=== PATIENT | male | born 1940 | race Caucasian/White ===

== ENCOUNTER 2020-09-17 17:31 | Emergency (ER) | payer MEDICARE, SELFPAY ==
[2020-09-17] VITALS (15 sets, daily range): BP systolic 100–194; BP diastolic 45–97; PULSE 75–131; RESP 13–26; TEMP 36.6; O2SAT 95–100; BMI 17.4
--- NOTE | 2020-09-17 18:37 | XRR_ITS ---
PROCEDURE INFORMATION: Exam: XR Chest, 1 View Exam date and time: 09/17/2020 6:56 PM Age: 80 years old Clinical indication: Prior surgery; Surgery date: 6+ months; Surgery type: Open heart; Patient HX: Loss of balance. Chest pain. HX of lymphoma; Additional info: Cp TECHNIQUE: Imaging protocol: XR of the chest Views: 1 view. 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 Benign calcified granulomatous disease is present in the right lung along with calcified right pulmonary hilar lymph nodes. No pneumonia is seen. Pleural space: Unremarkable. No pleural effusion. No pneumothorax. Heart/Mediastinum: The heart is not enlarged. There is calcification of the aorta. Bones/joints: The patient has undergone a mid sternotomy. XR/XR chest 1V portable [id number] IMPRESSION: 1. No acute abnormality. 2. Right upper lobe chronic fibrosis and benign calcified granulomatous disease.
--- NOTE | 2020-09-17 18:38 | ECG_ITS ---
[facility] Test Date: 2020-09-17 Pat Name: Rogelio Taylor Department: Room: Gender: Male Shaker Operator: : 1940 Requested By: Charity Mosley Order Number: [id number] Libra MD: Savi Walker M.D. Measurements Intervals [place] Rate: 114 P: 268 GA: 196 QRS: 81 QRSD: 90 T: 1 QT: 328 QTc: 453 Interpretive Statements ECTOPIC ATRIAL TACHYCARDIA WITH OCCASIONAL SUPRAVENTRICULAR PREMATURE COMPLEXES LEFT ATRIAL ENLARGEMENT [-0.15mV P WAVE IN V1/V2] ST DEVIATION AND MODERATE T-WAVE ABNORMALITY, CONSIDER ANTERIOR ISCHEMIA [-0.1+ mV T WAVE IN V3/V4] No previous ECG available for comparison Electronically Signed On 09-18-2020 23:44:00 TREE FARMER by Savi Walker M.D. [email or web address].[employer]/store/OM/[id number]
--- NOTE | 2020-09-17 19:06 | CTR_ITS ---
PROCEDURE INFORMATION: Exam: CT Head Without Contrast Exam date and time: 09/17/2020 7:28 PM Age: 80 years old Clinical indication: Dizziness; Additional info: Ataxi TECHNIQUE: Imaging protocol: Computed tomography of the head without contrast. Radiation optimization: All CT scans at this facility use at least one of these dose optimization techniques: automated exposure control; mA and/or kV adjustment per patient size (includes targeted exams where dose is matched to clinical indication); or iterative reconstruction. COMPARISON: No relevant prior studies available. RADIATION DOSE METRICS: Total DLP (mGy-cm): 815.92 FINDINGS: Brain: Mild parenchymal volume loss noted. There is decreased attenuation of the periventricular white matter, consistent with mild microangiopathic chronic white matter disease. No cerebellar mass demonstrated. Cerebral ventricles: No ventriculomegaly. Bones/joints: No fracture or other acute osseous abnormality. Paranasal sinuses: The paranasal sinuses, as demonstrated, appear clear. Mastoid air cells: The mastoid air cells are clear bilaterally. Soft tissues: The soft tissues appear unremarkable. CT/CT head wo con* [id number] IMPRESSION: 1. Chronic intracranial changes are present. 2. No acute intracranial abnormality is noted. Radiation Dose CTDIVOL = (mGy): DLP = 815.92 (mGy-cm)
--- NOTE | 2020-09-17 19:28 | W.ED.DIZZY ---
HPI - Dizziness General: Chief Complaint: Dizziness Stated Complaint: loss of balance/sent from [facility]/poss heart issues Time Seen by Provider: 09/17/20 18:49 Source: patient Mode of arrival: ambulatory Limitations: no limitations History of Present Illness: HPI Narrative: 80-year-old male states he has been having dizziness and difficulty walking over the last 2 days. He states he has had an ataxic gait. Patient here is in atrial flutter and denies any history that states he takes a baby aspirin and then is the only blood thinner he is on. He denies any headache. He denies any chest pain. He states he just had a hard time walking and dizziness. MD elicited complaint: dizziness and difficulty walking Associated symptoms: Denies chest pain, chills, nausea or vomiting Review of Systems Const: Denies: fever(s), chills, body aches or change in appetite Eyes: Denies: blurry vision or eye discomfort ENMT: Denies: throat pain or dental pain Card: Denies: chest pain Resp: Denies: dyspnea GI: Denies: abdominal pain, nausea, vomiting or diarrhea : Denies: dysuria Musc: Denies: neck pain or back pain Skin/Breast: Denies: rash Neuro: Reports: difficulty walking and dizziness Psych: Denies: depression Mode/Lymph: Denies: easy bruising All/Imm: Denies: urticaria Physical Exam Const: COMMON NORMALS: no acute distress, patient oriented x3, healthy appearing and alert ORIENTATION/CONSCIOUSNESS: Yes oriented to person, Yes oriented to place and Yes oriented to time HENMT: COMMON NORMALS: normocephalic and atraumatic HEAD & SCALP: normocephalic and atraumatic Eye: COMMON NORMALS: Equal, round and reactive pupils present and EOMs intact bilaterally PUPIL: Yes Equal, round and reactive pupils present Neck/C-Spine: COMMON NORMALS: full ROM and supple Chest: COMMONS NORMALS: normal inspection of the chest and normal palpation of entire chest wall Resp: COMMON NORMALS: normal respiratory effort, No retractions, No use of accessory muscles and clear to auscultation bilaterally AUSCULTATION: clear to auscultation bilaterally Cardio: COMMON NORMALS: regular rate, regular rhythm and No murmurs present (Cardio) RATE: regular rate RHYTHM: regular rhythm GI: COMMON NORMALS: Normal to inspection, nondistended, normoactive bowel sounds present, Soft to palpation, non-tender and no masses PALPATION: Yes Soft to palpation Extremity: COMMON NORMALS: normal to inspection and full ROM Neuro: COMMON NORMALS: patient oriented x3 and moves all extremities SENSORIUM/ORIENTATION: Yes alert, Yes oriented to person, Yes oriented to place and Yes oriented to time CRANIAL NERVES: Yes CN normal except as noted SPEECH: speech normal GAIT: Yes Ataxic gait present MOTOR EXAM: 5/5 motor strength present throughout Psych: COMMON NORMALS: mental status grossly normal, Normal thought process present and cooperative THOUGHT PROCESS: Normal thought process present Skin: COMMON NORMALS: no rashes or lesions noted and no wounds GENERAL SKIN EXAM: no rashes or lesions noted Course Vital Signs: Vital signs: Vital Signs Temperature 97.9 F 09/17/20 17:36 Pulse Rate 77 09/17/20 22:50 Respiratory Rate 18 09/17/20 22:50 Blood Pressure 100/58 09/17/20 22:50 Pulse Oximetry 100 09/17/20 22:50 MDM - Dizziness MDM Narrative: Medical decision making narrative: Patient presents with dizziness tachycardia since resolved. Patient was able to ambulate in the halls without any problems. He has no ataxia here. Patient's heart rate is improved to the 80s as well. Had a long discussion with him and offered him admission but he states he would rather go home and follow-up with his PCP. I did inform him of still worried he could have had a posterior stroke and would recommend admission. He states he feels fine and can walk without any problems would like to go home. I informed him needs to follow-up his PCP likely needs an outpatient MRI. He needs to return immediately if he has any return of his symptoms. He understands and agrees to the plan. Lab Data: Labs: Lab Results 09/17/20 09/17/20 09/17/20 Range/Units 19:35 20:00 20:00 WBC (4.0-10.0) 10^3/ uL RBC (4.1-5.3) 10^6/u L Hgb (11.7-16.6) g/dL Hct (42.0-52.0) % MCV (80-94) fL MCH (28.0-34.0) pg MCHC (30.0-36.0) g/dL RDW (12.1-15.1) % Plt Count (130-400) 10^3/c mm MPV (7.4-10.4) fL Neut % (Auto) % Lymph % (Auto) % [place] % (Auto) % Eos % (Auto) % Baso % (Auto) % Neut # (Auto) (1.8-7.7) 10^3/u L Lymph # (Auto) (0.8-4.8) 10^3/u L Paul[place] # (Auto) (0.2-0.9) 10^3/u L Eos # (Auto) (0.0-0.8) 10^3/u L Baso # (Auto) (0.0-0.1) 10^3/u L Nucleated RBC % (a uto) % Nucleated RBCs # /100WBC PT 14.20 (12.1-14.9) SECO NDS INR 1.07 (0.8-1.2) Sodium 138 (136-145) mmol/L Potassium 4.7 (3.5-5.1) mmol/L Chloride 99 (98-107) mmol/L Carbon Dioxide 29 (22-29) mmol/L Anion Gap 14.7 (5-19) BUN 31 H (8-23) mg/dL Creatinine 0.9 (0.7-1.2) mg/dL GFR Calculation Not Reportable Glucose 119 H (65-115) mg/dL Calculated Osmolal ity 294 (285-295) mOsm/k g Calcium 9.2 (8.5-10.5) mg/dL Total Bilirubin 0.4 (0.15-1.2) mg/dL AST 39 (0-40) U/L ALT 27 (0-41) U/L Alkaline Phosphata se 135 H (40-130) IU/L Troponin T Baselin e (0-15) ng/L Troponin T 120 Min azra (0-15) ng/L Delta Troponin T (0-10) ABS# Total Protein 7.5 (6.6-8.7) g/dL Albumin 4.1 (3.5-5.2) g/dL Globulin 3.4 (1.3-4.6) g/dL Urine Color Yellow (Yellow) Urine Appearance Clear (CLEAR) Urine pH 5 (5-7) Ur Specific Gravit y 1.015 (1.005-1.030) Urine Protein Neg (Negative) Urine Glucose (UA) Norm (Normal) Urine Ketones Negative (Negative) Urine Blood 2+ H (Negative) Urine Nitrate Negative (Negative) Urine Bilirubin Neg (Negative) Urine Urobilinogen Norm (Negative) mg/dL Ur Leukocyte Holly ase Negative (Negative) Urine RBC 0-4 H (0-2) /hpf Urine WBC None (0-5) /hpf Ur Squamous Epith Cells None (0-5) /hpf Ur Transition Epit h Cell None /hpf Ur Renal Epithelia l Cell None /hpf Amorphous Sediment Not Reportable Urine Bacteria Trace (NONE) /hpf 09/17/20 09/17/20 09/17/20 Range/Units 20:00 20:00 21:56 WBC 9.9 (4.0-10.0) 10^3/ uL RBC 4.48 (4.1-5.3) 10^6/u L Hgb 14.3 (11.7-16.6) g/dL Hct 44.6 (42.0-52.0) % MCV 99.6 H (80-94) fL MCH 31.9 (28.0-34.0) pg MCHC 32.1 (30.0-36.0) g/dL RDW 12.7 (12.1-15.1) % Plt Count 194 (130-400) 10^3/c mm MPV 10.0 (7.4-10.4) fL Neut % (Auto) 81.8 % Lymph % (Auto) 8.0 % Paul[place] % (Auto) 9.0 % Eos % (Auto) 0.5 % Baso % (Auto) 0.4 % Neut # (Auto) 8.11 H (1.8-7.7) 10^3/u L Lymph # (Auto) 0.8 (0.8-4.8) 10^3/u L Paul[place] # (Auto) 0.9 (0.2-0.9) 10^3/u L Eos # (Auto) 0.1 (0.0-0.8) 10^3/u L Baso # (Auto) 0.0 (0.0-0.1) 10^3/u L Nucleated RBC % (a uto) 0 % Nucleated RBCs # 0.0 /100WBC PT (12.1-14.9) SECO NDS INR (0.8-1.2) Sodium (136-145) mmol/L Potassium (3.5-5.1) mmol/L Chloride (98-107) mmol/L Carbon Dioxide (22-29) mmol/L Anion Gap (5-19) BUN (8-23) mg/dL Creatinine (0.7-1.2) mg/dL GFR Calculation Glucose (65-115) mg/dL Calculated Osmolal ity (285-295) mOsm/k g Calcium (8.5-10.5) mg/dL Total Bilirubin (0.15-1.2) mg/dL AST (0-40) U/L ALT (0-41) U/L Alkaline Phosphata se (40-130) IU/L Troponin T Baselin e 50 H (0-15) ng/L Troponin T 120 Min azra 50.39 H (0-15) ng/L Delta Troponin T 0.39 (0-10) ABS# Total Protein (6.6-8.7) g/dL Albumin (3.5-5.2) g/dL Globulin (1.3-4.6) g/dL Urine Color (Yellow) Urine Appearance (CLEAR) Urine pH (5-7) Ur Specific Gravit y (1.005-1.030) Urine Protein (Negative) Urine Glucose (UA) (Normal) Urine Ketones (Negative) Urine Blood (Negative) Urine Nitrate (Negative) Urine Bilirubin (Negative) Urine Urobilinogen (Negative) mg/dL Ur Leukocyte Holly ase (Negative) Urine RBC (0-2) /hpf Urine WBC (0-5) /hpf Ur Squamous Epith Cells (0-5) /hpf Ur Transition Epit h Cell /hpf Ur Renal Epithelia l Cell /hpf Amorphous Sediment Urine Bacteria (NONE) /hpf Imaging Data^: CXR: Attestation: I personally reviewed and interpreted this imaging study as follows: My impression: No acute abnormality CT Head: Attestation: I personally reviewed and interpreted this imaging study as follows: Radiologist's impression: [address] [address] [address] Scan Report Signed Patient: Rogelio Taylor Unit #: [id number] : 1940 Age/Sex: 80 / M ADM Date: 09/17/20 Loc: ER Room/Bed: Attending Dr: Ordering Provider/Ordering MD: Charity Mosley MD Date of Service: 09/17/20 Procedure(s): CT head wo con* [id number] Accession Number(s): [id number] Report Number: [id number] PROCEDURE INFORMATION: Exam: CT Head Without Contrast Exam date and time: 09/17/2020 7:28 PM Age: 80 years old Clinical indication: Dizziness; Additional info: Ataxi TECHNIQUE: Imaging protocol: Computed tomography of the head without contrast. Radiation optimization: All CT scans at this facility use at least one of these dose optimization techniques: automated exposure control; mA and/or kV adjustment per patient size (includes targeted exams where dose is matched to clinical indication); or iterative reconstruction. COMPARISON: No relevant prior studies available. RADIATION DOSE METRICS: Total DLP (mGy-cm): 815.92 FINDINGS: Brain: Mild parenchymal volume loss noted. There is decreased attenuation of the periventricular white matter, consistent with mild microangiopathic chronic white matter disease. No cerebellar mass demonstrated. Cerebral ventricles: No ventriculomegaly. Bones/joints: No fracture or other acute osseous abnormality. Paranasal sinuses: The paranasal sinuses, as demonstrated, appear clear. Mastoid air cells: The mastoid air cells are clear bilaterally. Soft tissues: The soft tissues appear unremarkable. CT/CT head wo con* [id number] IMPRESSION: 1. Chronic intracranial changes are present. 2. No acute intracranial abnormality is noted. EKG Data^: EKG 1: Attestation: I personally reviewed and interpreted this EKG as follows: EKG interpretation date: 09/17/20 EKG interpretation time: 23:46 Interpretation: Atrial flutter heart rate [address] or T wave abnormalities QRS 84 QTc 359 EKG 2: Attestation: I personally reviewed and interpreted this EKG as follows: EKG interpretation date: 09/17/20 EKG interpretation time: 20:19 Interpretation: atrial tach hr [address] or t wave abnormalities Discharge Plan Discharge Patient Disposition: Home Clinical Impression: Tachycardia, Ataxia Condition: Stable Discharge Orders: Discharge ED (Routine); Ordered 09/17/20 Ordered By: Charity Mosley Referrals: Bryant Mendieta MD [Primary Care Provider] - 1-3 days Discharge Diet: Advance as tolerated Discharge Activity: Resume usual activity Patient Instructions: Weakness (ED) Coding Level of Care Code ED Cleaner And Presser for Chg Fwd Exam Comprehensive
[2020-09-17 20:17] LABS: Basophils % 0.4 %; Eosinophils # 0.1 10^3/uL (0.0-0.8); Eosinophils % 0.5 %; Hematocrit 44.6 % (42.0-52.0); Hemoglobin 14.3 g/dL (11.7-16.6); Lymphocytes # 0.8 10^3/uL (0.8-4.8); Mean Corpuscular HGB Conc 32.1 g/dL (30.0-36.0); Mean Corpuscular Hemoglobin 31.9 pg (28.0-34.0); Mean Corpuscular Volume 99.6 fL (80-94); Monocytes # 0.9 10^3/uL (0.2-0.9); Neutrophils # 8.11 10^3/uL (1.8-7.7); Neutrophils % 81.8 %; Nucleated Red Blood Cells % 0 %; Platelet Count 194 10^3/cmm (130-400); Red Blood Count 4.48 10^6/uL (4.1-5.3); Red Cell Distribution Width 12.7 % (12.1-15.1); White Blood Count 9.9 10^3/uL (4.0-10.0)
[2020-09-17 20:21] LABS: INR 1.07 (0.8-1.2)
[2020-09-17 20:24] LABS: Glucose Urine UA Norm (Normal); Protein Urine Neg (Negative); Specific Gravity, Urine 1.015 (1.005-1.030); Urine Appearance Clear (CLEAR); Urine Color Yellow (Yellow); pH Urine 5 (5-7)
[2020-09-17 20:25] LABS: Add Urine Microscopic? YES; Bilirubin Urine Neg (Negative); Blood Urine 2+ (Negative); Ketones Urine Negative (Negative); Leukocyte Esterase Urine Negative (Negative); Nitrate Urine Negative (Negative); Urobilinogen Urine Norm (Negative)
[2020-09-17 20:30] LABS: Alanine Aminotransferase 27 U/L (0-41); Albumin Level 4.1 g/dL (3.5-5.2); Alkaline Phosphatase 135 IU/L (40-130); Anion Gap 14.7 (5-19); Aspartate Amino Transferase 39 U/L (0-40); Blood Urea Nitrogen 31 mg/dL (8-23); Calcium 9.2 mg/dL (8.5-10.5); Carbon Dioxide 29 mmol/L (22-29); Chloride 99 mmol/L (98-107); Globulin 3.4 g/dL (1.3-4.6); Glucose 119 mg/dL (65-115); Osmolality Calculated 294 mOsm/kg (285-295); Potassium 4.7 mmol/L (3.5-5.1); Sodium 138 mmol/L (136-145); Total Bilirubin 0.4 mg/dL (0.15-1.2); Total Protein 7.5 g/dL (6.6-8.7)
[2020-09-17 20:34] LABS: Troponin(5th) Baseline 50 ng/L (0-15)
[2020-09-17 20:41] LABS: RBC Urine 0-4 /hpf (0-2)
[2020-09-17 20:42] LABS: Add Urine Culture? No; Bacteria Urine TRACE /hpf
[2020-09-17 22:24] LABS: Troponin 5 2HR 50.39 ng/L (0-15); Troponin 5 2HR Delta 0.39 ABS# (0-10)
== END 2020-09-17 22:51 | disposition home or self-care (01) ==
PROVIDERS: Emergency Provider Emergency Medicine; PCP Family Medicine
DX: R00.0 Tachycardia, unspecified (principal); R27.0 Ataxia, unspecified; R07.9 Chest pain, unspecified
CPT/HCPCS: 12345; 70450; 71045; 80053; 81001; 84484; 85025; 85610; 93005; 96374; 99283; 99284; J3490

== ENCOUNTER 2020-09-20 04:31 | Observation (INO) | payer MEDICARE, SELFPAY ==
[2020-09-20] VITALS (13 sets, daily range): BP systolic 106–154; BP diastolic 50–98; PULSE 50–119; RESP 15–25; TEMP 36.3–37.1; O2SAT 92–99; BMI 17.4
--- NOTE | 2020-09-20 04:40 | CTR_ITS ---
PROCEDURE INFORMATION: Exam: CT Head Without Contrast Exam date and time: 09/20/2020 4:42 AM Age: 80 years old Clinical indication: Walking, difficulty; Patient HX: Persistent leg weakness and walking difficulty x 1 week; Additional info: Ataxia TECHNIQUE: Imaging protocol: Computed tomography of the head without contrast. Radiation optimization: All CT scans at this facility use at least one of these dose optimization techniques: automated exposure control; mA and/or kV adjustment per patient size (includes targeted exams where dose is matched to clinical indication); or iterative reconstruction. Other technique: STROKE PROTOCOL was implemented. COMPARISON: CT head wo con* [id number] 09/17/2020 7:29 PM RADIATION DOSE METRICS: Total DLP (mGy-cm): 776.38 FINDINGS: Brain: Augustin white matter distinction is maintained throughout the brain. No radiographic evidence of intracranial hemorrhage. No CT evidence of mass hemorrhage or acute infarction. Cerebral ventricles: Ventricles are of normal size and configuration. Bones/joints: Unremarkable. No acute fracture. Paranasal sinuses: Visualized sinuses are unremarkable. No fluid levels. Mastoid air cells: Visualized mastoid air cells are well aerated. Soft tissues: Unremarkable. Other findings: No intra or extra-axial masses, lesions or collections. CT/CT head wo con* [id number] IMPRESSION: No acute intracranial process is appreciated. ASSESSMENT: ASPECTS (Sravani Stroke Program Early CT Score) is 10. Radiation Dose CTDIVOL = (mGy): DLP = 776.38 (mGy-cm)
--- NOTE | 2020-09-20 04:40 | XR_ITS ---
WS: [id number] Exam: XR chest 1V portable [id number] Date/Time of Exam: 09/20/2020 4:43 AM Reason For Exam: cp Comparison 09/17/2020. The lungs are hyperinflated and clear. Fibrous scarring in the bilateral upper lobes. Heart size is n ormal for technique. Signs of previous median sternotomy. No significant change. Postoperative change of the distal left clavicle. XR/XR chest 1V portable [id number] IMPRESSION: 1. No acute cardiopulmonary finding. No change.
--- NOTE | 2020-09-20 04:41 | ECG_ITS ---
[facility] Test Date: 2020-09-20 Pat Name: Rogelio Taylor Department: Room: 107 Gender: Male Nuclear Medical Technologist: : 1940 Requested By: Charity Mosley Order Number: [id number] Smyth MD: Esteban Navarro M.D. Measurements Intervals [place] Rate: 115 P: CO: QRS: 72 QRSD: 94 T: 29 QT: 314 QTc: 435 Interpretive Statements ATRIAL FLUTTER/TACHYCARDIA WITH RAPID VENTRICULAR RESPONSE NONSPECIFIC ST & T-WAVE ABNORMALITY ABNORMAL RHYTHM ECG Compared to ECG 09/17/2020 20:19:56 Atrial abnormality no longer present Possible ischemia no longer present T-wave abnormality still present Electronically Signed On 09-20-2020 15:04:22 CONFIGURATION RELEASE MANAGER by Esteban Navarro M.D. [email or web address].[employer]/store/NU/[id number] f
--- NOTE | 2020-09-20 04:58 | ED_ITS ---
HPI - Weakness General: Chief complaint: Weakness Stated complaint: unsteady, claims heart issue Time Seen by Provider: 09/20/20 04:42 Source: patient Mode of arrival: ambulatory Limitations: no limitations History of Present Illness: HPI Narrative: 80-year-old male he states that he had difficulty walking over the last week. He states that improved but he still is having some difficulty walking. Patient states that he had increased blood pressure along with tachycardia tonight. He was seen recently and was in atrial flutter that converted. He denies any fevers. He denies any headache. Associated symptoms: Denies chills, dysuria, easy bruising, fever(s), nausea or vomiting Review of Systems Const: Denies: fever(s), chills, body aches or change in appetite Eyes: Denies: blurry vision or eye discomfort ENMT: Denies: throat pain or dental pain Card: Reports: palpitations Resp: Denies: dyspnea GI: Denies: abdominal pain, nausea, vomiting or diarrhea : Denies: dysuria Musc: Denies: neck pain or back pain Skin/Breast: Denies: rash Neuro: Reports: difficulty walking Psych: Denies: depression Mode/Lymph: Denies: easy bruising All/Imm: Denies: urticaria PFSH ED PFSH: Medical History (Updated 09/20/20 @ 05:39 by Melody Day MD) BPH (benign prostatic hyperplasia) Coronary artery disease Dyslipidemia Lymphoma Raynauds phenomenon Surgical History (Updated 09/20/20 @ 05:39 by Melody Day MD) H/O hernia repair Hx of CABG Hx of tonsillectomy Family History (Updated 09/20/20 @ 05:40 by Melody Day MD) Other Family history non-contributory Physical Exam Const: COMMON NORMALS: no acute distress, patient oriented x3 and healthy appearing HENMT: COMMON NORMALS: normocephalic and atraumatic HEAD & SCALP: normocephalic and atraumatic Eye: COMMON NORMALS: Equal, round and reactive pupils present and EOMs intact bilaterally PUPIL: Yes Equal, round and reactive pupils present Neck/C-Spine: COMMON NORMALS: full ROM and supple Chest: COMMONS NORMALS: normal inspection of the chest and normal palpation of entire chest wall Resp: COMMON NORMALS: normal respiratory effort, No retractions, No use of accessory muscles and clear to auscultation bilaterally AUSCULTATION: clear to auscultation bilaterally Cardio: COMMON NORMALS: regular rhythm and No murmurs present (Cardio) RATE: tachycardic RHYTHM: regular rhythm GI: COMMON NORMALS: Normal to inspection, nondistended, normoactive bowel sounds present, Soft to palpation, non-tender and no masses PALPATION: Yes Soft to palpation Extremity: COMMON NORMALS: normal to inspection and full ROM Neuro: COMMON NORMALS: patient oriented x3, moves all extremities and no focal motor deficits Psych: COMMON NORMALS: mental status grossly normal, Normal thought process present and cooperative THOUGHT PROCESS: Normal thought process present Skin: COMMON NORMALS: no rashes or lesions noted and no wounds GENERAL SKIN EXAM: no rashes or lesions noted Course Vital Signs: Vital signs: Vital Signs Temperature 97.4 F L 09/20/20 04:35 Pulse Rate 110 H 09/20/20 05:11 Respiratory Rate 22 H 09/20/20 05:11 Blood Pressure 149/50 09/20/20 05:11 Pulse Oximetry 99 09/20/20 05:11 MDM - Weakness MDM Narrative: Medical decision making narrative: Patient presents here with atrial flutter. He was seen here earlier this week and had converted but is back in the flutter. He had some difficulty walking before that he states is mainly resolved but still has some slight difficulty walking. Still concerned of a possible posterior stroke. He was offered admission last time but this time he is decided to stay. We will admit him for observation. Lab Data: Labs: Lab Results 09/20/20 09/20/20 Range/Units 05:00 05:00 WBC 6.6 (4.0-10.0) 10^3/ uL RBC 4.71 (4.1-5.3) 10^6/u L Hgb 15.3 (11.7-16.6) g/dL Hct 51.6 (42.0-52.0) % MCV 109.6 H (80-94) fL MCH 32.5 (28.0-34.0) pg MCHC 29.7 L (30.0-36.0) g/dL RDW 14.0 (12.1-15.1) % Plt Count 195 (130-400) 10^3/c mm MPV 9.5 (7.4-10.4) fL Neut % (Auto) 55.2 % Lymph % (Auto) 22.7 % Reynolds % (Auto) 16.2 % Eos % (Auto) 4.2 % Baso % (Auto) 1.4 % Neut # (Auto) 3.66 (1.8-7.7) 10^3/u L Lymph # (Auto) 1.5 (0.8-4.8) 10^3/u L Reynolds # (Auto) 1.1 H (0.2-0.9) 10^3/u L Eos # (Auto) 0.3 (0.0-0.8) 10^3/u L Baso # (Auto) 0.1 (0.0-0.1) 10^3/u L Nucleated RBC % (a uto) 0 % Nucleated RBCs # 0.0 /100WBC Sodium 137 (136-145) mmol/L Chloride 101 (98-107) mmol/L Carbon Dioxide 26 (22-29) mmol/L Creatinine 1.1 (0.7-1.2) mg/dL GFR Calculation Not Reportable Glucose 95 (65-115) mg/dL Calculated Osmolal ity 292 (285-295) mOsm/k g Calcium 9.0 (8.5-10.5) mg/dL Total Bilirubin 0.4 (0.15-1.2) mg/dL Total Protein 8.1 (6.6-8.7) g/dL Albumin 4.3 (3.5-5.2) g/dL Globulin 3.8 (1.3-4.6) g/dL Imaging Data^: CXR: Attestation: I personally reviewed and interpreted this imaging study as follows: My impression: No acute abnormality EKG Data^: EKG 1: Attestation: I personally reviewed and interpreted this EKG as follows: EKG interpretation date: 09/20/20 EKG interpretation time: 04:55 Interpretation: atrial flutter hr [address] or t wave abnormalities qrs 94 qtc 382 Discharge Plan Discharge Patient Disposition: Admitted As Inpatient Clinical Impression: Atrial flutter Condition: Stable Coding Level of Care Code ED Hydraulic Miner Blasting for Chg Fwd Exam Comprehensive
[2020-09-20 05:19] LABS: Basophils # 0.1 10^3/uL (0.0-0.1); Basophils % 1.4 %; Eosinophils # 0.3 10^3/uL (0.0-0.8); Eosinophils % 4.2 %; Hematocrit 51.6 % (42.0-52.0); Hemoglobin 15.3 g/dL (11.7-16.6); Lymphocytes # 1.5 10^3/uL (0.8-4.8); Lymphocytes % 22.7 %; Mean Corpuscular HGB Conc 29.7 g/dL (30.0-36.0); Mean Corpuscular Hemoglobin 32.5 pg (28.0-34.0); Mean Corpuscular Volume 109.6 fL (80-94); Mean Platelet Volume 9.5 fL (7.4-10.4); Monocytes # 1.1 10^3/uL (0.2-0.9); Monocytes % 16.2 %; Neutrophils # 3.66 10^3/uL (1.8-7.7); Neutrophils % 55.2 %; Nucleated Red Blood Cells % 0 %; Platelet Count 195 10^3/cmm (130-400); Red Blood Count 4.71 10^6/uL (4.1-5.3); White Blood Count 6.6 10^3/uL (4.0-10.0)
--- NOTE | 2020-09-20 05:38 | P.HP_ITS ---
Providers/Chief Complaint Primary Care Provider: Bryant Mendieta MD Chief Complaint: unsteady, claims heart issue History of Present Illness Rogelio Taylor is a 80 year old male who has history of lymphoma status post treatment and radiotherapy, CABG, presented today with chief complaint of ataxia. Patient was seen in the ER 3 nights ago when he was diagnosed with hypertensive urgency and atrial flutter, he converted to sinus rhythm after Cardizem push, he was discharged home and was asked to follow-up with PCP. His PCP started him on metoprolol succinate. Today around 3:30 AM when he got up to go to the bathroom his gait was very off he is describing his gait as being locked and not able to initiate. He knew something was off, checked his pressure, blood pressure 135/112 mmhg but he is not sure about the heart rate. He was brought to the hospital for further evaluation. He Is denying recent falls, fever, myalgias facial droop, vision changes, neck pain, fever or headache, urinary incontinence, confusion. Diagnostics in the ER revealed atrial tachycardia, he received 10 mg Cardizem IV push which did not convert his rhythm this time CT head unremarkable for acute Baseline troponin 38, I do not have BMP at 4 magnesium level, I would request magnesium and TSH level When I evaluated the patient his heart rate was 70 and regular rhythm, blood pressure 106/50mmhg Romberg sign negative, he was able to walk without any difficulty Review of Systems Const: Denies: fever(s) or chills Eyes: Denies: change in vision ENMT: Denies: throat pain Card: Denies: chest pain Resp: Denies: dyspnea GI: Denies: abdominal pain : Denies: flank pain Musc: Denies: neck pain Skin/Breast: Denies: rash Neuro: Reports: difficulty walking; Denies: headache(s), frequent falls, dizziness, vertigo or confusion Psych: Denies: anxiety Endo: Denies: polyuria Mode/Lymph: Reports: easy bruising and easy bleeding All/Imm: Denies: urticaria Medications/Allergies Home Medications Medication Instructions Recorded Confirmed Last Taken Type metoprolol succinate 25 mg PO DAILY 09/20/20 09/20/20 09/19/20 08:00 History rosuvastatin 20 mg PO DAILY 09/20/20 09/20/20 09/19/20 08:00 History Allergies Allergy/AdvReac Type Severity Reaction Status Date / Time Penicillins Allergy ALGY-Rash Verified 09/17/20 17:40 ramipril [From Altace] Allergy ALGY-Swell Verified 09/20/20 04:42 Lip/Tongue/Throat PFSH Acute PFSH: Medical History (Updated 09/20/20 @ 05:39 by Melody Day MD) BPH (benign prostatic hyperplasia) Coronary artery disease Dyslipidemia Lymphoma Raynauds phenomenon Surgical History (Updated 09/20/20 @ 05:39 by Melody Day MD) H/O hernia repair Hx of CABG Hx of tonsillectomy Family History (Updated 09/20/20 @ 06:47 by Melody Day MD) Mother Cancer Leukemia Social History (Updated 09/20/20 @ 06:47 by Melody Day MD) Smoking and tobacco status: never smoked Alcohol intake: never Substance/Drug Use: never Lives independently: Yes Housing: House Vitals/I&O/Wt Last Vital Signs Temp 97.4 F L 09/20/20 04:35 Pulse 110 H 09/20/20 05:11 Resp 22 H 09/20/20 05:11 BP 149/50 09/20/20 05:11 Pulse Ox 99 09/20/20 05:11 Weight last 48 hrs Weight 52.163 kg Physical Exam Narrative: EXAM NARRATIVE: elderly male Sitting at the bedside without any active discomfort His gait was tested which was normal no Parkinson's features were noticed at the time of my evaluation, Romberg sign negative, no lightheadedness or orthostasis noted Decreased muscle mass otherwise no active neurological deficit No gaze preference Awake alert oriented x3 GCS 15 EOMI, PERRLA No cerebellar signs noted S1, S2 variable heart rate fluctuate between 70-1 10 Bilateral breath sounds without active rhonchi or crackles Abdomen soft nontender bowel sound present Lower extremity no edema gangrene ulcer Appropriate mood and affect Skin has mild petechial rash No gaze preference Data : 09/20/20 05:00 09/20/20 05:00 A&P Assessment and plan (1) Atrial flutter: Status: Acute (2) Ataxia: Status: Acute Additional A&P Information Paroxysmal atrial flutter Current heart rate fluctuating between 70-1 10 I will start him on Metroprolol tartrate twice a day regimen Check magnesium and TSH level Requested BMP I will start him on Eliquis for paroxysmal A. flutter chadvasc 4 EKGs reading as ectopic atrial tachycardia, his lung does show signs of pneumoconiosis versus radiation-induced fibrosis, he is a non-smoker, he is also showing paroxysmal atrial flutter pattern on telemetry, will review serial EKGs and troponin, no active chest pain Ataxia No confusion no urinary incontinence, no signs of enlarged ventricles on CT scan Romberg sign negative Cerebellar signs negative No signs of Parkinson's during my evaluation I am not sure whether osteoarthritis of hip is playing a role for ataxia at this point Is not complaining of any nausea or vomiting Considering paroxysmal atrial flutter would like to rule out acute posterior circulation stroke, would request MRI Physical therapy evaluation Cardiac diet DVT prophylaxis not needed currently on Eliquis Full code Attestations Medical Necessity Statement*: Anticipating discharge in less than 48 hours, currently need evaluation for paroxysmal A. fib and recurrent ataxia Time Spent in Patient Care: (>than 50% of time spent in counselling and/or direct pt care on unit) . 50mins Coding Level of Care Code Acute Plastic Cutter for Tommyg Fwd Diagnoses Atrial flutter I48.92 Ataxia R27.0
[2020-09-20 05:49] LABS: Troponin(5th) Baseline 38 ng/L (0-15)
--- NOTE | 2020-09-20 06:44 | PC.NURSE ---
Patient received from ED via wheelchair. Patient able to ambulate to bed without difficulty. Placed telemetry patient. Noted patient to be in slow afib with rate from 40 to mid 60s. Patient denies any discomforts presently. Patient has pulse oximeter to left pinky. Patient stated, my hands have to warm before is will get a good reading. I have Raynaud's. Reports history of Lymphoma with chemo and radiation treatments in 1984. Reported history of triple bypass . Uncertain about exact date but stated, a long time ago. Patient reports walking 5 miles per day and used to be an avid runner. Admission complete as documented.
--- NOTE | 2020-09-20 06:51 | PC.NURSE ---
i have reviewed the chart
[2020-09-20 07:20] LABS: D Dimer 0.91 ug/mIFEU (0-0.59)
[2020-09-20 07:47] LABS: Alanine Aminotransferase 34 U/L (0-41); Albumin Level 3.5 g/dL (3.5-5.2); Alkaline Phosphatase 120 IU/L (40-130); Aspartate Amino Transferase 52 U/L (0-40); Blood Urea Nitrogen 31 mg/dL (8-23); Calcium 8.8 mg/dL (8.5-10.5); Carbon Dioxide 29 mmol/L (22-29); Chloride 102 mmol/L (98-107); Glucose 102 mg/dL (65-115); Osmolality Calculated 293 mOsm/kg (285-295); Sodium 138 mmol/L (136-145); Thyroid Stimulating Hormone 2.46 uIU/mL (0.27-4.20); Total Bilirubin 0.3 mg/dL (0.15-1.2); Total Protein 6.5 g/dL (6.6-8.7); Vitamin B12 385 pg/mL (232-1245)
--- NOTE | 2020-09-20 07:49 | USCV_ITS ---
Rogelio Taylor Age: 80 Gender: M : 1940 Exam Date: 09/20/2020 07:53 Ordering Phys: Bronson Don MD Technologist: Debbie Smith [place] [facility] [place]: NSTEMI BP: 122 / 71 HR: 69 Rhythm: Sinus Technical Quality: Adequate MEASUREMENTS (Male / Female) Normal Values 2D ECHO LV Diastolic Diameter PLAX 3.9 cm 4.2 - 5.9 / 3.9 - 5.3 cm LV Systolic Diameter PLAX 2.7 cm LV Chamber Size 2.8 cm IVS Diastolic Thickness 0.7 cm 0.6 - 1.0 / 0.6 - 0.9 cm IVS Systolic Thickness 1.1 cm LVPW Diastolic Thickness 1.7 cm 0.6 - 1.0 / 0.6 - 0.9 cm LVPW Systolic Thickness 1.6 cm RV Chamber Size 2.7 cm LVOT Diameter 2.0 cm LV Ejection Fraction 2D Teich 60.1 % LV Ejection Fraction MOD 2C 47.6 % LV Ejection Fraction 2C AL 48.6 % LA Diameter 2.6 cm LA Width 3.6 cm LA Height 3.1 cm RA Width 3.5 cm RA Height 3.5 cm Aorta at Sinotubular Diameter 3.0 cm M-MODE LV Diastolic Diameter MM 4.8 cm 4.2 - 5.9 / 3.9 - 5.3 cm LV Systolic Diameter MM 4.0 cm LV Ejection Fraction MM Teich 36.9 % IVS Diastolic Thickness MM 0.7 cm 0.6 - 1.0 / 0.6 - 0.9 cm IVS Systolic Thickness MM 0.8 cm LVPW Diastolic Thickness MM 0.9 cm 0.6 - 1.0 / 0.6 - 0.9 cm LVPW Systolic Thickness MM 0.9 cm Aortic Annulus Diameter 3.4 cm LA Ao Ratio MM 0.6 MV E Point Septal Separation 2.7 cm DOPPLER AV Peak Velocity 225.3 cm/s LVOT Peak Velocity 87.0 cm/s AV Area Cont Eq vti 1.1 cm squared AV Area Cont Eq pk 1.3 cm squared MV Area PHT 2.3 cm squared Mitral E to A Ratio 211.0 MV E' Velocity 87.5 cm/s Mitral E to MV E' Ratio 21.6 Mitral E to LV E' Lateral Ratio 27.7 Mitral E to LV E' Septal Ratio 17.8 TR Peak Velocity 354.7 cm/s TR Peak Gradient 50.3 mmHg TR Mean Velocity 278.2 cm/s TR Mean Gradient 33.9 mmHg TR Velocity Time Integral 142.9 cm TV Peak E Velocity 33.0 cm/s Right Atrial Pressure 3.0 mmHg Pulmonary Artery Systolic Pressu 53.3 mmHg PV Peak Velocity 78.0 cm/s RV Acceleration Time 0.1 s RV Ejection Time 0.3 s RV AcT/ET 0.4 FINDINGS Left Ventricle Normal left ventricular size and borderline normal LV systolic function. LVEF is 50 to 55%. There is very mild hypokinesis of anterior wall.. Moderate left ventricular hypertrophy is noted. Diastolic function is indeterminate because of atrial fibrillation. Right Ventricle The right ventricle is normal in size and function. Right Atrium The right atrium is normal in size. Left Atrium The left atrium is normal in size. Mitral Valve Valve is thickened. No significant mitral stenosis is present. There is mild to moderate mitral regurgitation. Aortic Valve Aortic valve is thickened and calcified. There is mild aortic stenosis with a mean gradient across the valve of 10 mmHg and aortic valve area of 1.18 cm squared. There is mild aortic regurgitation. Tricuspid Valve Structurally normal tricuspid valve without significant stenosis. There is mild to moderate tricuspid regurgitation. RVSP is 55 mmHg. This is consistent with moderate pulmonary hypertension. Pulmonic Valve Grossly normal. Mild pulmonic regurgitation is seen. Pericardium Normal pericardium without effusion. Aorta Normal ascending aorta dimension. CONCLUSIONS LV systolic function is borderline normal with EF of 50 to 55%. Moderate left ventricular hypertrophy is present. Diastolic function is indeterminate because of atrial fibrillation. There is mild to moderate mitral regurgitation. Moderate tricuspid regurgitation is present. There is moderate pulmonary hypertension. Pulmonic valve has mild regurgitation. When compared to prior study from 11/24/2018, no significant changes are seen. Esteban Navarro MD (Electronically Signed) Final Date: 20 September 2020 13:39 S
--- NOTE | 2020-09-20 07:49 | USCV_ITS ---
Rogelio Taylor Age: 80 Gender: M : 1940 Exam Date: 09/20/2020 08:08 Ordering Phys: Bronson Don MD Technologist: Debbie Smith Exam Location: [facility] – [place] Indication: NSTEMI Risk Factors: Previous Vascular Surgery: Right Brachial BP: / Left Brachial BP: / Right Left Velocity (cm/s) Spectral Plaque Velocity (cm/s) Spectral Plaque Syst/Diast Broadening Syst/Diast Broadening 49.00/ 9.40 Prox CCA 37.70 / 8.30 46.10/ 7.70 Mid CCA 53.50 / 12.10 48.50/ 10.80 Distal CCA 40.00 / 9.80 52.40/ 10.70 Prox ICA 40.00 / 19.60 32.40/ 9.80 Mid ICA 47.80 / 12.00 48.30/ 18.90 Distal ICA 43.60 / 13.20 104.30 ECA 79.20 1.14 ICA/CCA 0.89 Antegrade Vertebral Antegrade 59.60/ 14.30 cm/s 10.80/ 1.70 cm/s Tri Subclavian Tri 54.30 51.10 CONCLUSIONS Right ICA stenosis <50%. Mild atheromatous plaque right carotid bulb/ICA. Left ICA stenosis <50%. Mild atheromatous plaque left carotid bulb/ICA. Normal antegrade Doppler flow noted in the right vertebral artery. Normal antegrade Doppler flow noted in the left vertebral artery. Tony Blue MD (Electronically Signed) Final Date: 20 September 2020 18:16 S
[2020-09-20 08:01] LABS: Anion Gap 11.9 (5-19); Potassium 4.9 mmol/L (3.5-5.1)
--- NOTE | 2020-09-20 08:26 | MR_ITS ---
WS: [id number] MRA HEAD TECHNIQUE: Axial 3-D TOF images obtained with axial images and axial, sagittal, and coronal 2-D refor matted images. CLINICAL INFORMATION: ataxia COMPARISON: None. FINDINGS: Distal vertebral arteries are patent. Basilar artery is patent. Normal vascularity to the DRAGLINE ENGINEER territo ry bilaterally. Both ICAs are patent at the skull base. Tortuous cavernous carotid arteries. Moderate to severe steno sis left supraclinoid ICA. Distal vessels remains patent. Normal vascularity to the LACHELLE and MCA brigido tories bilaterally. Otherwise unremarkable intracranial MRa. MR/MR angio head wo con [id number] IMPRESSION: 1. 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 Distal vessels remains p atent. 2. Otherwise unremarkable intracranial MRa.
[2020-09-20] MEDS: atorvastatin 40 mg Tablet 80 MG PO (08:55)
[2020-09-20] MEDS: apixaban 5 mg Tablet PO ×2 (08:55→17:28)
[2020-09-20] MEDS: aspirin 81 mg EC Tablet PO (08:55)
[2020-09-20] MEDS: metoprolol tartrate 50 mg Tablet PO (08:55)
--- NOTE | 2020-09-20 10:07 | PC.NURSE ---
patient transported to MRI.
--- NOTE | 2020-09-20 10:15 | MR_ITS ---
WS: [id number] MRI HEAD WITHOUT CONTRAST TECHNIQUE: Sagittal T1, T2 axial, T2 axial FLAIR, axial and coronal T1 images, axial susceptibility w eighted imaging, axial diffusion weighted images, and coronal T2 images were obtained. CLINICAL INFORMATION: ataxia COMPARISON: None. FINDINGS: No evidence of restricted diffusion to suggest acute ischemia. Ventricular system and basal cisterns are patent. Mild small vessel changes. Moderate parenchymal volume loss. Normal posterior fossa. Norm al vascular flow voids at the skull base. No extra-axial fluid collections. No evidence of mass or ma ss effect. Paranasal sinuses and mastoid air cells well aerated. No hemosiderin on susceptibly weighted images. Mild symmetric atrophy temporal lobes hippocampal form ations. Normal optic chiasm and pituitary infundibulum. MR/MR head wo con* [id number] IMPRESSION: 1. No evidence of restricted diffusion to suggest acute ischemia. 2. Mild small vessel changes. Moderate parenchymal volume loss. 3. Normal posterior fossa. Normal vascular flow voids at the skull base. 4. No hemosiderin on the susceptibly weighted images. 5. Mild symmetric atrophy temporal lobes and hippocampal formations.
--- NOTE | 2020-09-20 10:41 | ECG_ITS ---
[facility] Test Date: 2020-09-20 Pat Name: Rogelio Taylor Department: Room: 107 Gender: Male Touch Up Edger: : 1940 Requested By: Charity Mosley Order Number: [id number] Libra MD: Esteban Navarro M.D. Measurements Intervals [place] Rate: 116 P: MO: QRS: 81 QRSD: 80 T: 59 QT: 298 QTc: 414 Interpretive Statements ATRIAL FLUTTER/TACHYCARDIA WITH RAPID VENTRICULAR RESPONSE NONSPECIFIC ST & T-WAVE ABNORMALITY ABNORMAL RHYTHM ECG Compared to ECG 09/20/2020 04:55:53 No significant changes Electronically Signed On 09-20-2020 15:09:27 EMS EDUCATOR by Esteban Navarro M.D. [email or web address]
--- NOTE | 2020-09-20 11:00 | PC.CHAP ---
Pastoral Care Encounter/Spiritual Assessment Type of Contact [x] Declined caregiver services home visit [] Patient/Family/Request visit [] Outpatient visit [] Follow-up visit [] Physician referral [] Code/Alert [] Routine visit [] Staff referral [] Actively dying [] Patient sleeping [] Family support [] [] Out of room [] Palliative care [] [] Receiving care in room [] Pre-surgical visit [] Trauma [] Long length of stay [] ICU visit [] Other: Relational/Emotional Strength [] Patient feels connected with others/family/visitors/staff [] Distress [] Loneliness/isolation [] Abandonment Spirituality of Patient [] Person of Tomasa [] Attends Islam of their Tomasa [] Believes in Prayer [] Reads Bible or Anglican materials [] There are Spiritual issues to be addressed [place]icker Interventions [] Prayer [] Active listening [] Non-anxious presence [] Spiritual/emotional support [] Crisis/trauma care [] Spiritual counseling [] Bereavement support [] Provided bereavement packet [] Provided Bible/devotional materials [] Provided toy/stuffed animal, coloring book to patient or family member [] Provided Communion [] Anointing/[place] [] Salvation [] Completed spiritual assessment [] Other: Impact on Illness or Injury [] Angry [] Fearful [] Anxious [] Often cries [] Exhaustion [] Unable to work [] Unable to attend episcopalian [] Unable to walk/stand [] Unable to read [] Unable to drive [] Unable to eat/drink [] Unable to sleep [] Unable to be with family [] Patient intubated [] Other: Summary Declined caregiver services home visit Time spent with patient 5 mins
[2020-09-20 12:10] LABS: Troponin 5 6HR 46.65 ng/L (0-15); Troponin 5 6HR Delta 8.65 ng/L (0-12)
--- NOTE | 2020-09-20 12:10 | PM.PN ---
Subjective Subjective: Interval history: Patient tells me that he is here in the hospital, because his legs felt heavy, and he had trouble coordinating his feet, this is never happened before, no history of back injuries, no paresthesias, does have Raynaud's phenomenon, no focal neurologic deficits currently, no slurring of speech, no facial droop, I did observe patient ambulating hallways with physical therapy, he is unsteady on his feet, does have positive cerebellar signs Vitals/I&O/Wt Last Vital Signs Temp 98.8 F 09/20/20 11:23 Pulse 119 H 09/20/20 11:23 Resp 15 09/20/20 11:23 BP 126/86 09/20/20 11:23 Pulse Ox 92 09/20/20 11:23 09/19/20 09/20/20 09/20/20 22:59 06:59 14:59 Output Total 500 / 500 Balance -500 / -500 Weight last 48 hrs Weight 52.163 kg Physical Exam Const: COMMON NORMALS: no acute distress and patient oriented x3 HENMT: COMMON NORMALS: normocephalic HEAD & SCALP: normocephalic Neck/C-Spine: COMMON NORMALS: no JVD Resp: COMMON NORMALS: normal respiratory effort, No retractions, No use of accessory muscles and clear to auscultation bilaterally AUSCULTATION: clear to auscultation bilaterally Cardio: COMMON NORMALS: no JVD, regular rate, regular rhythm, S1 normal heart sound present and S2 normal heart sound present RATE: regular rate RHYTHM: regular rhythm HEART SOUNDS: S1 normal heart sound present and S2 normal heart sound present GI: COMMON NORMALS: Normal to inspection, nondistended, normoactive bowel sounds present, Soft to palpation, non-tender, No hepatosplenomegaly present, no masses and no bruits PALPATION: Yes Soft to palpation and Yes No hepatosplenomegaly present Extremity: COMMON NORMALS: capillary refill normal, no clubbing, cyanosis or edema, no calf tenderness and no pedal edema Neuro: COMMON NORMALS: patient oriented x3, CN's II-XII intact bilaterally, moves all extremities and no focal motor deficits OTHER: Positive cerebellar signs Psych: COMMON NORMALS: mental status grossly normal Data : 09/20/20 05:00 09/20/20 07:00 A&P Assessment and plan (1) Atrial flutter: Status: Acute (2) Ataxia: Status: Acute (3) Cerebellar stroke: Status: Acute (4) NSTEMI (non-ST elevated myocardial infarction): Status: Acute Additional A&P Information History of CABG Paroxysmal atrial flutter Continue metoprolol 50 twice daily, add amiodarone 400 mg daily Magnesium and TSH within normal limits Continue Eliquis chadvasc 4 NSTEMI No active chest pain, no palpitations, shortness of breath Delta troponin at 120 minutes 11.4, 6-hour delta 8.65 On aspirin, statin, Eliquis We will order cardiac echocardiogram Ataxia, bilateral lower extremity weakness, concerning for cerebellar stroke No confusion no urinary incontinence, no signs of enlarged ventricles on CT scan Cerebellar signs positive No signs of Parkinson's during my evaluation Considering paroxysmal atrial flutter would like to rule out acute posterior circulation stroke MRI MRI of the brain ordered PT OT, speech therapy eval, allow for permissive hypertension Neurochecks, Physical therapy evaluation Cardiac diet DVT prophylaxis not needed currently on Eliquis Full code Attestations Medical Necessity Statement*: Patient requires hospitalization for paroxysmal atrial fibrillation, NSTEMI, 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
--- NOTE | 2020-09-20 12:30 | PC.NURSE ---
dr schofield notified of patient heart rate being 120's. ordered amiodarone. given as ordered.
[2020-09-20] MEDS: amiodarone 200 mg Tablet 400 MG PO (12:32)
[2020-09-20 13:12] LABS: NT Pro B Type Natriuretic Pept 2588 pg/mL (0-450)
--- NOTE | 2020-09-20 16:05 | PC.NURSE ---
Addendum entered by Rosanna Hong 09/20/20 16:07: patient is asymptotic at this time. Original Note: dr schofield notified of patient heart rate being high 40's to low 50's. blood pressure of 88/49. dr colvin to monitor patient.
--- NOTE | 2020-09-20 17:27 | PC.NURSE ---
kanwal called to see if he still wanted metoprolol given, verbal order to hold this dose.
[2020-09-21 04:00] VITALS: BP 134/57; PULSE 62; RESP 19; TEMP 36.8; O2SAT 96
[2020-09-21 04:44] LABS: Basophils # 0.1 10^3/uL (0.0-0.1); Basophils % 0.8 %; Eosinophils # 0.3 10^3/uL (0.0-0.8); Eosinophils % 3.9 %; Hemoglobin 13.1 g/dL (11.7-16.6); Lymphocytes # 1.4 10^3/uL (0.8-4.8); Lymphocytes % 21.2 %; Mean Corpuscular HGB Conc 32.8 g/dL (30.0-36.0); Mean Corpuscular Volume 97.8 fL (80-94); Mean Platelet Volume 10.3 fL (7.4-10.4); Monocytes % 15.7 %; Neutrophils # 3.87 10^3/uL (1.8-7.7); Neutrophils % 58.2 %; Nucleated Red Blood Cells % 0 %; Platelet Count 179 10^3/cmm (130-400); Red Blood Count 4.09 10^6/uL (4.1-5.3); Red Cell Distribution Width 12.7 % (12.1-15.1); White Blood Count 6.6 10^3/uL (4.0-10.0)
[2020-09-21 05:12] LABS: Alanine Aminotransferase 29 U/L (0-41); Alkaline Phosphatase 106 IU/L (40-130); Anion Gap 10.3 (5-19); Aspartate Amino Transferase 42 U/L (0-40); Blood Urea Nitrogen 36 mg/dL (8-23); Calcium 8.5 mg/dL (8.5-10.5); Carbon Dioxide 30 mmol/L (22-29); Chloride 102 mmol/L (98-107); Glucose 95 mg/dL (65-115); Osmolality Calculated 294 mOsm/kg (285-295); Phosphorus 3.1 mg/dL (2.5-4.5); Potassium 4.3 mmol/L (3.5-5.1); Sodium 138 mmol/L (136-145); Total Bilirubin 0.4 mg/dL (0.15-1.2)
[2020-09-21 08:00] VITALS: BP 122/58; PULSE 66; RESP 16; TEMP 36.4; O2SAT 99
--- NOTE | 2020-09-21 08:21 | PM.CONSULT ---
Providers/Reason For Consult Consulting Physican/Specialty*: Esteban Navarro MD/Interventional Cardiology Reason for Consult*: Troponin elevation/atrial fibrillation Attending Physician: Bronson Don MD Primary Care Provider: Bryant Mendieta MD History of Present Illness History of Present Illness 80 year old male who has history of lymphoma status post treatment and radiotherapy, CABG, presented with chief complaint of ataxia. Patient was seen in the ER 3 nights before current hospitalization with hypertensive urgency and atrial flutter, he converted to sinus rhythm after Cardizem push, he was discharged home and was asked to follow-up with PCP. His PCP started him on metoprolol succinate. On day of presentation, around 3:30 AM when he got up to go to the bathroom his gait was very off he described his gait as being locked and not able to initiate. His was in atrial fibrillation and converted back to normal sinus rhyhtm with Amiodarone. Initial troponin was 38 and trended upto 50. Patient denies complaints of chest pain, shortness of breath or palpitations. Review of Systems Const: Denies: fever(s) or chills Eyes: Denies: change in vision ENMT: Denies: throat pain Card: Denies: chest pain Resp: Denies: dyspnea GI: Denies: abdominal pain : Denies: flank pain Musc: Denies: neck pain Skin/Breast: Denies: rash Neuro: Reports: difficulty walking; Denies: headache(s), frequent falls, dizziness, vertigo or confusion Psych: Denies: anxiety Endo: Denies: polyuria Mode/Lymph: Reports: easy bruising and easy bleeding All/Imm: Denies: urticaria Meds/Allergies Home Medications and Allergies Home Medications Medication Instructions Recorded Confirmed Last Taken Type rosuvastatin 20 mg PO DAILY 09/20/20 09/20/20 09/19/20 08:00 History amiodarone [Pacerone] See Rx Instructions .ROUTE 09/21/20 Unknown Rx .COMPLEX #60 tab apixaban [Eliquis] 5 mg PO BID 30 Days #60 tab 09/21/20 Unknown Rx aspirin 81 mg PO DAILY 30 Days #30 tab 09/21/20 Unknown Rx Allergies Allergy/AdvReac Type Severity Reaction Status Date / Time Penicillins Allergy ALGY-Rash Verified 09/17/20 17:40 ramipril [From Altace] Allergy ALGY-Ava Verified 09/20/20 04:42 Lip/Tongue/Throat Current Medications Current Medications Generic Name Dose Route Start Last Admin Trade Name Nabil PRN Reason Stop Dose Admin Amiodarone HCl 400 mg 09/20/20 12:30 09/20/20 12:32 Amiodarone 200 Mg Tablet PO 400 mg DAILY JAROD Administration Apixaban 5 mg 09/20/20 09:00 09/20/20 17:28 Apixaban 5 Mg Tablet PO 5 mg BID JAROD Administration Aspirin 81 mg 09/20/20 09:00 09/20/20 08:55 Aspirin 81 Mg Ec Tablet PO 81 mg DAILY JAROD Administration Atorvastatin Calcium 80 mg 09/20/20 09:00 09/20/20 08:55 Atorvastatin 40 Mg Tablet PO 80 mg DAILY JAROD Administration PFSH Acute PFSH: Medical History BPH (benign prostatic hyperplasia) Coronary artery disease Dyslipidemia Lymphoma Raynauds phenomenon Surgical History H/O hernia repair Hx of CABG Hx of tonsillectomy Family History Mother Cancer Leukemia Social History Smoking and tobacco status: never smoked Alcohol intake: never Lives independently: Yes Housing: House Vitals/I&O/Wt Last Vital Signs Temp 98.2 F 09/21/20 04:00 Pulse 62 09/21/20 04:00 Resp 19 H 09/21/20 04:00 BP 134/57 09/21/20 04:00 Pulse Ox 96 09/21/20 04:00 09/20/20 09/21/20 09/21/20 22:59 06:59 14:59 Intake Total 240 / 240 150 / 390 Output Total 350 / 850 800 / 1650 Balance -110 / -610 -650 / -1260 Weight last 48 hrs Weight 115 lb Physical Exam Const: COMMON NORMALS: no acute distress and patient oriented x3 GENERAL APPEARANCE: cooperative and comfortable HENMT: COMMON NORMALS: normocephalic HEAD & SCALP: normocephalic Eye: COMMON NORMALS: Equal, round and reactive pupils present and EOMs intact bilaterally GENERAL EYE: appearance normal, both eyes and all related structures PUPIL: Yes Equal, round and reactive pupils present Neck/C-Spine: COMMON NORMALS: full ROM, no lymphadenopathy, no JVD and Thyroid normal THYROID: Thyroid normal Lymph: LYMPHATIC: no lymphadenopathy noted Resp: COMMON NORMALS: normal respiratory effort, No retractions, No use of accessory muscles and clear to auscultation bilaterally AUSCULTATION: clear to auscultation bilaterally Cardio: COMMON NORMALS: no JVD, regular rate, regular rhythm, S1 normal heart sound present, S2 normal heart sound present, No gallops present (Cardio), No clicks present (Cardio) and No murmurs present (Cardio) RATE: regular rate RHYTHM: regular rhythm HEART SOUNDS: S1 normal heart sound present and S2 normal heart sound present GI: COMMON NORMALS: Normal to inspection, nondistended, normoactive bowel sounds present, Soft to palpation, non-tender and No hepatosplenomegaly present PALPATION: Yes Soft to palpation and Yes No hepatosplenomegaly present Extremity: COMMON NORMALS: normal to inspection, full ROM and no pedal edema Neuro: COMMON NORMALS: patient oriented x3, CN's II-XII intact bilaterally, moves all extremities and no focal motor deficits Psych: COMMON NORMALS: mental status grossly normal, Normal thought process present and cooperative THOUGHT PROCESS: Normal thought process present A&P Assessment and plan (1) Cerebellar stroke: Status: Acute (2) Troponin level elevated: Status: Acute (3) Coronary artery disease: Status: Inactive (4) Atrial fibrillation: Status: Acute Patient has cerebellar stroke in the setting of atrial fibrillation. Troponin elevation is secondary to demand ischemia with atrial fibrillation with RVR and stroke. Patient did not have any chest pain. Afib converted back to normal sinus rhythm with amiodarone given overnight. Now can continue as patient has already converted. Continue Eliquis. No ischemic workup indicated at this time. Patient can follow with cardiology as outpatient. Thank you for involving us with care of this patient. 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
[2020-09-21] MEDS: atorvastatin 40 mg Tablet 80 MG PO (09:09)
[2020-09-21] MEDS: aspirin 81 mg EC Tablet PO (09:10)
[2020-09-21] MEDS: amiodarone 200 mg Tablet 400 MG PO (09:10)
[2020-09-21] MEDS: apixaban 5 mg Tablet PO (09:10)
[2020-09-21] MEDS: metoprolol tartrate 25 mg Tablet 12.5 MG PO (09:11)
--- NOTE | 2020-09-21 09:17 | PC.CHAP ---
Pastoral Care Encounter/Spiritual Assessment Type of Contact [] Declined head of merchandise buying visit [] Patient/Family/Request visit [] Outpatient visit [] Follow-up visit [] Physician referral [] Code/Alert [] Routine visit [] Staff referral [] Actively dying [] Patient sleeping [] Family support [] [] Out of room [] Palliative care [] [] Receiving care in room [] Pre-surgical visit [] Trauma [] Long length of stay [] ICU visit [x] Other: busy with doctor Relational/Emotional Strength [] Patient feels connected with others/family/visitors/staff [] Distress [] Loneliness/isolation [] Abandonment Spirituality of Patient [] Person of Tomasa [] Attends Mandaeism of their Tomasa [] Believes in Prayer [] Reads Bible or Mandaeism materials [] There are Spiritual issues to be addressed 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 [x] Prayer [] Active listening [] Non-anxious presence [] Spiritual/emotional support [] Crisis/trauma care [] Spiritual counseling [] Bereavement support [] Provided bereavement packet [] Provided Bible/devotional materials [] Provided toy/stuffed animal, coloring book to patient or family member [] Provided Communion [] Anointing/[place] [] Salvation [x] Completed spiritual assessment [] Other: Impact on Illness or Injury [] Angry [] Fearful [] Anxious [] Often cries [] Exhaustion [] Unable to work [] Unable to attend christian [] Unable to walk/stand [] Unable to read [] Unable to drive [] Unable to eat/drink [] Unable to sleep [] Unable to be with family [] Patient intubated [] Other: Summary Time spent with patient
--- NOTE | 2020-09-21 11:26 | PM.DCS ---
Discharge Providers Date of Admission: 09/20/20 05:43 Date of Discharge: September 21, 2020 Attending Provider at Admission: Melody Day MD Attending Provider at Discharge: Bronson Don MD Primary Care Provider: Bryant Mendieta MD Diagnoses at Discharge Discharge Diagnosis (1) Atrial flutter: Status: Acute (2) Ataxia: Status: Acute (3) Cerebellar stroke: Status: Acute (4) NSTEMI (non-ST elevated myocardial infarction): Status: Acute Reason for Visit Reason for Visit: unsteady, claims heart issue 30304 I63.9 Hospital Course Hospital Course This is a 80-year-old male with a past medical history of lymphoma status post treatment and radiation therapy, CABG, who presents to [facility] for ataxia Patient was admitted to [facility] for ataxia and atrial fibrillation, and NSTEMI Atrial fibrillation, newly diagnosed, converted to normal sinus rhythm after amiodarone, will be discharged on amiodarone, Eliquis, with a close follow-up with cardiology in one 1 week. For NSTEMI, patient's troponin was high as 49.4, positive delta of 11.4, no complaints of chest pain, no acute ST-T wave changes, cardiology was consulted, recommended mended medical management, with close follow-up with cardiology echo: LV systolic function is borderline normal with EF of 50 to 55%. Moderate left ventricular hypertrophy is present. Diastolic function is indeterminate because of atrial fibrillation. There is mild to moderate mitral regurgitation. Moderate tricuspid regurgitation is present. There is moderate pulmonary hypertension. Pulmonic valve has mild regurgitation. When compared to prior study from 11/24/2018, no significant changes are seen. For sudden ataxia and sudden bilateral extremity weakness, highly suspicious for embolic stroke to cerebellum related to new onset atrial fibrillation as above, initial CT of the head did not show intracranial hemorrhage, monitored as inpatient, allowed for permissive hypertension, received PT OT, speech therapy; patient's unsteadiness improved back to baseline through his hospital admission, adamant about going home, declined home health care. 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 Nonetheless is unsteadiness and cerebellar signs returned back to baseline. He will be discharged on aspirin, statin, Eliquis as above. Follow-up with neurology in 3 months. Monitor for signs of bleeding, repeat CBC in 1 week, return to the hospital for strokelike symptoms Head ct: Brain: Augustin white matter distinction is maintained throughout the brain. No radiographic evidence of intracranial hemorrhage. No CT evidence of mass hemorrhage or acute infarction. Cerebral ventricles: Ventricles are of normal size and configuration. Bones/joints: Unremarkable. No acute fracture. Paranasal sinuses: Visualized sinuses are unremarkable. No fluid levels. Mastoid air cells: Visualized mastoid air cells are well aerated. Soft tissues: Unremarkable. Other findings: No intra or extra-axial masses, lesions or collections. Head MRA: Distal vertebral arteries are patent. Basilar artery is patent. Normal vascularity to the INSTRUMENT AND CONTROLS TECHNICIAN territory bilaterally. Both ICAs are patent at the skull base. Tortuous cavernous carotid arteries. 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 Distal vessels remains patent. Normal vascularity to the LACHELLE and MCA territories bilaterally. Otherwise unremarkable intracranial MRa. Head MRI: No evidence of restricted diffusion to suggest acute ischemia. Ventricular system and basal cisterns are patent. Mild small vessel changes. Moderate parenchymal volume loss. Normal posterior fossa. Normal vascular flow voids at the skull base. No extra-axial fluid collections. No evidence of mass or mass effect. Paranasal sinuses and mastoid air cells well aerated. No hemosiderin on susceptibly weighted images. Mild symmetric atrophy temporal lobes hippocampal formations. Normal optic chiasm and pituitary infundibulum. Physical Exam Const: COMMON NORMALS: no acute distress and patient oriented x3 GENERAL APPEARANCE: cooperative and comfortable HENMT: COMMON NORMALS: normocephalic HEAD & SCALP: normocephalic Eye: COMMON NORMALS: Equal, round and reactive pupils present and EOMs intact bilaterally GENERAL EYE: appearance normal, both eyes and all related structures PUPIL: Yes Equal, round and reactive pupils present Neck/C-Spine: COMMON NORMALS: full ROM, no lymphadenopathy, no JVD and Thyroid normal THYROID: Thyroid normal Lymph: LYMPHATIC: no lymphadenopathy noted Resp: COMMON NORMALS: normal respiratory effort, No retractions, No use of accessory muscles and clear to auscultation bilaterally AUSCULTATION: clear to auscultation bilaterally Cardio: COMMON NORMALS: no JVD, regular rate, regular rhythm, S1 normal heart sound present, S2 normal heart sound present, No gallops present (Cardio), No clicks present (Cardio) and No murmurs present (Cardio) RATE: regular rate RHYTHM: regular rhythm HEART SOUNDS: S1 normal heart sound present and S2 normal heart sound present GI: COMMON NORMALS: Normal to inspection, nondistended, normoactive bowel sounds present, Soft to palpation, non-tender and No hepatosplenomegaly present PALPATION: Yes Soft to palpation and Yes No hepatosplenomegaly present Extremity: COMMON NORMALS: normal to inspection, full ROM and no pedal edema Neuro: COMMON NORMALS: patient oriented x3, CN's II-XII intact bilaterally, moves all extremities and no focal motor deficits Psych: COMMON NORMALS: mental status grossly normal, Normal thought process present and cooperative THOUGHT PROCESS: Normal thought process present Discharge Data Data Completed and Pending: Completed Studies During Hospitalization Category Date Time Status CT head wo con* [id number] 0450 Urgent Cat Scan 09/20/20 04:40 Completed XR chest 1V garth ble [id number] Urgent Exams 09/20/20 04:40 Completed MR angio head wo con [id number] Routine MRI 09/20/20 08:26 Completed MR head wo con* [id number] 0551 Routine MRI 09/20/20 10:15 Completed CV carotid duplex BI* [id number] Routine Ultrasound 09/20/20 07:49 Completed CV echo complete* [id number] Routine Ultrasound 09/20/20 07:49 Completed Pending at discharge Category Date Time Status Complete Blood Co unt w/Auto AM LABS Lab 09/22/20 04:00 Ordered Complete Blood Co unt w/Auto AM LABS Lab 09/23/20 04:00 Ordered Comprehensive Met abolic Panel AM LA BS Lab 09/22/20 04:00 Ordered Comprehensive Met abolic Panel AM LA BS Lab 09/23/20 04:00 Ordered Magnesium AM LABS Lab 09/22/20 04:00 Ordered Magnesium AM LABS Lab 09/23/20 04:00 Ordered Phosphorus AM LAB S Lab 09/22/20 04:00 Ordered Phosphorus AM LAB S Lab 09/23/20 04:00 Ordered Labs from last 24 hours 09/21/20 09/21/20 09/20/20 03:50 03:50 11:40 WBC 6.6 RBC 4.09 L Hgb 13.1 Hct 40.0 L MCV 97.8 H D MCH 32.0 MCHC 32.8 D RDW 12.7 Plt Count 179 MPV 10.3 Neut % (Auto) 58.2 Lymph % (Auto) 21.2 [place] % (Auto) 15.7 Eos % (Auto) 3.9 Baso % (Auto) 0.8 Neut # (Auto) 3.87 Lymph # (Auto) 1.4 [place] # (Auto) 1.0 H Eos # (Auto) 0.3 Baso # (Auto) 0.1 Nucleated RBC % (a uto) 0 Nucleated RBCs # 0.0 Sodium 138 Potassium 4.3 Chloride 102 Carbon Dioxide 30 H Anion Gap 10.3 BUN 36 H Creatinine 1.1 GFR Calculation Not Reportable Glucose 95 Calculated Osmolal ity 294 Calcium 8.5 Phosphorus 3.1 Magnesium 2.0 Total Bilirubin 0.4 AST 42 H ALT 29 Alkaline Phosphata se 106 Troponin T Hi Sens 6Hr 46.65 H Troponin T Hi Sens 6Hr Delta 8.65 NT-Pro-B Natriuret Pep Total Protein 6.0 L Albumin 3.0 L Globulin 3.0 09/20/20 07:00 WBC RBC Hgb Hct MCV MCH MCHC RDW Plt Count MPV Neut % (Auto) Lymph % (Auto) [place] % (Auto) Eos % (Auto) Baso % (Auto) Neut # (Auto) Lymph # (Auto) [place] # (Auto) Eos # (Auto) Baso # (Auto) Nucleated RBC % (a uto) Nucleated RBCs # Sodium Potassium Chloride Carbon Dioxide Anion Gap BUN Creatinine GFR Calculation Glucose Calculated Osmolal ity Calcium Phosphorus Magnesium Total Bilirubin AST ALT Alkaline Phosphata se Troponin T Hi Sens 6Hr Troponin T Hi Sens 6Hr Delta NT-Pro-B Natriuret Pep 2588 H Total Protein Albumin Globulin Vitals: Last Vital Signs Temp 97.6 F 09/21/20 08:00 Pulse 66 09/21/20 08:00 Resp 16 09/21/20 08:00 BP 122/58 09/21/20 08:00 Pulse Ox 99 09/21/20 08:00 Discharge Plan Discharge Patient Disposition: Home Condition: Stable Prescriptions: New amiodarone [Pacerone] 200 mg Tablet See Rx Instructions .ROUTE .COMPLEX Qty: 60 RF: 0 Eliquis 5 mg Tablet 5 mg PO BID 30 Days Qty: 60 RF: 0 aspirin 81 mg Tablet,Delayed Release (Dr/Ec) 81 mg PO DAILY 30 Days Qty: 30 RF: 0 Continued rosuvastatin 20 mg Tablet 20 mg PO DAILY RF: 0 Discontinued metoprolol succinate 25 mg Tablet Extended Release 24 Hr 25 mg PO DAILY RF: 0 Discharge Orders: Discharge Order (Routine); Ordered 09/21/20 Ordered By: Bronson Don Other Ambulatory Orders: Complete Blood Count w/Auto (Routine) Timeframe: 1 Week Location: Determined by Patient Ordered By: Bronson Don Referrals: Suzan Miranda MD [Physician] - 3 months Esteban Navarro M.D [Physician] - 1 week Bryant Mendieta MD [Primary Care Provider] - Discharge Diet: Cardiac Discharge Activity: Resume usual activity Activity Restrictions/Additional Instructions: -Please monitor for bleeding -If you fall please come to the emergency room -Follow-up with primary care provider in 1 week for blood work -If you have chest pain palpitations go to the emergency room -If you have recurrent strokelike symptoms call 911 -Please follow-up with cardiology in 1 week Discharge Attestations Time Spent in Discharge Care*: less than 30 min Quality Metrics Clinical Quality Measures During this hospital stay, did patient experience: Stroke Contraindication to Antithrombotic: Antithrombotic prescribed Contraindication to Anticoagulation: Anticoagulation prescribed Contraindication to Statin: Statin prescribed Coding Level of Care Code Acute Sanitor for [employer]on Kay Diagnoses Atrial flutter I48.92 Ataxia R27.0 Cerebellar stroke I63.9 NSTEMI (non-ST elevated myocardial infarction) I21.4
[2020-09-21 12:00] VITALS: BP 141/58; PULSE 68; RESP 24; TEMP 36.8; O2SAT 95
--- NOTE | 2020-09-21 13:34 | PC.NURSE ---
Discharge instructions given per the physician's instructions. Patient verbalized understanding and did not have any further questions. IV has been removed. Patient dressed self. Patient ride contacted for discharge. 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 1 eliquis 5 mg tablet obtained from pharmacy for patient to take tonight. No further needs identified at this time.
[2020-09-21 14:12] VITALS: BP 141/58; PULSE 68; RESP 24; TEMP 36.8; O2SAT 95
== END 2020-09-21 14:05 | disposition home or self-care (01) ==
LOC: ER 05:39 → CSU 05:47
PROVIDERS: Admitting Provider Internal Medicine; Emergency Provider Emergency Medicine; PCP Family Medicine; Visit Provider Family Medicine
DX: I48.92 Unspecified atrial flutter (principal); R27.0 Ataxia, unspecified; I63.9 Cerebral infarction, unspecified; I21.4 Non-ST elevation (NSTEMI) myocardial infarction; I65.23 Occlusion and stenosis of bilateral carotid arteries; Z85.72 Personal history of non-Hodgkin lymphomas; Z95.1 Presence of aortocoronary bypass graft; N40.0 Benign prostatic hyperplasia without lower urinary tract symptoms; I25.10 Atherosclerotic heart disease of native coronary artery without angina pectoris; E78.5 Hyperlipidemia, unspecified; Z79.01 Long term (current) use of anticoagulants; Z79.82 Long term (current) use of aspirin; R77.8 Other specified abnormalities of plasma proteins
CPT/HCPCS: 12345; 36415; 70450; 70544; 70551; 71045; 80053; 82607; 83735; 83880; 84100; 84443; 84484; 85025; 85378; 92507; 92522; 92523; 92610; 93005; 93306; 93880; 96374; 97116; 97161; 99283; 99285; G0378; J3490

== ENCOUNTER 2020-09-23 17:19 | Emergency (ER) | payer MEDICARE, SELFPAY ==
[2020-09-23] VITALS (16 sets, daily range): BP systolic 134–187; BP diastolic 63–99; PULSE 75–103; RESP 13–25; TEMP 36.7; O2SAT 79–100; BMI 17.4
--- NOTE | 2020-09-23 18:43 | XRR_ITS ---
PROCEDURE INFORMATION: Exam: XR Chest, 1 View Exam date and time: 09/23/2020 6:44 PM Age: 80 years old Clinical indication: Other: Palpitations; Prior surgery; Surgery date: 6+ months TECHNIQUE: Imaging protocol: XR of the chest Views: 1 view. COMPARISON: CR XR chest 1V portable [id number] 09/20/2020 4:46 AM FINDINGS: There is hyperinflation. Patient is status post median sternotomy. There is some scarring within the lung apices. No infiltrates are present. There is no pleural effusion or pneumothorax. The heart size is normal. XR/XR chest 1V portable [id number] IMPRESSION: No active disease.
--- NOTE | 2020-09-23 18:50 | PC.NURSE ---
Report from CHELE Cooper
[2020-09-23 19:17] LABS: Basophils % 0.4 %; Eosinophils # 0.1 10^3/uL (0.0-0.8); Eosinophils % 0.6 %; Hematocrit 41.7 % (42.0-52.0); Hemoglobin 13.7 g/dL (11.7-16.6); Lymphocytes % 11.8 %; Mean Corpuscular HGB Conc 32.9 g/dL (30.0-36.0); Mean Corpuscular Hemoglobin 31.9 pg (28.0-34.0); Mean Platelet Volume 9.9 fL (7.4-10.4); Monocytes # 1.2 10^3/uL (0.2-0.9); Monocytes % 14.4 %; Neutrophils # 5.85 10^3/uL (1.8-7.7); Neutrophils % 72.7 %; Nucleated Red Blood Cells % 0 %; Platelet Count 219 10^3/cmm (130-400); Red Cell Distribution Width 12.5 % (12.1-15.1); White Blood Count 8.1 10^3/uL (4.0-10.0)
[2020-09-23 19:26] LABS: INR 1.38 (0.8-1.2)
[2020-09-23 19:28] LABS: Partial Thromboplastin Time 43.1 SECONDS (23.9-36.7)
[2020-09-23] MEDS: LORazepam 2 mg/mL INJ 1 mL 0.5 MG IVP (19:28)
[2020-09-23 19:38] LABS: Troponin(5th) Baseline 51 ng/L (0-15)
[2020-09-23 19:49] LABS: Alanine Aminotransferase 36 U/L (0-41); Alkaline Phosphatase 128 IU/L (40-130); Aspartate Amino Transferase 45 U/L (0-40); Blood Urea Nitrogen 18 mg/dL (8-23); Calcium 9.1 mg/dL (8.5-10.5); Carbon Dioxide 31 mmol/L (22-29); Chloride 98 mmol/L (98-107); Creatine Phosphokinase 206 U/L (39-308); Creatinine Clr Calc Pharmacy 55.2421; Globulin 3.4 g/dL (1.3-4.6); Glucose 101 mg/dL (65-115); NT Pro B Type Natriuretic Pept 3868 pg/mL (0-450); Osmolality Calculated 284 mOsm/kg (285-295); Sodium 136 mmol/L (136-145); Total Bilirubin 0.6 mg/dL (0.15-1.2); Total Protein 7.4 g/dL (6.6-8.7)
[2020-09-23 19:50] LABS: Anion Gap 11.8 (5-19); Potassium 4.8 mmol/L (3.5-5.1)
--- NOTE | 2020-09-23 22:55 | PC.NURSE ---
Pt denies pain and no needs. awaiting results
--- NOTE | 2020-09-23 23:04 | PC.NURSE ---
pt denies pain and resting without needs.
[2020-09-23] MEDS: carvedilol 6.25 mg Tablet PO (23:10)
--- NOTE | 2020-09-24 01:19 | ED_ITS ---
HPI - Arrhythmia/Palpitations General: Chief Complaint: Arrhythmia/Palpitations Stated Complaint: HIGH BP Time Seen by Provider: 09/23/20 18:39 History of Present Illness: HPI narrative: 80-year-old male with a history of atrial fibrillation and coronary disease status post CABG. He presents with palpitations and hypertension starting this evening. He states that he had an last evening to. He was recently discharged from the hospital after an observation admission for similar symptoms. He had been placed on amiodarone for rate control/cardioversion, and continues to take this. He was taken off metoprolol at that point which he took for hypertension. He states he has no real chest pain. He states that his legs get restless at night, and believes it is because of his spiking blood pressure. He evidently had had stroke symptoms with ataxia on his prior admission as well. He notes that the symptoms of not necessarily returned. MD complaint: palpitations Onset (ago): day(s) Duration: intermittent Severity: moderate Context: occurred during rest Arrhythmia history: atrial fibrillation Associated symptoms: Reports anxiety; Deny cough, diaphoresis, muscle cramps, nausea, short of breath, syncope or vomiting Review of Systems Const: Denies: fever(s), chills or diaphoresis Card: Denies: syncope Resp: Denies: dyspnea, productive cough or non-productive cough GI: Denies: nausea or vomiting Musc: Denies: muscle cramps Psych: Reports: anxiety PFSH ED PFSH: Medical History (Updated 09/23/20 @ 23:24 by Devyn Knight DO) BPH (benign prostatic hyperplasia) Coronary artery disease Dyslipidemia Lymphoma Raynauds phenomenon Surgical History H/O hernia repair Hx of CABG Hx of tonsillectomy Family History Mother Cancer Leukemia Social History Smoking and tobacco status: never smoked Alcohol intake: never Lives independently: Yes Housing: House Physical Exam Const: GENERAL APPEARANCE: well developed and anxious ORIENTATION/CONSCIOUSNESS: Yes oriented to person, Yes oriented to place and Yes oriented to time HENMT: COMMON NORMALS: normocephalic, external ears normal and Normal external nose present HEAD & SCALP: normocephalic FACE & SINUS: normal facial exam NOSE: Normal external nose present and No nasal discharge present EXTERNAL EAR: Yes external ears normal Eye: COMMON NORMALS: Equal, round and reactive pupils present, EOMs intact bilaterally and conjunctivae normal EYELID: eyelids normal CONJUNCTIVA: Yes conjunctivae normal PUPIL: Yes Equal, round and reactive pupils present Neck/C-Spine: GENERAL: No tracheal deviation Chest: COMMONS NORMALS: normal inspection of the chest CHEST: No tenderness Resp: COMMON NORMALS: clear to auscultation bilaterally EFFORT & INSPECTION: No tachypneic, No respiratory distress, No retractions, No uses accessory muscles and No tracheal deviation AUSCULTATION: clear to auscultation bilaterally, no rhonchi, no wheezes and lung sounds not diminished Cardio: COMMON NORMALS: regular rate and regular rhythm RATE: regular rate RHYTHM: regular rhythm HEART SOUNDS: no murmurs PERIPHERAL PULSES: radial pulses present GI: INSPECTION: No abdominal distension AUSCULTATION: No Hyperactive bowel sounds present and No Hypoactive bowel sounds present PALPATION: No Guarding due to palpation present (GI) and No Rigid due to palpation PERCUSSION: no dullness to percussion and no tympanic to percussion Neuro: SENSORIUM/ORIENTATION: Yes oriented to person, Yes oriented to place and Yes oriented to time Psych: COMMON NORMALS: mental status grossly normal Skin: COMMON NORMALS: no rashes or lesions noted GENERAL SKIN EXAM: no rashes or lesions noted Course Vital Signs: Vital signs: Vital Signs Temperature 98.1 F 09/23/20 17:26 Pulse Rate 91 09/23/20 22:50 Respiratory Rate 25 H 09/23/20 23:00 Blood Pressure 146/81 09/23/20 23:00 Pulse Oximetry 98 09/23/20 23:00 MDM - Arrhythmia/Palpitations MDM Narrative: Medical decision making narrative: 80-year-old male with palpitations. He has been in sinus rhythm on the monitor, with a rate in the 80s. He was initially hypertensive, but pressures improved. He appeared to be quite anxious on exam, and was given 1/2 mg of Ativan IV. This improved his blood pressure, and his disposition. He states that his legs were not as restless either. He currently is not on any antihypertensives. It is possible he is experiencing some hypertension. We have looked at his medications, it appears that he is allergic to WENDY inhibitors which was my initial thought to use. Considering his history, carvedilol could be used, as he is having spikes in his heart rate which she does not seem to like, and they make him anxious. We will place him on a small dose of carvedilol for blood pressure and rate control. We will also give him a few 1/2 mg Ativan tablets for restless legs and insomnia should he need them. He has close follow-up with both his primary, and his digital publishing specialist. Lab Data: Labs: Lab Results 09/23/20 09/23/20 09/23/20 Range/Units 18:51 18:51 18:51 WBC 8.1 (4.0-10.0) 10^3/ uL RBC 4.30 (4.1-5.3) 10^6/u L Hgb 13.7 (11.7-16.6) g/dL Hct 41.7 L (42.0-52.0) % MCV 97.0 H (80-94) fL MCH 31.9 (28.0-34.0) pg MCHC 32.9 (30.0-36.0) g/dL RDW 12.5 (12.1-15.1) % Plt Count 219 (130-400) 10^3/c mm MPV 9.9 (7.4-10.4) fL Neut % (Auto) 72.7 % Lymph % (Auto) 11.8 % Dewitt % (Auto) 14.4 % Eos % (Auto) 0.6 % Baso % (Auto) 0.4 % Neut # (Auto) 5.85 (1.8-7.7) 10^3/u L Lymph # (Auto) 1.0 (0.8-4.8) 10^3/u L Dewitt # (Auto) 1.2 H (0.2-0.9) 10^3/u L Eos # (Auto) 0.1 (0.0-0.8) 10^3/u L Baso # (Auto) 0.0 (0.0-0.1) 10^3/u L Nucleated RBC % (a uto) 0 % Nucleated RBCs # 0.0 /100WBC PT 17.40 H (12.1-14.9) SECO NDS INR 1.38 H (0.8-1.2) APTT 43.1 H (23.9-36.7) SECO NDS Sodium 136 (136-145) mmol/L Potassium 4.8 (3.5-5.1) mmol/L Chloride 98 (98-107) mmol/L Carbon Dioxide 31 H (22-29) mmol/L Anion Gap 11.8 (5-19) BUN 18 (8-23) mg/dL Creatinine 0.8 (0.7-1.2) mg/dL GFR Calculation Not Reportable Glucose 101 (65-115) mg/dL Calculated Osmolal ity 284 L (285-295) mOsm/k g Calcium 9.1 (8.5-10.5) mg/dL Total Bilirubin 0.6 (0.15-1.2) mg/dL AST 45 H (0-40) U/L ALT 36 (0-41) U/L Alkaline Phosphata se 128 (40-130) IU/L Creatine Kinase 206 (39-308) U/L Troponin T Baselin e (0-15) ng/L Troponin T 120 Min red cliff (0-15) ng/L Delta Troponin T (0-10) ABS# NT-Pro-B Natriuret Pep 3868 H (0-450) pg/mL Total Protein 7.4 (6.6-8.7) g/dL Albumin 4.0 (3.5-5.2) g/dL Globulin 3.4 (1.3-4.6) g/dL TSH 2.50 (0.27-4.20) uIU/ mL 09/23/20 09/23/20 Range/Units 18:51 20:55 WBC (4.0-10.0) 10^3/ uL RBC (4.1-5.3) 10^6/u L Hgb (11.7-16.6) g/dL Hct (42.0-52.0) % MCV (80-94) fL MCH (28.0-34.0) pg MCHC (30.0-36.0) g/dL RDW (12.1-15.1) % Plt Count (130-400) 10^3/c mm MPV (7.4-10.4) fL Neut % (Auto) % Lymph % (Auto) % Dewitt % (Auto) % Eos % (Auto) % Baso % (Auto) % Neut # (Auto) (1.8-7.7) 10^3/u L Lymph # (Auto) (0.8-4.8) 10^3/u L Dewitt # (Auto) (0.2-0.9) 10^3/u L Eos # (Auto) (0.0-0.8) 10^3/u L Baso # (Auto) (0.0-0.1) 10^3/u L Nucleated RBC % (a uto) % Nucleated RBCs # /100WBC PT (12.1-14.9) SECO NDS INR (0.8-1.2) APTT (23.9-36.7) SECO NDS Sodium (136-145) mmol/L Potassium (3.5-5.1) mmol/L Chloride (98-107) mmol/L Carbon Dioxide (22-29) mmol/L Anion Gap (5-19) BUN (8-23) mg/dL Creatinine (0.7-1.2) mg/dL GFR Calculation Glucose (65-115) mg/dL Calculated Osmolal ity (285-295) mOsm/k g Calcium (8.5-10.5) mg/dL Total Bilirubin (0.15-1.2) mg/dL AST (0-40) U/L ALT (0-41) U/L Alkaline Phosphata se (40-130) IU/L Creatine Kinase (39-308) U/L Troponin T Baselin e 51 H (0-15) ng/L Troponin T 120 Min red cliff 47.60 H (0-15) ng/L Delta Troponin T -3.40 L (0-10) ABS# NT-Pro-B Natriuret Pep (0-450) pg/mL Total Protein (6.6-8.7) g/dL Albumin (3.5-5.2) g/dL Globulin (1.3-4.6) g/dL TSH (0.27-4.20) uIU/ mL Discharge Plan Discharge Patient Disposition: Home Clinical Impression: Hypertension Qualifiers: Hypertension type: essential hypertension Qualified Code(s): I10 - Essential (primary) hypertension Condition: Stable Prescriptions: New carvedilol 6.25 mg tablet 6.25 mg PO BID Qty: 60 RF: 0 lorazepam 0.5 mg tablet 0.5 mg PO .qhs PRN (Reason: sleep) Qty: 10 RF: 0 No Action rosuvastatin 20 mg Tablet 20 mg PO DAILY RF: 0 Pacerone 200 mg Tablet See Rx Instructions .ROUTE .COMPLEX Qty: 60 RF: 0 Eliquis 5 mg Tablet 5 mg PO BID 30 Days Qty: 60 RF: 0 aspirin 81 mg Tablet,Delayed Release (Dr/Ec) 81 mg PO DAILY 30 Days Qty: 30 RF: 0 Discharge Orders: Discharge ED (Routine); Ordered 09/23/20 Ordered By: Devyn Knight Referrals: Bryant Mendieta MD [Primary Care Provider] - Discharge Diet: Usual diet Discharge Activity: Increase activity as tolerated Patient Instructions: Hypertension (ED) Activity Restrictions/Additional Instructions: Return for chest discomfort, shortness of breath, weakness or trouble with walking, other concerning symptoms. 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
== END 2020-09-23 23:39 | disposition home or self-care (01) ==
PROVIDERS: Emergency Provider Emergency Medicine; PCP Family Medicine
DX: I10 Essential (primary) hypertension (principal); Z79.01 Long term (current) use of anticoagulants; Z79.82 Long term (current) use of aspirin; I25.10 Atherosclerotic heart disease of native coronary artery without angina pectoris; E78.5 Hyperlipidemia, unspecified; Z95.1 Presence of aortocoronary bypass graft
CPT/HCPCS: 12345; 36415; 71045; 80053; 82550; 83880; 84443; 84484; 85025; 85610; 85730; 96374; 99283; 99284; J2060

== ENCOUNTER 2020-09-30 17:01 | Observation (INO) | payer MEDICARE, SELFPAY ==
[2020-09-30] VITALS (7 sets, daily range): BP systolic 117–168; BP diastolic 40–70; PULSE 31–39; RESP 4–23; TEMP 36.4–36.8; O2SAT 96–99; BMI 17.0
--- NOTE | 2020-09-30 17:31 | XRR_ITS ---
PROCEDURE INFORMATION: Exam: XR Chest, 1 View Exam date and time: 09/30/2020 5:45 PM Age: 80 years old Clinical indication: Dyspnea; Additional info: Bradycardia TECHNIQUE: Imaging protocol: XR of the chest Views: 1 view. Total images: 1 COMPARISON: CR (CHEST, ) 09/23/2020 6:48 PM FINDINGS: Lungs: COPD/chronic bronchitis. Antecedent granulomatous disease. No visible active interstitial or alveolar airspace disease. Pleural space: Unremarkable. No pleural effusion. No pneumothorax. Heart/Mediastinum: Cardiomegaly with arteriosclerosis. Status post sternotomy chest and CABG. Bones/joints: Unremarkable for age. XR/XR chest 1V portable [id number] IMPRESSION: Nonacute.
--- NOTE | 2020-09-30 17:34 | ECG_ITS ---
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 Measurements Intervals [place] Rate: 38 P: [place]: QRS: 90 QRSD: 94 T: 65 QT: 504 QTc: 404 Interpretive Statements Junctional bradycardia NONSPECIFIC ST & T-WAVE ABNORMALITY Compared to ECG 09/20/2020 11:13:02 Atrial flutter no longer present T-wave abnormality still present Electronically Signed On 10-01-2020 17:25:31 BOX LOADER by Diann Tavarez M.D. [id number]
--- NOTE | 2020-09-30 17:47 | PM.CONSULT ---
Providers/Reason For Consult Consulting Physican/Specialty*: Dr. Tavarez, cardiology Reason for Consult*: Bradycardia Requesting Physcian: Dr. Cheung Primary Care Provider: Bryant Mendieta MD History of Present Illness History of Present Illness Rogelio Taylor is a 80 year old male with PMH of CAD s/p CABG, recently diagnosed paroxysmal atrial flutter on amiodarone and carvedilol and Eliquis, recent possible cerebellar stroke presented today with bradycardia. He had 2 recent ER visits, on first he had possible cerebellar stroke and second was for elevated blood pressure and atrial flutter. He was started on amiodarone and carvedilol and subsequently converted to sinus rhythm. He was seen by Dr. Navarro during that hospitalization in the hospital as well as most recently on 26 September as an outpatient. According to patient he was doing well until this morning when he was not feeling well and had some vague back discomfort and decided to check his pulse. He noted his heart rate was in 30s and hence presented to the ER for further evaluation. Usually checks his pulse twice a day and his pulse last night was in 70s and this morning was in 50s. He denies complaints of chest pain, shortness of breath or palpitations. He is on Eliquis and denies having any episodes of hematochezia, melena or hematochezia. He denies any URI or UTI-like symptoms. He cut back amiodarone to 200 mg daily 2 days back with last dose this morning and dose of carvedilol this morning. He denies any accidental overdose. Denies any lightheadedness, dizziness or syncopal episodes. he was accompanied by his daughter. Labs on arrival hemoglobin 13.9, platelets 226, WBC 7.8, BMP still pending. Pressure on arrival 117/40, heart rate 39 bpm and oxygen saturation 99%. Review of Systems General: Reports: 10 or more systems reviewed and unremarkable except in HPI and below Const: Denies: fever(s) or chills Eyes: Denies: eye redness ENMT: Denies: bleeding gums or post nasal drip Card: Denies: chest pain, palpitations, irregular heart rhythm, edema, lightheadedness or syncope Resp: Denies: dyspnea GI: Denies: abdominal pain : Denies: hematuria Musc: Denies: extremity swelling Skin/Breast: Denies: rash Neuro: Denies: headache(s) Psych: Denies: anxiety or depression Endo: Denies: excessive sweating or flushing Mode/Lymph: Denies: petechiae or purpura Meds/Allergies Home Medications and Allergies Home Medications Medication Instructions Recorded Confirmed Last Taken Type rosuvastatin 20 mg PO DAILY 09/20/20 09/26/20 09/19/20 08:00 History amiodarone [Pacerone] 200 mg PO DAILY@09/30/20 09/30/20 09/30/20 History apixaban [Eliquis] 5 mg PO BID@,09/30/20 09/30/20 09/30/20 History aspirin 81 mg PO DAILY@09/30/20 09/30/20 09/30/20 History carvedilol 6.25 mg PO BID@,09/30/20 09/30/20 09/30/20 History lorazepam 0.5 mg PO DAILY PRN 09/30/20 09/30/20 Unknown History Allergies Allergy/AdvReac Type Severity Reaction Status Date / Time Penicillins Allergy ALGY-Rash Verified 09/17/20 17:40 ramipril [From Altace] Allergy ALGY-Swell Verified 09/20/20 04:42 Lip/Tongue/Throat PFSH Acute PFSH: Medical History Atrial fibrillation BPH (benign prostatic hyperplasia) Cerebellar stroke Coronary artery disease Dyslipidemia Lymphoma Raynauds phenomenon Surgical History H/O hernia repair Hx of CABG Hx of tonsillectomy Family History Mother Cancer Leukemia Social History Smoking and tobacco status: never smoked Alcohol intake: never Lives independently: Yes Housing: House Vitals/I&O/Wt Last Vital Signs Temp 98.2 F 09/30/20 17:19 Pulse 39 L 09/30/20 17:19 Resp 14 09/30/20 17:19 BP 117/40 09/30/20 17:19 Pulse Ox 99 09/30/20 17:19 Weight last 48 hrs Weight 112 lb Physical Exam Narrative: EXAM NARRATIVE: GENERAL: Frail-appearing gentleman in no acute distress HEENT: Pupils equal round reactive to light. No pallor or icterus. NECK: No JVD. No carotid bruit. CARDIOVASCULAR SYSTEM: S1-S2 regular. Bradycardia present; no S3 or S4 present. Grade 3 on 6 left lower sternal border systolic murmur + RESPIRATORY SYSTEM: Chest clear to auscultation. No wheezes rhonchi or rubs heard. No use of accessory muscles. ABDOMEN: Soft, nontender and nondistended. Normal bowel sounds present. EXTREMITIES: No cyanosis or clubbing. No edema. No signs of chronic venous insufficiency. WHISKEY REGAUGER: Patient is alert oriented ?3. No focal neurological deficits. SKIN: Normal turgor and temperature. No breakdown, rash or nail changes noted. PSYCH: Normal insight and judgment. Data Other Data: Attestation for Other Data: I personally reviewed and interpreted the following: Other data: 09/20/20 ECHO US CONCLUSIONS LV systolic function is borderline normal with EF of 50 to 55%. Moderate left ventricular hypertrophy is present. Diastolic function is indeterminate because of atrial fibrillation. There is mild to moderate mitral regurgitation. Moderate tricuspid regurgitation is present. There is moderate pulmonary hypertension. Pulmonic valve has mild regurgitation. When compared to prior study from 11/24/2018, no significant changes are seen. 09/20/20 CAROTID DOPPLER STUDY CONCLUSIONS Right ICA stenosis <50%. Mild atheromatous plaque right carotid bulb/ICA. Left ICA stenosis <50%. Mild atheromatous plaque left carotid bulb/ICA. Normal antegrade Doppler flow noted in the right vertebral artery. Normal antegrade Doppler flow noted in the left vertebral artery. A&P Assessment and plan (1) Junctional bradycardia: EKG showing Junction escape rhythm at 38 bpm. Prior EKG with atrial flutter with RVr at 116 bpm -He was taking coreg 6.25 BID and amiodarone 200 mg daily for last days (was on amiodarone 200 mg BID x 7 days) -Asymptomatic except for tiredness. -Stop all AV mindi blockers namely carvedilol and amiodarone. -Atropine/ TCP if patient gets symptomatic. May consider dopamine gtt as well. -Observe closely on telemetry. Follow-up on [facility] to ensure her electrolytes are within normal limits. There is still pending at the moment. -Patient showing early signs of tachybradycardia syndrome. He may end up requiring permanent pacemaker if he develops atrial flutter/fib with RVR. -Further recommendation based on clinical progression. Status: Acute (2) Atrial flutter, paroxysmal: Transition to Lovenox therapeutic dose. Status: Acute (3) Hypertension: Status: Acute Qualifiers: Hypertension type: essential hypertension Qualified Code(s): I10 - Essential (primary) hypertension (4) Cerebellar stroke: Continue statin and aspirin for now Status: Acute Additional A&P Information CAD with history of CABG History of lymphoma Ankle Me to participate in patient's care. Please feel free to call with questions or concerns. Consult Attestations Medical Necessity Statement: Hospital stay for management of bradycardia Coding Level of Care Code Acute Drink Box Mechanic for [facility] Fwd Diagnoses Junctional bradycardia R00.1 Atrial flutter, paroxysmal I48.92 Hypertension I10 Hypertension type: essential hypertension Cerebellar stroke I63.9
--- NOTE | 2020-09-30 17:52 | ED_ITS ---
HPI - Arrhythmia/Palpitations General: Chief Complaint: Arrhythmia/Palpitations Stated Complaint: low heart rate, weakness/fatigue in legs Time Seen by Provider: 09/30/20 17:21 History of Present Illness: HPI narrative: The patient is a 80-year-old male with past medical history atrial fibrillation, coronary artery disease with triple bypass surgery. He comes to the ER complaining of low heart rate today. He says he checks it regularly at home and it was 50. He also complains of mild fatigue and weakness in his lower extremities. In the exam room he offers no complaints. Denies chest pain, shortness of breath. Duration: constant Severity: severe Associated symptoms: Deny anxiety Review of Systems General: Reports: 10 or more systems reviewed and unremarkable except in HPI and below Const: Denies: fatigue Eyes: Denies: change in vision, blurry vision or eye redness ENMT: Denies: throat pain, swelling of lips/tongue, ear or mastoid pain or nasal congestion Card: Denies: chest pain, palpitations, irregular heart rhythm, edema, dyspnea on exertion or orthopnea Resp: Denies: dyspnea, productive cough or non-productive cough GI: Denies: abdominal pain, diarrhea or GI cramping : Denies: flank pain, urinary frequency or urinary urgency Musc: Denies: neck pain, back pain, extremity pain, joint pain, joint redness, limited range of motion or muscle weakness Skin/Breast: Denies: rash, pruritus, erythema, skin pain or skin tenderness Neuro: Denies: headache(s), numbness in extremities, weakness in extremities, sensory changes, difficulty walking, dizziness, confusion or Slurred speech present Psych: Denies: anxiety or depression Endo: Denies: polyuria All/Imm: Denies: urticaria, throat swelling or tongue swelling PFSH ED PFSH: Medical History Atrial fibrillation BPH (benign prostatic hyperplasia) Cerebellar stroke Coronary artery disease Dyslipidemia Lymphoma Raynauds phenomenon Surgical History H/O hernia repair Hx of CABG Hx of tonsillectomy Family History Mother Cancer Leukemia Social History Smoking and tobacco status: never smoked Alcohol intake: never Lives independently: Yes Housing: House Physical Exam Const: COMMON NORMALS: no acute distress, average body habitus, patient oriented x3, no limitations, healthy appearing, alert and well nourished GENERAL APPEARANCE: cooperative, comfortable, well kempt and well developed ORIENTATION/CONSCIOUSNESS: Yes awake, Yes oriented to person, Yes oriented to place and Yes oriented to time HENMT: COMMON NORMALS: normocephalic, external ears normal and Normal external nose present HEAD & SCALP: normal to inspection and normocephalic NOSE: Normal external nose present EXTERNAL EAR: Yes external ears normal MOUTH: Normal oral and palatal mucosa present THROAT: posterior oropharynx normal Eye: COMMON NORMALS: Equal, round and reactive pupils present and EOMs intact bilaterally GENERAL EYE: appearance normal, both eyes and all related structures PUPIL: Yes Equal, round and reactive pupils present Neck/C-Spine: COMMON NORMALS: full ROM, no lymphadenopathy, no meningeal signs and no JVD GENERAL: Yes normal visual inspection Lymph: LYMPHATIC: no lymphadenopathy noted Chest: COMMONS NORMALS: normal inspection of the chest and normal palpation of entire chest wall Resp: COMMON NORMALS: normal respiratory effort, No retractions, No use of accessory muscles, clear to auscultation bilaterally and percussion normal EFFORT & INSPECTION: Yes able to speak in complete sentences AUSCULTATION: clear to auscultation bilaterally PERCUSSION: percussion normal Cardio: COMMON NORMALS: no JVD, regular rate, regular rhythm, S1 normal heart sound present, S2 normal heart sound present and Peripheral pulses 2+ throughout RATE: regular rate RHYTHM: regular rhythm HEART SOUNDS: S1 normal heart sound present and S2 normal heart sound present PERIPHERAL PULSES: Peripheral pulses 2+ throughout GI: COMMON NORMALS: Normal to inspection, nondistended, normoactive bowel rosario nds present, Soft to palpation, non-tender and no masses INSPECTION: Yes normal to inspection PALPATION: Yes Soft to palpation : COMMON NORMALS: Yes no CVA tenderness BLADDER/KIDNEY EXAM: Yes no CVA tenderness Back/Pelvis: COMMON NORMALS: no CVA tenderness, thoracic and lumbar spine normal to inspection, no thoracic nor lumbar tenderness and thoraco-lumbar ROM normal Extremity: COMMON NORMALS: normal to inspection, full ROM, capillary refill normal, no joint enlargement and no pedal edema GENERAL: Yes normal exam except as noted Neuro: COMMON NORMALS: patient oriented x3, CN's II-XII intact bilaterally, moves all extremities, no focal motor deficits, no sensory deficits noted and gait normal SENSORIUM/ORIENTATION: Yes alert, Yes oriented to person, Yes oriented to place and Yes oriented to time MENINGEAL SIGNS: Yes no meningeal signs Psych: COMMON NORMALS: mental status grossly normal, Normal thought process present, cooperative, normal affect and speech normal APPEARANCE: Yes well kempt ATTITUDE: Yes calm SPEECH: Yes normal speech THOUGHT PROCESS: Normal thought process present Skin: COMMON NORMALS: no rashes or lesions noted GENERAL SKIN EXAM: no rashes or lesions noted Course Vital Signs: Vital signs: Vital Signs Temperature 98.2 F 09/30/20 17:19 Pulse Rate 34 L 09/30/20 20:42 Respiratory Rate 23 H 09/30/20 20:42 Blood Pressure 160/63 09/30/20 20:42 Pulse Oximetry 98 09/30/20 20:42 MDM - Arrhythmia/Palpitations MDM Narrative: Medical decision making narrative: The patient came in with bradycardia. His rate has been in the mid 30s his entire stay and he is asymptomatic in the ER. Discussed with Dr. Tavarez who feels it is a junctional rhythm and recommends stopping the carvedilol and monitoring on the cardiac stepdown unit. Dr. Don accepts for admission. Lab Data: Labs: Lab Results 09/30/20 09/30/20 09/30/20 Range/Units 17:41 17:41 17:41 WBC 7.8 (4.0-10.0) 10^3/ uL RBC 4.32 (4.1-5.3) 10^6/u L Hgb 13.9 (11.7-16.6) g/dL Hct 43.1 (42.0-52.0) % MCV 99.8 H (80-94) fL MCH 32.2 (28.0-34.0) pg MCHC 32.3 (30.0-36.0) g/dL RDW 12.6 (12.1-15.1) % Plt Count 226 (130-400) 10^3/c mm MPV 9.9 (7.4-10.4) fL Neut % (Auto) 71.6 % Lymph % (Auto) 12.0 % [place] % (Auto) 12.5 % Eos % (Auto) 2.8 % Baso % (Auto) 0.8 % Neut # (Auto) 5.58 (1.8-7.7) 10^3/u L Lymph # (Auto) 0.9 (0.8-4.8) 10^3/u L [place] # (Auto) 1.0 H (0.2-0.9) 10^3/u L Eos # (Auto) 0.2 (0.0-0.8) 10^3/u L Baso # (Auto) 0.1 (0.0-0.1) 10^3/u L Nucleated RBC % (a uto) 0 % Nucleated RBCs # 0.0 /100WBC Sodium 135 L (136-145) mmol/L Potassium 6.4 H (3.5-5.1) mmol/L Chloride 99 (98-107) mmol/L Carbon Dioxide 29 (22-29) mmol/L Anion Gap 13.4 (5-19) BUN 49 H (8-23) mg/dL Creatinine 2.0 H (0.7-1.2) mg/dL GFR Calculation Not Reportable Glucose 142 H (65-115) mg/dL Calculated Osmolal ity 295 (285-295) mOsm/k g Lactate 1.0 (0.5-2.2) mmol/L Calcium 8.7 (8.5-10.5) mg/dL Total Bilirubin 0.4 (0.15-1.2) mg/dL AST 128 H (0-40) U/L ALT 82 H (0-41) U/L Alkaline Phosphata se 125 (40-130) IU/L NT-Pro-B Natriuret Pep 2635 H (0-450) pg/mL Total Protein 7.2 (6.6-8.7) g/dL Albumin 3.8 (3.5-5.2) g/dL Globulin 3.4 (1.3-4.6) g/dL Discharge Plan Discharge Admit Provider: Bronson Don Condition: Good Coding Level of Care Code ED Business Programmer for Chg Fwd Exam Comprehensive
[2020-09-30 18:06] LABS: Basophils # 0.1 10^3/uL (0.0-0.1); Basophils % 0.8 %; Eosinophils # 0.2 10^3/uL (0.0-0.8); Eosinophils % 2.8 %; Hematocrit 43.1 % (42.0-52.0); Hemoglobin 13.9 g/dL (11.7-16.6); Lymphocytes # 0.9 10^3/uL (0.8-4.8); Mean Corpuscular HGB Conc 32.3 g/dL (30.0-36.0); Mean Corpuscular Hemoglobin 32.2 pg (28.0-34.0); Mean Corpuscular Volume 99.8 fL (80-94); Mean Platelet Volume 9.9 fL (7.4-10.4); Monocytes % 12.5 %; Neutrophils # 5.58 10^3/uL (1.8-7.7); Neutrophils % 71.6 %; Nucleated Red Blood Cells % 0 %; Platelet Count 226 10^3/cmm (130-400); Red Blood Count 4.32 10^6/uL (4.1-5.3); Red Cell Distribution Width 12.6 % (12.1-15.1); White Blood Count 7.8 10^3/uL (4.0-10.0)
[2020-09-30 18:28] LABS: Alanine Aminotransferase 82 U/L (0-41); Albumin Level 3.8 g/dL (3.5-5.2); Alkaline Phosphatase 125 IU/L (40-130); Anion Gap 13.4 (5-19); Aspartate Amino Transferase 128 U/L (0-40); Blood Urea Nitrogen 49 mg/dL (8-23); Calcium 8.7 mg/dL (8.5-10.5); Carbon Dioxide 29 mmol/L (22-29); Chloride 99 mmol/L (98-107); Globulin 3.4 g/dL (1.3-4.6); Glucose 142 mg/dL (65-115); NT Pro B Type Natriuretic Pept 2635 pg/mL (0-450); Osmolality Calculated 295 mOsm/kg (285-295); Potassium 6.4 mmol/L (3.5-5.1); Sodium 135 mmol/L (136-145); Total Bilirubin 0.4 mg/dL (0.15-1.2); Total Protein 7.2 g/dL (6.6-8.7)
--- NOTE | 2020-09-30 18:40 | P.HP_ITS ---
Providers/Chief Complaint Primary Care Provider: Bryant Mendieta MD Chief Complaint: low heart rate, weakness/fatigue in legs History of Present Illness Rogelio Taylor is a 80 year old male with a past medical history of newly diagnosed atrial fibrillation on Eliquis, Coreg, amiodarone, hypertension, hyperlipidemia, recent history of cerebellar stroke, history of lymphoma status chemoradiation, CABG who presents to [facility] due to weakness, and a low heart rate. Patient states that he regularly checks his heart rate, he is quite fit, weight lifts avidly, he tells me that he checked his heart rate it was a low 50s, he did not think much of it until he started to feel weak, and both of his legs, no lightheadedness, no dizziness, no nausea, no vomiting, no chest pain, no paresthesias.. Patient is on amiodarone 200 mg daily, his blood pressures been elevated, so he has been on Coreg 6.25 twice daily. No history of hypothyroidism. No history of hypomagnesemia. No history of sinus node dysfunction. Denies drinking alcohol. No history of drug use. No history of chest pain. Review of Systems Const: Denies: fever(s), chills, fatigue or malaise Eyes: Denies: change in vision or blurry vision ENMT: Denies: nasal congestion Card: Denies: chest pain, palpitations, lightheadedness, syncope, pre-syncope or dyspnea on exertion Resp: Denies: dyspnea, productive cough, non-productive cough or wheezing GI: Denies: abdominal pain, nausea, vomiting, hematemesis, diarrhea, constipation, hematochezia or melena : Denies: flank pain, difficulty urinating, dysuria or urinary frequency Musc: Denies: neck pain or back pain Skin/Breast: Denies: rash Neuro: Denies: headache(s), dizziness or vertigo Psych: Denies: anxiety or depression Endo: Denies: polyuria or polydipsia Medications/Allergies Home Medications Medication Instructions Recorded Confirmed Last Taken Type rosuvastatin 20 mg PO DAILY@09/20/20 09/30/20 09/30/20 History amiodarone [Pacerone] 200 mg PO DAILY@09/30/20 09/30/20 09/30/20 History apixaban [Eliquis] 5 mg PO BID@09/30/20 09/30/20 09/30/20 History aspirin 81 mg PO DAILY@09/30/20 09/30/20 09/30/20 History carvedilol 6.25 mg PO BID@09/30/20 09/30/20 09/30/20 History lorazepam 0.5 mg PO DAILY PRN 09/30/20 09/30/20 Unknown History Allergies Allergy/AdvReac Type Severity Reaction Status Date / Time Penicillins Allergy ALGY-Rash Verified 09/17/20 17:40 ramipril [From Altace] Allergy ALGY-Swell Verified 09/20/20 04:42 Lip/Tongue/Throat PFSH Acute PFSH: Medical History Atrial fibrillation BPH (benign prostatic hyperplasia) Cerebellar stroke Coronary artery disease Dyslipidemia Lymphoma Raynauds phenomenon Surgical History H/O hernia repair Hx of CABG Hx of tonsillectomy Family History Mother Cancer Leukemia Social History Smoking and tobacco status: never smoked Alcohol intake: never Lives independently: Yes Housing: House Vitals/I&O/Wt Last Vital Signs Temp 98.2 F 09/30/20 17:19 Pulse 39 L 09/30/20 17:19 Resp 14 09/30/20 17:19 BP 117/40 09/30/20 17:19 Pulse Ox 99 09/30/20 17:19 Weight last 48 hrs Weight 50.802 kg Physical Exam Const: COMMON NORMALS: no acute distress and patient oriented x3 GENERAL APPEARANCE: cooperative and comfortable HENMT: COMMON NORMALS: normocephalic HEAD & SCALP: normocephalic Eye: COMMON NORMALS: Equal, round and reactive pupils present and EOMs intact bilaterally GENERAL EYE: appearance normal, both eyes and all related structures PUPIL: Yes Equal, round and reactive pupils present Neck/C-Spine: COMMON NORMALS: full ROM, no lymphadenopathy, no JVD and Thyroid normal THYROID: Thyroid normal Lymph: LYMPHATIC: no lymphadenopathy noted Resp: COMMON NORMALS: normal respiratory effort, No retractions, No use of accessory muscles and clear to auscultation bilaterally AUSCULTATION: clear to auscultation bilaterally Cardio: COMMON NORMALS: no JVD, regular rate, regular rhythm, S1 normal heart sound present, S2 normal heart sound present, No gallops present (Cardio), No clicks present (Cardio) and No murmurs present (Cardio) RATE: bradycardic RHYTHM: regular rhythm HEART SOUNDS: S1 normal heart sound present and S2 normal heart sound present GI: COMMON NORMALS: Normal to inspection, nondistended, normoactive bowel sounds present, Soft to palpation, non-tender and No hepatosplenomegaly present PALPATION: Yes Soft to palpation and Yes No hepatosplenomegaly present Extremity: COMMON NORMALS: normal to inspection, full ROM and no pedal edema Neuro: COMMON NORMALS: patient oriented x3, CN's II-XII intact bilaterally, moves all extremities and no focal motor deficits Psych: COMMON NORMALS: mental status grossly normal, Normal thought process present and cooperative THOUGHT PROCESS: Normal thought process present Data : 09/30/20 17:41 09/30/20 17:41 A&P Assessment and plan (1) Junctional bradycardia: -Heart rates in the low 30s, EKG showed junctional bradycardia has weakness Plan -Admit to cardiac stepdown unit -Hold all AV mindi blocking agents -Telemetry monitoring -Monitor for symptomatology -As needed atropine for heart rate less than 60 and with symptoms -Pacer pads on -Dr. Tavarez from cardiology has been consulted -Eliquis for DVT prophylaxis -Full code Status: Acute (2) Atrial flutter, paroxysmal: Status: Acute (3) Cerebellar stroke: Status: Acute (4) Hypertension: Status: Acute Qualifiers: Hypertension type: essential hypertension Qualified Code(s): I10 - Essential (primary) hypertension (5) Troponin level elevated: -Continue to trend troponins, serial EKGs -Is on aspirin, Eliquis, statin -No active chest pain -Continue to monitor -echo 09/2020: LV systolic function is borderline normal with EF of 50 to 55%. Moderate left ventricular hypertrophy is present. Diastolic function is indeterminate because of atrial fibrillation. There is mild to moderate mitral regurgitation. Moderate tricuspid regurgitation is present. There is moderate pulmonary hypertension. Pulmonic valve has mild regurgitation. When compared to prior study from 11/24/2018, no significant changes are seen. Status: Acute Attestations Medical Necessity Statement*: Patient requires hospitalization, outpatient with observation, for sinus bradycardia Coding Level of Care Code Acute Air Pollution Specialist for [facility] Diagnoses Junctional bradycardia R00.1 Atrial flutter, paroxysmal I48.92 Cerebellar stroke I63.9 Hypertension I10 Hypertension type: essential hypertension Troponin level elevated R77.8
[2020-09-30 21:30] LABS: Magnesium 2.5 mg/dL (1.7-2.3)
[2020-09-30] MEDS: apixaban 5 mg Tablet PO (21:37)
[2020-09-30 21:40] LABS: Thyroid Stimulating Hormone 3.84 uIU/mL (0.27-4.20)
--- NOTE | 2020-09-30 21:52 | PC.NURSE ---
Dr. Harper notified of patient stating that he feels short of breath. Oxygen saturation is 95 percent on room air and patient's lungs sound clear. Patient's heart rate is maintaining 30s. Ordered to give PRN Atropine.
[2020-09-30] MEDS: atropine 0.1 mg/mL Syr 10 mL 0.5 MG IVP (21:55)
--- NOTE | 2020-09-30 21:58 | PC.NURSE ---
Patient's heart rate went up to 51 after given PRN Atropine. Patient stated I already feel better. Patient's shortness of breath went away temporarily. Dr. Harper notified. Ordered to continue to monitor.
[2020-09-30 22:17] LABS: Glucose Point of Care 95 mg/dL (70-110)
[2020-09-30] MEDS: sodium polystyrene sulfonate 15 gm/60 mL Btl PO (22:27)
[2020-09-30] MEDS: calcium gluconate 0.1 gm/mL 10% SDV 10mL 1 GM IVP (22:27)
[2020-09-30] MEDS: insulin regular-human 10 UNIT in SYRINGE 1 EACH IVP (22:28)
[2020-09-30] MEDS: dextrose 50% syringe 50 mL 25 ML IVP (22:28)
--- NOTE | 2020-09-30 22:36 | PC.NURSE ---
10 units novolin R given IV push per order. It would not let me admin this on nov without typing an infusion rate.
[2020-10-01] VITALS (12 sets, daily range): BP systolic 94–175; BP diastolic 58–86; PULSE 50–92; RESP 21–31; TEMP 36.4–36.8; O2SAT 96–100
[2020-10-01 01:02] LABS: Glucose Point of Care 89 mg/dL (70-110)
[2020-10-01 01:54] LABS: Potassium 5.2 mmol/L (3.5-5.1)
[2020-10-01 02:23] LABS: Glucose Point of Care 87 mg/dL (70-110)
--- NOTE | 2020-10-01 04:53 | PC.NURSE ---
Patient states I have Raynaud's phenomenon.
[2020-10-01 05:21] LABS: Basophils % 0.4 %; Eosinophils # 0.1 10^3/uL (0.0-0.8); Eosinophils % 1.8 %; Hematocrit 41.2 % (42.0-52.0); Hemoglobin 13.4 g/dL (11.7-16.6); Lymphocytes # 1.2 10^3/uL (0.8-4.8); Lymphocytes % 15.4 %; Mean Corpuscular HGB Conc 32.5 g/dL (30.0-36.0); Mean Corpuscular Hemoglobin 31.8 pg (28.0-34.0); Mean Corpuscular Volume 97.6 fL (80-94); Mean Platelet Volume 9.8 fL (7.4-10.4); Monocytes # 1.1 10^3/uL (0.2-0.9); Monocytes % 13.9 %; Neutrophils # 5.36 10^3/uL (1.8-7.7); Neutrophils % 68.1 %; Nucleated Red Blood Cells % 0 %; Platelet Count 203 10^3/cmm (130-400); Red Blood Count 4.22 10^6/uL (4.1-5.3); Red Cell Distribution Width 12.8 % (12.1-15.1); White Blood Count 7.9 10^3/uL (4.0-10.0)
--- NOTE | 2020-10-01 05:33 | PC.NURSE ---
According to the mill turner, it appears that the patient went from A-fib to SR and went from a heart rate of 40s to a heart rate of 70s around 2300 last night. Patient does not have any shortness of breath or any other complaints at this time.
[2020-10-01 05:43] LABS: Alanine Aminotransferase 124 U/L (0-41); Albumin Level 3.4 g/dL (3.5-5.2); Alkaline Phosphatase 124 IU/L (40-130); Aspartate Amino Transferase 131 U/L (0-40); Blood Urea Nitrogen 46 mg/dL (8-23); Calcium 8.8 mg/dL (8.5-10.5); Carbon Dioxide 30 mmol/L (22-29); Chloride 100 mmol/L (98-107); Globulin 3.3 g/dL (1.3-4.6); Glucose 121 mg/dL (65-115); Magnesium 2.1 mg/dL (1.7-2.3); Osmolality Calculated 295 mOsm/kg (285-295); Phosphorus 3.7 mg/dL (2.5-4.5); Sodium 136 mmol/L (136-145); Total Bilirubin 0.5 mg/dL (0.15-1.2); Total Protein 6.7 g/dL (6.6-8.7)
[2020-10-01 05:46] LABS: Anion Gap 11.8 (5-19); Potassium 5.8 mmol/L (3.5-5.1)
[2020-10-01 06:28] LABS: Glucose Point of Care 73 mg/dL (70-110)
[2020-10-01] MEDS: aspirin 81 mg EC Tablet PO (08:37)
[2020-10-01] MEDS: apixaban 5 mg Tablet PO ×2 (08:38→19:35)
[2020-10-01] MEDS: famotidine 20 mg Tablet PO ×2 (08:38→17:41)
[2020-10-01] MEDS: pneumococcal (23 valent) SDV 0.5 mL IM (08:38)
[2020-10-01] MEDS: atorvastatin 40 mg Tablet 80 MG PO (08:38)
--- NOTE | 2020-10-01 09:18 | PC.CHAP ---
Pastoral Care Encounter/Spiritual Assessment Type of Contact [] Declined optical scientist visit [] Patient/Family/Request visit [] Outpatient visit [] Follow-up visit [] Physician referral [] Code/Alert [x Routine visit [] Staff referral [] Actively dying [] Patient sleeping [] Family support [] [] Out of room [] Palliative care [] [] Receiving care in room [] Pre-surgical visit [] Trauma [] Long length of stay [] ICU visit [] Other: Relational/Emotional Strength [] Patient feels connected with others/family/visitors/staff [] Distress [] Loneliness/isolation [] Abandonment Spirituality of Patient [] Person of Tomasa [] Attends Scientology of their Tomasa [] Believes in Prayer [] Reads Bible or Anabaptist materials [] There are Spiritual issues to be addressed Account Consultant Interventions [x] Prayer [x] Active listening [x] Non-anxious presence [x] Spiritual/emotional support [] Crisis/trauma care [] Spiritual counseling [] Bereavement support [] Provided bereavement packet [] Provided Bible/devotional materials [] Provided toy/stuffed animal, coloring book to patient or family member [] Provided Communion [] Anointing/[place] [] Salvation [x] Completed spiritual assessment [] Other: Impact on Illness or Injury [] Angry [] Fearful [] Anxious [] Often cries [] Exhaustion [] Unable to work [] Unable to attend roman catholic [] Unable to walk/stand [] Unable to read [] Unable to drive [] Unable to eat/drink [] Unable to sleep [] Unable to be with family [] Patient intubated [] Other: Summary feeling stronger,,, Time spent with patient 5 min
[2020-10-01 12:38] LABS: Add Urine Microscopic? NO
[2020-10-01 12:52] LABS: Bilirubin Urine Neg (Negative); Blood Urine Neg (Negative); Glucose Urine UA Norm (Normal); Ketones Urine Negative (Negative); Leukocyte Esterase Urine Negative (Negative); Nitrate Urine Negative (Negative); Protein Urine Neg (Negative); Urine Appearance Clear (CLEAR); Urine Color Straw (Yellow); Urobilinogen Urine Norm (Negative); pH Urine 6.5 (5-7)
--- NOTE | 2020-10-01 13:00 | PM.PN ---
Vitals/I&O/Wt Last Vital Signs Temp 97.5 F L 10/01/20 11:42 Pulse 79 10/01/20 11:42 Resp 26 H 10/01/20 11:42 BP 111/58 10/01/20 11:42 Pulse Ox 100 10/01/20 11:42 09/30/20 10/01/20 10/01/20 22:59 06:59 14:59 Intake Total 100 / 100 200 / 300 Output Total 450 / 450 300 / 300 Balance 100 / 100 -250 / -150 -300 / -300 Weight last 48 hrs Weight 50.802 kg Physical Exam Const: COMMON NORMALS: no acute distress and patient oriented x3 HENMT: COMMON NORMALS: normocephalic HEAD & SCALP: normocephalic Neck/C-Spine: COMMON NORMALS: no JVD Resp: COMMON NORMALS: normal respiratory effort, No retractions, No use of accessory muscles and clear to auscultation bilaterally AUSCULTATION: clear to auscultation bilaterally Cardio: COMMON NORMALS: no JVD, regular rate, regular rhythm, S1 normal heart sound present and S2 normal heart sound present RATE: regular rate RHYTHM: regular rhythm HEART SOUNDS: S1 normal heart sound present and S2 normal heart sound present GI: COMMON NORMALS: Normal to inspection, nondistended, normoactive bowel sounds present, Soft to palpation, non-tender, No hepatosplenomegaly present, no masses and no bruits PALPATION: Yes Soft to palpation and Yes No hepatosplenomegaly present Extremity: COMMON NORMALS: capillary refill normal, no clubbing, cyanosis or edema, no calf tenderness and no pedal edema Neuro: COMMON NORMALS: patient oriented x3 Psych: COMMON NORMALS: mental status grossly normal Data : 10/01/20 05:10 10/01/20 05:10 A&P Assessment and plan (1) Junctional bradycardia: -Heart rates in the low 30s, EKG showed junctional bradycardia has weakness -Heart rates improved to the 70s, asymptomatic, 1 dose of atropine required Plan -Admit to cardiac stepdown unit -Hold all AV mindi blocking agents -Telemetry monitoring -Monitor for symptomatology -As needed atropine for heart rate less than 60 and with symptoms -Pacer pads on -Might require pacemaker placement -Dr. Navarro from cardiology has been consulted -[facility] for DVT prophylaxis -Full code Status: Acute (2) Atrial flutter, paroxysmal: Status: Acute (3) Cerebellar stroke: Status: Acute (4) Hypertension: Status: Inactive Qualifiers: Hypertension type: essential hypertension Qualified Code(s): I10 - Essential (primary) hypertension (5) Troponin level elevated: -Continue to trend troponins, serial EKGs -Is on aspirin, Eliquis, statin -No active chest pain -Continue to monitor -echo 09/2020: LV systolic function is borderline normal with EF of 50 to 55%. Moderate left ventricular hypertrophy is present. Diastolic function is indeterminate because of atrial fibrillation. There is mild to moderate mitral regurgitation. Moderate tricuspid regurgitation is present. There is moderate pulmonary hypertension. Pulmonic valve has mild regurgitation. When compared to prior study from 11/24/2018, no significant changes are seen. Status: Acute Attestations Medical Necessity Statement*: Patient requires hospitalization for junctional bradycardia Coding Level of Care Code Acute Air Conditioning Specialist for [facility] Fw Diagnoses Junctional bradycardia R00.1 Atrial flutter, paroxysmal I48.92 Cerebellar stroke I63.9 Hypertension I10 Hypertension type: essential hypertension Troponin level elevated R77.8
--- NOTE | 2020-10-01 13:35 | P.PN_ITS ---
Subjective Subjective: Interval history: Patient is doing well. No complaints of chest pain, shortness of breath or palpitations. His heart rate has improved since stopping rate controlling medications. Blood pressure is stable. Renal function improved today and is 1.6. Vitals/I&O/Wt Last Vital Signs Temp 97.5 F L 10/01/20 11:42 Pulse 79 10/01/20 11:42 Resp 26 H 10/01/20 11:42 BP 111/58 10/01/20 11:42 Pulse Ox 100 10/01/20 11:42 09/30/20 10/01/20 10/01/20 22:59 06:59 14:59 Intake Total 100 / 100 200 / 300 Output Total 450 / 450 300 / 300 Balance 100 / 100 -250 / -150 -300 / -300 Weight last 48 hrs Weight 112 lb Physical Exam Narrative: EXAM NARRATIVE: GENERAL: Frail-appearing gentleman in no acute distress HEENT: Pupils equal round reactive to light. No pallor or icterus. NECK: No JVD. No carotid bruit. CARDIOVASCULAR SYSTEM: S1-S2 regular. Bradycardia present; no S3 or S4 present. Grade 3/ 6 left lower sternal border systolic murmur + RESPIRATORY SYSTEM: Chest clear to auscultation. No wheezes rhonchi or rubs heard. No use of accessory muscles. ABDOMEN: Soft, nontender and nondistended. Normal bowel sounds present. EXTREMITIES: No cyanosis or clubbing. No edema. No signs of chronic venous insufficiency. INSTANTIZER OPERATOR: Patient is alert oriented ?3. No focal neurological deficits. SKIN: Normal turgor and temperature. No breakdown, rash or nail changes noted. PSYCH: Normal insight and judgment. Data : 10/01/20 05:10 10/01/20 05:10 A&P Assessment and plan (1) Junctional bradycardia: Initial EKG showing Junction escape rhythm at 38 bpm. Prior EKG with atrial flutter with RVr at 116 bpm -Hold rate controlling medications including coreg and amiodarone Heart rates overnight improved and now in sinus rhythm wiht normal heart rates and blood pressures -Observe closely on telemetry. Creatinine has improved to 1.6 and potassium is 5.8 -Administer IV fluids today -Patient showing early signs of tachybradycardia syndrome. He may end up requiring permanent pacemaker if he develops atrial flutter/fib with RVR. Status: Acute (2) Atrial flutter, paroxysmal: Continue anticoagulation Status: Acute (3) Hypertension: Blood pressure is controlled without medications Status: Inactive Qualifiers: Hypertension type: essential hypertension Qualified Code(s): I10 - Essential (primary) hypertension (4) Cerebellar stroke: Continue statin and aspirin for now Status: Acute Additional A&P Information CAD with history of CABG History of lymphoma Thank you for involving us with care of this patient. Please call with questions Attestations Medical Necessity Statement*: Care expected to cross 2 midnights Coding Level of Care Code Acute Hydraulic Corrugating Machine Operator for [place] Fwd Diagnoses Junctional bradycardia R00.1 Atrial flutter, paroxysmal I48.92 Hypertension I10 Hypertension type: essential hypertension Cerebellar stroke I63.9
[2020-10-01 15:26] LABS: Glucose Point of Care 119 mg/dL (70-110)
[2020-10-02] VITALS (7 sets, daily range): BP systolic 110–128; BP diastolic 71–89; PULSE 78–98; RESP 15–27; TEMP 36.6; O2SAT 95–98
[2020-10-02 04:33] LABS: Basophils % 0.4 %; Eosinophils # 0.3 10^3/uL (0.0-0.8); Eosinophils % 2.9 %; Hematocrit 37.8 % (42.0-52.0); Hemoglobin 12.3 g/dL (11.7-16.6); Lymphocytes % 11.1 %; Mean Corpuscular HGB Conc 32.5 g/dL (30.0-36.0); Mean Corpuscular Hemoglobin 31.3 pg (28.0-34.0); Mean Corpuscular Volume 96.2 fL (80-94); Mean Platelet Volume 10.3 fL (7.4-10.4); Monocytes # 1.5 10^3/uL (0.2-0.9); Monocytes % 16.2 %; Neutrophils # 6.24 10^3/uL (1.8-7.7); Neutrophils % 69.2 %; Nucleated Red Blood Cells % 0 %; Platelet Count 193 10^3/cmm (130-400); Red Blood Count 3.93 10^6/uL (4.1-5.3); Red Cell Distribution Width 12.4 % (12.1-15.1)
[2020-10-02 04:41] LABS: Alanine Aminotransferase 71 U/L (0-41); Albumin Level 3.2 g/dL (3.5-5.2); Alkaline Phosphatase 111 IU/L (40-130); Anion Gap 10.6 (5-19); Aspartate Amino Transferase 62 U/L (0-40); Blood Urea Nitrogen 36 mg/dL (8-23); Calcium 8.4 mg/dL (8.5-10.5); Carbon Dioxide 31 mmol/L (22-29); Chloride 100 mmol/L (98-107); Globulin 2.4 g/dL (1.3-4.6); Glucose 85 mg/dL (65-115); Magnesium 1.9 mg/dL (1.7-2.3); Osmolality Calculated 292 mOsm/kg (285-295); Phosphorus 3.5 mg/dL (2.5-4.5); Potassium 4.6 mmol/L (3.5-5.1); Sodium 137 mmol/L (136-145); Total Bilirubin 0.5 mg/dL (0.15-1.2); Total Protein 5.6 g/dL (6.6-8.7)
--- NOTE | 2020-10-02 08:47 | P.PN_ITS ---
Subjective Subjective: Interval history: Patient is doing well. His heart rate has remained stable and he is in sinus rhythm. All his rate controlling medicines are stopped. Renal function is improving with creatinine of 1.3 and potassium has normalized to 4.6 today. Denies any complaints of chest pain, shortness of breath or palpitations. Vitals/I&O/Wt Last Vital Signs Temp 97.9 F 10/02/20 04:00 Pulse 78 10/02/20 05:52 Resp 23 H 10/02/20 04:00 BP 128/89 10/02/20 04:00 Pulse Ox 97 10/02/20 04:00 10/01/20 10/02/20 10/02/20 22:59 06:59 14:59 Intake Total 360 / 360 100 / 460 Output Total 750 / 1050 600 / 1650 Balance -390 / -690 -500 / -1190 Weight last 48 hrs Weight 112 lb Physical Exam Narrative: EXAM NARRATIVE: GENERAL: Patient is alert, awake and oriented x3. [] NECK: No jugular vein distension. [] HEENT: No cyanosis. No icterus. No pallor. [] HEART: Regular S1 and S2. No murmur, rub or gallop. [] LUNGS: Clear to auscultate bilaterally. [] ABDOMEN: Soft, nontender and nondistended. Positive bowel sounds. No guarding, rebound or tenderness. [] CENTRAL NERVOUS SYSTEM: Grossly nonfocal. [] EXTREMITIES: Lower extremities with no edema bilaterally. Pulses palpable in the lower extremities, both dorsalis pedis and posterior tibial. [] Data : 10/02/20 03:19 10/02/20 03:19 A&P Assessment and plan (1) Junctional bradycardia: Initial EKG showing Junction escape rhythm at 38 bpm. Now in normal sinus rhythm. Prior EKG with atrial flutter with RVR at 116 bpm -Stop rate controlling medications -His creatinine and potassium have improved. -Initiate amlodipine 2.5 mg daily. -Patient showing early signs of tachybradycardia syndrome. He may end up requiring permanent pacemaker if he develops atrial flutter/fib with RVR. -Patient is stable to be discharged from cardiology standpoint. Please arrange for 30-day event monitor. Status: Acute (2) Atrial flutter, paroxysmal: Continue anticoagulation Status: Acute (3) Hypertension: Blood pressure is controlled without medications Status: Inactive Qualifiers: Hypertension type: essential hypertension Qualified Code(s): I10 - Essential (primary) hypertension (4) Cerebellar stroke: Continue statin and aspirin for now Status: Acute Additional A&P Information CAD with history of CABG History of lymphoma Thank you for involving us with care of this patient. Please call with questions Attestations Medical Necessity Statement*: Care expected to cross 2 midnights Coding Level of Care Code Acute [employer] Floorperson for [facility] Fwd Diagnoses Junctional bradycardia R00.1 Atrial flutter, paroxysmal I48.92 Hypertension I10 Hypertension type: essential hypertension Cerebellar stroke I63.9
[2020-10-02] MEDS: famotidine 20 mg Tablet PO (09:23)
[2020-10-02] MEDS: aspirin 81 mg EC Tablet PO (09:23)
[2020-10-02] MEDS: apixaban 5 mg Tablet PO (09:23)
[2020-10-02] MEDS: atorvastatin 40 mg Tablet 80 MG PO (09:23)
--- NOTE | 2020-10-02 09:41 | PC.NURSE ---
medication rounding delayed due to patient cares Dr. schofield notified no further instructions at this time
--- NOTE | 2020-10-02 12:09 | P.DS_ITS ---
Discharge Providers Date of Admission: 09/30/20 18:23 Date of Discharge: October 02, 2020 Attending Provider at Admission: Bronson Don MD Attending Provider at Discharge: Bronson Don MD Primary Care Provider: Bryant Mendieta MD Diagnoses at Discharge Discharge Diagnosis (1) Junctional bradycardia: Status: Acute (2) Atrial flutter, paroxysmal: Status: Acute (3) Hypertension: Status: Inactive Qualifiers: Hypertension type: essential hypertension Qualified Code(s): I10 - Essential (primary) hypertension (4) Cerebellar stroke: Status: Acute Reason for Visit Reason for Visit: low heart rate, weakness/fatigue in legs Hospital Course Hospital Course This is a 80-year-old male with a past medical history of cerebellar stroke, atrial fibrillation on Eliquis, amiodarone, Coreg, hypertension, hyperlipidemia, who presents to [facility] due to low heart rate feeling weak Patient was admitted to [facility] for junctional bradycardia, tachybradycardia syndrome, 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 Cardiology was consulted. Patient was admitted to cardiac stepdown unit, clinically monitored, all AV mindi blocking agents were held, patient's heart rates improved, into the 70s to 100s, he did require 1 dose of atropine, no episodes of atrial fibrillation, he received fluid therapy. Patient clinically improved, ambulating without significant symptomatology, no significant symptomatology, heart rates improved. Patient will be discharged on the event monitor for 30 days. Follow-up with cardiology in 30 days. Cardiology felt that he might require permanent pacemaker placement for tachybradycardia syndrome, will assess as outpatient. Hold all AV mindi blocking agents including Coreg and amiodarone. Patient was advised that if he were to have episode chest pain palpitations come back to emergency room as this could be signs of atrial fibrillation. Patient was advised for her to have lightheadedness, dizziness, weakness with heart rates less than 60, to the emergency room Physical Exam Const: COMMON NORMALS: no acute distress and patient oriented x3 HENMT: COMMON NORMALS: normocephalic HEAD & SCALP: normocephalic Neck/C-Spine: COMMON NORMALS: no JVD Resp: COMMON NORMALS: normal respiratory effort, No retractions, No use of accessory muscles and clear to auscultation bilaterally AUSCULTATION: clear to auscultation bilaterally Cardio: COMMON NORMALS: no JVD, regular rate, regular rhythm, S1 normal heart sound present and S2 normal heart sound present RATE: regular rate RHYTHM: regular rhythm HEART SOUNDS: S1 normal heart sound present and S2 normal heart sound present GI: COMMON NORMALS: Normal to inspection, nondistended, normoactive bowel sounds present, Soft to palpation, non-tender, No hepatosplenomegaly present, no masses and no bruits PALPATION: Yes Soft to palpation and Yes No hepatosplenomegaly present Extremity: COMMON NORMALS: capillary refill normal, no clubbing, cyanosis or edema, no calf tenderness and no pedal edema Neuro: COMMON NORMALS: patient oriented x3 Psych: COMMON NORMALS: mental status grossly normal Discharge Data Data Completed and Pending: Completed Studies During Hospitalization Category Date Time Status XR chest 1V garth ble [id number] Urgent Exams 09/30/20 17:31 Completed Pending at discharge Category Date Time Status Complete Blood Co unt w/Auto AM LABS Lab 10/03/20 04:00 Ordered Comprehensive Met abolic Panel AM LA BS Lab 10/03/20 04:00 Ordered Magnesium AM LABS Lab 10/03/20 04:00 Ordered Phosphorus AM LAB S Lab 10/03/20 04:00 Ordered Labs from last 24 hours 10/02/20 10/02/20 10/01/20 03:19 03:19 15:23 WBC 9.0 RBC 3.93 L Hgb 12.3 Hct 37.8 L MCV 96.2 H MCH 31.3 MCHC 32.5 RDW 12.4 Plt Count 193 MPV 10.3 Neut % (Auto) 69.2 Lymph % (Auto) 11.1 Harris % (Auto) 16.2 Eos % (Auto) 2.9 Baso % (Auto) 0.4 Neut # (Auto) 6.24 Lymph # (Auto) 1.0 Harris # (Auto) 1.5 H Eos # (Auto) 0.3 Baso # (Auto) 0.0 Nucleated RBC % (a uto) 0 Nucleated RBCs # 0.0 Sodium 137 Potassium 4.6 Chloride 100 Carbon Dioxide 31 H Anion Gap 10.6 BUN 36 H Creatinine 1.3 H GFR Calculation Not Reportable Glucose 85 POC Glucose 119 H Calculated Osmolal ity 292 Calcium 8.4 L Phosphorus 3.5 Magnesium 1.9 Total Bilirubin 0.5 AST 62 H ALT 71 H Alkaline Phosphata se 111 Total Protein 5.6 L Albumin 3.2 L Globulin 2.4 Urine Color Urine Appearance Urine pH Ur Specific Gravit y Urine Protein Urine Glucose (UA) Urine Ketones Urine Blood Urine Nitrate Urine Bilirubin Urine Urobilinogen Ur Leukocyte Holly ase 10/01/20 12:20 WBC RBC Hgb Hct MCV MCH MCHC RDW Plt Count MPV Neut % (Auto) Lymph % (Auto) Harris % (Auto) Eos % (Auto) Baso % (Auto) Neut # (Auto) Lymph # (Auto) Harris # (Auto) Eos # (Auto) Baso # (Auto) Nucleated RBC % (a uto) Nucleated RBCs # Sodium Potassium Chloride Carbon Dioxide Anion Gap BUN Creatinine GFR Calculation Glucose POC Glucose Calculated Osmolal ity Calcium Phosphorus Magnesium Total Bilirubin AST ALT Alkaline Phosphata se Total Protein Albumin Globulin Urine Color Straw Urine Appearance Clear Urine pH 6.5 Ur Specific Gravit y 1.010 Urine Protein Neg Urine Glucose (UA) Norm Urine Ketones Negative Urine Blood Neg Urine Nitrate Negative Urine Bilirubin Neg Urine Urobilinogen Norm Ur Leukocyte Holly ase Negative Vitals: Last Vital Signs Temp 97.9 F 10/02/20 04:00 Pulse 86 10/02/20 10:34 Resp 27 H 10/02/20 10:34 BP 117/71 10/02/20 10:34 Pulse Ox 98 10/02/20 10:10 Discharge Plan Discharge Patient Disposition: Home Condition: Stable Prescriptions: New amlodipine [Norvasc] 2.5 mg tablet 2.5 mg PO DAILY 30 Days Qty: 30 RF: 0 Continued aspirin 81 mg tablet,delayed release (DR/EC) 81 mg PO DAILY@08 RF: 0 lorazepam 0.5 mg tablet 0.5 mg PO DAILY PRN (Reason: sleep) RF: 0 Eliquis 5 mg tablet 5 mg PO BID@,20 RF: 0 rosuvastatin 20 mg Tablet 20 mg PO DAILY@08 RF: 0 Discontinued carvedilol 6.25 mg tablet 6.25 mg PO BID@, RF: 0 Pacerone 200 mg tablet 200 mg PO DAILY@08 RF: 0 Discharge Orders: Discharge Order (Routine); Ordered 10/02/20 Ordered By: Bronson Don Other Ambulatory Orders: CA cardiac event monitor (Routine) Timeframe: 1 Day Facility: [facility] - Location: Cardiac Diagnostic Laboratory Ordered By: Bronson Don Referrals: Diann Tavarez MD [Physician] - 1 month Discharge Diet: Cardiac Discharge Activity: Resume usual activity Patient Instructions: Bradycardia (DC) Activity Restrictions/Additional Instructions: -If you have low heart rates, less than 50, you feel lightheaded, or dizzy, or weak come back to the emergency room -Continue to hold amiodarone, and Coreg -Event monitor as prescribed -Follow-up with cardiology in 1 month Discharge Attestations Time Spent in Discharge Care*: greater than 30 min Quality Metrics Clinical Quality Measures During this hospital stay, did patient experience: None Coding Level of Care Code Acute [employer] Wafer Breaker for [facility] Fwd Diagnoses Junctional bradycardia R00.1 Atrial flutter, paroxysmal I48.92 Hypertension I10 Hypertension type: essential hypertension Cerebellar stroke I63.9
== END 2020-10-02 14:50 | disposition home or self-care (01) ==
LOC: ER 17:21 → CSU 20:26
PROVIDERS: Internal Medicine; Admitting Provider Family Medicine; Emergency Provider Family Medicine; PCP Family Medicine; Visit Provider Family Medicine
DX: R00.1 Bradycardia, unspecified (principal); I48.92 Unspecified atrial flutter; I63.9 Cerebral infarction, unspecified; I10 Essential (primary) hypertension; Z23 Encounter for immunization; R77.8 Other specified abnormalities of plasma proteins; Z79.01 Long term (current) use of anticoagulants; E78.5 Hyperlipidemia, unspecified; Z86.73 Personal history of transient ischemic attack (TIA), and cerebral infarction without residual deficits; Z85.72 Personal history of non-Hodgkin lymphomas; Z95.1 Presence of aortocoronary bypass graft; Z79.82 Long term (current) use of aspirin; N40.0 Benign prostatic hyperplasia without lower urinary tract symptoms; I25.10 Atherosclerotic heart disease of native coronary artery without angina pectoris
CPT/HCPCS: 12345; 36415; 36416; 71045; 80053; 81003; 82962; 83605; 83735; 83880; 84100; 84132; 84443; 85025; 90471; 90732; 93005; 94664; 96374; 96375; 99283; 99285; G0378; J0461; J0610; J1815

== ENCOUNTER 2020-11-27 10:49 | Inpatient (IN) | payer MEDICARE, SELFPAY ==
[2020-11-27] VITALS (11 sets, daily range): BP systolic 97–122; BP diastolic 67–97; PULSE 108–124; RESP 17–30; TEMP 36.6–36.7; O2SAT 95–99; BMI 17.4
--- NOTE | 2020-11-27 11:12 | XRR_ITS ---
PROCEDURE INFORMATION: Exam: XR Chest Exam date and time: 11/27/2020 11:15 AM Age: 80 years old Clinical indication: Cough and dyspnea; Prior surgery; Surgery type: Open heart; Patient HX: HX of lymphoma, retaining fluids, increased heart rate; Additional info: Dyspnea/cough TECHNIQUE: Imaging protocol: XR of the chest Views: Frontal portable upright view of the chest. COMPARISON: CR (CHEST, ) 09/30/2020 5:42 PM FINDINGS: Tubes, catheters and devices: The patient is status post median sternotomy with intact sternal cerclage wires. EKG leads are present overlying the chest. Lungs: Moderate pulmonary hyperexpansion. Lateral right apical pulmonary parenchymal scarring, stable. Prominent superior right pulmonary hilum. Lateral left pulmonary basilar noncalcified 7 mm nodule suggested. Pleural spaces: Small left pleural effusion. Heart/Mediastinum: Mediastinum: Stable. Vasculature: Moderate aortic arch atherosclerotic calcification without ectasia. Bones/joints: Stable. XR/XR chest 1V portable [id number] IMPRESSION: 1. Moderate pulmonary hyperexpansion. 2. Small left pleural effusion. 3. Prominent superior right pulmonary hilum. This may represent interval lymphadenopathy or pulmonary mass. Computed tomography of the chest recommended for further evaluation. 4. Lateral left pulmonary basilar noncalcified nodule suggested. Computed tomography of the chest recommended for further evaluation.
[2020-11-27 11:39] LABS: Basophils % 0.3 %; Eosinophils % 0.1 %; Hematocrit 42.8 % (42.0-52.0); Hemoglobin 14.2 g/dL (11.7-16.6); Lymphocytes # 0.9 10^3/uL (0.8-4.8); Lymphocytes % 7.5 %; Mean Corpuscular HGB Conc 33.2 g/dL (30.0-36.0); Mean Corpuscular Hemoglobin 32.6 pg (28.0-34.0); Mean Corpuscular Volume 98.4 fL (80-94); Mean Platelet Volume 10.2 fL (7.4-10.4); Monocytes # 1.6 10^3/uL (0.2-0.9); Monocytes % 14.2 %; Neutrophils # 8.93 10^3/uL (1.8-7.7); Neutrophils % 77.4 %; Nucleated Red Blood Cells % 0 %; Platelet Count 271 10^3/cmm (130-400); Red Blood Count 4.35 10^6/uL (4.1-5.3); Red Cell Distribution Width 13.1 % (12.1-15.1); White Blood Count 11.5 10^3/uL (4.0-10.0)
[2020-11-27] MEDS: metoprolol tartrate 1 mg/1 mL SDV 5 mL 2.5 MG IV (11:50)
[2020-11-27] MEDS: metoprolol tartrate 25 mg Tablet PO (11:50)
--- NOTE | 2020-11-27 11:55 | ECG_ITS ---
[facility] Test Date: 2020-11-27 Pat Name: Rogelio Taylor Department: Room: Gender: Male Civil Rights Investigator: : 1940 Requested By: Sohan Gimenez Order Number: [id number] Libra MD: Savi Walker M.D. Measurements Intervals [place] Rate: 122 P: IN: QRS: 93 QRSD: 79 T: 68 QT: 347 QTc: 496 Interpretive Statements ATRIAL FLUTTER/TACHYCARDIA WITH RAPID VENTRICULAR RESPONSE BORDERLINE RIGHT AXIS DEVIATION [QRS AXIS > 90] SEPTAL MYOCARDIAL INFARCTION , PROBABLY OLD [40+ ms Q WAVE IN V1/V2] Compared to ECG 09/30/2020 17:22:10 Myocardial infarct finding now present T-wave abnormality no longer present Electronically Signed On 11-27-2020 23:51:36 RAW STOCK DYEING MACHINE TENDER by Savi Walker M.D. [id number] f
[2020-11-27 11:59] LABS: Alanine Aminotransferase 155 U/L (0-41); Albumin Level 3.8 g/dL (3.5-5.2); Alkaline Phosphatase 171 IU/L (40-130); Blood Urea Nitrogen 34 mg/dL (8-23); Calcium 8.6 mg/dL (8.5-10.5); Carbon Dioxide 28 mmol/L (22-29); Chloride 92 mmol/L (98-107); Globulin 3.7 g/dL (1.3-4.6); Glucose 115 mg/dL (65-115); NT Pro B Type Natriuretic Pept 7459 pg/mL (0-450); Osmolality Calculated 279 mOsm/kg (285-295); Sodium 130 mmol/L (136-145); Total Bilirubin 0.6 mg/dL (0.15-1.2); Total Protein 7.5 g/dL (6.6-8.7)
[2020-11-27 12:07] LABS: Anion Gap 13.8 (5-19); Aspartate Amino Transferase 138 U/L (0-40); Potassium 3.8 mmol/L (3.5-5.1)
--- NOTE | 2020-11-27 12:08 | ED_ITS ---
HPI - Chest Pain General: Chief Complaint: Chest Pain Stated Complaint: HEART ISSUES, RETAINING FLUID Time Seen by Provider: 11/27/20 10:59 History of Present Illness: HPI narrative: 80-year-old male who presents to the emergency room with a rapid heart rate. He has a known history of A. fib flutter. He is on Eliquis he previously had been on amiodarone and Coreg and had tachybradycardia syndrome and was actually admitted to the hospital both of his negative inotropes were stopped on follow-up with Dr. Alexander he was found to have a rapid heart rate again at some point the patient was restarted on metoprolol although the discharge summary from September did not mention it. And yesterday he was restarted on amiodarone. He has had a little bit of chest discomfort he states has been going on for over a week now. Pertinent past history: other (Atrial fibrillation) Onset (ago): hour(s) Timing of current episode: constant Prior episodes: Yes Onset: during rest and during exertion Severity: moderate Quality: heaviness Relieving factors: nothing Exacerbating factors: nothing Associated symptoms: Reports dyspnea and palpitations; Deny abdominal pain, diaphoresis, fever(s), leg edema, nausea, sense of impending doom, syncope or vomiting Treatment prior to arrival: other (Patient given amiodarone for outpatient use has not begun to use.) Review of Systems Const: Denies: fever(s) or diaphoresis ENMT: Denies: throat pain, ear or mastoid pain, nasal discharge or nasal congestion Card: Reports: palpitations; Denies: syncope Resp: Reports: dyspnea GI: Denies: abdominal pain, nausea or vomiting : Denies: flank pain, dysuria, urinary frequency or urinary urgency Skin/Breast: Denies: rash or pruritus PFSH ED PFSH: Medical History Atrial fibrillation BPH (benign prostatic hyperplasia) Cerebellar stroke Coronary artery disease Dyslipidemia Lymphoma Raynauds phenomenon Surgical History H/O hernia repair Hx of CABG Hx of tonsillectomy Family History Mother Cancer Leukemia Father CAD (coronary artery disease) Diabetes Social History Smoking and tobacco status: never smoked Alcohol intake: never Lives independently: Yes Housing: House Physical Exam Const: COMMON NORMALS: no acute distress GENERAL APPEARANCE: cooperative and comfortable ORIENTATION/CONSCIOUSNESS: Yes awake, Yes oriented to person, Yes oriented to place and Yes oriented to time HENMT: COMMON NORMALS: normocephalic, atraumatic and hearing grossly normal bilaterally HEAD & SCALP: normocephalic and atraumatic Neck/C-Spine: COMMON NORMALS: no JVD Resp: COMMON NORMALS: normal respiratory effort, No retractions and No use of accessory muscles AUSCULTATION: rales Cardio: COMMON NORMALS: no JVD and No murmurs present (Cardio) RATE: tachycardic RHYTHM: abnormal rhythm irregularly irregular GI: COMMON NORMALS: Soft to palpation and No hepatosplenomegaly present AUSCULTATION: Yes normoactive bowel sounds PALPATION: Yes Soft to palpation, No Tenderness to palpation present (GI), No Guarding due to palpation present (GI) and Yes No hepatosplenomegaly present Extremity: COMMON NORMALS: normal to inspection, capillary refill normal, no clubbing, cyanosis or edema, no calf tenderness and no pedal edema Neuro: SENSORIUM/ORIENTATION: Yes oriented to person, Yes oriented to place and Yes oriented to time Skin: COMMON NORMALS: no rashes or lesions noted GENERAL SKIN EXAM: no rashes or lesions noted Course Vital Signs: Vital signs: Vital Signs Temperature 98.7 F 11/28/20 07:46 Pulse Rate 107 H 11/28/20 07:46 Respiratory Rate 22 H 11/28/20 07:46 Blood Pressure 116/82 11/28/20 07:46 Pulse Oximetry 94 11/28/20 07:46 MDM - Chest Pain MDM Narrative: Medical decision making narrative: Patient congestive heart failure with A. fib with RVR rate control is been difficult is been previously admitted and then consider pacer because of severe bradycardia was stopped as off of his negative [place] her troponin was in A. fib with RVR again. Will admit for rate control and further evaluation for long-term management. Lab Data: Labs: Lab Results 11/27/20 11/27/20 11/27/20 Range/Units 11:10 11:10 11:10 WBC 11.5 H (4.0-10.0) 10^3/ uL RBC 4.35 (4.1-5.3) 10^6/u L Hgb 14.2 (11.7-16.6) g/dL Hct 42.8 (42.0-52.0) % MCV 98.4 H (80-94) fL MCH 32.6 (28.0-34.0) pg MCHC 33.2 (30.0-36.0) g/dL RDW 13.1 (12.1-15.1) % Plt Count 271 (130-400) 10^3/c mm MPV 10.2 (7.4-10.4) fL Neut % (Auto) 77.4 % Lymph % (Auto) 7.5 % [place] % (Auto) 14.2 % Eos % (Auto) 0.1 % Baso % (Auto) 0.3 % Neut # (Auto) 8.93 H (1.8-7.7) 10^3/u L Lymph # (Auto) 0.9 (0.8-4.8) 10^3/u L [place] # (Auto) 1.6 H (0.2-0.9) 10^3/u L Eos # (Auto) 0.0 (0.0-0.8) 10^3/u L Baso # (Auto) 0.0 (0.0-0.1) 10^3/u L Nucleated RBC % (a uto) 0 % Nucleated RBCs # 0.0 /100WBC Sodium 130 L (136-145) mmol/L Potassium 3.8 (3.5-5.1) mmol/L Chloride 92 L (98-107) mmol/L Carbon Dioxide 28 (22-29) mmol/L Anion Gap 13.8 (5-19) BUN 34 H (8-23) mg/dL Creatinine 1.2 (0.7-1.2) mg/dL GFR Calculation Not Reportable Glucose 115 (65-115) mg/dL Calculated Osmolal ity 279 L (285-295) mOsm/k g Calcium 8.6 (8.5-10.5) mg/dL Magnesium 2.1 (1.7-2.3) mg/dL Total Bilirubin 0.6 (0.15-1.2) mg/dL AST 138 H (0-40) U/L ALT 155 H (0-41) U/L Alkaline Phosphata se 171 H (40-130) IU/L Troponin T Baselin e (0-15) ng/L Troponin T 120 Min y[place]k (0-15) ng/L Delta Troponin T (0-10) ABS# NT-Pro-B Natriuret Pep 7459 H (0-450) pg/mL Total Protein 7.5 (6.6-8.7) g/dL Albumin 3.8 (3.5-5.2) g/dL Globulin 3.7 (1.3-4.6) g/dL 11/27/20 11/27/20 Range/Units 11:12 13:55 WBC (4.0-10.0) 10^3/ uL RBC (4.1-5.3) 10^6/u L Hgb (11.7-16.6) g/dL Hct (42.0-52.0) % MCV (80-94) fL MCH (28.0-34.0) pg MCHC (30.0-36.0) g/dL RDW (12.1-15.1) % Plt Count (130-400) 10^3/c mm MPV (7.4-10.4) fL Neut % (Auto) % Lymph % (Auto) % [place] % (Auto) % Eos % (Auto) % Baso % (Auto) % Neut # (Auto) (1.8-7.7) 10^3/u L Lymph # (Auto) (0.8-4.8) 10^3/u L [place] # (Auto) (0.2-0.9) 10^3/u L Eos # (Auto) (0.0-0.8) 10^3/u L Baso # (Auto) (0.0-0.1) 10^3/u L Nucleated RBC % (a uto) % Nucleated RBCs # /100WBC Sodium (136-145) mmol/L Potassium (3.5-5.1) mmol/L Chloride (98-107) mmol/L Carbon Dioxide (22-29) mmol/L Anion Gap (5-19) BUN (8-23) mg/dL Creatinine (0.7-1.2) mg/dL GFR Calculation Glucose (65-115) mg/dL Calculated Osmolal ity (285-295) mOsm/k g Calcium (8.5-10.5) mg/dL Magnesium (1.7-2.3) mg/dL Total Bilirubin (0.15-1.2) mg/dL AST (0-40) U/L ALT (0-41) U/L Alkaline Phosphata se (40-130) IU/L Troponin T Baselin e 60 H (0-15) ng/L Troponin T 120 Min y[place] 49.21 H (0-15) ng/L Delta Troponin T -10.79 L (0-10) ABS# NT-Pro-B Natriuret Pep (0-450) pg/mL Total Protein (6.6-8.7) g/dL Albumin (3.5-5.2) g/dL Globulin (1.3-4.6) g/dL Discharge Plan Discharge Patient Disposition: Admitted As Inpatient Admit Provider: Scotty Seth Clinical Impression: Acute exacerbation of CHF (congestive heart failure), Atrial flutter with rapid ventricular response, Atrial fibrillation, Hypertension, Medication induced coagulopathy, Hyponatremia with excess extracellular fluid volume, Chronic kidney disease, stage III (moderate), Coronary artery disease Condition: Stable Coding Level of Care Code ED Pharmacy Retail Support Specialist for [facility] Fwd Exam Comprehensive
--- NOTE | 2020-11-27 12:12 | PC.PHAR ---
PT STATES HE TAKES CARE OF HIS OWN MEDICATIONS-PT STATES HE DOESNT THINK HE IS TAKING DOXYCYCLINE FILLED ON 11/22/20 10D/S AND PREDNISONE FILLED ON 11/19/20 8 D/S-PT STATES THE DR JUST STARTED HIM BACK ON THE AMIODARONE 400MG BID FOR 3 DAYS THEN DECREASE TO 200MG PO BID-PT STATES HE TOOK 400MG LAST NIGHT AND 400MG THIS AM-PT STATES HE IS STILL TAKING ASPIRIN BUT STATES HE THINKS HE IS SUPPOSE TO STOP TAKING AT THE END OF NOVEMBER
[2020-11-27 12:31] LABS: Troponin(5th) Baseline 60 ng/L (0-15)
[2020-11-27] MEDS: esmolol drip 2,500 MG/250 ML PREMIX 7.8 MG IV (13:37)
--- NOTE | 2020-11-27 13:55 | ECG_ITS ---
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 Measurements Intervals [place] Rate: 117 P: SD: QRS: 90 QRSD: 134 T: -30 QT: 362 QTc: 506 Interpretive Statements ATRIAL FLUTTER/TACHYCARDIA WITH RAPID VENTRICULAR RESPONSE INTRAVENTRICULAR CONDUCTION DELAY [130+ ms QRS DURATION] Compared to ECG 11/27/2020 11:01:23 Intraventricular conduction delay now present Myocardial infarct finding no longer present Electronically Signed On 11-28-2020 0:01:37 BUTADIENE CONVERTER HELPER by Savi Walker M.D. [id number]
[2020-11-27 14:37] LABS: Troponin 5 2HR 49.21 ng/L (0-15)
[2020-11-27 14:40] LABS: Troponin 5 2HR Delta -10.79 ABS# (0-10)
--- NOTE | 2020-11-27 15:05 | PM.CONSULT ---
Providers/Reason For Consult Consulting Physican/Specialty*: Dr. 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 He had 3 ER visits, on first he had possible cerebellar stroke and second was for elevated blood pressure and atrial flutter and third was with junctional bradycardia. He was taken off of amiodarone and carvedilol and subsequently his heart rate improved. Patient states his heart rate at home was running 70s to 90s and he was feeling great. For the last 2 weeks he noticed his heart rate was running faster in 120's and he called our office and was started on metoprolol succinate 25 mg daily. He presented to the office yesterday to see Dr. Navarro and he continues to be in flutter with RVR. He was started on amiodarone 400 mg twice a day and Lasix 40 mg daily. Hospitalization was also offered to him and he was hesitant yesterday but this morning he decided to come to the ER for further evaluation and monitoring. He denies complaints of URI UTI fever chills. He complains of chest pain on and off, shortness of breath with exertion and intermittent palpitations. He is on Eliquis and denies having any episodes of hematochezia, melena or hematochezia. Denies any lightheadedness, dizziness or syncopal episodes. He was accompanied by his daughter. Labs on arrival hemoglobin 14.2, WBC 11.5, sodium 130, potassium 3.8, chloride 92, BUN 34 and creatinine 1.2. AST 138, ALT 155, alkaline phosphatase 171. Baseline troponin T of 60 and at 120 minutes of 49. proBNP of 7459 which has increased from 2635 on September 30, 2020. Chest x-ray small left pleural effusion, moderate pulmonary hyperexpansion and prominent superior right pulmonary hilum. EKG today with atrial flutter with rapid regular response at 117 bpm intraventricular conduction delay. Review of Systems General: Reports: 10 or more systems reviewed and unremarkable except in HPI and below Const: Denies: fever(s), chills, body aches or fatigue Eyes: Denies: change in vision or blurry vision ENMT: Denies: throat pain or odynophagia Card: Reports: palpitations, irregular heart rhythm, lightheadedness, pre-syncope and dyspnea on exertion; Denies: chest pain, swelling of feet/ankles, syncope, orthopnea or leg pain with exertion Resp: Denies: dyspnea, productive cough, non-productive cough or wheezing GI: Denies: nausea, vomiting or heartburn : Denies: difficulty urinating or hematuria Musc: Reports: neck pain (chronic); Denies: back pain Skin/Breast: Denies: rash, erythema or sores Neuro: Denies: headache(s), numbness in extremities, weakness in extremities, frequent falls or dizziness Psych: Denies: anxiety or depression Endo: Denies: polyuria or polydipsia Mode/Lymph: Reports: easy bruising; Denies: easy bleeding Meds/Allergies Home Medications and Allergies Home Medications Medication Instructions Recorded Confirmed Last Taken Type aspirin 81 mg PO DAILY@08 09/30/20 11/27/20 09/30/20 History lorazepam 0.5 mg PO PRN 09/30/20 11/27/20 Unknown History rosuvastatin 20 mg tablet 20 mg PO DAILY@08 #90 tab 11/05/20 11/27/20 11/27/20 Rx metoprolol succinate 25 mg 25 mg PO DAILY #7 tab 11/23/20 11/27/20 11/26/20 Rx tablet,extended release 24 hr albuterol sulfate [ProAir HFA] 2 puff INHALATION Q4H PRN 11/27/20 11/27/20 Unknown History amiodarone See Rx Instructions .ROUTE .COMPLEX 11/27/20 11/27/20 11/27/20 08:15 History amlodipine [Norvasc] 2.5 mg PO DAILY 11/27/20 11/27/20 11/26/20 History apixaban [Eliquis] 5 mg PO BID@08,20 11/27/20 11/27/20 11/27/20 08:15 History doxycycline hyclate See Rx Instructions .ROUTE .COMPLEX 11/27/20 11/27/20 Unknown History furosemide 20 mg PO DAILY@08 11/27/20 11/27/20 11/27/20 History prednisone See Rx Instructions .ROUTE .COMPLEX 11/27/20 11/27/20 Unknown History Allergies Allergy/AdvReac Type Severity Reaction Status Date / Time Penicillins Allergy ALGY-Rash Verified 11/27/20 12:12 ramipril [From Altace] Allergy ALGY-Swell Verified 11/27/20 12:12 Lip/Tongue/Throat Current Medications Current Medications Generic Name Dose Route Start Last Admin Trade Name Freq PRN Reason Stop Dose Admin Esmolol HCl 2,500 mg in 250 mls @ 0 mls/hr 11/27/20 13:00 11/27/20 14:35 Brevibloc Drip IV 50 mcg/kg/min .Q0M JAROD 15.6 mls/hr Titration Protocol Per Protocol PFSH Acute PFSH: Medical History Atrial fibrillation BPH (benign prostatic hyperplasia) Cerebellar stroke Coronary artery disease Dyslipidemia Lymphoma Raynauds phenomenon Surgical History H/O hernia repair Hx of CABG Hx of tonsillectomy Family History Mother Cancer Leukemia Father CAD (coronary artery disease) Diabetes Social History Smoking and tobacco status: never smoked Alcohol intake: never Lives independently: Yes Housing: House Vitals/I&O/Wt Last Vital Signs Pulse 112 H 11/27/20 14:51 Resp 17 11/27/20 14:51 BP 112/78 11/27/20 14:51 Pulse Ox 99 11/27/20 14:51 11/27/20 11/27/20 11/27/20 06:59 14:59 22:59 Intake Total 7.54 / 7.54 Balance 7.54 / 7.54 Weight last 48 hrs Weight 115 lb Physical Exam Narrative: EXAM NARRATIVE: GENERAL: Frail-appearing gentleman in no acute distress HEENT: Pupils equal round reactive to light. No pallor or icterus. NECK: No JVD. No carotid bruit. CARDIOVASCULAR SYSTEM: S1-S2 regular. Tachycardia present; no S3 or S4 present. Grade 2 on 6 left lower sternal border systolic murmur + RESPIRATORY SYSTEM: Chest clear to auscultation except at bilateral bases. No wheezes, + rales. No use of accessory muscles. ABDOMEN: Soft, nontender and nondistended. Normal bowel sounds present. EXTREMITIES: No cyanosis or clubbing. No edema. No signs of chronic venous insufficiency. ACETYLENE GAS COMPRESSOR: Patient is alert oriented ?3. No focal neurological deficits. SKIN: Normal turgor and temperature. No breakdown, rash or nail changes noted. PSYCH: Normal insight and judgment. Data Other Data: Other data: 09/20/20 ECHO US CONCLUSIONS LV systolic function is borderline normal with EF of 50 to 55%. Moderate left ventricular hypertrophy is present. Diastolic function is indeterminate because of atrial fibrillation. There is mild to moderate mitral regurgitation. Moderate tricuspid regurgitation is present. There is moderate pulmonary hypertension. Pulmonic valve has mild regurgitation. When compared to prior study from 11/24/2018, no significant changes are seen. 09/20/20 CAROTID DOPPLER STUDY CONCLUSIONS Right ICA stenosis <50%. Mild atheromatous plaque right carotid bulb/ICA. Left ICA stenosis <50%. Mild atheromatous plaque left carotid bulb/ICA. Normal antegrade Doppler flow noted in the right vertebral artery. Normal antegrade Doppler flow noted in the left vertebral artery. A&P Assessment and plan (1) Chest pain: CP likely in setting of decompensated CHF and flutter with RVR -May consider stress testing as an outpatient if chest pain persist after the resolution of decompensated CHF and flutter with RVR Status: Acute Qualifiers: Chest pain type: unspecified Qualified Code(s): R07.9 - Chest pain, unspecified (2) Atrial flutter with rapid ventricular response: Patient is currently on esmolol drip. I will take him off esmolol drip and continue with p.o. amiodarone PO. -May need to use amiodarone drip, metoprolol 5 mg IV PRN. -He may be able to tolerate amiodarone with a lower maintenance dose (BMI 17.5) without any other AV mindi blockers. -Patient states that he has been compliant with Eliquis. For now I will transition him to Lovenox in case there is a need for permanent pacemaker placement. -May have to consider XIAO/cardioversion if patient remains in flutter with RVR. -I do not believe we are at a point where AV mindi ablation needs to be considered. Status: Acute (3) Acute exacerbation of CHF (congestive heart failure): Lasix 40 mg IV now, patient is Lasix na?ve. -Further dose adjustment based on response to this IV Lasix Status: Acute Qualifiers: Heart failure type: diastolic Qualified Code(s): I50.33 - Acute on chronic diastolic (congestive) heart failure (4) Coronary artery disease: Status: Acute Qualifiers: Coronary Disease-Associated Artery/Lesion type: [place] artery [place] vs. transplanted heart: [place] heart Associated angina: without angina Qualified Code(s): I25.10 - Atherosclerotic heart disease of [place] coronary artery without angina pectoris Additional A&P Information Hyponatremia Non-ST elevation [place] type II in setting of decompensated congestive heart failure and atrial flutter with RVR Transaminitis in setting of decompensated congestive heart failure CKD stage III History of hypertension History of junctional bradycardia in setting of carvedilol and amiodarone use Thank you for allowing me to participate in patient's care. Please feel free to call with questions or concerns. Consult Attestations Medical Necessity Statement: Needs hospital stay for management of decompensated congestive heart failure and flutter with RVR Time Spent in Patient Care: Greater than 35 minutes (>than 50% of time spent in counselling and/or direct pt care on unit). 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 transplanted heart: [place] heart Associated angina: without angina
--- NOTE | 2020-11-27 15:57 | PM.HP ---
Providers/Chief Complaint Admitting Physician: Scotty Seth MD Primary Care Provider: Bryant Mendieta MD Chief Complaint: HEART ISSUES, RETAINING FLUID History of Present Illness Rogelio Taylor is a 80 year old male presents to emergency department with tachycardia. Also reports being short of breath and noticing lower extremity edema gradually worsening over the last 2 weeks. Reports that several months ago he had been taking metoprolol and amiodarone for A. fib but developed significant bradycardia with heart rate down to 32. His mindi blocking agents were discontinued at that time and then patient was restarted on metoprolol. His heart rate was going very fast and yesterday Dr. Navarro prescribed amiodarone but patient did not have a chance to initiate yet. He denies any chest pain. Otherwise he denies any other complaints. He is taking Eliquis. In ER patient was found to be with appears to be atrial flutter with rapid ventricular response in the 110s. Patient reports that Dr. Navarro was planning to consider AV mindi ablation procedure. Placement of cardiac pacemaker was also entertained. He reports that he was told previously that he had mini stroke but denies any neurological sequela. Review of Systems Const: Denies: fever(s) or chills Eyes: Denies: change in vision ENMT: Denies: throat pain or change in hearing Card: Reports: edema; Denies: chest pain or lightheadedness Resp: Reports: dyspnea; Denies: productive cough GI: Reports: constipation (Usually improves with prune juice.); Denies: abdominal pain, nausea, vomiting, dysphagia, diarrhea, hematochezia or melena : Denies: difficulty urinating Musc: Denies: joint pain or joint swelling Skin/Breast: Denies: rash or erythema Neuro: Denies: headache(s) or weakness in extremities Psych: Denies: depression Endo: Denies: excessive sweating Mode/Lymph: Denies: easy bleeding or tender lymph nodes All/Imm: Denies: throat swelling Medications/Allergies Home Medications Medication Instructions Recorded Confirmed Last Taken Type aspirin 81 mg PO DAILY@08 09/30/20 11/27/20 09/30/20 History lorazepam 0.5 mg PO PRN 09/30/20 11/27/20 Unknown History rosuvastatin 20 mg tablet 20 mg PO DAILY@08 #90 tab 0211/27/20 11/27/20 Rx metoprolol succinate 25 mg 25 mg PO DAILY #7 tab 11/23/20 11/27/20 11/26/20 Rx tablet,extended release 24 hr albuterol sulfate [ProAir HFA] 2 puff INHALATION Q4H PRN 11/27/20 11/27/20 Unknown History amiodarone See Rx Instructions .ROUTE .COMPLEX 11/27/20 11/27/20 11/27/20 08:15 History amlodipine [Norvasc] 2.5 mg PO DAILY 11/27/20 11/27/20 11/26/20 History apixaban [Eliquis] 5 mg PO BID@11/27/20 11/27/20 11/27/20 08:15 History doxycycline hyclate See Rx Instructions .ROUTE .COMPLEX 11/27/20 11/27/20 Unknown History furosemide 20 mg PO DAILY@08 11/27/20 11/27/20 11/27/20 History prednisone See Rx Instructions .ROUTE .COMPLEX 11/27/20 11/27/20 Unknown History Allergies Allergy/AdvReac Type Severity Reaction Status Date / Time Penicillins Allergy ALGY-Rash Verified 11/27/20 12:12 ramipril [From Altace] Allergy ALGY-Swell Verified 11/27/20 12:12 Lip/Tongue/Throat PFSH Acute PFSH: Medical History Atrial fibrillation BPH (benign prostatic hyperplasia) Cerebellar stroke Coronary artery disease Dyslipidemia Lymphoma Raynauds phenomenon Surgical History H/O hernia repair Hx of CABG Hx of tonsillectomy Family History (Updated 11/27/20 @ 16:08 by Scotty Seth MD) Mother Cancer Leukemia Father CAD (coronary artery disease) Diabetes Social History Smoking and tobacco status: never smoked Alcohol intake: never Lives independently: Yes Housing: House Vitals/I&O/Wt Last Vital Signs Pulse 116 H 11/27/20 15:21 Resp 28 H 11/27/20 15:21 BP 117/86 11/27/20 15:21 Pulse Ox 99 11/27/20 14:51 11/27/20 11/27/20 11/27/20 06:59 14:59 22:59 Intake Total 7.54 / 7.54 Balance 7.54 / 7.54 Weight last 48 hrs Weight 52.163 kg Physical Exam Const: COMMON NORMALS: no acute distress, patient oriented x3 and alert HENMT: COMMON NORMALS: normocephalic and atraumatic HEAD & SCALP: normocephalic and atraumatic Eye: COMMON NORMALS: EOMs intact bilaterally, conjunctivae normal and no scleral icterus CONJUNCTIVA: Yes conjunctivae normal Neck/C-Spine: COMMON NORMALS: no lymphadenopathy and no meningeal signs Lymph: LYMPHATIC: no lymphadenopathy noted Chest: COMMONS NORMALS: normal palpation of entire chest wall Resp: COMMON NORMALS: No use of accessory muscles OTHER: Very minimal bibasilar Rales with overall decreased air movement. Cardio: COMMON NORMALS: regular rate and regular rhythm HEART SOUNDS: Murmur heart sound present (2 out of 6) systolic OTHER: 2+ bilateral lower extremity edema GI: COMMON NORMALS: Soft to palpation and non-tender PALPATION: Yes Soft to palpation RECTAL EXAM: Yes deferred : COMMON NORMALS: Yes no CVA tenderness BLADDER/KIDNEY EXAM: Yes no CVA tenderness Back/Pelvis: COMMON NORMALS: no CVA tenderness and thoracic and lumbar spine normal to inspection Extremity: COMMON NORMALS: normal to inspection and capillary refill normal Neuro: COMMON NORMALS: patient oriented x3 and no focal motor deficits SENSORIUM/ORIENTATION: Yes alert MENINGEAL SIGNS: Yes no meningeal signs Psych: COMMON NORMALS: mental status grossly normal, Normal thought process present and cooperative THOUGHT PROCESS: Normal thought process present Skin: COMMON NORMALS: no rashes or lesions noted Data : 11/27/20 11:10 11/27/20 11:10 A&P Assessment and plan (1) Acute exacerbation of CHF (congestive heart failure): Specifics currently unknown Status: Acute (2) Atrial flutter with rapid ventricular response: Status: Acute (3) Coronary artery disease: Status post CABG long time ago. Status: Acute (4) Hypertension: Status: Acute (5) Medication induced coagulopathy: On Eliquis Status: Acute (6) Hyponatremia with excess extracellular fluid volume: Status: Acute (7) Chronic kidney disease, stage III (moderate): Status: Acute Additional A&P Information PLAN: Will start patient on amiodarone in addition to low-dose metoprolol. High likelihood that patient may require permanent pacemaker placement due to previous history of sick sinus syndrome. Will diurese with IV Lasix. Obtain limited echocardiogram to evaluate wall motion and ejection fraction. Elevated troponin is likely secondary to rapid ventricular response although patient is definitely at risk for underlying coronary artery disease. Depending on echocardiogram findings we may need to have further coronary evaluation. Chest x-ray was concerning for underlying lung mass therefore will request CT scan of the chest with contrast. Dr. Berry consulted Dr. Walker in ER and I will discuss with him after evaluation. Attestations Medical Necessity Statement*: Patient with heart failure as well as atrial flutter with rapid ventricular response requires close inpatient monitoring and treatment. I expect patient will require more than 2 midnights. 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
[2020-11-27] MEDS: FUROsemide 10 mg/mL SDV 4mL 40 MG IVP (16:11)
[2020-11-27] MEDS: amiodarone 200 mg Tablet 400 MG PO ×2 (16:11→20:36)
[2020-11-27 16:42] LABS: Magnesium 2.1 mg/dL (1.7-2.3)
--- NOTE | 2020-11-27 17:55 | ECG_ITS ---
[facility] Test Date: 2020-11-27 Pat Name: Rogelio Taylor Department: Room: 105 Gender: Male Instructional Support Services Director: : 1940 Requested By: Sohan Gimenez Order Number: [id number] Libra MD: Savi Walker M.D. Measurements Intervals [place] Rate: 116 P: [place]: QRS: 90 QRSD: 109 T: -44 QT: 369 QTc: 513 Interpretive Statements ATRIAL FLUTTER/TACHYCARDIA WITH RAPID VENTRICULAR RESPONSE ST DEVIATION AND MODERATE T-WAVE ABNORMALITY, CONSIDER INFERIOR ISCHEMIA [-0.1+ mV T WAVE IN II/aVF] Compared to ECG 11/27/2020 12:50:34 T-wave abnormality now present Possible ischemia now present Intraventricular conduction delay no longer present Electronically Signed On 11-28-2020 0:02:58 SUPERVISOR [employer]BBING by Savi Walker M.D. [email or web address]
[2020-11-27] MEDS: potassium chloride ER 20 mEq Tablet 40 MEQ PO (18:20)
[2020-11-27] MEDS: enoxaparin 60 mg/0.6 mL Syringe 50 MG SUBCUT (18:23)
[2020-11-27 18:24] LABS: Troponin 5 6HR 47.49 ng/L (0-15)
[2020-11-27 18:43] LABS: Add Urine Microscopic? NO
[2020-11-27 18:56] LABS: Urine Appearance Clear (CLEAR); Urine Color Yellow (Yellow)
[2020-11-27 18:57] LABS: Bilirubin Urine Neg (Negative); Blood Urine Neg (Negative); Glucose Urine UA Norm (Normal); Ketones Urine Negative (Negative); Leukocyte Esterase Urine Negative (Negative); Nitrate Urine Negative (Negative); Protein Urine Neg (Negative); Urobilinogen Urine Norm (Negative); pH Urine 5 (5-7)
--- NOTE | 2020-11-27 19:05 | PC.NURSE ---
patient called nurse to bedside at this time reporting sinus drainage requesting home albuterolol inhaler spoke with Dr. schofield teacher emotionally impaired for night about patient concerns instructions to start patient on mucinex 600mg po bid PRN for sinuses
[2020-11-27] MEDS: sennosides 8.6 mg Tablet 17.2 MG PO (20:37)
[2020-11-27] MEDS: LORazepam 0.5 mg Tablet PO (23:05)
--- NOTE | 2020-11-27 23:46 | PC.NURSE ---
NURSE NOTE: PT C/O FEELING ANXIOUS , AND ASKED FOR SOMETHING TO CALM HIM DOWN. STATED THAT HE TAKES ATIVAN 0.5MG AT HOME. PLACED CALL TO DR. PANTOJA AT THIS TIME AND RECEIVED ORDERS FOR ATIVAN 0.5 MG DAILY PRN FOR ANXIETY.
[2020-11-28] VITALS (9 sets, daily range): BP systolic 93–118; BP diastolic 59–93; PULSE 99–107; RESP 19–26; TEMP 36.3–37.1; O2SAT 94–98
[2020-11-28 03:40] LABS: Basophils % 0.2 %; Eosinophils % 0.3 %; Hemoglobin 13.4 g/dL (11.7-16.6); Lymphocytes # 0.8 10^3/uL (0.8-4.8); Lymphocytes % 7.6 %; Mean Corpuscular HGB Conc 31.9 g/dL (30.0-36.0); Mean Corpuscular Hemoglobin 32.5 pg (28.0-34.0); Mean Corpuscular Volume 101.9 fL (80-94); Mean Platelet Volume 9.9 fL (7.4-10.4); Monocytes # 1.4 10^3/uL (0.2-0.9); Monocytes % 14.5 %; Neutrophils # 7.59 10^3/uL (1.8-7.7); Neutrophils % 76.8 %; Nucleated Red Blood Cells % 0 %; Platelet Count 246 10^3/cmm (130-400); Red Blood Count 4.12 10^6/uL (4.1-5.3); Red Cell Distribution Width 13.3 % (12.1-15.1); White Blood Count 9.9 10^3/uL (4.0-10.0)
[2020-11-28 04:23] LABS: Thyroid Stimulating Hormone 2.89 uIU/mL (0.27-4.20)
[2020-11-28 04:24] LABS: NT Pro B Type Natriuretic Pept 8771 pg/mL (0-450)
[2020-11-28] MEDS: FUROsemide 10 mg/mL SDV 10mL 60 MG IVP ×2 (05:30→17:17)
[2020-11-28] MEDS: enoxaparin 60 mg/0.6 mL Syringe 50 MG SUBCUT ×2 (05:30→17:17)
--- NOTE | 2020-11-28 06:00 | USCV_ITS ---
Rogelio Taylor Age: 80 Gender: M : 1940 Exam Date: 11/28/2020 06:17 Ordering Phys: Scotty Seth MD Technologist: Debbie Smith Exam Location[place] [facility] [place] Indication: Heart Failure BP: 118 / 93 HR: 104 Rhythm: Sinus Technical Quality: Adequate MEASUREMENTS (Male / Female) Normal Values 2D ECHO LV Diastolic Diameter PLAX 3.4 cm 4.2 - 5.9 / 3.9 - 5.3 cm LV Systolic Diameter PLAX 3.0 cm LV Chamber Size 2.5 cm IVS Diastolic Thickness 0.8 cm 0.6 - 1.0 / 0.6 - 0.9 cm IVS Systolic Thickness 1.3 cm LVPW Diastolic Thickness 1.7 cm 0.6 - 1.0 / 0.6 - 0.9 cm LVPW Systolic Thickness 1.6 cm RV Chamber Size 3.4 cm LVOT Diameter 2.0 cm LV Ejection Fraction 2D Teich 26.8 % LV Ejection Fraction MOD 2C 38.5 % LV Ejection Fraction 2C AL 39.8 % LA Diameter 3.4 cm LA Width 3.4 cm LA Height 4.5 cm RA Width 3.2 cm RA Height 3.7 cm Aorta at Sinotubular Diameter 3.1 cm M-MODE LV Diastolic Diameter MM 3.9 cm 4.2 - 5.9 / 3.9 - 5.3 cm LV Systolic Diameter MM 3.6 cm LV Ejection Fraction MM Teich 20.5 % IVS Diastolic Thickness MM 0.6 cm 0.6 - 1.0 / 0.6 - 0.9 cm IVS Systolic Thickness MM 0.6 cm LVPW Diastolic Thickness MM 1.1 cm 0.6 - 1.0 / 0.6 - 0.9 cm LVPW Systolic Thickness MM 1.2 cm Aortic Annulus Diameter 2.9 cm LA Ao Ratio MM 1.0 MV E Point Septal Separation 1.7 cm FINDINGS Left Ventricle Right Ventricle Right Atrium Left Atrium Mitral Valve Aortic Valve Tricuspid Valve Pulmonic Valve Pericardium Aorta CONCLUSIONS This is a limited echocardiogram performed to assess LV systolic function LV systolic function is moderate to severely reduced with EF of 30-35%. Severe global hypokinesis is seen Compared to prior echocardiogram from 09/20/2020, LV systolic function is severely reduced now Esteban Navarro MD (Electronically Signed) Final Date: 28 November 2020 09:20 S
[2020-11-28] MEDS: potassium chloride ER 20 mEq Tablet 40 MEQ PO ×2 (08:45→17:18)
[2020-11-28] MEDS: amiodarone 200 mg Tablet 400 MG PO ×3 (08:46→21:34)
[2020-11-28] MEDS: pantoprazole DR 40 mg Tablet PO (08:46)
--- NOTE | 2020-11-28 09:16 | PC.CHAP ---
Pastoral Care Encounter/Spiritual Assessment Type of Contact [] Declined bobbin presser visit [] Patient/Family/Request visit [] Outpatient visit [] Follow-up visit [] Physician referral [] Code/Alert [x] Routine visit [] Staff referral [] Actively dying [] Patient sleeping [] Family support [] [] Out of room [] Palliative care [] [] Receiving care in room [] Pre-surgical visit [] Trauma [] Long length of stay [] ICU visit [] Other: Relational/Emotional Strength [] Patient feels connected with others/family/visitors/staff [] Distress [] Loneliness/isolation [] Abandonment Spirituality of Patient [x] Person of Tomasa [] Attends Scientology of their Tomasa [] Believes in Prayer [] Reads Bible or Methodist materials [] There are Spiritual issues to be addressed Fleet Dispatch Manager Interventions [x] Prayer [x] Active listening [x] Non-anxious presence [x] Spiritual/emotional support [] Crisis/trauma care [] Spiritual counseling [] Bereavement support [] Provided bereavement packet [] Provided Bible/devotional materials [] Provided toy/stuffed animal, coloring book to patient or family member [] Provided Communion [] Anointing/[place] [] Salvation [x] Completed spiritual assessment [] Other: Impact on Illness or Injury [] Angry [] Fearful [] Anxious [] Often cries [] Exhaustion [] Unable to work [] Unable to attend oriental orthodox [] Unable to walk/stand [] Unable to read [] Unable to drive [] Unable to eat/drink [] Unable to sleep [] Unable to be with family [] Patient intubated [] Other: Summary patinet feeling much better.. fluid build up better.... Time spent with patient 10 min
--- NOTE | 2020-11-28 09:29 | PM.PN ---
Subjective Subjective: Interval history: Patient is feeling better. Diuresing well today. Currently on Amiodarone 400mg TID. In atrial flutter. Heart rate 100-110. ECHO performed today shows LV systolic function is moderate to severly reduced with EF of 30-35% Vitals/I&O/Wt Last Vital Signs Temp 98.7 F 11/28/20 07:46 Pulse 107 H 11/28/20 07:46 Resp 22 H 11/28/20 07:46 BP 116/82 11/28/20 07:46 Pulse Ox 94 11/28/20 07:46 11/27/20 11/28/20 11/28/20 22:59 06:59 14:59 Intake Total 180.45 / 187.99 100 / 287.99 480 / 480 Output Total 600 / 600 300 / 900 800 / 800 Balance -419.55 / -412.01 -200 / -612.01 -320 / -320 Weight last 48 hrs Weight 115 lb Physical Exam Narrative: EXAM NARRATIVE: GENERAL: Patient is alert, awake and oriented x3. [] NECK: No jugular vein distension. [] HEENT: No cyanosis. No icterus. No pallor. [] HEART: Tachycardia, Regular S1 and S2. No murmur, rub or gallop. [] LUNGS: Clear to auscultate bilaterally. [] ABDOMEN: Soft, nontender and nondistended. Positive bowel sounds. No guarding, rebound or tenderness. [] CENTRAL NERVOUS SYSTEM: Grossly nonfocal. [] EXTREMITIES: Lower extremities with 2+ edema bilaterally. Pulses palpable in the lower extremities, both dorsalis pedis and posterior tibial. [] Data : 11/28/20 03:27 11/27/20 11:10 A&P Assessment and plan (1) Acute exacerbation of CHF (congestive heart failure): Status: Acute Qualifiers: Heart failure type: diastolic Qualified Code(s): I50.33 - Acute on chronic diastolic (congestive) heart failure (2) Atrial flutter with rapid ventricular response: Status: Acute (3) Coronary artery disease: Status post CABG long time ago. Status: Acute Qualifiers: Coronary Disease-Associated Artery/Lesion type: [place] artery [place] vs. transplanted heart: [place] heart Associated angina: without angina Qualified Code(s): I25.10 - Atherosclerotic heart disease of [place] coronary artery without angina pectoris (4) Hypertension: Status: Acute (5) Medication induced coagulopathy: On Eliquis Status: Acute (6) Hyponatremia with excess extracellular fluid volume: Status: Acute (7) Chronic kidney disease, stage III (moderate): Status: Acute Additional A&P Information Patient is diuresing well. Continue amiodarone and Lasix at current doses for now. LV systolic function is moderate to severely reduced now with EF of 30-35% Continued anticoagulation. Currently on Lovenox In case patient does not convert by tomorrow, we will proceed with cardioversion. If needed will likely do it with XIAO Strict I&O's. He will most likely need permanent pacemaker placement. Will discuss once he is euvolemic and is cardioverted Thank you for involving us with care of this patient. We will continue to follow. Please call with questions Attestations Medical Necessity Statement*: Care expected to cross 2 midnights. 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 transplanted heart: [place] heart Associated angina: without angina Hypertension I10 Medication induced coagulopathy D68.9; T50.905A Hyponatremia with excess extracellular fluid volume E87.1 Chronic kidney disease, stage III (moderate) N18.30
[2020-11-28 10:17] LABS: Alanine Aminotransferase 169 U/L (0-41); Albumin Level 3.5 g/dL (3.5-5.2); Alkaline Phosphatase 173 IU/L (40-130); Anion Gap 13.2 (5-19); Aspartate Amino Transferase 138 U/L (0-40); Blood Urea Nitrogen 41 mg/dL (8-23); Calcium 8.6 mg/dL (8.5-10.5); Carbon Dioxide 29 mmol/L (22-29); Chloride 98 mmol/L (98-107); Globulin 3.7 g/dL (1.3-4.6); Glucose 167 mg/dL (65-115); Osmolality Calculated 296 mOsm/kg (285-295); Potassium 4.2 mmol/L (3.5-5.1); Sodium 136 mmol/L (136-145); Total Bilirubin 0.5 mg/dL (0.15-1.2); Total Protein 7.2 g/dL (6.6-8.7)
--- NOTE | 2020-11-28 11:02 | P.PN_ITS ---
Subjective Subjective: Interval history: And diuresed really well and this morning reports feeling much better and denies any shortness of breath or chest pain. His lower extremity swelling much improved. Patient's EF is down to 30 to 35%. Vitals/I&O/Wt Last Vital Signs Temp 98.7 F 11/28/20 07:46 Pulse 107 H 11/28/20 07:46 Resp 22 H 11/28/20 07:46 BP 116/82 11/28/20 07:46 Pulse Ox 94 11/28/20 07:46 11/27/20 11/28/20 11/28/20 22:59 06:59 14:59 Intake Total 180.45 / 187.99 100 / 287.99 480 / 480 Output Total 600 / 600 300 / 900 800 / 800 Balance -419.55 / -412.01 -200 / -612.01 -320 / -320 Weight last 48 hrs Weight 52.163 kg Physical Exam Narrative: EXAM NARRATIVE: Heart is regular and lungs are clear. Lower extremity edema is 1+. 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 Status: Acute Qualifiers: Coronary Disease-Associated Artery/Lesion type: [place] artery [place] vs. transplanted heart: [place] heart Associated angina: without angina Qualified Code(s): I25.10 - Atherosclerotic heart disease of [place] coronary artery without angina pectoris (4) Hypertension: Status: Acute (5) Medication induced coagulopathy: On Eliquis Status: Acute (6) Hyponatremia with excess extracellular fluid volume: Status: Acute (7) Chronic kidney disease, stage III (moderate): Status: Acute Additional A&P Information PLAN: Continue current monitoring and treatment. Appreciate cardiology help. Attestations Medical Necessity Statement*: Patient with atrial flutter with rapid ventri cular response and acute systolic heart failure requires close inpatient monitoring and treatment. Coding Level of Care Code Acute Audit Tech for [facility] Diagnoses Acute exacerbation of CHF (congestive heart failure) I50.33 Heart failure type: diastolic Atrial flutter with rapid ventricular response I48.92 Coronary artery disease I25.10 Coronary Disease-Associated Artery/Lesion type: [place] artery [place] vs. transplanted heart: [place] heart Associated angina: without angina Hypertension I10 Medication induced coagulopathy D68.9; T50.905A Hyponatremia with excess extracellular fluid volume E87.1 Chronic kidney disease, stage III (moderate) N18.30
[2020-11-28] MEDS: sennosides 8.6 mg Tablet 17.2 MG PO (21:33)
[2020-11-28] MEDS: LORazepam 0.5 mg Tablet PO (21:34)
[2020-11-29] VITALS (10 sets, daily range): BP systolic 83–126; BP diastolic 63–88; PULSE 87–105; RESP 16–31; TEMP 36.6–37.6; O2SAT 92–99
[2020-11-29 05:21] LABS: Basophils % 0.2 %; Eosinophils % 0.5 %; Hematocrit 43.3 % (42.0-52.0); Hemoglobin 14.1 g/dL (11.7-16.6); Lymphocytes # 0.8 10^3/uL (0.8-4.8); Lymphocytes % 9.2 %; Mean Corpuscular HGB Conc 32.6 g/dL (30.0-36.0); Mean Corpuscular Volume 98.4 fL (80-94); Mean Platelet Volume 9.9 fL (7.4-10.4); Monocytes # 1.6 10^3/uL (0.2-0.9); Monocytes % 18.4 %; Neutrophils # 6.03 10^3/uL (1.8-7.7); Neutrophils % 71.3 %; Nucleated Red Blood Cells % 0 %; Platelet Count 241 10^3/cmm (130-400); Red Cell Distribution Width 13.2 % (12.1-15.1); White Blood Count 8.5 10^3/uL (4.0-10.0)
[2020-11-29] MEDS: enoxaparin 60 mg/0.6 mL Syringe 50 MG SUBCUT (05:55)
[2020-11-29] MEDS: FUROsemide 10 mg/mL SDV 10mL 60 MG IVP (05:56)
[2020-11-29 06:22] LABS: Alanine Aminotransferase 129 U/L (0-41); Albumin Level 3.1 g/dL (3.5-5.2); Alkaline Phosphatase 141 IU/L (40-130); Anion Gap 13.8 (5-19); Aspartate Amino Transferase 92 U/L (0-40); Blood Urea Nitrogen 42 mg/dL (8-23); Calcium 8.8 mg/dL (8.5-10.5); Carbon Dioxide 29 mmol/L (22-29); Chloride 100 mmol/L (98-107); Globulin 3.5 g/dL (1.3-4.6); Glucose 96 mg/dL (65-115); Osmolality Calculated 296 mOsm/kg (285-295); Potassium 4.8 mmol/L (3.5-5.1); Sodium 138 mmol/L (136-145); Total Bilirubin 0.4 mg/dL (0.15-1.2); Total Protein 6.6 g/dL (6.6-8.7)
[2020-11-29] MEDS: amiodarone 200 mg Tablet 400 MG PO ×2 (08:05→15:22)
[2020-11-29] MEDS: pantoprazole DR 40 mg Tablet PO (08:05)
[2020-11-29] MEDS: potassium chloride ER 20 mEq Tablet 40 MEQ PO ×2 (08:06→17:31)
--- NOTE | 2020-11-29 09:59 | PM.PN ---
Subjective Subjective: Interval history: Patient denies any complaints this morning including shortness of breath or chest pain. He diuresed really well. Vitals/I&O/Wt Last Vital Signs Temp 97.8 F 11/29/20 07:06 Pulse 103 H 11/29/20 07:06 Resp 23 H 11/29/20 07:06 BP 120/87 11/29/20 07:06 Pulse Ox 95 11/29/20 07:06 11/28/20 11/29/20 11/29/20 22:59 06:59 14:59 Intake Total 240 / 960 100 / 1060 Output Total 950 / 2200 800 / 3000 750 / 750 Balance -710 / -1240 -700 / -1940 -750 / -750 Weight last 48 hrs Weight 52.163 kg Physical Exam Narrative: EXAM NARRATIVE: Heart is regular and lungs are clear. No lower extremity edema. Data : 11/29/20 04:09 11/29/20 04:09 A&P Assessment and plan (1) Acute exacerbation of CHF (congestive heart failure): Acute systolic CHF exacerbation Status: Acute (2) Atrial flutter with rapid ventricular response: Status: Acute (3) Coronary artery disease: Status post CABG long time ago. Status: Acute (4) Hypertension: Status: Acute (5) Medication induced coagulopathy: On Eliquis Status: Acute (6) Hyponatremia with excess extracellular fluid volume: Status: Acute (7) Chronic kidney disease, stage III (moderate): Status: Acute Additional A&P Information PLAN: Plan for patient to have cardioversion today and to be considered for AICD placement. Attestations Medical Necessity Statement*: Patient with atrial fibrillation and rapid ventricular spots requires close inpatient monitoring and treatment. 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
--- NOTE | 2020-11-29 10:18 | P.PN_ITS ---
Subjective Subjective: Interval history: Patient is doing well. We performed XIAO to rule out left atrial appendage thrombus before cardioversion. Unfortunately patient has a significant sized thrombus in left atrial appendage. Cardioversion was not performed. Vitals/I&O/Wt Last Vital Signs Temp 97.8 F 11/29/20 07:06 Pulse 103 H 11/29/20 07:06 Resp 23 H 11/29/20 07:06 BP 120/87 11/29/20 07:06 Pulse Ox 95 11/29/20 07:06 11/28/20 11/29/20 11/29/20 22:59 06:59 14:59 Intake Total 240 / 960 100 / 1060 Output Total 950 / 2200 800 / 3000 750 / 750 Balance -710 / -1240 -700 / -1940 -750 / -750 Weight last 48 hrs Weight 115 lb Physical Exam Narrative: EXAM NARRATIVE: GENERAL: Patient is alert, awake and oriented x3. [] NECK: No jugular vein distension. [] HEENT: No cyanosis. No icterus. No pallor. [] HEART: Tachycardia, Regular S1 and S2. No murmur, rub or gallop. [] LUNGS: Clear to auscultate bilaterally. [] ABDOMEN: Soft, nontender and nondistended. Positive bowel sounds. No guarding, rebound or tenderness. [] CENTRAL NERVOUS SYSTEM: Grossly nonfocal. [] EXTREMITIES: Lower extremities with 2+ edema bilaterally. Pulses palpable in the lower extremities, both dorsalis pedis and posterior tibial. [] Data : 11/30/20 04:16 11/30/20 04:16 A&P Assessment and plan (1) Acute exacerbation of CHF (congestive heart failure): Status: Acute (2) Atrial flutter with rapid ventricular response: Status: Acute (3) Coronary artery disease: Status post CABG long time ago. Status: Acute (4) Hypertension: Status: Acute (5) Medication induced coagulopathy: On Eliquis Status: Acute (6) Hyponatremia with excess extracellular fluid volume: Status: Acute (7) Chronic kidney disease, stage III (moderate): Status: Acute Additional A&P Information Patient is diuresing well. Patient was found to have left atrial appendage or thrombus. Cardioversion was aborted. We will stop amiodarone as chemical cardioversion can also cause patient to dislodge left atrial appendage thrombus stroke. We will switch anticoagulation to Xarelto as Eliquis failed to prevent thrombus formation. Switched amiodarone to metoprolol as rate controlling strategy will be needed in the setting of left atrial appendage thrombus. We will decrease diuretic therapy as patient renal function is worsening. Strict I&O's. He will most likely need permanent pacemaker placement. Will discuss it. Thank you for involving us with care of this patient. We will continue to follow. Please call with questions Attestations Medical Necessity Statement*: Care expected to cross 2 midnights. Coding Level of Care Code Acute Director Of Strategic Partnerships for [facility] Diagnoses Acute exacerbation of CHF (congestive heart failure) I50.9 Atrial flutter with rapid ventricular response I48.92 Coronary artery disease I25.10 Hypertension I10 Medication induced coagulopathy D68.9; T50.905A Hyponatremia with excess extracellular fluid volume E87.1 Chronic kidney disease, stage III (moderate) N18.30
--- NOTE | 2020-11-29 15:45 | USCV_ITS ---
Rogelio Taylor Age: 80 Gender: M : 1940 Exam Date: 11/29/2020 16:03 Ordering Phys: Esteban Navarro M.D ([email or web address]) Technologist: Umair Pastor Exam Location: [facility] [place] Indication: AFIB BP: / HR: Rhythm: Sinus Technical Quality: Good MEASUREMENTS (Male / Female) Normal Values Medications Patient given IV sedation by anesthesia service, for details please refer to the anesthesia report. Complications None Proc. Components FINDINGS Left Ventricle LV function is grossly reduced Right Ventricle Grossly normal Right Atrium Left Atrium LA Appendage There is a large thrombus seen in the left atrial appendage IA Septum Mitral Valve There is mild to moderate mitral regurgitation seen Aortic Valve Aotic valve is thickened Tricuspid Valve Grossly normal Pulmonic Valve Not well visualization Pericardium No pericardial effusion Aorta Normal CONCLUSIONS LV systolic function is grossly reduced Large left atrial appendage thrombus is seen. No comparison transesophageal echocardiograms seen Esteban Navarro MD (Electronically Signed) Final Date: 07 December 2020 16:02 S
[2020-11-29] MEDS: sodium chloride 0.9% 1,000 ML 100 ML IV (15:56)
--- NOTE | 2020-11-29 17:00 | ANE.PACU2 ---
Inpatient post-anesthesia follow up: Airway intact: Yes Vital signs: Temperature 98.6 F Pulse Rate 105 Respiratory Rate 16 Blood Pressure 117/81 Pulse Oximetry 92 Oxygen Delivery Me thod [ Room Air Current Rate & Del riddhi] Oxygen Delivery Me thod Room Air Oxygen Flow Rate Fraction of Inspir ed Oxygen Hydration adequate: Yes Nausea and vomiting: No Pain level: 1 Mental status: Baseline
--- NOTE | 2020-11-29 17:05 | PC.NURSE ---
XIAO IMMEDIATE TIME OUT PERFORMED AT 1603 PER HOLA DEBFABIOLA MEDICATIONS ADMINISTERED PER HOLA AT 1604 XIAO STARTED AT 1605 MEDICATIONS AGAIN ADMINISTERED PER HOLA AT 1611. PROCEDURE STOPPED AT 1613. PLEASE SEE ANESTHESIA, ULTRASOUND AND DR. BARONE'S DOCUMENTATION AND IMMEDIATE TIME OUT INTERVENTION DOCUMENTATION.
[2020-11-29] MEDS: FUROsemide 10 mg/mL SDV 10mL 40 MG IVP (17:27)
[2020-11-29] MEDS: rivaroxaban 10 mg Tablet 20 MG PO (17:29)
[2020-11-29] MEDS: metoprolol tartrate 50 mg Tablet PO (20:52)
[2020-11-30] VITALS (11 sets, daily range): BP systolic 98–134; BP diastolic 63–88; PULSE 45–96; RESP 21–26; TEMP 36.3–37.2; O2SAT 97
--- NOTE | 2020-11-30 03:17 | PC.NURSE ---
Addendum entered by Breanna Catalan RN 11/30/20 03:33: Dr. Don notified of heart of 45-55 at this time. patient is asymptomatic but demanding for doctor to be notified. Patient's heart rate at beginning of shift was 95-110. Dr. Don notified of this. Ordered to continue to monitor. Original Note: NURSE NOTE: AT APPROXIMATELY 0300 THIS MORNING, PT'S HR SUSTAINING AT AROUND 45 BPM. PT CALLED NURSE INTO ROOM VERY UPSET ASKING WHY WE LET HIS HR GET SO LOW AND DEMANDING WE CALL THE AND LET HIM KNOW IMMEDIATELY OF HIS LOW HEART RATE. DR. DON TEXTED PER CHARGE NURSE BJ R.N. AT THIS TIME NO RESPONSE OF YET. THIS NURSE ABLE TO SPEAK WITH PATIENT AND PATIENT A LITTLE LESS ANXIOUS AT THIS TIME. ALL VS AND ASSESSMENTS CHARTED. WILL CONTINUE TO MONITOR.
[2020-11-30 04:46] LABS: Basophils % 0.5 %; Eosinophils # 0.1 10^3/uL (0.0-0.8); Eosinophils % 0.8 %; Hematocrit 46.7 % (42.0-52.0); Hemoglobin 15.2 g/dL (11.7-16.6); Lymphocytes # 0.8 10^3/uL (0.8-4.8); Mean Corpuscular HGB Conc 32.5 g/dL (30.0-36.0); Mean Corpuscular Hemoglobin 32.1 pg (28.0-34.0); Mean Corpuscular Volume 98.5 fL (80-94); Mean Platelet Volume 9.4 fL (7.4-10.4); Monocytes # 1.4 10^3/uL (0.2-0.9); Monocytes % 16.4 %; Neutrophils # 6.09 10^3/uL (1.8-7.7); Neutrophils % 72.9 %; Nucleated Red Blood Cells % 0 %; Platelet Count 256 10^3/cmm (130-400); Red Blood Count 4.74 10^6/uL (4.1-5.3); Red Cell Distribution Width 13.5 % (12.1-15.1); White Blood Count 8.4 10^3/uL (4.0-10.0)
[2020-11-30 04:51] LABS: Albumin Level 3.2 g/dL (3.5-5.2); Alkaline Phosphatase 137 IU/L (40-130); Blood Urea Nitrogen 46 mg/dL (8-23); Calcium 8.8 mg/dL (8.5-10.5); Carbon Dioxide 31 mmol/L (22-29); Chloride 98 mmol/L (98-107); Glucose 109 mg/dL (65-115); Magnesium 2.1 mg/dL (1.7-2.3); Osmolality Calculated 296 mOsm/kg (285-295); Sodium 137 mmol/L (136-145); Total Bilirubin 0.3 mg/dL (0.15-1.2); Total Protein 7.2 g/dL (6.6-8.7)
[2020-11-30 04:53] LABS: Anion Gap 13.8 (5-19); Aspartate Amino Transferase 91 U/L (0-40); Potassium 5.8 mmol/L (3.5-5.1)
[2020-11-30 04:54] LABS: Alanine Aminotransferase 124 U/L (0-41)
[2020-11-30] MEDS: FUROsemide 10 mg/mL SDV 4mL 40 MG IVP (05:24)
--- NOTE | 2020-11-30 07:43 | PM.PN ---
Subjective Subjective: Interval history: Patient had XIAO yesterday but because he had evidence of left appendageal thrombus cardioversion was not performed. Patient was switched from amiodarone to metoprolol to avoid chemical cardioversion. Patient previously had episodes of bradycardia on metoprolol therefore he will be closely monitored for 1 more day. His Eliquis was switched yesterday to Xarelto although patient did report being compliant. Creatinine slightly increased. Vitals/I&O/Wt Last Vital Signs Temp 98.6 F 11/30/20 03:35 Pulse 90 11/30/20 05:47 Resp 23 H 11/30/20 03:35 BP 134/76 11/30/20 03:35 Pulse Ox 99 11/29/20 19:49 11/29/20 11/30/20 11/30/20 22:59 06:59 14:59 Intake Total 225 / 225 Output Total 800 / 1900 825 / 2725 Balance -575 / -1675 -825 / -2500 Physical Exam Narrative: EXAM NARRATIVE: Heart is regular and lungs are clear. No lower extremity edema. Abdomen is soft and nontender with positive bowel sounds. Data : 11/30/20 04:16 11/30/20 04:16 A&P Assessment and plan (1) Acute exacerbation of CHF (congestive heart failure): Acute systolic CHF exacerbation Status: Acute (2) Atrial flutter with rapid ventricular response: Status: Acute (3) Coronary artery disease: Status post CABG long time ago. Status: Acute (4) Hypertension: Status: Acute (5) Medication induced coagulopathy: On Eliquis Status: Acute (6) Hyponatremia with excess extracellular fluid volume: Status: Acute (7) Chronic kidney disease, stage III (moderate): Status: Acute Additional A&P Information PLAN: Discussed with Dr. Navarro. Continue current monitoring and treatment. Hold Lasix. Encouraged oral intake. Attestations Medical Necessity Statement*: Patient with atrial flutter and rapid ventricle response requires close inpatient monitoring and treatment due to previous history of bradycardia on metoprolol. Time Spent in Patient Care: 16 - 35 minutes Coding Level of Care Code Acute Apartment Community Assistant Manager for [facility] Diagnoses Acute exacerbation of CHF (congestive heart failure) I50.9 Atrial flutter with rapid ventricular response I48.92 Coronary artery disease I25.10 Hypertension I10 Medication induced coagulopathy D68.9; T50.905A Hyponatremia with excess extracellular fluid volume E87.1 Chronic kidney disease, stage III (moderate) N18.30
[2020-11-30] MEDS: sodium chloride 0.9% 250 ML 100 ML IV (08:33)
[2020-11-30] MEDS: rivaroxaban 10 mg Tablet 20 MG PO (08:34)
[2020-11-30] MEDS: pantoprazole DR 40 mg Tablet PO (08:34)
--- NOTE | 2020-11-30 08:53 | DCPLANNER ---
IMM completed 11/30/20 @ 5174. Copy of righhts given to pt.
[2020-11-30] MEDS: metoprolol tartrate 25 mg Tablet PO ×2 (10:37→20:38)
--- NOTE | 2020-11-30 12:48 | PM.PN ---
Subjective Subjective: Interval history: Patient is doing well. He denies complaints of chest pain, shortness of breath or palpitations.Patient stays in atrial flutter with heart rate around 100. Vitals/I&O/Wt Last Vital Signs Temp 97.4 F L 11/30/20 11:55 Pulse 96 11/30/20 11:55 Resp 21 H 11/30/20 11:55 BP 109/75 11/30/20 11:55 Pulse Ox 99 11/29/20 19:49 11/29/20 11/30/20 11/30/20 22:59 06:59 14:59 Intake Total 225 / 225 490 / 490 Output Total 800 / 1900 825 / 2725 1230 / 1230 Balance -575 / -1675 -825 / -2500 -740 / -740 Physical Exam Narrative: EXAM NARRATIVE: GENERAL: Patient is alert, awake and oriented x3. [] NECK: No jugular vein distension. [] HEENT: No cyanosis. No icterus. No pallor. [] HEART: Tachycardia, Regular S1 and S2. No murmur, rub or gallop. [] LUNGS: Clear to auscultate bilaterally. [] ABDOMEN: Soft, nontender and nondistended. Positive bowel sounds. No guarding, rebound or tenderness. [] CENTRAL NERVOUS SYSTEM: Grossly nonfocal. [] EXTREMITIES: Lower extremities with no edema bilaterally. Pulses palpable in the lower extremities, both dorsalis pedis and posterior tibial. [] Data : 11/30/20 04:16 11/30/20 04:16 A&P Assessment and plan (1) Acute exacerbation of CHF (congestive heart failure): Status: Acute (2) Atrial flutter with rapid ventricular response: Status: Acute (3) Coronary artery disease: Status post CABG long time ago. Status: Acute (4) Hypertension: Status: Acute (5) Medication induced coagulopathy: On Eliquis Status: Acute (6) Hyponatremia with excess extracellular fluid volume: Status: Acute (7) Chronic kidney disease, stage III (moderate): Status: Acute Additional A&P Information Patient was found to have left atrial appendage or thrombus. Cardioversion was aborted. Amiodarone held as chemical cardioversion can also cause patient to dislodge left atrial appendage thrombus stroke. On Xarelto (was on eliquis previously but had EDI thrombus) Switched amiodarone to metoprolol as rate controlling strategy will be needed in the setting of left atrial appendage thrombus. 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 He will need pacemaker but can not hold anticoagulation with active Atrial thrombus . Will discuss with Dr Walker timing of pacemaker placement Renal function worsening likely from overdiuresis. Hold diuretic therapy. Give gently IV fluids today. Strict I&O's. Thank you for involving us with care of this patient. We will continue to follow. Please call with questions Attestations Medical Necessity Statement*: Care expected to cross 2 midnights Coding Level of Care Code Acute Electronic Train Control Technician for [facility] Diagnoses Acute exacerbation of CHF (congestive heart failure) I50.9 Atrial flutter with rapid ventricular response I48.92 Coronary artery disease I25.10 Hypertension I10 Medication induced coagulopathy D68.9; T50.905A Hyponatremia with excess extracellular fluid volume E87.1 Chronic kidney disease, stage III (moderate) N18.30
--- NOTE | 2020-11-30 19:25 | PC.NURSE ---
Received bedside report from CHELE Lezama. Patient resting in bed watching tv. Patient expressed to RN's to be sure to watch his heart rate tonight. Assured patient that this would be done. Noted patient to have blue fingers to right hand. Patient reports having Raynaud's and that he has had it for years. Patient denies other needs or pain. No distress observed.
--- NOTE | 2020-11-30 19:46 | PC.NURSE ---
Performed assessment as documented. Patient requesting his laxative tonight but would like to only have one pill instead of 2. Discussed with patient and patient verbalized understanding.
[2020-11-30] MEDS: sennosides 8.6 mg Tablet 17.2 MG PO (20:38)
[2020-12-01 03:28] VITALS: BP 106/73; PULSE 99; RESP 19; TEMP 36.6; O2SAT 96
[2020-12-01 05:22] VITALS: PULSE 100
[2020-12-01 08:00] VITALS: BP 114/64; PULSE 101; RESP 16; TEMP 36.1
[2020-12-01 08:37] LABS: Blood Urea Nitrogen 50 mg/dL (8-23); Calcium 8.5 mg/dL (8.5-10.5); Carbon Dioxide 31 mmol/L (22-29); Chloride 99 mmol/L (98-107); Glucose 152 mg/dL (65-115); Osmolality Calculated 304 mOsm/kg (285-295); Sodium 139 mmol/L (136-145)
[2020-12-01 08:39] LABS: Anion Gap 13.3 (5-19); Potassium 4.3 mmol/L (3.5-5.1)
[2020-12-01] MEDS: pantoprazole DR 40 mg Tablet PO (09:16)
[2020-12-01] MEDS: rivaroxaban 10 mg Tablet 20 MG PO (09:16)
[2020-12-01] MEDS: metoprolol tartrate 25 mg Tablet PO (09:33)
--- NOTE | 2020-12-01 10:44 | P.PN_ITS ---
Subjective Subjective: Interval history: Cardiology coverage This patient with stage of coronary disease, status post coronary artery bypass surgery, was found to have atrial flutter with rapid ventricular rate. His XIAO revealed thrombus in the left atrial appendage. Cardioversion was canceled. He also has a history of bradycardia. He seems to be staying in the tachycardia range most of the times in the hospital. He is feeling okay. His heart rate is around 102. Denies any chest pain or shortness of breath. No fever or chills. No cough. No other specific complaints. Medications: Reviewed: Yes Medication Review Details: Current Medications Guaifenesin (Guaifenesin 600 Mg Tablet) 600 mg PO BID PRN PRN Reason: RUNNY NOSE Esmolol HCl (Brevibloc Drip) 2,500 mg in 250 mls @ 0 mls/hr IV .Q0M [facility]; Protocol Last Titration: 11/27/20 19:10 Dose: Infused Documented by: Lorazepam (Lorazepam 0.5 Mg Tablet) 0.5 mg PO DAILY PRN PRN Reason: ANXIETY Last Admin: 11/28/20 21:34 Dose: 0.5 mg Documented by: Metoprolol Tartrate (Metoprolol Tartrate 1 Mg/1 Ml Sdv 5 Ml) 5 mg IV Q4H PRN PRN Reason: HR>120 bpm Metoprolol Tartrate (Metoprolol Tartrate 25 Mg Tablet) 25 mg PO BID@0900,2100 [facility] Last Admin: 12/01/20 09:33 Dose: 25 mg Documented by: Ondansetron HCl (Ondansetron 2 Mg/Ml Sdv 2 Ml) 4 mg IVP Q6H PRN PRN Reason: NAUSEA AND VOMITING Pantoprazole Sodium (Pantoprazole Dr 40 Mg Tablet) 40 mg PO DAILY [facility] Last Admin: 12/01/20 09:16 Dose: 40 mg Documented by: Rivaroxaban (Rivaroxaban 10 Mg Tablet) 20 mg PO DAILY [facility] Last Admin: 12/01/20 09:16 Dose: 20 mg Documented by: Senna (Sennosides 8.6 Mg Tablet) 17.2 mg PO BEDTIME [facility] Last Admin: 11/30/20 20:38 Dose: 17.2 mg Documented by: Vitals/I&O/Wt Last Vital Signs Temp 96.9 F L 12/01/20 08:00 Pulse 101 H 12/01/20 08:00 Resp 16 12/01/20 08:00 BP 114/64 12/01/20 08:00 Pulse Ox 96 12/01/20 03:28 11/30/20 12/01/20 12/01/20 22:59 06:59 14:59 Intake Total 240 / 970 240 / 240 Output Total 300 / 1530 825 / 2355 Balance -60 / -560 -825 / -1385 240 / 240 Physical Exam Narrative: EXAM NARRATIVE: GENERAL: The patient is alert and oriented times three. Not in any acute distress. HEENT: No significant pallor, icterus or lymphadenopathy.Oral cavity: There are no mucous membrane lesions. NECK: Trachea appears to be central. No masses noted. No JVD or thyromegaly appreciated. RESPIRATORY: Chest is symmetrical. No intercostals muscle retraction or any accessory muscle activation. There is no chest wall tenderness. Breath sounds are heard bilaterally. No rales or rhonchi heard. No evidence of any consolidation. BREASTS: Deferred. HEART: The heart sounds are normal. No S3 or S4. Short systolic murmur in the left sternal border. No diastolic murmurs. No pericardial rub ABDOMEN: No vessel pulsations or distention. No tenderness. No organomegaly appreciated. Bowel sounds are normally heard. : Deferred. RECTAL: Deferred. LYMPHATIC: No lymphadenopathy noted in the neck or groin. EXTREMITIES: No edema or cyanosis. No clubbing. MUSCULOSKELETAL: No acute joint deformities or swelling SKIN: There are no significant rashes or ecchymosis NEUROPSYCHIATRIC: The patient is alert and oriented x3. Appears to be in a good mood. No tremors or rigidity noted. Data : 11/30/20 04:16 12/01/20 08:09 A&P Assessment and plan (1) Acute exacerbation of CHF (congestive heart failure): Currently compensated. May continue current medications. Status: Acute (2) Atrial flutter with rapid ventricular response: Heart rates he is staying in the 100 range. It may be appropriate to continue on the metoprolol and the oral anticoagulation for next 8 weeks and then consider cardioversion. The need for pacemaker insertion will be decided afterwards Status: Acute (3) Coronary artery disease: Status post CABG long time ago. Since the patient has no specific symptom s, may not require any specific intervention. Continue on the current Status: Acute (4) Hypertension: May continue on the current medicines. Status: Acute (5) Medication induced coagulopathy: On Eliquis Status: Acute (6) Hyponatremia with excess extracellular fluid volume: Currently the sodium is in the normal range. May continue oral IV hyd ration Status: Acute (7) Chronic kidney disease, stage III (moderate): Elevated BUN/creatinine ratio, possibly from overdiuresis. Lasix is on hold now. Patient may be started on Lasix 20 mg p.o. daily from tomorrow onwards. I may give anotherc 250 cc normal saline bolus. Status: Acute Additional A&P Information Need to encourage oral hydration. Attestations Medical Necessity Statement*: Disposition as per the primary Other Attestations: If the BUN is coming down and also patient continues remain stable, may be discharged home today. Need to be seen by Dr. Navarro in 2 weeks in the [facility]. May continue on the current medications. 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
[2020-12-01] MEDS: sodium chloride 0.9% 250 ML IV (11:15)
[2020-12-01 12:00] VITALS: BP 91/59; PULSE 101; RESP 19; TEMP 36.7
[2020-12-01 13:54] LABS: Blood Urea Nitrogen 51 mg/dL (8-23); Calcium 8.1 mg/dL (8.5-10.5); Carbon Dioxide 30 mmol/L (22-29); Chloride 99 mmol/L (98-107); Glucose 71 mg/dL (65-115); Osmolality Calculated 296 mOsm/kg (285-295); Sodium 137 mmol/L (136-145)
[2020-12-01 14:00] VITALS: PULSE 100
[2020-12-01 14:08] LABS: Anion Gap 12.6 (5-19); Potassium 4.6 mmol/L (3.5-5.1)
[2020-12-01 15:09] VITALS: BP 99/75; PULSE 102; RESP 22; TEMP 36.8; O2SAT 91
--- NOTE | 2020-12-01 16:15 | P.DS_ITS ---
Discharge Providers Date of Admission: 11/27/20 13:57 Date of Discharge: December 01, 2020 Attending Provider at Admission: Scotty Seth MD Attending Provider at Discharge: Scotty Seth MD Primary Care Provider: Bryant Mendieta MD Diagnoses at Discharge Discharge Diagnosis (1) Acute exacerbation of CHF (congestive heart failure): Status: Acute (2) Atrial flutter with rapid ventricular response: Status: Acute (3) Coronary artery disease: Status: Acute (4) Hypertension: Status: Acute (5) Medication induced coagulopathy: Status: Acute (6) Hyponatremia with excess extracellular fluid volume: Status: Acute (7) Chronic kidney disease, stage III (moderate): Status: Acute Reason for Visit Reason for Visit: HEART ISSUES, RETAINING FLUID Hospital Course Hospital Course Patient presented with atrial flutter with rapid ventricular response. Patient was initially treated with amiodarone and had attempt to have XIAO electrical cardioversion but because left appendage thrombus was noted cardioversion was aborted. Patient deemed failed anticoagulation with Eliquis and switched to Xarelto. He was started on 20 mg daily. I have discussed with Juan Luis, pharmacist and we will switch patient to 15 mg twice daily for 21 days prior to getting back on 20 mg daily dose. This morning patient denies shortness of breath or chest pain. He wants to go home. He is doing well. Ambulating without difficulty. His heart rate remains in the 100s but patient denies symptoms. He previously had history of bradycardia therefore I cautiously increase metoprolol to 37.5 mg twice daily upon discharge. Patient really wants to go home and at this point I think we can safely discharge patient. Patient was told to keep blood pressure and heart rate log 3 times daily to present to primary care physician for medication adjustment. He will need to have repeat XIAO prior to cardioversion. His amiodarone was stopped to medication induced cardioversion and to hopefully prevent stroke. Patient is now well compensated and may possibly develop new BUN/creatinine baseline. Since patient is being treated with steroids I will add omeprazole for GI protection especially while he is anticoagulated. Physical Exam Narrative: EXAM NARRATIVE: Lungs are clear and heart is regular. No lower ex tremity edema. Discharge Data Data Completed and Pending: Completed Studies During Hospitalization Category Date Time Status XR chest 1V garth ble [id number] Stat Exams 11/27/20 11:12 Completed CV echo limited 9 5463 Routine Ultrasound 11/28/20 06:00 Completed Pending at discharge Category Date Time Status CV echo transesop hageal 63862 Routi ne Ultrasound 11/29/20 15:45 Taken Labs from last 24 hours 12/01/20 12/01/20 13:04 08:09 Sodium 137 139 Potassium 4.6 4.3 Chloride 99 99 Carbon Dioxide 30 H 31 H Anion Gap 12.6 13.3 BUN 51 H 50 H Creatinine 1.4 H 1.4 H GFR Calculation Not Reportable Not Reportable Glucose 71 152 H Calculated Osmolal ity 296 H 304 H Calcium 8.1 L 8.5 Vitals: Last Vital Signs Temp 98.3 F 12/01/20 15:09 Pulse 102 H 12/01/20 15:09 Resp 22 H 12/01/20 15:09 BP 99/75 12/01/20 15:09 Pulse Ox 91 12/01/20 15:09 Discharge Plan Discharge Patient Disposition: Home Condition: Stable Prescriptions: New Xarelto DVT-PE Treat 30d Start 15 mg (42)- 20 mg (9) tablets,dose pack See Rx Instructions ea .ROUTE .COMPLEX Qty: 51 RF: 0 sennosides [Senna Lax] 8.6 mg Tablet 17.2 mg PO BEDTIME Qty: 30 RF: 0 metoprolol tartrate 25 mg Tablet 37.5 mg PO BID@0900,2100 Qty: 90 RF: 0 omeprazole 20 mg capsule,delayed release(DR/EC) 20 mg PO DAILY Qty: 30 RF: 0 Continued rosuvastatin 20 mg tablet 20 mg PO DAILY@08 Qty: 90 RF: 3 aspirin 81 mg tablet,delayed release (DR/EC) 81 mg PO DAILY@08 RF: 0 lorazepam 0.5 mg tablet 0.5 mg PO PRN RF: 0 doxycycline hyclate 100 mg capsule See Rx Instructions .ROUTE .COMPLEX RF: 0 prednisone 20 mg tablet See Rx Instructions .ROUTE .COMPLEX RF: 0 ProAir HFA 90 mcg/actuation Hfa Aerosol Inhaler 2 puff INHALATION Q4H PRN (Reason: Shortness Of Breath) RF: 0 furosemide 20 mg tablet 20 mg PO DAILY@08 RF: 0 Discontinued metoprolol succinate 25 mg tablet extended release 24 hr 25 mg PO DAILY Qty: 7 RF: 0 amiodarone 200 mg tablet See Rx Instructions .ROUTE .COMPLEX RF: 0 Norvasc 2.5 mg tablet 2.5 mg PO DAILY RF: 0 Eliquis 5 mg tablet 5 mg PO BID@08,20 RF: 0 Discharge Orders: Discharge Order (Routine); Ordered 12/01/20 Ordered By: Scotty Seth Referrals: Esteban Navarro M.D [Physician] - 2 weeks Bryant Mendieta MD [Primary Care Provider] - 4-7 days Discharge Diet: Advance as tolerated Discharge Activity: Increase activity as tolerated Patient Instructions: Metoprolol (By mouth), Omeprazole (By mouth), Rivaroxaban (By mouth) Activity Restrictions/Additional Instructions: Please call your doctor or present to emergency department if your condition worsens or you develop diarrhea, lightheadedness, fatigue or see blood in your stool or black stool. Please keep blood pressure and heart rate log 3 times daily to present to primary care physician next visit for medication adjustment. Please note that your amiodarone is discontinued and metoprolol changed to metoprolol tartrate 37.5 mg twice daily. Please note that your medications were adjusted. You will no longer be taking Eliquis and instead you will need to be taking Xarelto, 15 mg twice daily for 21 days then switch to 20 mg daily and continue until told otherwise by your doctor. Discharge Attestations Time Spent in Discharge Care*: greater than 30 min Quality Metrics Clinical Quality Measures During this hospital stay, did patient experience: VTE Contraindication to Overlap Therapy: Overlap treatment not indicated VTE Discharge Education: Education about treatment options/disease process Coding Level of Care Code Acute [facility] note Diagnoses Acute exacerbation of CHF (congestive heart failure) I50.9 Atrial flutter with rapid ventricular response I48.92 Coronary artery disease I25.10 Hypertension I10 Medication induced coagulopathy D68.9; T50.905A Hyponatremia with excess extracellular fluid volume E87.1 Chronic kidney disease, stage III (moderate) N18.30
--- NOTE | 2020-12-01 17:06 | PC.NURSE ---
medication Pt stated he is not on altase due to angio edema-facial and tongue swelling. notified on chf core measure. pt is not on any carmen/arbs due to his allergic reaction.
--- NOTE | 2020-12-01 18:55 | PC.NURSE ---
Discharge with daughter Informed pt to follow-up with his pcp and librarian specialist as instructed upon discharge. Educated pt on his new meds dosing, timing, possible side effects and actions. Informed him on continued meds and stopped meds. Discuss to pt regarding anticoagulation therapy. Pt stated he also needs Metoprolol Tartrate since his pharmacy is close. Asked pt if he can call it to another pharmacy. Pt stated, No. I get cheaper cost in [place]. Dispense 5 tabs of 25 mg to get pt through the weekend until he can picked it up on Thursday. Pt is grateful for the meds. Xarelto coupon provided to pt. Discharge packet provided to pt.
== END 2020-12-01 18:50 | disposition home or self-care (01) | DRG 291 ==
LOC: ER 13:39 → CSU 14:21
PROVIDERS: Internal Medicine; Internal Medicine Cardiovascular Disease; Admitting Provider Internal Medicine; Emergency Provider Family Medicine; PCP Family Medicine; Visit Provider Internal Medicine
DX: I13.0 Hypertensive heart and chronic kidney disease with heart failure and stage 1 through stage 4 chronic kidney disease, or unspecified chronic kidney disease (principal); I50.33 Acute on chronic diastolic (congestive) heart failure; I48.92 Unspecified atrial flutter; D68.8 Other specified coagulation defects; E87.1 Hypo-osmolality and hyponatremia; N18.30 Chronic kidney disease, stage 3 unspecified; I48.91 Unspecified atrial fibrillation; N40.0 Benign prostatic hyperplasia without lower urinary tract symptoms; Z86.73 Personal history of transient ischemic attack (TIA), and cerebral infarction without residual deficits; I25.10 Atherosclerotic heart disease of native coronary artery without angina pectoris; Z95.1 Presence of aortocoronary bypass graft; E78.5 Hyperlipidemia, unspecified; Z85.72 Personal history of non-Hodgkin lymphomas; I73.00 Raynaud's syndrome without gangrene; T45.515A Adverse effect of anticoagulants, initial encounter; I51.3 Intracardiac thrombosis, not elsewhere classified; Z79.82 Long term (current) use of aspirin
CPT/HCPCS: 36415; 71045; 80048; 80053; 81003; 83735; 83880; 84443; 84484; 85025; 93005; 93308; 93312; 93320; 93325; 96365; 96366; 96372; 96375; 99285; J1650; J1940; J2370; J2704; J3490; J7030; J7050

== ENCOUNTER 2020-12-08 23:17 | Emergency (ER) | payer MEDICARE, SELFPAY ==
[2020-12-08 23:23] VITALS: BP 126/87; PULSE 104; RESP 20; TEMP 36.7; O2SAT 100; BMI 17.4
[2020-12-08 23:28] VITALS: PULSE 104
--- NOTE | 2020-12-08 23:29 | XRR_ITS ---
PROCEDURE INFORMATION: Exam: XR Chest Exam date and time: 12/08/2020 11:46 PM Age: 80 years old Clinical indication: Dyspnea; Additional info: SOB TECHNIQUE: Imaging protocol: XR of the chest Views: 1 view. COMPARISON: CR XR chest 1V portable [id number] 11/27/2020 11:12 AM FINDINGS: Lungs: Hyperinflation of the lungs. Calcified right upper lobe granuloma. Patchy right apical atelectasis or other infiltrate. Pleural spaces: Left pleural effusion, no change. Heart/Mediastinum: Cardiomediastinal silhouette is stable. Redemonstration of prominence of the right pulmonary slim. Bones/joints: Previous median sternotomy. XR/XR chest 1V portable [id number] IMPRESSION: 1. Left pleural effusion, no change. Redemonstration of slight prominence right pulmonary lsim, correlation with CT chest may be helpful. 2. Patchy right apical atelectasis or other infiltrate.
--- NOTE | 2020-12-08 23:30 | ECG_ITS ---
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 Measurements Intervals [place] Rate: 104 P: MA: QRS: 79 QRSD: 85 T: -78 QT: 412 QTc: 544 Interpretive Statements ATRIAL FLUTTER WITH RAPID VENTRICULAR RESPONSE ST DEVIATION AND MODERATE T-WAVE ABNORMALITY, CONSIDER INFERIOR ISCHEMIA [-0.1+ mV T WAVE IN II/aVF] Compared to ECG 11/27/2020 17:52:32 No significant changes Electronically Signed On 12-09-2020 20:20:39 CDT by Diann Tavarez M.D. [id number]
--- NOTE | 2020-12-08 23:30 | W.ED.EXTPRO ---
HPI - Extremity Problem General: Chief complaint: Extremity Problem,Nontraumatic Stated complaint: swelling in legs and feet Time Seen by Provider: 12/08/20 23:25 Source: patient Mode of arrival: ambulatory Limitations: no limitations History of Present Illness: HPI Narrative: 80-year-old male has a history congestive heart failure states he has been having swelling to his legs of last 2 to 3 days with it worsening. Patient states he is concerned that he is going to get his lungs. He denies any shortness of breath. Denies any worsening improving factors. He is on Lasix 20 mg. He denies any chest pain. MD Complaint: extremity swelling Associated symptoms: Deny chest pain, fever(s) or rash Review of Systems Const: Denies: fever(s), chills, body aches or change in appetite Eyes: Denies: blurry vision or eye discomfort ENMT: Denies: throat pain or dental pain Card: Denies: chest pain Resp: Reports: dyspnea GI: Denies: abdominal pain, nausea, vomiting or diarrhea : Denies: dysuria Musc: Denies: neck pain or back pain Skin/Breast: Denies: rash Neuro: Denies: headache(s) Psych: Denies: depression Mode/Lymph: Denies: easy bruising All/Imm: Denies: urticaria PFSH ED PFSH: Medical History Atrial fibrillation BPH (benign prostatic hyperplasia) Cerebellar stroke Coronary artery disease Dyslipidemia Lymphoma Raynauds phenomenon Surgical History H/O hernia repair Hx of CABG Hx of tonsillectomy Family History Mother Cancer Leukemia Father CAD (coronary artery disease) Diabetes Social History Smoking and tobacco status: never smoked Alcohol intake: never Lives independently: Yes Housing: House Physical Exam Const: COMMON NORMALS: no acute distress, patient oriented x3 and healthy appearing HENMT: COMMON NORMALS: normocephalic and atraumatic HEAD & SCALP: normocephalic and atraumatic Eye: COMMON NORMALS: Equal, round and reactive pupils present and EOMs intact bilaterally PUPIL: Yes Equal, round and reactive pupils present Neck/C-Spine: COMMON NORMALS: full ROM and supple Chest: COMMONS NORMALS: normal inspection of the chest and normal palpation of entire chest wall Resp: COMMON NORMALS: normal respiratory effort, No retractions, No use of accessory muscles and clear to auscultation bilaterally AUSCULTATION: clear to auscultation bilaterally Cardio: COMMON NORMALS: regular rate, regular rhythm and No murmurs present (Cardio) RATE: regular rate RHYTHM: regular rhythm GI: COMMON NORMALS: Normal to inspection, nondistended, normoactive bowel sounds present, Soft to palpation, non-tender and no masses PALPATION: Yes Soft to palpation Extremity: COMMON NORMALS: normal to inspection and full ROM NARRATIVE EXTREMITY EXAM: 2+ edema to lower extremities Neuro: COMMON NORMALS: patient oriented x3, moves all extremities and no focal motor deficits Psych: COMMON NORMALS: mental status grossly normal, Normal thought process present and cooperative THOUGHT PROCESS: Normal thought process present Skin: COMMON NORMALS: no rashes or lesions noted and no wounds GENERAL SKIN EXAM: no rashes or lesions noted Course Vital Signs: Vital signs: Vital Signs Temperature 98.0 F 12/08/20 23:23 Pulse Rate 104 H 12/08/20 23:28 Respiratory Rate 20 H 12/08/20 23:23 Blood Pressure 126/87 12/08/20 23:23 Pulse Oximetry 100 12/08/20 23:23 MDM - Extremity (Nontraumatic) MDM Narrative: Medical decision making narrative: Rogelio presents here with lower extremity edema likely from a CHF. His x-ray here shows no acute abnormalities. He has no signs of pulmonary edema. We will give him IV Lasix here and increase his Lasix from 20 to 40 mg. He is to follow-up his PCP in 3 to 5 days. He is to monitor his weight and he is return if he has any worsening symptoms. He understands agrees to plan. Lab Data: Labs: Lab Results 12/08/20 12/09/20 Range/Units 00:05 00:05 WBC 12.1 H (4.0-10.0) 10^3/ uL RBC 4.37 (4.1-5.3) 10^6/u L Hgb 13.9 (11.7-16.6) g/dL Hct 44.2 (42.0-52.0) % MCV 101.1 H (80-94) fL MCH 31.8 (28.0-34.0) pg MCHC 31.4 (30.0-36.0) g/dL RDW 13.3 (12.1-15.1) % Plt Count 263 (130-400) 10^3/c mm MPV 9.9 (7.4-10.4) fL Neut % (Auto) 82.0 % Lymph % (Auto) 6.7 % [place] % (Auto) 10.0 % Eos % (Auto) 0.6 % Baso % (Auto) 0.3 % Neut # (Auto) 9.89 H (1.8-7.7) 10^3/u L Lymph # (Auto) 0.8 (0.8-4.8) 10^3/u L [place] # (Auto) 1.2 H (0.2-0.9) 10^3/u L Eos # (Auto) 0.1 (0.0-0.8) 10^3/u L Baso # (Auto) 0.0 (0.0-0.1) 10^3/u L Nucleated RBC % (a uto) 0 % Nucleated RBCs # 0.0 /100WBC Sodium 142 (136-145) mmol/L Potassium 4.6 (3.5-5.1) mmol/L Chloride 101 (98-107) mmol/L Carbon Dioxide 30 H (22-29) mmol/L Anion Gap 15.6 (5-19) BUN 40 H (8-23) mg/dL Creatinine 1.3 H (0.7-1.2) mg/dL GFR Calculation Not Reportable Glucose 104 (65-115) mg/dL Calculated Osmolal ity 304 H (285-295) mOsm/k g Calcium 8.7 (8.5-10.5) mg/dL Total Bilirubin 0.3 (0.15-1.2) mg/dL AST 55 H (0-40) U/L ALT 72 H (0-41) U/L Alkaline Phosphata se 158 H (40-130) IU/L NT-Pro-B Natriuret Pep 80151 H (0-450) pg/mL Total Protein 7.4 (6.6-8.7) g/dL Albumin 3.6 (3.5-5.2) g/dL Globulin 3.8 (1.3-4.6) g/dL Imaging Data^: CXR: Attestation: I personally reviewed and interpreted this imaging study as follows: My impression: no acute abnormality EKG Data^: EKG 1: Attestation: I personally reviewed and interpreted this EKG as follows: EKG interpretation date: 12/08/20 EKG interpretation time: 23:39 Interpretation: Atrial flutter heart rate [address] or T wave abnormalities QRS 85 QTc 473 Discharge Plan Discharge Patient Disposition: Home Clinical Impression: Lower extremity edema Congestive heart failure Qualifiers: Heart failure type: unspecified Heart failure chronicity: acute on chronic Qualified Code(s): I50.9 - Heart failure, unspecified Condition: Stable Prescriptions: Changed furosemide 20 mg tablet 40 mg PO DAILY@08 Qty: 30 RF: 0 No Action rosuvastatin 20 mg tablet 20 mg PO DAILY@08 Qty: 90 RF: 3 aspirin 81 mg tablet,delayed release (DR/EC) 81 mg PO DAILY@08 RF: 0 lorazepam 0.5 mg tablet 0.5 mg PO PRN RF: 0 ProAir HFA 90 mcg/actuation Hfa Aerosol Inhaler 2 puff INHALATION Q4H PRN (Reason: Shortness Of Breath) RF: 0 Senna Lax 8.6 mg Tablet 17.2 mg PO BEDTIME Qty: 30 RF: 0 metoprolol tartrate 25 mg Tablet 37.5 mg PO BID@0900,2100 Qty: 90 RF: 0 Xarelto DVT-PE Treat 30d Start 15 mg (42)- 20 mg (9) tablets,dose pack See Rx Instructions ea .ROUTE .COMPLEX Qty: 51 RF: 0 omeprazole 20 mg capsule,delayed release(DR/EC) 20 mg PO DAILY Qty: 30 RF: 0 Discharge Orders: Discharge ED (Routine); Ordered 12/09/20 Ordered By: Charity Mosley Referrals: Bryant Mendieta MD [Primary Care Provider] - 1-3 days Discharge Diet: Advance as tolerated Discharge Activity: Resume usual activity Patient Instructions: Leg Edema (ED) Coding Level of Care Code ED Conference Coordinator for Chg Fwd Exam Comprehensive
[2020-12-09 00:34] LABS: Basophils % 0.3 %; Eosinophils # 0.1 10^3/uL (0.0-0.8); Eosinophils % 0.6 %; Hematocrit 44.2 % (42.0-52.0); Hemoglobin 13.9 g/dL (11.7-16.6); Lymphocytes # 0.8 10^3/uL (0.8-4.8); Lymphocytes % 6.7 %; Mean Corpuscular HGB Conc 31.4 g/dL (30.0-36.0); Mean Corpuscular Hemoglobin 31.8 pg (28.0-34.0); Mean Corpuscular Volume 101.1 fL (80-94); Mean Platelet Volume 9.9 fL (7.4-10.4); Monocytes # 1.2 10^3/uL (0.2-0.9); Neutrophils # 9.89 10^3/uL (1.8-7.7); Nucleated Red Blood Cells % 0 %; Platelet Count 263 10^3/cmm (130-400); Red Blood Count 4.37 10^6/uL (4.1-5.3); Red Cell Distribution Width 13.3 % (12.1-15.1); White Blood Count 12.1 10^3/uL (4.0-10.0)
[2020-12-09 01:23] LABS: Alanine Aminotransferase 72 U/L (0-41); Albumin Level 3.6 g/dL (3.5-5.2); Alkaline Phosphatase 158 IU/L (40-130); Aspartate Amino Transferase 55 U/L (0-40); Blood Urea Nitrogen 40 mg/dL (8-23); Calcium 8.7 mg/dL (8.5-10.5); Carbon Dioxide 30 mmol/L (22-29); Chloride 101 mmol/L (98-107); Globulin 3.8 g/dL (1.3-4.6); Glucose 104 mg/dL (65-115); NT Pro B Type Natriuretic Pept 10596 pg/mL (0-450); Osmolality Calculated 304 mOsm/kg (285-295); Sodium 142 mmol/L (136-145); Total Bilirubin 0.3 mg/dL (0.15-1.2); Total Protein 7.4 g/dL (6.6-8.7)
[2020-12-09 01:31] LABS: Anion Gap 15.6 (5-19); Potassium 4.6 mmol/L (3.5-5.1)
[2020-12-09 02:04] VITALS: BP 131/90; PULSE 106; RESP 18; O2SAT 96
[2020-12-09] MEDS: FUROsemide 10 mg/mL SDV 4mL 40 MG IVP (02:04)
[2020-12-09 02:29] VITALS: BP 127/88; PULSE 103; RESP 17; O2SAT 95
== END 2020-12-09 02:29 | disposition home or self-care (01) ==
PROVIDERS: Emergency Provider Emergency Medicine; PCP Family Medicine
DX: R60.0 Localized edema (principal); I11.0 Hypertensive heart disease with heart failure; I50.9 Heart failure, unspecified; Z79.82 Long term (current) use of aspirin; I48.91 Unspecified atrial fibrillation; I25.10 Atherosclerotic heart disease of native coronary artery without angina pectoris; Z86.73 Personal history of transient ischemic attack (TIA), and cerebral infarction without residual deficits; E78.5 Hyperlipidemia, unspecified; Z95.1 Presence of aortocoronary bypass graft
CPT/HCPCS: 71045; 80053; 83880; 85025; 93005; 96374; 99283; J1940

== ENCOUNTER → 2020-12-10 13:35 | Outpatient (BNVA) | payer MEDICARE, SELFPAY | PROVIDERS: PCP Family Medicine; Visit Provider Internal Medicine | DX: I50.9 Heart failure, unspecified (principal); N18.30 Chronic kidney disease, stage 3 unspecified; R60.0 Localized edema | CPT/HCPCS: 80048; 83880 ==

== ENCOUNTER 2020-12-13 19:22 | Emergency (ER) | payer MEDICARE, SELFPAY ==
[2020-12-13 19:27] VITALS: BP 117/78; PULSE 97; RESP 22; TEMP 37; O2SAT 100; BMI 16.7
--- NOTE | 2020-12-13 19:46 | XR_ITS ---
WS: [id number] Exam: XR chest 1V portable [id number] Date/Time of Exam: 12/13/2020 7:50 PM Reason For Exam: chest pain, tachycardia Comparison 12/08/2020. The lungs are fully expanded. There is fibrous scarring in the upper lobe stable in appearance. The m ediastinum is not widened. Heart size is top limits normal. No pleural effusions. Prior median sterno rebeca. Monitoring leads superimpose the chest. Bilateral apical pleural thickening. Postoperative mosher ge of prior trauma involving the distal left clavicle. XR/XR chest 1V portable [id number] IMPRESSION: 1. No acute cardiopulmonary finding. 2. Stable appearing chronic pulmonary parenchymal and pleural changes in the up per lung zones.
[2020-12-13 20:28] VITALS: BP 109/76; PULSE 110; RESP 18; O2SAT 91
[2020-12-13 21:46] LABS: Basophils % 0.5 %; Eosinophils # 0.1 10^3/uL (0.0-0.8); Eosinophils % 0.9 %; Hematocrit 46.1 % (42.0-52.0); Hemoglobin 14.1 g/dL (11.7-16.6); Lymphocytes # 0.8 10^3/uL (0.8-4.8); Lymphocytes % 12.1 %; Mean Corpuscular HGB Conc 30.6 g/dL (30.0-36.0); Mean Corpuscular Hemoglobin 31.9 pg (28.0-34.0); Mean Corpuscular Volume 104.3 fL (80-94); Mean Platelet Volume 9.3 fL (7.4-10.4); Monocytes # 0.7 10^3/uL (0.2-0.9); Monocytes % 10.7 %; Neutrophils % 75.6 %; Nucleated Red Blood Cells % 0 %; Platelet Count 266 10^3/cmm (130-400); Red Blood Count 4.42 10^6/uL (4.1-5.3); Red Cell Distribution Width 13.4 % (12.1-15.1); White Blood Count 6.6 10^3/uL (4.0-10.0)
--- NOTE | 2020-12-13 21:47 | ECG_ITS ---
[facility] Test Date: 2020-12-13 Pat Name: Rogelio Taylor Department: Room: Gender: Male Dog Walker: : 1940 Requested By: Simeon Hawley I Order Number: [id number] Libra MD: Diann Tavarez M.D. Measurements Intervals [place] Rate: 107 P: [place]: QRS: 80 QRSD: 109 T: -71 QT: 391 QTc: 523 Interpretive Statements ATRIAL FLUTTER/TACHYCARDIA WITH RAPID VENTRICULAR RESPONSE ANTEROSEPTAL MYOCARDIAL INFARCTION , OF INDETERMINATE AGE [40+ ms Q WAVE IN V1-V4] MODERATE T-WAVE ABNORMALITY, CONSIDER INFERIOR ISCHEMIA [-0.1+ mV T WAVE IN II/aVF] Compared to ECG 12/08/2020 23:39:28 Myocardial infarct finding now present T-wave abnormality still present Possible ischemia still present Electronically Signed On 12-14-2020 18:21:52 CDT by Diann Tavarez M.D. [id number] [email or web address]
[2020-12-13 22:12] LABS: Troponin(5th) Baseline 55 ng/L (0-15)
[2020-12-13 22:13] VITALS: BP 107/77; PULSE 110; RESP 12; O2SAT 100
[2020-12-13 22:21] LABS: Alanine Aminotransferase 47 U/L (0-41); Albumin Level 3.5 g/dL (3.5-5.2); Alkaline Phosphatase 140 IU/L (40-130); Anion Gap 12.2 (5-19); Aspartate Amino Transferase 40 U/L (0-40); Blood Urea Nitrogen 35 mg/dL (8-23); Calcium 8.4 mg/dL (8.5-10.5); Carbon Dioxide 33 mmol/L (22-29); Chloride 98 mmol/L (98-107); Globulin 3.1 g/dL (1.3-4.6); Glucose 96 mg/dL (65-115); NT Pro B Type Natriuretic Pept 9531 pg/mL (0-450); Osmolality Calculated 296 mOsm/kg (285-295); Potassium 4.2 mmol/L (3.5-5.1); Sodium 139 mmol/L (136-145); Thyroid Stimulating Hormone 3.45 uIU/mL (0.27-4.20); Total Bilirubin 0.3 mg/dL (0.15-1.2); Total Protein 6.6 g/dL (6.6-8.7)
[2020-12-13 22:30] VITALS: BP 110/58; PULSE 108; RESP 16; O2SAT 98
[2020-12-13] MEDS: metoprolol tartrate 1 mg/1 mL SDV 5 mL 2.5 MG IV (22:50)
[2020-12-13 23:00] VITALS: BP 108/62; PULSE 110; RESP 16; O2SAT 100
[2020-12-13 23:30] VITALS: BP 105/54; PULSE 104; RESP 16; O2SAT 98
--- NOTE | 2020-12-13 23:50 | W.ED.ARRPALP ---
HPI - Arrhythmia/Palpitations General: Chief Complaint: Arrhythmia/Palpitations Stated Complaint: high bp Time Seen by Provider: 12/13/20 19:43 Source: patient and family Mode of arrival: ambulatory Limitations: no limitations History of Present Illness: HPI narrative: Patient is a 80-year-old male who was recently diagnosed with atrial fibrillation and is on Xarelto for anticoagulation. Apparently at that time he was also diagnosed with a blood clot in his heart and I guess the plan is to cardiovert him when a clot is no longer present. He was also recently diagnosed with congestive heart failure and he is on furosemide 20 mg twice daily. After his admission he has had ED visits for leg swelling and CHF. The patient states that he has noticed his heart rate has been elevated over the last 3 days ranging between 108 to 110 bpm. According to his family member is here with him the patient has also been anxious. Patient denies any difficulty breathing. He does complain of right foot pain that is much worse at night and bothers him. complaint: rapid heart beat Onset (ago): day(s) (3) Duration: constant Severity: mild Context: occurred during rest Arrhythmia history: atrial fibrillation and on anti-coagulants Associated symptoms: Reports anxiety; Deny cough, diaphoresis, muscle cramps, nausea, paresthesias, pre-syncope, sense of impending doom, short of breath, syncope or vomiting Review of Systems General: Reports: 10 or more systems reviewed and unremarkable except in HPI and below Const: Denies: diaphoresis Eyes: Denies: change in vision or blurry vision ENMT: Denies: throat pain, enlarged tonsils, odynophagia, hoarseness, mouth pain or swelling of lips/tongue Card: Denies: syncope or pre-syncope Resp: Denies: dyspnea, productive cough or non-productive cough GI: Denies: nausea or vomiting : Denies: flank pain, dysuria, urinary frequency, urinary urgency or urinary hesitancy Musc: Denies: muscle cramps Skin/Breast: Denies: rash, pruritus or erythema Neuro: Denies: headache(s), numbness in extremities or weakness in extremities Psych: Reports: anxiety Endo: Denies: polyuria, polydipsia or tired all the time [facility] ED PFSH: Medical History Atrial fibrillation BPH (benign prostatic hyperplasia) Cerebellar stroke Coronary artery disease Dyslipidemia Lymphoma Raynauds phenomenon Surgical History H/O hernia repair Hx of CABG Hx of tonsillectomy Family History Mother Cancer Leukemia Father CAD (coronary artery disease) Diabetes Social History Smoking and tobacco status: never smoked Alcohol intake: never Lives independently: Yes Housing: House Physical Exam Const: COMMON NORMALS: no acute distress, average body habitus, patient oriented x3, no limitations, healthy appearing, alert and well nourished HENMT: COMMON NORMALS: normocephalic, atraumatic and moist oral mucous membranes HEAD & SCALP: normocephalic and atraumatic Neck/C-Spine: COMMON NORMALS: no meningeal signs and no JVD Resp: COMMON NORMALS: normal respiratory effort, No retractions, No use of accessory muscles, clear to auscultation bilaterally and percussion normal AUSCULTATION: clear to auscultation bilaterally PERCUSSION: percussion normal Cardio: COMMON NORMALS: no JVD, S1 normal heart sound present, S2 normal heart sound present, No gallops present (Cardio), No clicks present (Cardio), No murmurs present (Cardio), No rub (Cardio) and Peripheral pulses 2+ throughout RATE: tachycardic RHYTHM: abnormal rhythm regularly irregular HEART SOUNDS: S1 normal heart sound present and S2 normal heart sound present PERIPHERAL PULSES: Peripheral pulses 2+ throughout GI: COMMON NORMALS: Normal to inspection, nondistended, normoactive bowel sounds present, Soft to palpation, non-tender, No hepatosplenomegaly present, no masses and no bruits PALPATION: Yes Soft to palpation and Yes No hepatosplenomegaly present Extremity: COMMON NORMALS: normal to inspection, full ROM, capillary refill normal and no calf tenderness GENERAL: Yes edema RIGHT LOWER EXTREMITY: Yes foot & digits Right foot and digits: Yes inspection (Right great toe and MTP swollen and erythematous), Yes palpation (Marked tenderness at the right MTP, even to light touch), Yes ROM (Reduced because of pain) and Yes neurovascular exam (Intact) Neuro: COMMON NORMALS: patient oriented x3 SENSORIUM/ORIENTATION: Yes alert MENINGEAL SIGNS: Yes no meningeal signs Skin: COMMON NORMALS: no rashes or lesions noted, no wounds, turgor normal, no jaundice, no petechiae and no mottling GENERAL SKIN EXAM: no rashes or lesions noted and turgor normal Course Reevaluation(s): Reevaluation #1: Discussed his lab and imaging findings with him. Discussed that there is nothing that has changed significantly from his prior visit. Discussed that he likely has gout of his right great toe which is why he has severe pain there. We will give him a dose of corticosteroids intravenously in the emergency department as well as intravenous furosemide. We will discharge him home with a prescription for oral prednisone for 3 days. He is to follow-up with his primary care provider. He is also to return for any concerns and if he notices weight gain on his daily weight checks he is to double the dose of his furosemide for 3 days. The patient and his voiced understanding and they are in agreement with the plan. Time: 23:50 Vital Signs: Vital signs: Vital Signs Temperature 98.6 F 12/13/20 19:27 Pulse Rate 110 H 12/13/20 22:13 Respiratory Rate 12 12/13/20 22:13 Blood Pressure 107/77 12/13/20 22:13 Pulse Oximetry 100 12/13/20 22:13 MDM - Arrhythmia/Palpitations MDM Narrative: Medical decision making narrative: Patient who presents to the emergency department with complaints of tachycardia and right foot pain. Patient had mild tachycardia with A. fib on EKG. Evaluation in the emergency department does not show anything acute other than likely gout. He is discharged home with a prescription for prednisone. He is to return for any concerns. Medical Records: Attestation: I reviewed the patient's medical records. Lab Data: Attestation: I reviewed the patient's lab results. Labs: Lab Results 12/13/20 12/13/20 12/13/20 Range/Units 21:37 21:37 21:37 WBC 6.6 (4.0-10.0) 10^3/ uL RBC 4.42 (4.1-5.3) 10^6/u L Hgb 14.1 (11.7-16.6) g/dL Hct 46.1 (42.0-52.0) % MCV 104.3 H (80-94) fL MCH 31.9 (28.0-34.0) pg MCHC 30.6 (30.0-36.0) g/dL RDW 13.4 (12.1-15.1) % Plt Count 266 (130-400) 10^3/c mm MPV 9.3 (7.4-10.4) fL Neut % (Auto) 75.6 % Lymph % (Auto) 12.1 % Randolph % (Auto) 10.7 % Eos % (Auto) 0.9 % Baso % (Auto) 0.5 % Neut # (Auto) 5.00 (1.8-7.7) 10^3/u L Lymph # (Auto) 0.8 (0.8-4.8) 10^3/u L Randolph # (Auto) 0.7 (0.2-0.9) 10^3/u L Eos # (Auto) 0.1 (0.0-0.8) 10^3/u L Baso # (Auto) 0.0 (0.0-0.1) 10^3/u L Nucleated RBC % (a uto) 0 % Nucleated RBCs # 0.0 /100WBC Sodium 139 (136-145) mmol/L Potassium 4.2 (3.5-5.1) mmol/L Chloride 98 (98-107) mmol/L Carbon Dioxide 33 H (22-29) mmol/L Anion Gap 12.2 (5-19) BUN 35 H (8-23) mg/dL Creatinine 1.3 H (0.7-1.2) mg/dL GFR Calculation Not Reportable Glucose 96 (65-115) mg/dL Calculated Osmolal ity 296 H (285-295) mOsm/k g Calcium 8.4 L (8.5-10.5) mg/dL Total Bilirubin 0.3 (0.15-1.2) mg/dL AST 40 (0-40) U/L ALT 47 H (0-41) U/L Alkaline Phosphata se 140 H (40-130) IU/L Troponin T Baselin e 55 H (0-15) ng/L Troponin T 120 Min [place] (0-15) ng/L Delta Troponin T (0-10) ABS# NT-Pro-B Natriuret Pep 9531 H (0-450) pg/mL Total Protein 6.6 (6.6-8.7) g/dL Albumin 3.5 (3.5-5.2) g/dL Globulin 3.1 (1.3-4.6) g/dL TSH 3.45 (0.27-4.20) uIU/ mL 12/13/20 Range/Units 22:53 WBC (4.0-10.0) 10^3/ uL RBC (4.1-5.3) 10^6/u L Hgb (11.7-16.6) g/dL Hct (42.0-52.0) % MCV (80-94) fL MCH (28.0-34.0) pg MCHC (30.0-36.0) g/dL RDW (12.1-15.1) % Plt Count (130-400) 10^3/c mm MPV (7.4-10.4) fL Neut % (Auto) % Lymph % (Auto) % Randolph % (Auto) % Eos % (Auto) % Baso % (Auto) % Neut # (Auto) (1.8-7.7) 10^3/u L Lymph # (Auto) (0.8-4.8) 10^3/u L Randolph # (Auto) (0.2-0.9) 10^3/u L Eos # (Auto) (0.0-0.8) 10^3/u L Baso # (Auto) (0.0-0.1) 10^3/u L Nucleated RBC % (a uto) % Nucleated RBCs # /100WBC Sodium (136-145) mmol/L Potassium (3.5-5.1) mmol/L Chloride (98-107) mmol/L Carbon Dioxide (22-29) mmol/L Anion Gap (5-19) BUN (8-23) mg/dL Creatinine (0.7-1.2) mg/dL GFR Calculation Glucose (65-115) mg/dL Calculated Osmolal ity (285-295) mOsm/k g Calcium (8.5-10.5) mg/dL Total Bilirubin (0.15-1.2) mg/dL AST (0-40) U/L ALT (0-41) U/L Alkaline Phosphata se (40-130) IU/L Troponin T Baselin e (0-15) ng/L Troponin T 120 Min [place] 48.20 H (0-15) ng/L Delta Troponin T -6.80 L (0-10) ABS# NT-Pro-B Natriuret Pep (0-450) pg/mL Total Protein (6.6-8.7) g/dL Albumin (3.5-5.2) g/dL Globulin (1.3-4.6) g/dL TSH (0.27-4.20) uIU/ mL Discharge Plan Discharge Patient Disposition: Home Clinical Impression: Congestive heart failure Qualifiers: Heart failure type: unspecified Heart failure chronicity: chronic Qualified Code(s): I50.9 - Heart failure, unspecified Gout Qualifiers: Gout site: toe Gout etiology: unspecified cause Chronicity: acute Laterality: right Qualified Code(s): M10.9 - Gout, unspecified Atrial fibrillation Qualifiers: Atrial fibrillation type: unspecified Qualified Code(s): I48.91 - Unspecified atrial fibrillation Condition: Stable Prescriptions: New prednisone 20 mg tablet 20 mg PO DAILY 3 Days RF: 0 Continued lorazepam 0.5 mg tablet 0.5 mg PO PRN RF: 0 albuterol sulfate [ProAir HFA] 90 mcg/actuation Hfa Aerosol Inhaler 2 puff INHALATION Q4H PRN (Reason: Shortness Of Breath) RF: 0 Xarelto DVT-PE Treat 30d Start 15 mg (42)- 20 mg (9) tablets,dose pack See Rx Instructions ea .ROUTE .COMPLEX Qty: 51 RF: 0 doxycycline hyclate 100 mg capsule See Rx Instructions .ROUTE .COMPLEX RF: 0 Senna Lax 8.6 mg tablet 17.2 mg PO BEDTIME PRN (Reason: Constipation) RF: 0 metoprolol tartrate 50 mg tablet 50 mg PO BID@ RF: 0 omeprazole 20 mg capsule,delayed release(DR/EC) 20 mg PO DAILY@ RF: 0 furosemide 20 mg tablet 40 mg PO DAILY@ RF: 0 rosuvastatin 20 mg tablet 20 mg PO DAILY@ RF: 0 Discharge Orders: Discharge ED (Routine); Ordered 12/13/20 Ordered By: Simeon Hawley Referrals: Bryant Mendieta MD [Primary Care Provider] - 1-3 days Discharge Diet: Usual diet Patient Instructions: Heart Failure (ED), Atrial Fibrillation (ED), Acute Gouty Arthritis (ED) Activity Restrictions/Additional Instructions: Return for any new or worsening symptoms. Follow-up with your primary care provider within 3 days. Take the prednisone as prescribed. Continue to watch your weight if your weight starts to increase about 3 days double the dose of your Lasix for 3 days and then return back to your regular dose. Limit your fluid intake to about 1-1/2 L of water daily. Coding Level of Care Code ED Intel Analyst for Chg Fwd Exam Comprehensive
[2020-12-13] MEDS: FUROsemide 10 mg/mL SDV 4mL 40 MG IVP (23:56)
[2020-12-14] VITALS: BP 112/56; PULSE 110; RESP 16; O2SAT 100
[2020-12-14 00:30] VITALS: BP 104/60; PULSE 112; RESP 16; O2SAT 99
[2020-12-14 00:51] VITALS: BP 102/58; PULSE 110; RESP 16; O2SAT 99
== END 2020-12-14 00:55 | disposition home or self-care (01) ==
PROVIDERS: Emergency Provider Family Medicine; PCP Family Medicine
DX: I11.0 Hypertensive heart disease with heart failure (principal); I50.9 Heart failure, unspecified; M10.9 Gout, unspecified; I48.91 Unspecified atrial fibrillation; Z86.73 Personal history of transient ischemic attack (TIA), and cerebral infarction without residual deficits; I25.10 Atherosclerotic heart disease of native coronary artery without angina pectoris; E78.5 Hyperlipidemia, unspecified; Z95.1 Presence of aortocoronary bypass graft
CPT/HCPCS: 36415; 71045; 80053; 83880; 84443; 84484; 85025; 93005; 96374; 96375; 99284; J1940; J2920; J3490

== ENCOUNTER 2020-12-18 23:17 | Emergency (ER) | payer MEDICARE, SELFPAY ==
[2020-12-18 23:23] VITALS: BP 123/81; PULSE 111; RESP 22; TEMP 36.9; O2SAT 99; BMI 17.6
--- NOTE | 2020-12-18 23:31 | XR_ITS ---
WS: [id number] Portable AP upright chest, 12/18/2020 Clinical Data: cp Comparison: Portable chest, 12/13/2020. Findings: No nodules or masses are seen. There is a small left pleural effusion. The heart is slight ly enlarged. Midline sternotomy sutures are present. The aortic arch and descending aorta show calcif ication and tortuosity. The pulmonary vascularity is not increased. No pneumonia or pneumothorax is s een. The diaphragms are flattened. Bilateral upper lobe scarring is seen. There is absence of the lat eral third of the left clavicle. XR/XR chest 1V portable [id number] Impression: 1. Development of small left pleural effusion 2. Hyperinflation. 3. Cardiomegaly and atherosclerosis.
--- NOTE | 2020-12-18 23:31 | ECG_ITS ---
[facility] Test Date: 2020-12-18 Pat Name: Rogelio Taylor Department: Room: Gender: Male Outsole Caser: : 1940 Requested By: Charity Mosely Order Number: [id number] Smyth MD: Savi Walker M.D. Measurements Intervals [place] Rate: 112 P: MT: QRS: 85 QRSD: 92 T: 62 QT: 343 QTc: 468 Interpretive Statements ATRIAL FLUTTER/TACHYCARDIA WITH RAPID VENTRICULAR RESPONSE NONSPECIFIC ST & T-WAVE ABNORMALITY ABNORMAL RHYTHM ECG Compared to ECG 12/13/2020 22:36:58 Myocardial infarct finding no longer present Possible ischemia no longer present T-wave abnormality still present Electronically Signed On 12-19-2020 19:46:57 CDT by Savi Walker M.D. [email or web address]
--- NOTE | 2020-12-18 23:40 | ED_ITS ---
HPI - Chest Pain General: Chief Complaint: Chest Pain Stated Complaint: RACING HEART/HX OF AFIB RVR Time Seen by Provider: 12/18/20 23:18 Source: patient Mode of arrival: ambulatory Limitations: no limitations History of Present Illness: HPI narrative: 80-year-old male who has a history of A. klaus has been having difficulty controlling his A. klaus has been seen multiple times in the ER over the last month. He states that he is on metoprolol 50 mg twice daily states he felt his heart racing tonight. He denies any pain currently is just having palpitations. Patient's heart rate here is 112. He denies any vomiting diarrhea. Denies any worsening improving factors. Associated symptoms: Reports palpitations; Deny abdominal pain, dyspnea, fever(s), nausea or vomiting Review of Systems Const: Denies: fever(s), chills, body aches or change in appetite Eyes: Denies: blurry vision or eye discomfort ENMT: Denies: throat pain or dental pain Card: Reports: palpitations and irregular heart rhythm Resp: Denies: dyspnea GI: Denies: abdominal pain, nausea, vomiting or diarrhea : Denies: dysuria Musc: Denies: neck pain or back pain Skin/Breast: Denies: rash Neuro: Denies: headache(s) Psych: Denies: depression Mode/Lymph: Denies: easy bruising All/Imm: Denies: urticaria PFSH ED PFSH: Medical History (Reviewed 12/14/20 @ 00:15 by Simeon Hawley MD, [facility] [place]) Atrial fibrillation BPH (benign prostatic hyperplasia) Cerebellar stroke Coronary artery disease Dyslipidemia Lymphoma Raynauds phenomenon Surgical History (Reviewed 12/14/20 @ 00:15 by Simeon Hawley MD, [facility] [place]) H/O hernia repair Hx of CABG Hx of tonsillectomy Family History (Reviewed 12/14/20 @ 00:15 by Simeon Hawley MD, [facility] [place]) Mother Cancer Leukemia Father CAD (coronary artery disease) Diabetes Social History (Reviewed 12/14/20 @ 00:15 by Simeon Hawley MD, [facility] [place]) Smoking and tobacco status: never smoked Alcohol intake: never Lives independently: Yes Housing: House Physical Exam Const: COMMON NORMALS: no acute distress, patient oriented x3 and healthy appearing HENMT: COMMON NORMALS: normocephalic and atraumatic HEAD & SCALP: normoc ephalic and atraumatic Eye: COMMON NORMALS: Equal, round and reactive pupils present and EOMs intact bilaterally PUPIL: Yes Equal, round and reactive pupils present Neck/C-Spine: COMMON NORMALS: full ROM and supple Chest: COMMONS NORMALS: normal inspection of the chest and normal palpation of entire chest wall Resp: COMMON NORMALS: normal respiratory effort, No retractions, No use of accessory muscles and clear to auscultation bilaterally AUSCULTATION: clear to auscultation bilaterally Cardio: COMMON NORMALS: No murmurs present (Cardio) RATE: tachycardic RHYTHM: abnormal rhythm irregularly irregular and regularly irregular GI: COMMON NORMALS: Normal to inspection, nondistended, normoactive bowel sounds present, Soft to palpation, non-tender and no masses PALPATION: Yes Soft to palpation Extremity: COMMON NORMALS: normal to inspection and full ROM Neuro: COMMON NORMALS: patient oriented x3, moves all extremities and no focal motor deficits Psych: COMMON NORMALS: mental status grossly normal, Normal thought process present and cooperative THOUGHT PROCESS: Normal thought process present Skin: COMMON NORMALS: no rashes or lesions noted and no wounds GENERAL SKIN EXAM: no rashes or lesions noted Course Vital Signs: Vital signs: Vital Signs Temperature 98.5 F 12/18/20 23:23 Pulse Rate 111 H 12/18/20 23:23 Respiratory Rate 22 H 12/18/20 23:23 Blood Pressure 123/81 12/18/20 23:23 Pulse Oximetry 99 12/18/20 23:23 MDM - Chest Pain MDM Narrative: Medical decision making narrative: Patient presents with A. fib with RVR. His heart rate is much improved here and is now 57. He states his symptoms all went away as well now that his heart rates improved. His troponins at his baseline. He is on 50 mg metoprolol twice daily will increase that to 75 mg twice daily. 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 He is to monitor his blood pressure now I am increasing the Toprol to make sure is not getting too low. He is to follow-up as scheduled and return if worsening. Lab Data: Labs: Lab Results 12/19/20 12/19/20 12/19/20 Range/Units 00:57 00:57 00:57 WBC 7.7 (4.0-10.0) 10^3/ uL RBC 4.21 (4.1-5.3) 10^6/u L Hgb 13.5 (11.7-16.6) g/dL Hct 42.5 (42.0-52.0) % MCV 101.0 H (80-94) fL MCH 32.1 (28.0-34.0) pg MCHC 31.8 (30.0-36.0) g/dL RDW 13.2 (12.1-15.1) % Plt Count 232 (130-400) 10^3/c mm MPV 9.4 (7.4-10.4) fL Neut % (Auto) 73.4 % Lymph % (Auto) 12.1 % [place] % (Auto) 12.7 % Eos % (Auto) 0.9 % Baso % (Auto) 0.3 % Neut # (Auto) 5.66 (1.8-7.7) 10^3/u L Lymph # (Auto) 0.9 (0.8-4.8) 10^3/u L Marin # (Auto) 1.0 H (0.2-0.9) 10^3/u L Eos # (Auto) 0.1 (0.0-0.8) 10^3/u L Baso # (Auto) 0.0 (0.0-0.1) 10^3/u L Nucleated RBC % (a uto) 0 % Nucleated RBCs # 0.0 /100WBC PT 34.70 H (12.1-14.9) SECO NDS INR 3.29 H (0.8-1.2) Sodium 136 (136-145) mmol/L Potassium 4.6 (3.5-5.1) mmol/L Chloride 98 (98-107) mmol/L Carbon Dioxide 30 H (22-29) mmol/L Anion Gap 12.6 (5-19) BUN 44 H (8-23) mg/dL Creatinine 1.2 (0.7-1.2) mg/dL GFR Calculation Not Reportable Glucose 95 (65-115) mg/dL Calculated Osmolal ity 293 (285-295) mOsm/k g Calcium 7.9 L (8.5-10.5) mg/dL Total Bilirubin 0.2 (0.15-1.2) mg/dL AST 48 H (0-40) U/L ALT 58 H (0-41) U/L Alkaline Phosphata se 126 (40-130) IU/L Troponin T Baselin e (0-15) ng/L Total Protein 6.2 L (6.6-8.7) g/dL Albumin 3.3 L (3.5-5.2) g/dL Globulin 2.9 (1.3-4.6) g/dL 12/19/20 Range/Units 00:57 WBC (4.0-10.0) 10^3/ uL RBC (4.1-5.3) 10^6/u L Hgb (11.7-16.6) g/dL Hct (42.0-52.0) % MCV (80-94) fL MCH (28.0-34.0) pg MCHC (30.0-36.0) g/dL RDW (12.1-15.1) % Plt Count (130-400) 10^3/c mm MPV (7.4-10.4) fL Neut % (Auto) % Lymph % (Auto) % [place] % (Auto) % Eos % (Auto) % Baso % (Auto) % Neut # (Auto) (1.8-7.7) 10^3/u L Lymph # (Auto) (0.8-4.8) 10^3/u L Marin # (Auto) (0.2-0.9) 10^3/u L Eos # (Auto) (0.0-0.8) 10^3/u L Baso # (Auto) (0.0-0.1) 10^3/u L Nucleated RBC % (a uto) % Nucleated RBCs # /100WBC PT (12.1-14.9) SECO NDS INR (0.8-1.2) Sodium (136-145) mmol/L Potassium (3.5-5.1) mmol/L Chloride (98-107) mmol/L Carbon Dioxide (22-29) mmol/L Anion Gap (5-19) BUN (8-23) mg/dL Creatinine (0.7-1.2) mg/dL GFR Calculation Glucose (65-115) mg/dL Calculated Osmolal ity (285-295) mOsm/k g Calcium (8.5-10.5) mg/dL Total Bilirubin (0.15-1.2) mg/dL AST (0-40) U/L ALT (0-41) U/L Alkaline Phosphata se (40-130) IU/L Troponin T Baselin e 48 H (0-15) ng/L Total Protein (6.6-8.7) g/dL Albumin (3.5-5.2) g/dL Globulin (1.3-4.6) g/dL Imaging Data^: CXR: Attestation: I personally reviewed and interpreted this imaging study as follows: My impression: no acute abnormality EKG Data^: EKG 1: Attestation: I personally reviewed and interpreted this EKG as follows: EKG interpretation date: 12/18/20 EKG interpretation time: 23:35 Interpretation: atrial fib rvr hr [address] or t wave abnormalities qrs 92 qtc 409 Discharge Plan Discharge Patient Disposition: Home Clinical Impression: Atrial fibrillation Qualifiers: Atrial fibrillation type: unspecified Qualified Code(s): I48.91 - Unspecified atrial fibrillation Condition: Stable Prescriptions: Changed metoprolol tartrate 50 mg tablet 75 mg PO BID@ Qty: 0 RF: 0 No Action lorazepam 0.5 mg tablet 0.5 mg PO PRN RF: 0 albuterol sulfate [ProAir HFA] 90 mcg/actuation Hfa Aerosol Inhaler 2 puff INHALATION Q4H PRN (Reason: Shortness Of Breath) RF: 0 Xarelto DVT-PE Treat 30d Start 15 mg (42)- 20 mg (9) tablets,dose pack See Rx Instructions ea .ROUTE .COMPLEX Qty: 51 RF: 0 doxycycline hyclate 100 mg capsule See Rx Instructions .ROUTE .COMPLEX RF: 0 Senna Lax 8.6 mg tablet 17.2 mg PO BEDTIME PRN (Reason: Constipation) RF: 0 omeprazole 20 mg capsule,delayed release(DR/EC) 20 mg PO DAILY@09 RF: 0 furosemide 20 mg tablet 40 mg PO DAILY@09 RF: 0 rosuvastatin 20 mg tablet 20 mg PO DAILY@09 RF: 0 Discharge Orders: Discharge ED (Routine); Ordered 12/19/20 Ordered By: Charity Mosley Referrals: Bryant Mendieta MD [Primary Care Provider] - 1-3 days Discharge Diet: Advance as tolerated Discharge Activity: Resume usual activity Patient Instructions: Atrial Fibrillation (ED) Coding Level of Care Code ED Game Manager for Chg Fwd Exam Comprehensive
[2020-12-19 00:30] VITALS: BP 98/65; PULSE 113; RESP 21; O2SAT 97
[2020-12-19 01:00] VITALS: BP 90/50; PULSE 57; O2SAT 99
[2020-12-19 01:02] LABS: Basophils % 0.3 %; Eosinophils # 0.1 10^3/uL (0.0-0.8); Eosinophils % 0.9 %; Hematocrit 42.5 % (42.0-52.0); Hemoglobin 13.5 g/dL (11.7-16.6); Lymphocytes # 0.9 10^3/uL (0.8-4.8); Lymphocytes % 12.1 %; Mean Corpuscular HGB Conc 31.8 g/dL (30.0-36.0); Mean Corpuscular Hemoglobin 32.1 pg (28.0-34.0); Mean Platelet Volume 9.4 fL (7.4-10.4); Monocytes % 12.7 %; Neutrophils # 5.66 10^3/uL (1.8-7.7); Neutrophils % 73.4 %; Nucleated Red Blood Cells % 0 %; Platelet Count 232 10^3/cmm (130-400); Red Blood Count 4.21 10^6/uL (4.1-5.3); Red Cell Distribution Width 13.2 % (12.1-15.1); White Blood Count 7.7 10^3/uL (4.0-10.0)
[2020-12-19 01:12] LABS: INR 3.29 (0.8-1.2)
[2020-12-19 01:17] LABS: Alanine Aminotransferase 58 U/L (0-41); Albumin Level 3.3 g/dL (3.5-5.2); Alkaline Phosphatase 126 IU/L (40-130); Anion Gap 12.6 (5-19); Aspartate Amino Transferase 48 U/L (0-40); Blood Urea Nitrogen 44 mg/dL (8-23); Calcium 7.9 mg/dL (8.5-10.5); Carbon Dioxide 30 mmol/L (22-29); Chloride 98 mmol/L (98-107); Globulin 2.9 g/dL (1.3-4.6); Glucose 95 mg/dL (65-115); Osmolality Calculated 293 mOsm/kg (285-295); Potassium 4.6 mmol/L (3.5-5.1); Sodium 136 mmol/L (136-145); Total Bilirubin 0.2 mg/dL (0.15-1.2); Total Protein 6.2 g/dL (6.6-8.7)
[2020-12-19 01:18] LABS: Troponin(5th) Baseline 48 ng/L (0-15)
[2020-12-19 02:19] VITALS: BP 90/56; PULSE 58; RESP 20; O2SAT 99
== END 2020-12-19 02:15 | disposition home or self-care (01) ==
PROVIDERS: Emergency Provider Emergency Medicine; PCP Family Medicine
DX: I48.91 Unspecified atrial fibrillation (principal); I25.10 Atherosclerotic heart disease of native coronary artery without angina pectoris; Z86.73 Personal history of transient ischemic attack (TIA), and cerebral infarction without residual deficits; E78.5 Hyperlipidemia, unspecified; Z95.1 Presence of aortocoronary bypass graft
CPT/HCPCS: 71045; 80053; 84484; 85025; 85610; 93005; 96374; 99284; J3490

== ENCOUNTER 2020-12-28 13:49 | Outpatient (CLI) | payer MEDICARE, SELFPAY ==
--- NOTE | 2020-12-28 13:58 | CT_ITS ---
WS: [id number] CT scan of the chest without IV contrast, additional two-dimensional coronal and sagittal reconstruct ion was performed. 12/28/2020 Clinical Data: ABNORMAL CHEST X-RAY Comparison: CT chest, 05/06/2019 DLP: 436.[address] scans at [facility] use at least one of these dose optimization techniques: automat ed exposure control; mA and/or kV adjustment per patient size (includes targeted exams where dose is matched to clinical indication); or iterative reconstruction. Findings: No masses are seen. There is a 0.4 cm peripheral nodule in the right middle lobe seen best on image 2 0 of 64 unchanged. There are bilateral pleural effusions more on the right than the left. There are m itral valvular and coronary artery calcifications. Midline sternotomy sutures are present. The thorac ic aorta shows calcification in the wall. There are right hilar calcifications and a right lung perip heral calcification. There is volume loss of the right upper lobe with fibrosis and narrowing of the bronchi branching from the right mainstem bronchus. The heart size is large with no pericardial effus ion. The pulmonary arterial system and thoracic aorta demonstrate no dilatations. The trachea bifurca abner into the bronchi. There is no axillary or significant mediastinal adenopathy. The upper abdomen shows no acute change. The 5.0 cm left upper pole renal cyst remains the same. The re are hyperdense nodules throughout the left kidney corresponding to cysts. 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 CT/CT chest wo con [id number] Impression: 1. Bilateral pleural effusions, more on right than left. 2. Right upper lobe scarring unchanged. 3. Atherosclerotic change of the thoracic aorta and coronary artery calcificati on unchanged. 4. Chronic obstructive pulmonary disease unchanged.
== END 2020-12-28 13:50 | disposition home or self-care (01) ==
PROVIDERS: PCP Family Medicine; Visit Provider Family Medicine
DX: R93.89 Abnormal findings on diagnostic imaging of other specified body structures (principal); J90 Pleural effusion, not elsewhere classified; J44.9 Chronic obstructive pulmonary disease, unspecified
CPT/HCPCS: 71250

== ENCOUNTER 2021-01-06 21:07 | Observation (INO) | payer MEDICARE, SELFPAY ==
--- NOTE | 2021-01-06 21:11 | XRR_ITS ---
PROCEDURE INFORMATION: Exam: XR Chest Exam date and time: 01/06/2021 9:58 PM Age: 80 years old Clinical indication: Shortness of breath; Prior surgery; Surgery type: Cabg; Patient HX: Heart racing, fluid buildup; Additional info: SOB TECHNIQUE: Imaging protocol: XR of the chest. Views: 1 view. COMPARISON: 1. CT chest wo con [id number] 12/28/2020 2:07 PM 2. CR XR chest 1V portable [id number] 12/18/2020 11:44:51 PM FINDINGS: Lungs: There is right upper lobe volume loss and fibrosis. Benign calcified right hilar lymph nodes are present. There is a benign calcified granuloma in the right apex. Bilateral small pleural effusions are present larger on the right side with bibasilar atelectasis. This is similar to the previous CT scan. No new pulmonary infiltrates are seen. Pleural spaces: See Lungs finding. Heart/Mediastinum: The patient has undergone coronary bypass surgery. The cardiac silhouette is enlarged. Bones/joints: Unremarkable. XR/XR chest 1V portable [id number] IMPRESSION: 1. Stable cardiac enlargement. 2. Bilateral pleural effusions with bibasilar atelectasis greater on the right side. This is similar to previous CT. 3. Right upper lobe chronic volume loss and fibrosis. 4. Overall the appearance of the chest has not significantly changed.
[2021-01-06 21:13] VITALS: BP 106/72; PULSE 108; RESP 18; TEMP 36.3; O2SAT 108; BMI 17.4
--- NOTE | 2021-01-06 22:02 | W.ED.SOB ---
HPI - SOB/Dyspnea General: Chief Complaint: Shortness of Breath/Dyspnea Stated Complaint: HEART RACING, FLUID BUILD UP Time Seen by Provider: 01/06/21 21:35 Source: patient Mode of arrival: ambulatory Limitations: no limitations History of Present Illness: HPI Narrative: 80-year-old male has a history of A. fib along with CHF. He states his concern is that increased swelling over the last week. He states he was taking 20 mg Lasix a day was increased to 40 just this week. He states that he is continue to have swelling in his legs up to his thighs. Denies any chest pain. He has had some dyspnea especially lying flat. Denies any fever. Denies any vomiting or diarrhea. Associated symptoms: Deny abdominal pain, chest pain, fever(s), nausea or vomiting Review of Systems Const: Denies: fever(s), chills, body aches or change in appetite Eyes: Denies: blurry vision or eye discomfort ENMT: Denies: throat pain or dental pain Card: Denies: chest pain Resp: Reports: dyspnea GI: Denies: abdominal pain, nausea, vomiting or diarrhea : Denies: dysuria Musc: Reports: extremity swelling Skin/Breast: Denies: rash Neuro: Denies: headache(s) Psych: Denies: depression Mode/Lymph: Denies: easy bruising All/Imm: Denies: urticaria PFSH ED PFSH: Medical History (Updated 01/07/21 @ 00:02 by Melody Day MD) Atrial fibrillation BPH (benign prostatic hyperplasia) Cerebellar stroke Chronic kidney disease, stage III (moderate) Congestive heart failure Coronary artery disease Dyslipidemia Hypertension Lymphoma Medication induced coagulopathy Raynauds phenomenon Surgical History H/O hernia repair Hx of CABG Hx of tonsillectomy Family History Mother Cancer Leukemia Father CAD (coronary artery disease) Diabetes Social History Smoking and tobacco status: never smoked Alcohol intake: never Lives independently: Yes Housing: House Physical Exam Const: COMMON NORMALS: no acute distress, patient oriented x3 and healthy appearing HENMT: COMMON NORMALS: normocephalic and atraumatic HEAD & SCALP: normocephalic and atraumatic Eye: COMMON NORMALS: Equal, round and reactive pupils present and EOMs intact bilaterally PUPIL: Yes Equal, round and reactive pupils present Neck/C-Spine: COMMON NORMALS: full ROM and supple Chest: COMMONS NORMALS: normal inspection of the chest and normal palpation of entire chest wall Resp: COMMON NORMALS: normal respiratory effort, No retractions, No use of accessory muscles and clear to auscultation bilaterally AUSCULTATION: clear to auscultation bilaterally Cardio: COMMON NORMALS: regular rate, regular rhythm and No murmurs present (Cardio) RATE: regular rate and tachycardic RHYTHM: regular rhythm and abnormal rhythm irregularly irregular GI: COMMON NORMALS: Normal to inspection, nondistended, normoactive bowel sounds present, Soft to palpation, non-tender and no masses PALPATION: Yes Soft to palpation Extremity: COMMON NORMALS: normal to inspection and full ROM Neuro: COMMON NORMALS: patient oriented x3, moves all extremities and no focal motor deficits Psych: COMMON NORMALS: mental status grossly normal, Normal thought process present and cooperative THOUGHT PROCESS: Normal thought process present Skin: COMMON NORMALS: no rashes or lesions noted and no wounds GENERAL SKIN EXAM: no rashes or lesions noted Course Vital Signs: Vital signs: Vital Signs Temperature 97.3 F L 01/06/21 21:13 Pulse Rate 108 H 01/06/21 21:13 Respiratory Rate 18 01/06/21 21:13 Blood Pressure 106/72 01/06/21 21:13 Pulse Oximetry 108 H 01/06/21 21:13 MDM - SOB/Dyspnea MDM Narrative: Medical decision making narrative: Rufino presents here with CHF exacerbation his BNP is elevated at baseline he does have quite a bit of edema. He is having some shortness of breath as well. I spoke to the hospitalist and I will admit for diuresis. He has no signs of acute coronary syndrome. He has no signs of pulmonary bruising. Lab Data: Labs: Lab Results 01/06/21 01/06/21 01/06/21 Range/Units 22:28 22:28 22:28 WBC 6.3 (4.0-10.0) 10^3/ uL RBC 4.70 (4.1-5.3) 10^6/u L Hgb 15.1 (11.7-16.6) g/dL Hct 47.3 (42.0-52.0) % MCV 100.6 H (80-94) fL MCH 32.1 (28.0-34.0) pg MCHC 31.9 (30.0-36.0) g/dL RDW 13.2 (12.1-15.1) % Plt Count 194 (130-400) 10^3/c mm MPV 9.6 (7.4-10.4) fL Neut % (Auto) 72.8 % Lymph % (Auto) 13.9 % [place] % (Auto) 12.3 % Eos % (Auto) 0.5 % Baso % (Auto) 0.3 % Neut # (Auto) 4.57 (1.8-7.7) 10^3/u L Lymph # (Auto) 0.9 (0.8-4.8) 10^3/u L [place] # (Auto) 0.8 (0.2-0.9) 10^3/u L Eos # (Auto) 0.0 (0.0-0.8) 10^3/u L Baso # (Auto) 0.0 (0.0-0.1) 10^3/u L Nucleated RBC % (a uto) 0 % Nucleated RBCs # 0.0 /100WBC Sodium 139 (136-145) mmol/L Potassium 4.5 (3.5-5.1) mmol/L Chloride 97 L (98-107) mmol/L Carbon Dioxide 34 H (22-29) mmol/L Anion Gap 12.5 (5-19) BUN 35 H (8-23) mg/dL Creatinine 1.3 H (0.7-1.2) mg/dL GFR Calculation Not Reportable Glucose 150 H (65-115) mg/dL Calculated Osmolal ity 299 H (285-295) mOsm/k g Calcium 8.3 L (8.5-10.5) mg/dL Total Bilirubin 0.3 (0.15-1.2) mg/dL AST 47 H (0-40) U/L ALT 39 (0-41) U/L Alkaline Phosphata se 122 (40-130) IU/L Troponin T Baselin e 68 H (0-15) ng/L Troponin T 120 Min [place] (0-15) ng/L Delta Troponin T (0-10) ABS# NT-Pro-B Natriuret Pep 46459 H (0-450) pg/mL Total Protein 6.7 (6.6-8.7) g/dL Albumin 3.8 (3.5-5.2) g/dL Globulin 2.9 (1.3-4.6) g/dL 01/06/21 Range/Units 23:31 WBC (4.0-10.0) 10^3/ uL RBC (4.1-5.3) 10^6/u L Hgb (11.7-16.6) g/dL Hct (42.0-52.0) % MCV (80-94) fL MCH (28.0-34.0) pg MCHC (30.0-36.0) g/dL RDW (12.1-15.1) % Plt Count (130-400) 10^3/c mm MPV (7.4-10.4) fL Neut % (Auto) % Lymph % (Auto) % [place] % (Auto) % Eos % (Auto) % Baso % (Auto) % Neut # (Auto) (1.8-7.7) 10^3/u L Lymph # (Auto) (0.8-4.8) 10^3/u L [place] # (Auto) (0.2-0.9) 10^3/u L Eos # (Auto) (0.0-0.8) 10^3/u L Baso # (Auto) (0.0-0.1) 10^3/u L Nucleated RBC % (a uto) % Nucleated RBCs # /100WBC Sodium (136-145) mmol/L Potassium (3.5-5.1) mmol/L Chloride (98-107) mmol/L Carbon Dioxide (22-29) mmol/L Anion Gap (5-19) BUN (8-23) mg/dL Creatinine (0.7-1.2) mg/dL GFR Calculation Glucose (65-115) mg/dL Calculated Osmolal ity (285-295) mOsm/k g Calcium (8.5-10.5) mg/dL Total Bilirubin (0.15-1.2) mg/dL AST (0-40) U/L ALT (0-41) U/L Alkaline Phosphata se (40-130) IU/L Troponin T Baselin e (0-15) ng/L Troponin T 120 Min [place] 76.22 H (0-15) ng/L Delta Troponin T 8.22 (0-10) ABS# NT-Pro-B Natriuret Pep (0-450) pg/mL Total Protein (6.6-8.7) g/dL Albumin (3.5-5.2) g/dL Globulin (1.3-4.6) g/dL Imaging Data^: CXR: Attestation: I personally reviewed and interpreted this imaging study as follows: My impression: no acute abnormality EKG Data^: EKG 1: Attestation: I personally reviewed and interpreted this EKG as follows: EKG Interpretation Date: 01/06/21 EKG interpretation time: 21:25 Interpretation: afib with rvr hr [address] or t wave abnormalities qrs 80 qtc 410 Discharge Plan Discharge Patient Disposition: Admitted As Inpatient Clinical Impression: Congestive heart failure Condition: Stable Coding Level of Care Code ED Reading Coach for Chg Fwd Exam Comprehensive
[2021-01-06 22:31] LABS: Basophils % 0.3 %; Eosinophils % 0.5 %; Hematocrit 47.3 % (42.0-52.0); Hemoglobin 15.1 g/dL (11.7-16.6); Lymphocytes # 0.9 10^3/uL (0.8-4.8); Lymphocytes % 13.9 %; Mean Corpuscular HGB Conc 31.9 g/dL (30.0-36.0); Mean Corpuscular Hemoglobin 32.1 pg (28.0-34.0); Mean Corpuscular Volume 100.6 fL (80-94); Mean Platelet Volume 9.6 fL (7.4-10.4); Monocytes # 0.8 10^3/uL (0.2-0.9); Monocytes % 12.3 %; Neutrophils # 4.57 10^3/uL (1.8-7.7); Neutrophils % 72.8 %; Nucleated Red Blood Cells % 0 %; Platelet Count 194 10^3/cmm (130-400); Red Cell Distribution Width 13.2 % (12.1-15.1); White Blood Count 6.3 10^3/uL (4.0-10.0)
[2021-01-06] MEDS: FUROsemide 10 mg/mL SDV 10mL 60 MG IVP (22:31)
[2021-01-06 22:56] LABS: Troponin(5th) Baseline 68 ng/L (0-15)
[2021-01-06 23:05] LABS: Alanine Aminotransferase 39 U/L (0-41); Albumin Level 3.8 g/dL (3.5-5.2); Alkaline Phosphatase 122 IU/L (40-130); Anion Gap 12.5 (5-19); Aspartate Amino Transferase 47 U/L (0-40); Blood Urea Nitrogen 35 mg/dL (8-23); Calcium 8.3 mg/dL (8.5-10.5); Carbon Dioxide 34 mmol/L (22-29); Chloride 97 mmol/L (98-107); Globulin 2.9 g/dL (1.3-4.6); Glucose 150 mg/dL (65-115); NT Pro B Type Natriuretic Pept 15148 pg/mL (0-450); Osmolality Calculated 299 mOsm/kg (285-295); Potassium 4.5 mmol/L (3.5-5.1); Sodium 139 mmol/L (136-145); Total Bilirubin 0.3 mg/dL (0.15-1.2); Total Protein 6.7 g/dL (6.6-8.7)
--- NOTE | 2021-01-06 23:11 | ECG_ITS ---
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 Measurements Intervals [place] Rate: 76 P: [place]: QRS: 85 QRSD: 105 T: 88 QT: 364 QTc: 410 Interpretive Statements ATRIAL FLUTTER POSSIBLE RIGHT VENTRICULAR CONDUCTION DELAY [RSR (QR) IN V1/V2] NON SPECIFIC ST AND T WAVE ABNORMALITY WARNING: DATA QUALITY MAY AFFECT INTERPRETATION Compared to ECG 12/18/2020 23:35:37 ST (T wave) deviation now present Myocardial infarct finding now present Atrial flutter no longer present T-wave abnormality no longer present Electronically Signed On 01-08-2021 12:39:34 CDT by Diann Tavarez M.D. [id number]
--- NOTE | 2021-01-06 23:49 | P.HP_ITS ---
Providers/Chief Complaint Primary Care Provider: Bryant Mendieta MD Chief Complaint: HEART RACING, FLUID BUILD UP History of Present Illness Rogelio Taylor is a 80 year old male who has history of preserved ejection fraction, pulmonary hypertension, tricuspid regurgitation, atrial flutter/A. fib chronic anticoagulation with Xarelto, left atrial appendage/thrombus, not a candidate of cardioversion, failed Eliquis anticoagulation was switched to Xarelto, presented today with chief complaint of worsening shortness of breath and weight gain. Patient is stating that his Lasix dose was 20 mg a day which was increased to 2 tablets of 20 mg twice a day about 10 days ago when he called his cardiology clinic. Increasing Lasix dose did not decrease his leg swelling and today he is presenting with worsening of shortness of breath and lower extremity edema. He watches his diet tries to eat low-sodium meals. Is fairly active despite his A. fib, valvular regurgitation and congestive heart failure. Does not use oxygen. He is concerned that his legs are getting swollen and he would like them to be back to normal. He is denying chest pain, he sleeps in a recliner does not lay flat, endorsing shortness of breath on bending forward and moderate exertion. No recent fever, sinus infection, abdominal pain, diarrhea or productive cough. Diagnostics in the ER revealed worsening BNP, clinically looks fluid overloaded with bilateral lower extremity edema 3+, creatinine 1.3, EKG A. fib without RVR Chest x-ray looks better than the last time no active severe pulmonary venous congestion or pleural effusion worsening Review of Systems Const: Denies: fever(s) Eyes: Denies: change in vision ENMT: Denies: throat pain Card: Reports: irregular heart rhythm, edema, swelling of feet/ankles and dyspnea on exertion; Denies: orthopnea Resp: Denies: dyspnea GI: Denies: abdominal pain : Denies: flank pain Musc: Denies: neck pain Skin/Breast: Denies: rash Neuro: Denies: headache(s) Psych: Denies: anxiety Endo: Denies: polyuria [place]/Lymph: Denies: easy bruising All/Imm: Denies: urticaria Medications/Allergies Home Medications Medication Instructions Recorded Confirmed Last Taken Type lorazepam 0.5 mg PO PRN 09/30/20 12/13/20 Unknown History albuterol sulfate [ProAir HFA] 2 puff INHALATION Q4H PRN 11/27/20 12/13/20 Unknown History Xarelto DVT-PE Treat 30d Start See Rx Instructions .ROUTE 12/01/20 12/13/20 12/13/20 09:00 Rx .COMPLEX #51 ea 15 MG Senna Lax 17.2 mg PO BEDTIME PRN 12/13/20 12/13/20 Unknown History doxycycline hyclate See Rx Instructions .ROUTE .COMPLEX 12/13/20 12/13/20 12/13/20 17:30 History furosemide 40 mg PO DAILY@12/13/20 12/13/20 12/13/20 09:00 History omeprazole 20 mg PO DAILY@12/13/20 12/13/20 12/13/20 09:00 History rosuvastatin 20 mg PO DAILY@12/13/20 12/13/20 12/13/20 History metoprolol tartrate 50 mg tablet 50 mg PO BID@ #180 tab 12/28/20 Unknown Rx rivaroxaban 20 mg tablet 20 mg PO DAILY #90 tab 01/03/21 Unknown Rx Allergies Allergy/AdvReac Type Severity Reaction Status Date / Time Penicillins Allergy ALGY-Rash Verified 12/13/20 20:41 ramipril [From Altace] Allergy ALGY-Swell Verified 12/13/20 20:41 Lip/Tongue/Throat PFSH Acute PFSH: Medical History Atrial fibrillation BPH (benign prostatic hyperplasia) Cerebellar stroke Chronic kidney disease, stage III (moderate) Congestive heart failure Coronary artery disease Dyslipidemia Hypertension Lymphoma Medication induced coagulopathy Raynauds phenomenon Surgical History H/O hernia repair Hx of CABG Hx of tonsillectomy Family History Mother Cancer Leukemia Father CAD (coronary artery disease) Diabetes Social History Smoking and tobacco status: never smoked Alcohol intake: never Lives independently: Yes Housing: House Vitals/I&O/Wt Last Vital Signs Temp 97.3 F L 01/06/21 21:13 Pulse 108 H 01/06/21 21:13 Resp 18 01/06/21 21:13 BP 106/72 01/06/21 21:13 Pulse Ox 108 H 01/06/21 21:13 Weight last 48 hrs Weight 52.163 kg Physical Exam Narrative: EXAM NARRATIVE: elderly male appears stated age, clinical signs of fluid overload saturating well on room air In semifowler position without any active shortness of breath or chest pain Very pleasant and cooperative during my evaluation S1, S2 loud pansystolic murmur radiating all over precordium Abdomen soft nontender Bilateral breath sounds however diminished no active wheezing or crackles Lower extremity 3+ pitting edema bilaterally up to his knees Appropriate mood and affect GCS 15 no neurological deficits No joint swelling Data : 01/06/21 22:28 01/06/21 22:28 A&P Assessment and plan (1) Heart failure with preserved ejection fraction: Status: Acute (2) Pulmonary hypertension: Status: Acute (3) CHF exacerbation: Status: Acute Additional A&P Information Acute CHF exacerbation No active chest pain, no fever, he is on chronic anticoagulation with Xarelto I do believe this is gradual worsening of underlying heart failure due to severe valvular abnormality of tricuspid valve and pulmonary hypertension I would start him on Bumex IV regimen with fluid restriction of 1500 mL and correlate urine output with creatinine Would not repeat echo He is fairly active, I do not think he needs cardiac rehab at this point Chronic kidney disease He seems to be around his baseline creatinine of 1.2-1.3, Anticipating improvement with Bumex IV diuretic regimen Left atrial thrombus While he was on Eliquis, his anticoagulating agent was switched to Xarelto Not a candidate of cardioversion History of cerebellar stroke Full code Cardiac diet with fluid restriction DVT prophylaxis not indicated due to Xarelto Follows up with Dr. Alexander Attestations Medical Necessity Statement*: Anticipating discharge in less than 48 hours need IV diuretics because of CHF exacerbation and lower extremity worsening edema Time Spent in Patient Care: (>than 50% of time spent in counselling and/or direct pt care on unit) . 40mins Coding Level of Care Code Acute Tree Trimming Line Technician for Chg Fwd Diagnoses Heart failure with preserved ejection fraction I50.30 Pulmonary hypertension I27.20 CHF exacerbation I50.9
[2021-01-06 23:55] LABS: Troponin 5 2HR 76.22 ng/L (0-15); Troponin 5 2HR Delta 8.22 ABS# (0-10)
[2021-01-07] VITALS (8 sets, daily range): BP systolic 104–127; BP diastolic 60–75; PULSE 89–111; RESP 16–18; TEMP 36.7–36.9; O2SAT 95–108
--- NOTE | 2021-01-07 00:34 | PC.NURSE ---
pt report called to Sharon ELAINE in SBAR format.
--- NOTE | 2021-01-07 03:11 | ECG_ITS ---
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 Measurements Intervals [place] Rate: 80 P: [place]: QRS: 81 QRSD: 88 T: 60 QT: 423 QTc: 491 Interpretive Statements ATRIAL flutter MODERATE T-WAVE ABNORMALITY, CONSIDER ANTERIOR ISCHEMIA [-0.1+ mV T WAVE IN V3/V4] Compared to ECG 01/06/2021 23:27:40 T-wave abnormality now present Possible ischemia now present ST (T wave) deviation no longer present Myocardial infarct finding no longer present Electronically Signed On 01-08-2021 12:37:44 CDT by Diann Tavarez M.D. [id number]
[2021-01-07 06:12] LABS: Blood Urea Nitrogen 34 mg/dL (8-23); Calcium 8.3 mg/dL (8.5-10.5); Carbon Dioxide 33 mmol/L (22-29); Chloride 98 mmol/L (98-107); Glucose 74 mg/dL (65-115); Magnesium 2.4 mg/dL (1.7-2.3); Osmolality Calculated 296 mOsm/kg (285-295); Sodium 140 mmol/L (136-145)
[2021-01-07 06:16] LABS: Anion Gap 13.7 (5-19); Potassium 4.7 mmol/L (3.5-5.1)
[2021-01-07] MEDS: rivaroxaban 10 mg Tablet 20 MG PO (09:08)
[2021-01-07] MEDS: bumetanide 0.25 mg/mL SDV 10 mL 1 MG IV (09:08)
[2021-01-07] MEDS: pantoprazole DR 40 mg Tablet PO (09:08)
[2021-01-07] MEDS: atorvastatin 40 mg Tablet 80 MG PO (09:08)
[2021-01-07] MEDS: metoprolol tartrate 50 mg Tablet PO (09:08)
--- NOTE | 2021-01-07 13:19 | P.DS_ITS ---
Discharge Providers Date of Admission: 01/07/21 00:00 Date of Discharge: January 07, 2021 Attending Provider at Admission: Melody Day MD Attending Provider at Discharge: Tabatha Alegre MD Primary Care Provider: Bryant Mendieta MD Diagnoses at Discharge Discharge Diagnosis (1) Heart failure with preserved ejection fraction: Status: Acute (2) Pulmonary hypertension: Status: Acute (3) CHF exacerbation: Status: Acute Reason for Visit Reason for Visit: HEART RACING, FLUID BUILD UP Hospital Course Hospital Course Rogelio Taylor is a 80 year old male who has history of preserved ejection fraction, pulmonary hypertension, tricuspid regurgitation, atrial flutter/A. fib chronic anticoagulation with Xarelto, left atrial appendage/thrombus, not a candidate of cardioversion, failed Eliquis anticoagulation was switched to Xarelto, presented with chief complaint of worsening shortness of breath and weight gain. Diagnostics in the ER revealed worsening BNP, clinically looks f luid overloaded with bilateral lower extremity edema 3+, creatinine 1.3, EKG A. fib without RVR. He was started on IV diuresis with Bumex and also put on fluid restriction. Patient was anxious to return home today. He diuresed well, saturating 97% on room air, did not complain of any dyspnea at the time of discharge. Discharged on Lasix 60 mg p.o. twice daily, advised to continue to monitor daily weight, increase Lasix to 80 mg p.o. twice daily if gaining more than 3 pounds a day. Follow-up with cardiology in 1 week. Physical Exam Narrative: EXAM NARRATIVE: GEN: Awake, alert and oriented, no acute distress CVS: S1S2 N RS: CTA B/L Abd: Soft, nt/nd , bs+ COMPUTER OPERATIONS MANAGER: no focal neuro deficits ext: Le pitting edema+ Discharge Data Data Completed and Pending: Completed Studies During Hospitalization Category Date Time Status XR chest 1V garth ble [id number] Stat Exams 01/06/21 21:11 Completed Labs from last 24 hours 01/07/21 01/06/21 01/06/21 04:45 23:31 22:28 WBC RBC Hgb Hct MCV MCH MCHC RDW Plt Count MPV Neut % (Auto) Lymph % (Auto) [place] % (Auto) Eos % (Auto) Baso % (Auto) Neut # (Auto) Lymph # (Auto) [place] # (Auto) Eos # (Auto) Baso # (Auto) Nucleated RBC % (a uto) Nucleated RBCs # Sodium 140 Potassium 4.7 Chloride 98 Carbon Dioxide 33 H Anion Gap 13.7 BUN 34 H Creatinine 1.2 GFR Calculation Not Reportable Glucose 74 Calculated Osmolal ity 296 H Calcium 8.3 L Magnesium 2.4 H Total Bilirubin AST ALT Alkaline Phosphata se Troponin T Baselin e 68 H Troponin T 120 Min [place] 76.22 H Delta Troponin T 8.22 NT-Pro-B Natriuret Pep Total Protein Albumin Globulin 01/06/21 01/06/21 22:28 22:28 WBC 6.3 RBC 4.70 Hgb 15.1 Hct 47.3 MCV 100.6 H MCH 32.1 MCHC 31.9 RDW 13.2 Plt Count 194 MPV 9.6 Neut % (Auto) 72.8 Lymph % (Auto) 13.9 [place] % (Auto) 12.3 Eos % (Auto) 0.5 Baso % (Auto) 0.3 Neut # (Auto) 4.57 Lymph # (Auto) 0.9 [place] # (Auto) 0.8 Eos # (Auto) 0.0 Baso # (Auto) 0.0 Nucleated RBC % (a uto) 0 Nucleated RBCs # 0.0 Sodium 139 Potassium 4.5 Chloride 97 L Carbon Dioxide 34 H Anion Gap 12.5 BUN 35 H Creatinine 1.3 H GFR Calculation Not Reportable Glucose 150 H Calculated Osmolal ity 299 H Calcium 8.3 L Magnesium Total Bilirubin 0.3 AST 47 H ALT 39 Alkaline Phosphata se 122 Troponin T Baselin e Troponin T 120 Min [place] Delta Troponin T NT-Pro-B Natriuret Pep 37953 H Total Protein 6.7 Albumin 3.8 Globulin 2.9 Vitals: Last Vital Signs Temp 98.2 F 01/07/21 11:15 Pulse 111 H 01/07/21 11:27 Resp 18 01/07/21 11:15 BP 104/65 01/07/21 11:15 Pulse Ox 97 01/07/21 11:27 Discharge Plan Discharge Patient Disposition: Home Condition: Stable Prescriptions: Continued metoprolol tartrate 50 mg tablet 50 mg PO BID@ Qty: 180 RF: 3 Xarelto 20 mg tablet 20 mg PO DAILY Qty: 90 RF: 3 lorazepam 0.5 mg tablet 0.5 mg PO PRN RF: 0 Probiotic 1 cap PO DAILY RF: 0 albuterol sulfate [ProAir HFA] 90 mcg/actuation Hfa Aerosol Inhaler 2 puff INHALATION Q4H PRN (Reason: Shortness Of Breath) RF: 0 sennosides [Senna Lax] 8.6 mg tablet 17.2 mg PO BEDTIME PRN (Reason: Constipation) RF: 0 omeprazole 20 mg capsule,delayed release(DR/EC) 20 mg PO DAILY@09 RF: 0 rosuvastatin 20 mg tablet 20 mg PO DAILY@09 RF: 0 Changed furosemide 20 mg tablet 60 mg PO BID Qty: 0 RF: 0 Discharge Orders: Discharge Order (Routine); Ordered 01/07/21 Ordered By: Tabatha Alegre Referrals: Mariama Aguero FNP [Nurse Practitioner] - 1 week Bryant Mendieta MD [Primary Care Provider] - 01/15/21 10:15 am Discharge Diet: Cardiac Discharge Activity: Increase activity as tolerated Patient Instructions: Furosemide (By mouth), Heart Failure (DC), CHF Stoplight, Opioid Safety Discharge Attestations Time Spent in Discharge Care*: less than 30 min Quality Metrics Clinical Quality Measures During this hospital stay, did patient experience: None Coding Level of Care Code Acute Chg FW DC note Diagnoses Heart failure with preserved ejection fraction I50.30 Pulmonary hypertension I27.20 CHF exacerbation I50.9
--- NOTE | 2021-01-07 13:50 | PC.CHAP ---
Pastoral Care Encounter/Spiritual Assessment Type of Contact [] Declined fur machine operator visit [] Patient/Family/Request visit [] Outpatient visit [x] Follow-up visit [] Physician referral [] Code/Alert [] Routine visit [] Staff referral [] Actively dying [x] Patient sleeping [] Family support [] [] Out of room [] Palliative care [] [] Receiving care in room [] Pre-surgical visit [] Trauma [] Long length of stay [] ICU visit [] Other: Relational/Emotional Strength [] Patient feels connected with others/family/visitors/staff [] Distress [] Loneliness/isolation [] Abandonment Spirituality of Patient [] Person of Tomasa [] Attends Buddhism of their Tomasa [] Believes in Prayer [] Reads Bible or Scientology materials [] There are Spiritual issues to be addressed Dental Detail Representative Interventions [] Prayer [] Active listening [] Non-anxious presence [] Spiritual/emotional support [] Crisis/trauma care [] Spiritual counseling [] Bereavement support [] Provided bereavement packet [] Provided Bible/devotional materials [] Provided toy/stuffed animal, coloring book to patient or family member [] Provided Communion [] Anointing/[place] [] Salvation [] Completed spiritual assessment [] Other: Impact on Illness or Injury [] Angry [] Fearful [] Anxious [] Often cries [] Exhaustion [] Unable to work [] Unable to attend sikhism [] Unable to walk/stand [] Unable to read [] Unable to drive [] Unable to eat/drink [] Unable to sleep [] Unable to be with family [] Patient intubated [] Other: Summary Time spent with patient
--- NOTE | 2021-01-07 13:52 | PC.CHAP ---
Pastoral Care Encounter/Spiritual Assessment Type of Contact [] Declined risk control analyst visit [] Patient/Family/Request visit [] Outpatient visit [] Follow-up visit [] Physician referral [] Code/Alert [x] Routine visit [] Staff referral [] Actively dying [] Patient sleeping [] Family support [] [] Out of room [] Palliative care [] [] Receiving care in room [] Pre-surgical visit [] Trauma [] Long length of stay [] ICU visit [] Other: Relational/Emotional Strength [] Patient feels connected with others/family/visitors/staff [] Distress [] Loneliness/isolation [] Abandonment Spirituality of Patient [] Person of Tomasa [] Attends Christianity of their Tomasa [] Believes in Prayer [] Reads Bible or Baptist materials [] There are Spiritual issues to be addressed Clubhouse Attendant Interventions [x] Prayer [] Active listening [] Non-anxious presence [] Spiritual/emotional support [] Crisis/trauma care [] Spiritual counseling [] Bereavement support [] Provided bereavement packet [] Provided Bible/devotional materials [] Provided toy/stuffed animal, coloring book to patient or family member [] Provided Communion [] Anointing/[place] [] Salvation [] Completed spiritual assessment [] Other: Impact on Illness or Injury [] Angry [] Fearful [] Anxious [] Often cries [] Exhaustion [] Unable to work [] Unable to attend protestant [] Unable to walk/stand [] Unable to read [] Unable to drive [] Unable to eat/drink [] Unable to sleep [] Unable to be with family [] Patient intubated [] Other: Summary Time spent with patient
--- NOTE | 2021-01-07 15:32 | PC.NURSE ---
patient verbalizes understanding of discharge instructions, new lasix dosage, and follow up appointments.
== END 2021-01-07 15:32 | disposition home or self-care (01) ==
LOC: ER 23:23 → MEDSURG 01-07 06:50
PROVIDERS: Admitting Provider Internal Medicine; Emergency Provider Emergency Medicine; PCP Family Medicine; Visit Provider Student in an Organized Health Care Education/Training Program
DX: I50.30 Unspecified diastolic (congestive) heart failure (principal); I27.20 Pulmonary hypertension, unspecified; I50.9 Heart failure, unspecified; I07.1 Rheumatic tricuspid insufficiency; I48.91 Unspecified atrial fibrillation; Z79.01 Long term (current) use of anticoagulants; N40.0 Benign prostatic hyperplasia without lower urinary tract symptoms; I13.0 Hypertensive heart and chronic kidney disease with heart failure and stage 1 through stage 4 chronic kidney disease, or unspecified chronic kidney disease; N18.30 Chronic kidney disease, stage 3 unspecified; I25.10 Atherosclerotic heart disease of native coronary artery without angina pectoris; Z95.1 Presence of aortocoronary bypass graft
CPT/HCPCS: 36415; 71045; 80048; 80053; 83735; 83880; 84484; 85025; 93005; 96374; 99285; G0378; J1940; J3490

== ENCOUNTER → 2021-01-21 14:02 | Outpatient (BNVA) | payer MEDICARE, SELFPAY | PROVIDERS: PCP Family Medicine; Visit Provider Internal Medicine | DX: I50.9 Heart failure, unspecified (principal); I48.91 Unspecified atrial fibrillation; I25.10 Atherosclerotic heart disease of native coronary artery without angina pectoris | CPT/HCPCS: 80048; 83880 ==

== ENCOUNTER → 2021-02-06 10:06 | Outpatient (BNVA) | payer MEDICARE, SELFPAY | PROVIDERS: PCP Family Medicine; Visit Provider Internal Medicine | DX: I25.10 Atherosclerotic heart disease of native coronary artery without angina pectoris (principal); I48.91 Unspecified atrial fibrillation; I50.20 Unspecified systolic (congestive) heart failure; I50.9 Heart failure, unspecified | CPT/HCPCS: 80048; 83880 ==

== ENCOUNTER → 2021-03-04 10:36 | Outpatient (BNVA) | payer MEDICARE, SELFPAY | PROVIDERS: PCP Family Medicine; Visit Provider Internal Medicine | DX: I50.20 Unspecified systolic (congestive) heart failure (principal); I25.10 Atherosclerotic heart disease of native coronary artery without angina pectoris; I50.9 Heart failure, unspecified; I48.91 Unspecified atrial fibrillation | CPT/HCPCS: 80048; 83880 ==

== ENCOUNTER 2021-03-22 09:45 | Outpatient (CLI) | payer MEDICARE, SELFPAY ==
--- NOTE | 2021-03-22 10:03 | MR_ITS ---
WS: [id number] MRI CERVICAL SPINE NONCONTRAST HISTORY: CERVICALGIA COMPARISON: No similar studies. Technique: Multiplanar, multisequence noncontrast imaging of the cervical spine. Thoracolumbar scoliosis. No acute fractures or marrow edema. Severe degenerative disc disease and narrowing at C4-5, C5-6 and C6-7. No signal abnormality within t he cord. Craniocervical junction, C1 and C2 relationship, odontoid process and soft tissues are normal. Quality of this examination and evaluation of the foramina significantly limited due to patient's sco liosis and chronic kyphosis. C2-C3: Small foraminal osteophytes. No stenosis appreciated. C3-C4: Diffuse osteophytic ridging and disc bulging. Mild central and foraminal stenosis. C4-C5: Diffuse osteophytic ridging. There is also diffuse disc bulging. Disc and osteophytes contact the ventral thecal sac. Mild central and bilateral foraminal stenosis. C5-C6: Diffuse osteophytic ridging and disc bulging. Mild central and foraminal stenosis. C6-C7: Mild annular disc bulging. Mild LEFT foraminal stenosis. C7-T1: Small bilateral foraminal osteophytes with mild stenosis. Paraspinal soft tissue are normal. MR/MR cervical spin wo con* [id number] IMPRESSION: 1. Scoliosis and increased kyphosis. No acute fracture. 2. Multilevel areas of mild central and foraminal stenosis. Quantification of foraminal stenosis is difficult due to patient's degenerative changes. There is at least mild central and foraminal stenosis from C3-4 to C5-6 and on the LEFT at C6-7. Mild bilateral foraminal stenosis at C7-T1. 3. Very slight disc and osteophyte contact on the ventral cord at C4-5 and C5- 6.
== END 2021-03-22 09:46 | disposition home or self-care (01) ==
LOC: RADWPI 09:54
PROVIDERS: PCP Family Medicine; Visit Provider Family Medicine
DX: M53.2X2 Spinal instabilities, cervical region (principal); M40.292 Other kyphosis, cervical region; M48.02 Spinal stenosis, cervical region; M25.78 Osteophyte, vertebrae
CPT/HCPCS: 72141

== ENCOUNTER 2021-04-24 15:13 | Outpatient (CLI) | payer MEDICARE, SELFPAY ==
--- NOTE | 2021-04-24 15:32 | CT_ITS ---
WS: [id number] CT CHEST TECHNIQUE: Noncontrast CT of the chest with coronal and sagittal reformatted images. CLINICAL INFORMATION: LUNG NODULE COMPARISON: CT December 28, 2020 DLP: 434.[address] scans at [facility] use at least one of these dose optimization techniques: automat ed exposure control; mA and/or kV adjustment per patient size (includes targeted exams where dose is matched to clinical indication); or iterative reconstruction. FINDINGS: Moderate chronic emphysematous changes. Chronic appearing fibrotic changes with parenchymal fibrosis in the right upper lobe medially. This is unchanged in appearance since December 28, 2020. Calcified gra nuloma right upper lobe with pleural thickening at the right lung apex also unchanged. Small pleural effusion and pleural thickening in the super segment right upper lobe. Calcified granuloma right uppe r lobe.Slightly ectatic ascending thoracic aorta measuring 3.5 cm unchanged. Moderate aortic calcification. Coronary calcification. No mediastinal or hilar lymphadenopathy. Hemorrhagic cysts left kidney partially visualized. Large upper pole left renal cyst measuring 4.8 cm appears unchanged. Moderate thoracic kyphosis. CT/CT chest wo con [id number] IMPRESSION: 1. Stable small right pleural effusion. 2. Right upper lobe parenchymal scarring along the medial anterior mediastinum is unchanged. Stable parenchymal scarring in the right lung apex. 3. Moderate chronic emphysematous changes. 4. No mediastinal or hilar lymphadenopathy. 5. Slightly ectatic ascending thoracic aorta measuring 3.5 cm unchanged. 6. Partially visualized left upper pole renal cyst measuring 4.8 cm.
== END 2021-04-24 15:14 | disposition home or self-care (01) ==
PROVIDERS: PCP Family Medicine; Visit Provider Family Medicine
DX: R91.1 Solitary pulmonary nodule (principal); J90 Pleural effusion, not elsewhere classified; I77.810 Thoracic aortic ectasia
CPT/HCPCS: 71250

== ENCOUNTER → 2021-05-22 09:38 | Outpatient (BNVA) | payer MEDICARE, SELFPAY | PROVIDERS: PCP Family Medicine; Visit Provider Internal Medicine | DX: R06.02 Shortness of breath (principal); I50.30 Unspecified diastolic (congestive) heart failure; I25.10 Atherosclerotic heart disease of native coronary artery without angina pectoris | CPT/HCPCS: 80048; 83880 ==

== ENCOUNTER 2021-06-12 17:07 | Emergency (ER) | payer MEDICARE, SELFPAY ==
[2021-06-12 17:24] VITALS: BP 175/82; PULSE 98; RESP 16; TEMP 36.5; O2SAT 99; BMI 16.2
--- NOTE | 2021-06-12 17:48 | W.ED.EXTPRO ---
HPI - Extremity Problem General: Chief complaint: Extremity Injury, Lower Stated complaint: Swollen Legs, sent by Time Seen by Provider: 06/12/21 17:48 History of Present Illness: HPI Narrative: 81-year-old male patient comes in with tenderness and swelling to the right inner thigh. Patient reports it has been like this for about 3 days. Patient was seen at [facility] and was referred to the ER for ultrasound. Patient appears well. Patient appears no acute distress. Patient denies any fever or chills. Patient does not recall any injury. Review of Systems General: Reports: 10 or more systems reviewed and unremarkable except in HPI and below Musc: Reports: other (Right thigh pain and discomfort.) PFSH ED PFSH: Medical History Atrial fibrillation BPH (benign prostatic hyperplasia) Cerebellar stroke Chronic kidney disease, stage III (moderate) Congestive heart failure Coronary artery disease Dyslipidemia Hypertension Lymphoma Medication induced coagulopathy Raynauds phenomenon Surgical History H/O hernia repair Hx of CABG Hx of tonsillectomy Family History Mother Cancer Leukemia Father CAD (coronary artery disease) Diabetes Social History Smoking and tobacco status: never smoked Alcohol intake: never Lives independently: Yes Housing: House Physical Exam Const: COMMON NORMALS: no acute distress and patient oriented x3 GENERAL APPEARANCE: cooperative HENMT: COMMON NORMALS: normocephalic and Normal external nose present HEAD & SCALP: normal to inspection and normocephalic NOSE: Normal external nose present Eye: GENERAL EYE: appearance normal, both eyes and all related structures Neck/C-Spine: COMMON NORMALS: full ROM Lymph: LYMPHATIC: no lymphadenopathy noted Chest: COMMONS NORMALS: normal inspection of the chest Resp: COMMON NORMALS: normal respiratory effort EFFORT & INSPECTION: Yes able to speak in complete sentences Cardio: COMMON NORMALS: regular rate and regular rhythm RATE: regular rate RHYTHM: regular rhythm GI: COMMON NORMALS: non-tender Extremity: NARRATIVE EXTREMITY EXAM: Tenderness is noted to the right inner thigh. No obvious palpation of mass or significant swelling is noted. Negative Homans' sign. No calf pain on palpation. No popliteal angle pain is noted. Neuro: COMMON NORMALS: patient oriented x3 and moves all extremities Psych: COMMON NORMALS: mental status grossly normal and cooperative Skin: COMMON NORMALS: no rashes or lesions noted GENERAL SKIN EXAM: no rashes or lesions noted Course Vital Signs: Vital signs: Vital Signs Temperature 97.8 F 06/12/21 18:52 Pulse Rate 74 06/12/21 18:52 Respiratory Rate 16 06/12/21 18:52 Blood Pressure 136/88 06/12/21 18:52 Pulse Oximetry 96 06/12/21 18:52 MDM - Extremity (Nontraumatic) MDM Narrative: Medical decision making narrative: Patient was referred to the ER for concerns of soreness and tenderness to the right inner thigh. On exam patient had a tender area in the right inner thigh but no palpable increased swelling or masses noted. Patient had a negative Homans' sign and no signs of redness or swelling distally to the extremity. Differential diagnosis includes muscle strain, contusion, DVT. Ultrasound of the extremity for DVT was negative. Ultrasound of the soft tissue indicated no hematoma or abscess. Suspect patient probably has a muscle strain recommended warm packs to the area and Tylenol for pain. Patient reported understanding and agreed to plan. Discharge Plan Discharge Patient Disposition: Home Clinical Impression: Pain in right thigh Condition: Stable Prescriptions: No Action metoprolol tartrate 50 mg tablet 50 mg PO BID@ Qty: 180 RF: 3 Xarelto 20 mg tablet 20 mg PO DAILY Qty: 90 RF: 3 furosemide 40 mg tablet 60 mg PO BID Qty: 90 RF: 5 lorazepam 0.5 mg tablet 0.5 mg PO PRN RF: 0 Probiotic 1 cap PO DAILY RF: 0 albuterol sulfate [ProAir HFA] 90 mcg/actuation Hfa Aerosol Inhaler 2 puff INHALATION Q4H PRN (Reason: Shortness Of Breath) RF: 0 sennosides [Senna Lax] 8.6 mg tablet 17.2 mg PO BEDTIME PRN (Reason: Constipation) RF: 0 omeprazole 20 mg capsule,delayed release(DR/EC) 20 mg PO DAILY@09 RF: 0 rosuvastatin 20 mg tablet 20 mg PO DAILY@09 RF: 0 Discharge Orders: Discharge ED (Routine); Ordered 06/12/21 Ordered By: Alok Smith Referrals: Bryant Mendieta MD [Primary Care Provider] - Discharge Diet: Usual diet Discharge Activity: Increase activity as tolerated Patient Instructions: Opioid Safety Activity Restrictions/Additional Instructions: Use acetaminophen, Tylenol, as needed for pain. Drink plenty of water with medication. Use a warm pack to the area of pain for further relief. Follow-up with primary care as needed. Return to the ER for new concerns. Coding Level of Care Code ED Retail Manager for Chg Fwd Exam Comprehensive
--- NOTE | 2021-06-12 17:52 | USR_ITS ---
PROCEDURE INFORMATION: Exam: US Duplex Right Lower Extremity Veins, Limited Exam date and time: 06/12/2021 5:52 PM Age: 81 years old Clinical indication: Pain; Leg, lower; Right; Additional info: Pain swelling right thigh, history of thrombus TECHNIQUE: Imaging protocol: Real-time Duplex ultrasound of the Right Lower Extremity with 2-D prado scale, color Doppler flow and spectral waveform analysis with image documentation. Limited exam was focused on the right lower extremity veins. COMPARISON: US ROR venous duplex LE RT 01/11/2019 3:35 PM FINDINGS: Right deep veins: Unremarkable. The common femoral, femoral, proximal profunda femoral and popliteal veins are patent without thrombus. Normal Doppler waveforms. Normal compressibility and/or augmentation response. Right superficial veins: Unremarkable. Saphenofemoral junction is patent without thrombus. Soft tissues: Unremarkable. US/[place] [id number] IMPRESSION: No evidence of deep vein thrombosis.
--- NOTE | 2021-06-12 17:52 | USR_ITS ---
PROCEDURE INFORMATION: Exam: US Unlisted Ultrasound Procedure Exam date and time: 06/12/2021 5:52 PM Age: 81 years old Clinical indication: Pain: RT thigh pain; Additional info: Right inner thigh, tenderness swelling TECHNIQUE: Imaging protocol: Unlisted ultrasound procedure (eg, diagnostic, interventional). COMPARISON: No relevant prior studies available. FINDINGS: Procedural imaging: Targeted evaluation in the right thigh, in the area of concern, is unremarkable. No mass, cyst, or fluid collection. US/US soft tissue/extremity [id number] IMPRESSION: No acute findings.
[2021-06-12 18:24] VITALS: BP 151/98; PULSE 74; RESP 16; TEMP 36.5; O2SAT 95
[2021-06-12 18:52] VITALS: BP 136/88; PULSE 74; RESP 16; TEMP 36.6; O2SAT 96
== END 2021-06-12 19:00 | disposition home or self-care (01) ==
PROVIDERS: Emergency Provider Nurse Practitioner Family; PCP Family Medicine
DX: M79.651 Pain in right thigh (principal); I13.0 Hypertensive heart and chronic kidney disease with heart failure and stage 1 through stage 4 chronic kidney disease, or unspecified chronic kidney disease; N18.30 Chronic kidney disease, stage 3 unspecified; Z86.73 Personal history of transient ischemic attack (TIA), and cerebral infarction without residual deficits; I25.10 Atherosclerotic heart disease of native coronary artery without angina pectoris; E78.5 Hyperlipidemia, unspecified; Z85.72 Personal history of non-Hodgkin lymphomas; Z95.1 Presence of aortocoronary bypass graft
CPT/HCPCS: 76882; 93971; 99282

== ENCOUNTER → 2021-08-28 09:52 | Outpatient (BNVA) | payer MEDICARE, SELFPAY | PROVIDERS: PCP Family Medicine; Visit Provider Internal Medicine | DX: I48.91 Unspecified atrial fibrillation (principal); I25.10 Atherosclerotic heart disease of native coronary artery without angina pectoris; I50.20 Unspecified systolic (congestive) heart failure | CPT/HCPCS: 80048; 83880 ==

== ENCOUNTER → 2022-02-24 14:48 | Outpatient (BNVA) | payer MEDICARE, SELFPAY | PROVIDERS: PCP Family Medicine; Visit Provider Internal Medicine | DX: I48.91 Unspecified atrial fibrillation (principal); I27.20 Pulmonary hypertension, unspecified; Z86.73 Personal history of transient ischemic attack (TIA), and cerebral infarction without residual deficits; I50.20 Unspecified systolic (congestive) heart failure; Z95.1 Presence of aortocoronary bypass graft; I51.3 Intracardiac thrombosis, not elsewhere classified | CPT/HCPCS: 99214 ==

== ENCOUNTER 2022-03-04 14:50 | Outpatient (CLI) | payer MEDICARE, SELFPAY ==
--- NOTE | 2022-03-04 15:01 | USCV_ITS ---
Rogelio Taylor Age: 82 Gender: M : 1940 Exam Date: 03/04/2022 15:10 Ordering Phys: Bryant Mendieta MD Technologist: Exam Location: [facility] [place] Indication: Tricuspid regurgitation BP: 132 / 89 HR: 69 Rhythm: Sinus Technical Quality: Good MEASUREMENTS (Male / Female) Normal Values 2D ECHO LV Diastolic Diameter PLAX 3.6 cm 4.2 - 5.9 / 3.9 - 5.3 cm LV Systolic Diameter PLAX 2.8 cm IVS Diastolic Thickness 1.1 cm 0.6 - 1.0 / 0.6 - 0.9 cm IVS Systolic Thickness 1.3 cm LVPW Diastolic Thickness 1.0 cm 0.6 - 1.0 / 0.6 - 0.9 cm LVPW Systolic Thickness 1.2 cm LVOT Diameter 2.0 cm LV Ejection Fraction 2D Teich 43.6 % LV Ejection Fraction MOD 2C 75.7 % LV Ejection Fraction 2C AL 75.6 % LA Diameter 3.9 cm IVC Diameter 2.1 cm M-MODE MV E Point Septal Separation 1.1 cm DOPPLER AV Peak Velocity 306.7 cm/s LVOT Peak Velocity 63.0 cm/s AV Area Cont Eq vti 0.7 cm squared AV Area Cont Eq pk 0.7 cm squared MV Area PHT 5.0 cm squared Mitral E to A Ratio 1.8 MV E' Velocity 83.5 cm/s Mitral E to MV E' Ratio 21.0 Mitral E to LV E' Lateral Ratio 21.0 Mitral E to LV E' Septal Ratio 21.0 TR Peak Velocity 330.0 cm/s TR Peak Gradient 43.6 mmHg Right Atrial Pressure 3.0 mmHg Pulmonary Artery Systolic Pressu 46.6 mmHg PV Peak Velocity 99.0 cm/s FINDINGS Left Ventricle Normal left ventricular size and wall thickness. Low normal left ventricle systolic function. Left ventricular ejection fraction is estimated at 50-55 %. Abnormal septal motion. Right Ventricle Normal right ventricular size and systolic function. Right ventricular systolic pressure 66 mmHg. Right Atrium Normal right atrial size. Left Atrium Mildly increased left atrial size. Mitral Valve Moderate mitral annular calcification. Moderately thickened mitral valve. No mitral valve stenosis. Mild to moderate mitral valve regurgitation. Aortic Valve Aortic valve not well visualized. Thickened and calcified trileaflet aortic valve. Moderate aortic valve stenosis, peak velocity 3 m/s, peak gradient 35 mm Hg, mean gradient 21 mmHg, JANEY 0.73 cm squared. Mild eccentric aortic valve regurgitation. Tricuspid Valve Thickened tricuspid valve. [id number] tricuspid valve regurgitation. Pulmonic Valve Pulmonic valve not well visualized. Trace pulmonary valve regurgitation. Pericardium No pericardial effusion. Aorta Normal size aortic root. IVC Inferior vena cava not visualized. CONCLUSIONS 1. Normal left ventricular size and wall thickness. Low normal left ventricle systolic function. Left ventricular ejection fraction is estimated at 50-55 %. Abnormal septal motion. 2. Normal right ventricular size and systolic function. 3. Moderate aortic valve stenosis, peak velocity 3 m/s, peak gradient 35 mm Hg, mean gradient 21 mmHg, JANEY 0.73 cm squared. Mild eccentric aortic valve regurgitation. 4. [id number] mitral and tricuspid valve regurgitation. 5. Severe pulmonary hypertension with pulmonary artery pressure estimated at 66 mm Hg. Diann Tavarez MD (Electronically Signed) Final Date: 07 March 2022 15:11 S
== END 2022-03-04 14:51 | disposition home or self-care (01) ==
LOC: RAD 14:52
PROVIDERS: PCP Family Medicine; Visit Provider Family Medicine
DX: I07.1 Rheumatic tricuspid insufficiency (principal); I35.0 Nonrheumatic aortic (valve) stenosis; I34.0 Nonrheumatic mitral (valve) insufficiency
CPT/HCPCS: 93306

== ENCOUNTER 2022-07-09 13:50 | Inpatient (IN) | payer MEDICARE, SELFPAY ==
[2022-07-09] VITALS (7 sets, daily range): BP systolic 84–122; BP diastolic 49–76; PULSE 72–95; RESP 17–26; TEMP 36.4–36.6; O2SAT 92–100; BMI 16.1
--- NOTE | 2022-07-09 14:58 | ECG_ITS ---
[facility] Test Date: 2022-07-09 Pat Name: Rogelio Taylor Department: Room: Gender: Male Nozzleman: : 1940 Requested By: Tae Quan Order Number: [id number] Libra MD: Savi Walker M.D. Measurements Intervals Hurley Rate: 63 P: CO: QRS: 84 QRSD: 82 T: 48 QT: 417 QTc: 428 Interpretive Statements ATRIAL FIBRILLATION MODERATE VOLTAGE CRITERIA FOR LVH, CONSIDER NORMAL VARIANT [MEETS CRITERIA IN ONE OF: R(aVL), S(V1), R(V5), R(V5/V6)+S(V1)] NONSPECIFIC ST & T-WAVE ABNORMALITY ABNORMAL RHYTHM ECG Compared to ECG 01/07/2021 05:32:28 Atrial flutter no longer present Possible ischemia no longer present T-wave abnormality still present Electronically Signed On 07-09-2022 22:44:13 CDT by Savi Walker M.D. [id number]
--- NOTE | 2022-07-09 15:04 | XRR_ITS ---
PROCEDURE INFORMATION: Exam: XR Chest Exam date and time: 07/09/2022 3:12 PM Age: 82 years old Clinical indication: Cardiovascular condition or disease; Congestive heart failure (chf); Cause unknown; Shortness of breath; Prior surgery; Surgery type: Sternotomy/bx, coronary bypass; Patient HX: Generalized fatigue that has increased over the past 3 days. Patient denies any fever. He has had some mild chest tightness at times. ; Additional info: Fatigue; Chf TECHNIQUE: Imaging protocol: Radiologic exam of the chest. Views: 1 view. COMPARISON: CT chest con [id number] 04/24/2021 3:38 PM FINDINGS: Lungs: Interval development of right basilar consolidations which may be related to compressive atelectasis versus pneumonia versus postobstructive changes or neoplasm. Previous CT demonstrated tiny pulmonary nodules which were difficult to visualized by plain films. Pleural spaces: New bilateral pleural effusions, right greater than left with pleural thickening/effusion in the apices. Heart/Mediastinum: Cardiac silhouette normal in size. No obvious vascular congestion. Bones/joints: Sternotomy wires and CABG clips. Osteopenia. XR/XR chest 1V portable [id number] IMPRESSION: Interval development of bilateral basilar consolidations and pleural effusions as described. Interval follow-up exam or CT correlation may be considered.
--- NOTE | 2022-07-09 15:32 | ED_ITS ---
Documented by User: Tae Solis MD 07/09/22 17:37 HPI - Weakness General: Chief complaint: Weakness Stated complaint: weakness Time Seen by Provider: 07/09/22 14:52 Source: patient Mode of arrival: ambulatory Limitations: no limitations History of Present Illness: Patient with complaints of generalized fatigue that has increased over the past 3 days. Patient denies any fever. He has had some mild chest tightness at times. He states he was seen at [facility] yesterday and was diagnosed with CHF versus pneumonia. He states patient had fluid on his lungs according to the chest x-ray yesterday. Patient was started on Levaquin yesterday. Patient also had his Lasix increased to 60 mg twice a day. He continues to take Xarelto for his atrial fibrillation. Patient had an echocardiogram in February 2022 that showed ejection fraction approximately 55% but had severe pulmonary hypertension. Patient has a past medical history of atrial fibrillation and CHF and chronic neck pain. Patient reports surgical history of a sternotomy for lymphoma biopsy and coronary bypass graft. Denies alcohol or tobacco use. Patient denies any pain. He denies any shortness of breath. He denies any fever. Associated symptoms: Denies chest pain, chills, fever(s), headache(s), nausea or vomiting Review of Systems Const: Reports: fatigue and malaise; Denies: fever(s) or chills Eyes: Denies: change in vision ENMT: Denies: throat pain Card: Denies: chest pain or palpitations Resp: Denies: dyspnea or wheezing GI: Denies: abdominal pain, nausea or vomiting : Denies: flank pain Musc: Denies: neck pain or back pain Skin/Breast: Denies: rash or pruritus Neuro: Denies: headache(s) or numbness in extremities Psych: Denies: anxiety Mode/Lymph: Denies: enlarged lymph nodes PFSH ED 2 PFSH: Medical History Atrial fibrillation BPH (benign prostatic hyperplasia) Cerebellar stroke Chronic kidney disease, stage III (moderate) Congestive heart failure Coronary artery disease Dyslipidemia Hypertension Lymphoma Medication induced coagulopathy Raynauds phenomenon Surgical History H/O hernia repair Hx of CABG Hx of tonsillectomy Family History Mother Cancer Leukemia Father CAD (coronary artery disease) Diabetes Social History Smoking and tobacco status: never smoked Alcohol intake: never Lives independently: Yes Housing: House Physical Exam Const: COMMON NORMALS: no acute distress, patient oriented x3 and alert GENERAL APPEARANCE: cooperative OTHER: Patient is thin HENMT: COMMON NORMALS: normocephalic and atraumatic HEAD & SCALP: normocephalic and atraumatic Eye: COMMON NORMALS: EOMs intact bilaterally Neck/C-Spine: COMMON NORMALS: full ROM, no lymphadenopathy, supple and no JVD Lymph: LYMPHATIC: no lymphadenopathy noted Chest: COMMONS NORMALS: normal inspection of the chest and normal palpation of entire chest wall Resp: COMMON NORMALS: normal respiratory effort, No retractions, No use of accessory muscles and clear to auscultation bilaterally AUSCULTATION: clear to auscultation bilaterally OTHER: Clear to auscultation bilaterally. No change in fremitus. Cardio: COMMON NORMALS: no JVD and Peripheral pulses 2+ throughout PERIPHERAL PULSES: Peripheral pulses 2+ throughout OTHER: Irregular irregular rhythm. Rate is normal GI: COMMON NORMALS: Normal to inspection, nondistended, normoactive bowel sounds present, Soft to palpation and non-tender PALPATION: Yes Soft to palpation : COMMON NORMALS: Yes no CVA tenderness BLADDER/KIDNEY EXAM: Yes no CVA tenderness Back/Pelvis: COMMON NORMALS: no CVA tenderness Extremity: COMMON NORMALS: full ROM OTHER: Mild peripheral edema bilaterally. Patient states peripheral edema is unchanged from baseline. Neuro: COMMON NORMALS: patient oriented x3, CN's II-XII intact bilaterally, moves all extremities, no focal motor deficits and no sensory deficits noted SENSORIUM/ORIENTATION: Yes alert Psych: COMMON NORMALS: mental status grossly normal, Normal thought process present, cooperative, normal affect and speech normal SPEECH: Yes normal speech THOUGHT PROCESS: Normal thought process present Skin: COMMON NORMALS: no rashes or lesions noted GENERAL SKIN EXAM: no rashes or lesions noted Course Vital Signs: Vital signs: Vital Signs Temperature 97.6 F 07/09/22 14:02 Pulse Rate 74 07/09/22 19:00 Respiratory Rate 23 H 07/09/22 19:00 Blood Pressure 101/56 07/09/22 19:00 Pulse Oximetry 92 07/09/22 19:00 Oxygen Delivery Me thod 07/09/22 19:00 MDM - Weakness Medical Decision Making Fatigue, malaise, CHF history 1800: Care turned over to Dr. Mosley at shift change. Lab Data : 07/09/22 15:43 07/09/22 15:43 Radiology Impressions Chest X-Ray 07/09/22 15:04 IMPRESSION: Interval development of bilateral basilar consolidations and pleural effusions as described. Interval follow-up exam or CT correlation may be considered. Laboratory Results WBC 8.7 10^3/uL (4.0-10.0) 07/09/22 15:43 RBC 3.56 10^6/uL (4.1-5.3) L 07/09/22 15:43 Hgb 11.5 g/dL (11.7-16.6) L 07/09/22 15:43 Hct 36.5 % (42.0-52.0) L 07/09/22 15:43 MCV 102.5 fl (80-94) H 07/09/22 15:43 MCH 32.3 pg (28.0-34.0) 07/09/22 15:43 MCHC 31.5 g/dL (30.0-36.0) 07/09/22 15:43 RDW 13.2 % (12.1-15.1) 07/09/22 15:43 Plt Count 255 10^3/cmm (130-400) 07/09/22 15:43 MPV 9.3 fL (7.4-10.4) 07/09/22 15:43 Neut % (Auto) 74.8 % 07/09/22 15:43 Lymph % (Auto) 7.9 % 07/09/22 15:43 [place] % (Auto) 17.0 % 07/09/22 15:43 Eos % (Auto) 0.0 % 07/09/22 15:43 Baso % (Auto) 0.0 % 07/09/22 15:43 Neut # (Auto) 6.51 10^3/uL (1.8-7.7) 07/09/22 15:43 Lymph # (Auto) 0.7 10^3/uL (0.8-4.8) L 07/09/22 15:43 [place] # (Auto) 1.5 10^3/uL (0.2-0.9) H 07/09/22 15:43 Eos # (Auto) 0.0 10^3/uL (0.0-0.8) 07/09/22 15:43 Baso # (Auto) 0.0 10^3/uL (0.0-0.1) 07/09/22 15:43 Nucleated RBC % (auto) 0 % 07/09/22 15:43 Nucleated RBCs # 0.0 /100WBC 07/09/22 15:43 Sodium 132 mmol/L (136-145) L 07/09/22 15:43 Potassium 4.3 mmol/L (3.5-5.1) 07/09/22 15:43 Chloride 90 mmol/L (98-107) L 07/09/22 15:43 Carbon Dioxide 26 mmol/L (22-29) 07/09/22 15:43 Anion Gap 20.3 (5-19) H 07/09/22 15:43 BUN 71 mg/dL (8-23) H 07/09/22 15:43 Creatinine 2.1 mg/dL (0.7-1.2) H 07/09/22 15:43 GFR Calculation Not Reportable 07/09/22 15:43 Glucose 117 mg/dL (65-115) H 07/09/22 15:43 Calculated Osmolality 296 mOsm/kg (285-295) H 07/09/22 15:43 Lactate 1.7 mmol/L (0.5-2.2) 07/09/22 15:43 Calcium 8.8 mg/dL (8.5-10.5) 07/09/22 15:43 Magnesium 2.8 mg/dL (1.7-2.3) H 07/09/22 15:43 Total Bilirubin 0.4 mg/dL (0.15-1.2) 07/09/22 15:43 AST 38 U/L (0-40) 07/09/22 15:43 ALT 27 U/L (0-41) 07/09/22 15:43 Alkaline Phosphatase 120 U/L (40-130) 07/09/22 15:43 Troponin T Baseline 88 ng/L (0-15) H 07/09/22 15:43 Troponin T 120 Minute 78.91 ng/L (0-15) H 07/09/22 18:00 Delta Troponin T -9.09 ABS# (0-10) L 07/09/22 18:00 NT-Pro-B Natriuret Pep 7847 pg/mL (0-450) H 07/09/22 15:43 Total Protein 7.4 g/dL (6.6-8.7) 07/09/22 15:43 Albumin 4.0 g/dL (3.5-5.2) 07/09/22 15:43 Globulin 3.4 g/dL (1.3-4.6) 07/09/22 15:43 TSH 3.48 uIU/mL (0.27-4.20) 07/09/22 15:43 Urine Color Straw (Yellow) 07/09/22 15:30 Urine Appearance Clear (CLEAR) 07/09/22 15:30 Urine pH 7 (5-7) 07/09/22 15:30 Ur Specific [place] 1.010 (1.005-1.030) 07/09/22 15:30 Urine Protein Neg (Negative) 07/09/22 15:30 Urine Glucose (UA) Norm (Normal) 07/09/22 15:30 Urine Ketones Negative (Negative) 07/09/22 15:30 Urine Blood Trace (Negative) H 07/09/22 15:30 Urine Nitrate Negative (Negative) 07/09/22 15:30 Urine Bilirubin Neg (Negative) 07/09/22 15:30 Urine Urobilinogen Neg mg/dL (Negative) 07/09/22 15:30 Ur Leukocyte Esterase Negative (Negative) 07/09/22 15:30 Urine RBC None /hpf (0-2) 07/09/22 15:30 Urine WBC None /hpf (0-5) 07/09/22 15:30 Ur Squamous Epith Cells None /hpf (0-5) 07/09/22 15:30 Amorphous Sediment Not Reportable 07/09/22 15:30 Urine Bacteria None /hpf (NONE) 07/09/22 15:30 Imaging Data CXR: Radiologist's impression: PROCEDURE INFORMATION: Exam: XR Chest Exam date and time: 07/09/2022 3:12 PM Age: 82 years old Clinical indication: Cardiovascular condition or disease; Congestive heart failure (chf); Cause unknown; Shortness of breath; Prior surgery; Surgery type: Sternotomy/bx, coronary bypass; Patient HX: Generalized fatigue that has increased over the past 3 days. Patient denies any fever. He has had some mild chest tightness at times. ; Additional info: Fatigue; Chf TECHNIQUE: Imaging protocol: Radiologic exam of the chest. Views: 1 view. COMPARISON: CT chest con [id number] 04/24/2021 3:38 PM FINDINGS: Lungs: Interval development of right basilar consolidations which may be related to compressive atelectasis versus pneumonia versus postobstructive changes or neoplasm. Previous CT demonstrated tiny pulmonary nodules which were difficult to visualized by plain films. Pleural spaces: New bilateral pleural effusions, right greater than left with pleural thickening/effusion in the apices. Heart/Mediastinum: Cardiac silhouette normal in size. No obvious vascular congestion. Bones/joints: Sternotomy wires and CABG clips. Osteopenia. XR/XR chest 1V portable [id number] IMPRESSION: Interval development of bilateral basilar consolidations and pleural effusions as described. Interval follow-up exam or CT correlation may be considered. ? Dictated By: Luciano Jimenez MD Signed By: Luciano Jimenez MD Signed Date/Time: 07/09/22 1604 EKG Data EKG 1: I personally reviewed and interpreted this EKG as follows: EKG interpretation date: 07/09/22 EKG interpretation time: 14:58 Interpretation: EKG shows atrial fibrillation rate controlled. LVH. Nonspecific ST-T changes. Normal T waves. Normal axis. Heart rate 63 Discharge Plan Discharge Patient Disposition: Admitted As Inpatient Clinical Impression: Bilateral pleural effusion, Weakness Condition: Stable Prescriptions: No Action spironolactone 25 mg tablet 25 mg PO BID Xarelto 20 mg tablet 20 mg PO DAILY Qty: 90 3RF Rx Instructions: @09:00 furosemide 40 mg tablet 60 mg PO BID Qty: 270 3RF rosuvastatin 20 mg tablet 20 mg PO DAILY@09 Qty: 90 3RF metoprolol tartrate 50 mg tablet 50 mg PO BID@,21 Qty: 180 3RF albuterol sulfate [ProAir HFA] 90 mcg/actuation Hfa Aerosol Inhaler 2 puff INHALATION Q4H PRN (Reason: Shortness Of Breath) levofloxacin 750 mg tablet 750 mg PO EVERY OTHER DAY Probiotic 15 billion cell Capsule 1 cap PO DAILY Referrals: Bryant Mendieta MD [Primary Care Provider] - Coding Level of Care Code 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 Documented by User: Charity Mosley MD 07/09/22 19:30 HPI - Weakness General: Chief complaint: Weakness Stated complaint: weakness Time Seen by Provider: 07/09/22 14:52 PFSH ED PFSH: Medical History Atrial fibrillation BPH (benign prostatic hyperplasia) Cerebellar stroke Chronic kidney disease, stage III (moderate) Congestive heart failure Coronary artery disease Dyslipidemia Hypertension Lymphoma Medication induced coagulopathy Raynauds phenomenon Surgical History H/O hernia repair Hx of CABG Hx of tonsillectomy Family History Mother Cancer Leukemia Father CAD (coronary artery disease) Diabetes Social History Smoking and tobacco status: never smoked Alcohol intake: never Lives independently: Yes Housing: House Course Vital Signs: Vital signs: Vital Signs Temperature 97.6 F 07/09/22 14:02 Pulse Rate 74 07/09/22 19:00 Respiratory Rate 23 H 07/09/22 19:00 Blood Pressure 101/56 07/09/22 19:00 Pulse Oximetry 92 07/09/22 19:00 Oxygen Delivery Me thod 07/09/22 19:00 MDM - Weakness Medical Decision Making Fatigue, malaise, CHF history 1800: Care turned over to Dr. Mosley at shift change. Patient presents here with generalized weakness he is also found to have pleural effusion possible consolidation will start antibiotics he is slightly elevated creatinine has increased his [place] recently spoke to the hospitalist will admit at this time. Lab Data : 07/09/22 15:43 07/09/22 15:43 Radiology Impressions Chest X-Ray 07/09/22 15:04 IMPRESSION: Interval development of bilateral basilar consolidations and pleural effusions as described. Interval follow-up exam or CT correlation may be considered. Laboratory Results WBC 8.7 10^3/uL (4.0-10.0) 07/09/22 15:43 RBC 3.56 10^6/uL (4.1-5.3) L 07/09/22 15:43 Hgb 11.5 g/dL (11.7-16.6) L 07/09/22 15:43 Hct 36.5 % (42.0-52.0) L 07/09/22 15:43 MCV 102.5 fl (80-94) H 07/09/22 15:43 MCH 32.3 pg (28.0-34.0) 07/09/22 15:43 MCHC 31.5 g/dL (30.0-36.0) 07/09/22 15:43 RDW 13.2 % (12.1-15.1) 07/09/22 15:43 Plt Count 255 10^3/cmm (130-400) 07/09/22 15:43 MPV 9.3 fL (7.4-10.4) 07/09/22 15:43 Neut % (Auto) 74.8 % 07/09/22 15:43 Lymph % (Auto) 7.9 % 07/09/22 15:43 [place] % (Auto) 17.0 % 07/09/22 15:43 Eos % (Auto) 0.0 % 07/09/22 15:43 Baso % (Auto) 0.0 % 07/09/22 15:43 Neut # (Auto) 6.51 10^3/uL (1.8-7.7) 07/09/22 15:43 Lymph # (Auto) 0.7 10^3/uL (0.8-4.8) L 07/09/22 15:43 [place] # (Auto) 1.5 10^3/uL (0.2-0.9) H 07/09/22 15:43 Eos # (Auto) 0.0 10^3/uL (0.0-0.8) 07/09/22 15:43 Baso # (Auto) 0.0 10^3/uL (0.0-0.1) 07/09/22 15:43 Nucleated RBC % (auto) 0 % 07/09/22 15:43 Nucleated RBCs # 0.0 /100WBC 07/09/22 15:43 Sodium 132 mmol/L (136-145) L 07/09/22 15:43 Potassium 4.3 mmol/L (3.5-5.1) 07/09/22 15:43 Chloride 90 mmol/L (98-107) L 07/09/22 15:43 Carbon Dioxide 26 mmol/L (22-29) 07/09/22 15:43 Anion Gap 20.3 (5-19) H 07/09/22 15:43 BUN 71 mg/dL (8-23) H 07/09/22 15:43 Creatinine 2.1 mg/dL (0.7-1.2) H 07/09/22 15:43 GFR Calculation Not Reportable 07/09/22 15:43 Glucose 117 mg/dL (65-115) H 07/09/22 15:43 Calculated Osmolality 296 mOsm/kg (285-295) H 07/09/22 15:43 Lactate 1.7 mmol/L (0.5-2.2) 07/09/22 15:43 Calcium 8.8 mg/dL (8.5-10.5) 07/09/22 15:43 Magnesium 2.8 mg/dL (1.7-2.3) H 07/09/22 15:43 Total Bilirubin 0.4 mg/dL (0.15-1.2) 07/09/22 15:43 AST 38 U/L (0-40) 07/09/22 15:43 ALT 27 U/L (0-41) 07/09/22 15:43 Alkaline Phosphatase 120 U/L (40-130) 07/09/22 15:43 Troponin T Baseline 88 ng/L (0-15) H 07/09/22 15:43 Troponin T 120 Minute 78.91 ng/L (0-15) H 07/09/22 18:00 Delta Troponin T -9.09 ABS# (0-10) L 07/09/22 18:00 NT-Pro-B Natriuret Pep 7847 pg/mL (0-450) H 07/09/22 15:43 Total Protein 7.4 g/dL (6.6-8.7) 07/09/22 15:43 Albumin 4.0 g/dL (3.5-5.2) 07/09/22 15:43 Globulin 3.4 g/dL (1.3-4.6) 07/09/22 15:43 TSH 3.48 uIU/mL (0.27-4.20) 07/09/22 15:43 Urine Color Straw (Yellow) 07/09/22 15:30 Urine Appearance Clear (CLEAR) 07/09/22 15:30 Urine pH 7 (5-7) 07/09/22 15:30 Ur Specific [place] 1.010 (1.005-1.030) 07/09/22 15:30 Urine Protein Neg (Negative) 07/09/22 15:30 Urine Glucose (UA) Norm (Normal) 07/09/22 15:30 Urine Ketones Negative (Negative) 07/09/22 15:30 Urine Blood Trace (Negative) H 07/09/22 15:30 Urine Nitrate Negative (Negative) 07/09/22 15:30 Urine Bilirubin Neg (Negative) 07/09/22 15:30 Urine Urobilinogen Neg mg/dL (Negative) 07/09/22 15:30 Ur Leukocyte Esterase Negative (Negative) 07/09/22 15:30 Urine RBC None /hpf (0-2) 07/09/22 15:30 Urine WBC None /hpf (0-5) 07/09/22 15:30 Ur Squamous Epith Cells None /hpf (0-5) 07/09/22 15:30 Amorphous Sediment Not Reportable 07/09/22 15:30 Urine Bacteria None /hpf (NONE) 07/09/22 15:30 Discharge Plan Discharge Patient Disposition: Admitted As Inpatient Clinical Impression: Bilateral pleural effusion, Weakness Condition: Stable Prescriptions: No Action spironolactone 25 mg tablet 25 mg PO BID Xarelto 20 mg tablet 20 mg PO DAILY Qty: 90 3RF Rx Instructions: @09:00 furosemide 40 mg tablet 60 mg PO BID Qty: 270 3RF rosuvastatin 20 mg tablet 20 mg PO DAILY@09 Qty: 90 3RF metoprolol tartrate 50 mg tablet 50 mg PO BID@,21 Qty: 180 3RF albuterol sulfate [ProAir HFA] 90 mcg/actuation Hfa Aerosol Inhaler 2 puff INHALATION Q4H PRN (Reason: Shortness Of Breath) levofloxacin 750 mg tablet 750 mg PO EVERY OTHER DAY Probiotic 15 billion cell Capsule 1 cap PO DAILY Referrals: Bryant Mendieta MD [Primary Care Provider] - Coding Level of Care Code 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
[2022-07-09 16:09] LABS: Hematocrit 36.5 % (42.0-52.0); Hemoglobin 11.5 g/dL (11.7-16.6); Lymphocytes # 0.7 10^3/uL (0.8-4.8); Lymphocytes % 7.9 %; Mean Corpuscular HGB Conc 31.5 g/dL (30.0-36.0); Mean Corpuscular Hemoglobin 32.3 pg (28.0-34.0); Mean Corpuscular Volume 102.5 fl (80-94); Mean Platelet Volume 9.3 fL (7.4-10.4); Monocytes # 1.5 10^3/uL (0.2-0.9); Neutrophils # 6.51 10^3/uL (1.8-7.7); Neutrophils % 74.8 %; Nucleated Red Blood Cells % 0 %; Platelet Count 255 10^3/cmm (130-400); Red Blood Count 3.56 10^6/uL (4.1-5.3); Red Cell Distribution Width 13.2 % (12.1-15.1); White Blood Count 8.7 10^3/uL (4.0-10.0)
[2022-07-09 16:23] LABS: Lactate (Lactic Acid level) 1.7 mmol/L (0.5-2.2)
[2022-07-09 16:30] LABS: Troponin(5th) Baseline 88 ng/L (0-15)
[2022-07-09 17:59] LABS: Alanine Aminotransferase 27 U/L (0-41); Alkaline Phosphatase 120 U/L (40-130); Anion Gap 20.3 (5-19); Aspartate Amino Transferase 38 U/L (0-40); Blood Urea Nitrogen 71 mg/dL (8-23); Calcium 8.8 mg/dL (8.5-10.5); Carbon Dioxide 26 mmol/L (22-29); Chloride 90 mmol/L (98-107); Globulin 3.4 g/dL (1.3-4.6); Glucose 117 mg/dL (65-115); Magnesium 2.8 mg/dL (1.7-2.3); NT Pro B Type Natriuretic Pept 7847 pg/mL (0-450); Osmolality Calculated 296 mOsm/kg (285-295); Potassium 4.3 mmol/L (3.5-5.1); Sodium 132 mmol/L (136-145); Thyroid Stimulating Hormone 3.48 uIU/mL (0.27-4.20); Total Bilirubin 0.4 mg/dL (0.15-1.2); Total Protein 7.4 g/dL (6.6-8.7)
[2022-07-09 18:19] LABS: Bilirubin Urine Neg (Negative); Blood Urine Trace (Negative); Glucose Urine UA Norm (Normal); Ketones Urine Negative (Negative); Leukocyte Esterase Urine Negative (Negative); Nitrate Urine Negative (Negative); Protein Urine Neg (Negative); Urine Appearance Clear (CLEAR); Urine Color Straw (Yellow); Urobilinogen Urine Neg (Negative); pH Urine 7 (5-7)
[2022-07-09 18:31] LABS: Troponin 5 2HR 78.91 ng/L (0-15); Troponin 5 2HR Delta -9.09 ABS# (0-10)
[2022-07-09 18:44] LABS: Add Urine Culture? No
[2022-07-09] MEDS: cefTRIAXone 1,000 MG in sodium chloride 0.9% (plus) 50 ML 100 MG IV (20:12)
[2022-07-09] MEDS: azithromycin 500 MG in sodium chloride 0.9% 250 ML 250 MG IV (20:53)
[2022-07-09 21:07] LABS: ABG PCO2 36.4 mmHg (35-45); ABG PH Result 7.51 (7.35-7.45); Arterial Blood Gas Hematocrit 31.6 % (42-52); Base Excess ABG 5.9 mmol/L (-2.0-2.0); Blood Gas Allen Test Pos; Blood Gas Operator Identificat WALCI; Blood Gas Sample Site Radial, right; Blood Gas Sample Type Arterial; HCO3 ABG 29.2 mmol/L (22-26); PO2 ABG 72.5 mmHg (80.0-100.0)
[2022-07-09 22:49] LABS: Troponin 5 6HR 91.51 ng/L (0-15)
[2022-07-09 23:01] LABS: Troponin 5 6HR Delta 3.51 ng/L (0-12)
--- NOTE | 2022-07-09 23:26 | P.HP_ITS ---
Providers/Chief Complaint Admitting Physician: Tabatha Alegre MD Primary Care Provider: Bryant Mendieta MD Chief Complaint: weakness, fluid, sent from [facility] History of Present Illness Rogelio Taylor is a 82 year old male with PMH of CAD s/p CABG, afib, possible cerebellar stroke in his usual state of health until 3 to 4 days ago when he started feeling poorly. He describes his symptoms as being generalized weakness fatigue and malaise. 2 nights ago he states that he was unable to sleep through the night due to vague discomfort in his chest. He states that he is chronically short of breath at a baseline, O2 sat ranged between 94 to 97% at home. Dyspnea has not significantly worsened over usual he states. He visited with his primary care physician yesterday where he was diagnosed with a pneumonia and pleural effusion and was started on treatment With levofloxacin. He typically takes Lasix 60 mg p.o. daily, has now been taking 80 mg daily since 2 days ago. Denies any fever. He has had some nasal discharge, he thinks this is related to chronic sinusitis and having frequent nosebleeds from being on Xarelto. Lower extremity edema is currently improved after increasing his dose of Lasix. Review of Systems General: Reports: 10 or more systems reviewed and unremarkable except in HPI and below Const: Denies: fever(s), chills or body aches Eyes: Denies: change in vision, blurry vision or photophobia ENMT: Reports: hoarseness; Denies: throat pain, enlarged tonsils, odynophagia or nasal congestion Card: Denies: chest pain, palpitations, irregular heart rhythm, edema, swelling of feet/ankles, lightheadedness, pre-syncope, dyspnea on exertion or orthopnea Resp: Denies: dyspnea, productive cough, non-productive cough, wheezing, stridor, pain on inspiration, change in phlegm color, hemoptysis or chest congestion GI: Denies: abdominal pain, nausea, vomiting, hematemesis, coffee ground emesis, dysphagia, heartburn, diarrhea, constipation, GI cramping, change in stool character, hematochezia or melena : Denies: flank pain, dysuria, urinary frequency, urinary urgency, urinary hesitancy or hematuria Musc: Denies: neck pain, back pain, extremity pain, joint swelling, joint warmth or deformity Neuro: Denies: headache(s), numbness in extremities, weakness in extremities, sensory changes, difficulty walking, frequent falls, dizziness, vertigo, behavioral changes, Slurred speech present or seizure-like activity Psych: Denies: anxiety, depression, suicidal ideation or homicidal ideation Endo: Denies: polyuria, polydipsia, tired all the time, cold intolerance or hot flashes Mode/Lymph: Denies: easy bruising or easy bleeding Medications/Allergies Home Medications Medication Instructions Recorded Confirmed Last Taken Type albuterol sulfate 90 mcg/actuation 2 puff inhalation Q4H PRN 11/27/20 07/09/22 Unknown History aerosol inhaler (ProAir HFA) Shortness Of Breath furosemide 40 mg tablet 60 mg PO BID #270 tabs 11/28/21 07/09/22 07/09/22 Rx rivaroxaban 20 mg tablet (Xarelto) 20 mg PO DAILY #90 tabs 11/28/21 07/09/22 07/09/22 Rx rosuvastatin 20 mg tablet 20 mg PO DAILY@09 #90 tabs 11/28/21 07/09/22 07/09/22 Rx metoprolol tartrate 50 mg tablet 50 mg PO BID@, #180 tabs 12/23/21 07/09/22 07/09/22 Rx spironolactone 25 mg tablet 25 mg PO BID 02/24/22 07/09/22 07/09/22 History Lactobacillus acidophilus and 1 cap PO DAILY 07/09/22 07/09/22 07/09/22 History rhamnosus 15 billion cell capsule (Probiotic) levofloxacin 750 mg tablet 750 mg PO EVERY OTHER DAY 07/09/22 07/09/22 07/08/22 History Allergies Allergy/AdvReac Type Severity Reaction Status Date / Time Penicillins Allergy ALGY-Rash Verified 07/09/22 16:49 ramipril [From Altace] Allergy ALGY-Swell Verified 07/09/22 16:49 Lip/Tongue/Throat PFSH Acute PFSH: Medical History Atrial fibrillation BPH (benign prostatic hyperplasia) Cerebellar stroke Chronic kidney disease, stage III (moderate) Congestive heart failure Coronary artery disease Dyslipidemia Hypertension Lymphoma Medication induced coagulopathy Raynauds phenomenon Surgical History H/O hernia repair Hx of CABG Hx of tonsillectomy Family History Mother Cancer Leukemia Father CAD (coronary artery disease) Diabetes Social History Smoking and tobacco status: never smoked Alcohol intake: never Lives independently: Yes Housing: House Vitals/I&O/Wt Last Vital Signs Temp 97.9 F 07/09/22 21:09 Pulse 95 07/09/22 21:09 Resp 24 H 07/09/22 21:09 BP 113/53 07/09/22 21:09 Pulse Ox 92 07/09/22 21:09 O2 Del Method 07/09/22 23:11 07/09/22 07/09/22 07/10/22 14:59 22:59 06:59 Intake Total 300 / 300 Balance 300 / 300 Weight last 48 hrs Weight 46.72 kg Physical Exam Narrative: General: No acute distress, AO x3 HEENT: PERRLA, pupils bilaterally equal and reactive, pallors not present Chest: Wheezing to auscultation bilaterally all areas CVS: S1-S2 regular, no murmurs, no tachycardia, no gallops, no rubs Abdomen: Soft, nontender, no organomegaly, bowel sounds present Neuro: No focal deficits, no facial deformity, AO x3, power 5/5 in all limbs Data : 07/09/22 15:43 07/09/22 15:43 Other Labs: Radiology Impressions Chest X-Ray 07/09/22 15:04 IMPRESSION: Interval development of bilateral basilar consolidations and pleural effusions as described. Interval follow-up exam or CT correlation may be considered. Laboratory Results WBC 8.7 10^3/uL (4.0-10.0) 07/09/22 15:43 RBC 3.56 10^6/uL (4.1-5.3) L 07/09/22 15:43 Hgb 11.5 g/dL (11.7-16.6) L 07/09/22 15:43 Hct 36.5 % (42.0-52.0) L 07/09/22 15:43 MCV 102.5 fl (80-94) H 07/09/22 15:43 MCH 32.3 pg (28.0-34.0) 07/09/22 15:43 MCHC 31.5 g/dL (30.0-36.0) 07/09/22 15:43 RDW 13.2 % (12.1-15.1) 07/09/22 15:43 Plt Count 255 10^3/cmm (130-400) 07/09/22 15:43 MPV 9.3 fL (7.4-10.4) 07/09/22 15:43 Neut % (Auto) 74.8 % 07/09/22 15:43 Lymph % (Auto) 7.9 % 07/09/22 15:43 [place] % (Auto) 17.0 % 07/09/22 15:43 Eos % (Auto) 0.0 % 07/09/22 15:43 Baso % (Auto) 0.0 % 07/09/22 15:43 Neut # (Auto) 6.51 10^3/uL (1.8-7.7) 07/09/22 15:43 Lymph # (Auto) 0.7 10^3/uL (0.8-4.8) L 07/09/22 15:43 Dawson # (Auto) 1.5 10^3/uL (0.2-0.9) H 07/09/22 15:43 Eos # (Auto) 0.0 10^3/uL (0.0-0.8) 07/09/22 15:43 Baso # (Auto) 0.0 10^3/uL (0.0-0.1) 07/09/22 15:43 Nucleated RBC % (auto) 0 % 07/09/22 15:43 Nucleated RBCs # 0.0 /100WBC 07/09/22 15:43 Specimen Type Arterial 07/09/22 20:56 Sample Site Radial, right 07/09/22 20:56 ABG pH 7.51 (7.35-7.45) H 07/09/22 20:56 ABG pCO2 36.4 mmHg (35-45) 07/09/22 20:56 ABG pO2 72.5 mmHg (80.0-100.0) L 07/09/22 20:56 ABG HCO3 29.2 mmol/L (22-26) H 07/09/22 20:56 ABG Base Excess 5.9 mmol/L (-2.0-2.0) H 07/09/22 20:56 [place] Test Pos 07/09/22 20:56 Hematocrit 31.6 % (42-52) L 07/09/22 20:56 O2 Delivery Device None 07/09/22 20:56 FiO2 21.0 % 07/09/22 20:56 Air Control Electronics Operator ID [place] 07/09/22 20:56 Sodium 132 mmol/L (136-145) L 07/09/22 15:43 Potassium 4.3 mmol/L (3.5-5.1) 07/09/22 15:43 Chloride 90 mmol/L (98-107) L 07/09/22 15:43 Carbon Dioxide 26 mmol/L (22-29) 07/09/22 15:43 Anion Gap 20.3 (5-19) H 07/09/22 15:43 BUN 71 mg/dL (8-23) H 07/09/22 15:43 Creatinine 2.1 mg/dL (0.7-1.2) H 07/09/22 15:43 GFR Calculation Not Reportable 07/09/22 15:43 Glucose 117 mg/dL (65-115) H 07/09/22 15:43 Calculated Osmolality 296 mOsm/kg (285-295) H 07/09/22 15:43 Lactate 1.7 mmol/L (0.5-2.2) 07/09/22 15:43 Calcium 8.8 mg/dL (8.5-10.5) 07/09/22 15:43 Magnesium 2.8 mg/dL (1.7-2.3) H 07/09/22 15:43 Total Bilirubin 0.4 mg/dL (0.15-1.2) 07/09/22 15:43 AST 38 U/L (0-40) 07/09/22 15:43 ALT 27 U/L (0-41) 07/09/22 15:43 Alkaline Phosphatase 120 U/L (40-130) 07/09/22 15:43 Troponin T Baseline 88 ng/L (0-15) H 07/09/22 15:43 Troponin T 120 Minute 78.91 ng/L (0-15) H 07/09/22 18:00 Delta Troponin T -9.09 ABS# (0-10) L 07/09/22 18:00 Troponin T Hi Sens 6Hr 91.51 ng/L (0-15) H 07/09/22 22:12 Troponin T Hi Sens 6Hr Delta 3.51 ng/L (0-12) 07/09/22 22:12 NT-Pro-B Natriuret Pep 7847 pg/mL (0-450) H 07/09/22 15:43 Total Protein 7.4 g/dL (6.6-8.7) 07/09/22 15:43 Albumin 4.0 g/dL (3.5-5.2) 07/09/22 15:43 Globulin 3.4 g/dL (1.3-4.6) 07/09/22 15:43 TSH 3.48 uIU/mL (0.27-4.20) 07/09/22 15:43 Urine Color Straw (Yellow) 07/09/22 15:30 Urine Appearance Clear (CLEAR) 07/09/22 15:30 Urine pH 7 (5-7) 07/09/22 15:30 Ur Specific [place] 1.010 (1.005-1.030) 07/09/22 15:30 Urine Protein Neg (Negative) 07/09/22 15:30 Urine Glucose (UA) Norm (Normal) 07/09/22 15:30 Urine Ketones Negative (Negative) 07/09/22 15:30 Urine Blood Trace (Negative) H 07/09/22 15:30 Urine Nitrate Negative (Negative) 07/09/22 15:30 Urine Bilirubin Neg (Negative) 07/09/22 15:30 Urine Urobilinogen Neg mg/dL (Negative) 07/09/22 15:30 Ur Leukocyte Esterase Negative (Negative) 07/09/22 15:30 Urine RBC None /hpf (0-2) 07/09/22 15:30 Urine WBC None /hpf (0-5) 07/09/22 15:30 Ur Squamous Epith Cells None /hpf (0-5) 07/09/22 15:30 Amorphous Sediment Not Reportable 07/09/22 15:30 Urine Bacteria None /hpf (NONE) 07/09/22 15:30 Micro: Microbiology 07/09/22 15:51 Blood Culture - Preliminary Blood SPECIMEN COLLECTED 07/09/22 15:43 Blood Culture - Preliminary Blood SPECIMEN COLLECTED A&P Assessment and plan (1) Bilateral pleural effusion: (2) Weakness: (3) Pulmonary hypertension: (4) RAY (acute kidney injury): Plan 82M with PMH pulmonary HTN, dCHF, presenting with generalized weakness, vague chest discomfort, RAY. CXR with Consolidation and B/L pleural effusions Unable to open X rays in the system at this time diffuse wheezing on asucultation B/L Differentials include pneumonia, bronchitis, pleural effusion Empiric CTX and azithromycin to cover for pneumonia Recommended nebulization but patient prefers inhalers- started Spiriva Clinically currently appearing to be euvolemic. Given RAY, will hold Lasix for now and trend cr. Currently saturating well on Room air Ekg with a fib elevated troponins baseline 88, delta not significant at 2 and 6 hrs Trending prior troponin levels , baseline between 50-60 Echocardiogram from 02/2022 shows LVEF 50-55%, AV stenosis, mild AVR, mild to moderate mitral and tricuspid valve regurgitation. Severe pulm HTN with PASP at 66mmhg Attestations Medical Necessity Statement*: Anticipate >2 midnight admission for iv abx for pnuemonia, trend creatinine given RAY Coding Level of Care Code Acute Mathematician for Chg Fwd Diagnoses Bilateral pleural effusion J90 Weakness R53.1 Pulmonary hypertension I27.20 RAY (acute kidney injury) N17.9
[2022-07-10] VITALS (8 sets, daily range): BP systolic 80–138; BP diastolic 53–77; PULSE 70–118; RESP 15–20; TEMP 36.4–36.8; O2SAT 95–99; BMI 16.1
[2022-07-10 05:08] LABS: Hematocrit 32.5 % (42.0-52.0); Hemoglobin 10.8 g/dL (11.7-16.6); Mean Corpuscular HGB Conc 33.2 g/dL (30.0-36.0); Mean Corpuscular Volume 99.4 fl (80-94); Mean Platelet Volume 9.7 fL (7.4-10.4); Platelet Count 250 10^3/cmm (130-400); Red Blood Count 3.27 10^6/uL (4.1-5.3); Red Cell Distribution Width 13.2 % (12.1-15.1); White Blood Count 8.2 10^3/uL (4.0-10.0)
[2022-07-10 05:36] LABS: Alanine Aminotransferase 23 U/L (0-41); Albumin Level 3.2 g/dL (3.5-5.2); Alkaline Phosphatase 99 U/L (40-130); Anion Gap 17.1 (5-19); Aspartate Amino Transferase 31 U/L (0-40); Blood Urea Nitrogen 72 mg/dL (8-23); Calcium 8.6 mg/dL (8.5-10.5); Carbon Dioxide 28 mmol/L (22-29); Chloride 96 mmol/L (98-107); Globulin 3.6 g/dL (1.3-4.6); Glucose 101 mg/dL (65-115); Magnesium 2.7 mg/dL (1.7-2.3); Osmolality Calculated 305 mOsm/kg (285-295); Potassium 4.1 mmol/L (3.5-5.1); Sodium 137 mmol/L (136-145); Total Bilirubin 0.3 mg/dL (0.15-1.2); Total Protein 6.8 g/dL (6.6-8.7)
[2022-07-10 05:39] LABS: Procalcitonin 0.21 ng/mL (0-0.5)
[2022-07-10 05:53] LABS: Absolute Segmented Neutrophil 6.1 10/cmm (1.6-7.1); Segmented Neutrophils 74 %; Total Cells Counted 100 (0-100)
[2022-07-10 05:54] LABS: Eosinophils 0 %; Lymphocytes 10 %; Lymphocytes Absolute 0.8 10^3/cmm (1.2-3.4); Monocytes Absolute 1.3 10^3/cmm (0.1-0.6); Platelet Estimate Normal (Normal); Toxic Vacuolation 1+
[2022-07-10 05:59] LABS: Absolute Neutrophil 6.1 10^3/cmm (1.4-6.5)
[2022-07-10] MEDS: azithromycin 250 mg Tablet 500 MG PO (10:58)
[2022-07-10 11:38] LABS: Iron 24 ug/dL (59-158); Percent Saturation 7.8 % (20-50); Total Iron Binding Capacity 304 mcg/dl; Unsaturated Iron Binding 280 ug/dL (112-347)
[2022-07-10 11:53] LABS: Vitamin B12 598 pg/mL (232-1245)
[2022-07-10 11:59] LABS: D Dimer 3.13 ug/mIFEU (0-0.59)
[2022-07-10 12:21] LABS: Folate Level 17.6 ng/mL (4.5-32.2)
--- NOTE | 2022-07-10 13:52 | CTR_ITS ---
PROCEDURE INFORMATION: Exam: CT Chest Without Contrast; Diagnostic Exam date and time: 07/10/2022 6:30 PM Age: 82 years old Clinical indication: Shortness of breath; Prior surgery; Surgery date: 6+ months; Surgery type: Cabg; Additional info: Copd, pleural effusion TECHNIQUE: Imaging protocol: Diagnostic computed tomography of the chest without contrast. Radiation optimization: All CT scans at this facility use at least one of these dose optimization techniques: automated exposure control; mA and/or kV adjustment per patient size (includes targeted exams where dose is matched to clinical indication); or iterative reconstruction. COMPARISON: CT chest wo con [id number] 04/24/2021 3:38 PM RADIATION DOSE METRICS: Total DLP (mGy-cm): 186.5 FINDINGS: Lungs: Focal fibrosis noted in the medial right lung apex with corresponding bronchiectasis. Atelectasis of the right lung base adjacent to the effusion. No consolidation. Pleural spaces: Large volume loculated right pleural effusion. No pneumothorax. Heart: Coronary artery calcifications noted. No cardiomegaly. No pericardial effusion. Lymph nodes: No enlarged lymph nodes. Vasculature: No aortic aneurysm. Bones/joints: Sternotomy wires noted. No acute fracture. Soft tissues: Unremarkable. CT/CT chest wo con [id number] IMPRESSION: Large volume loculated right pleural effusion.
--- NOTE | 2022-07-10 13:53 | P.PN_ITS ---
Subjective Subjective: H&P and labs appreciated. Today morning seen with family at bedside. Denies any nausea, vomiting, headache. States at home her blood pressures have been running low. Saturating well on room air. Complaining of neck pain but states that is chronic. Vitals/I&O/Wt Last Vital Signs Temp 97.6 F 07/10/22 12:00 Pulse 79 07/10/22 12:00 Resp 16 07/10/22 12:00 BP 105/53 07/10/22 12:00 Pulse Ox 96 07/10/22 12:00 O2 Del Method 07/10/22 12:00 07/09/22 07/10/22 07/10/22 22:59 06:59 14:59 Intake Total 800 / 800 500 / 1300 600 / 600 Output Total 275 / 275 300 / 575 Balance 525 / 525 200 / 725 600 / 600 Weight last 48 hrs Weight 46.72 kg Weight 46.72 kg Physical Exam Narrative: General: No acute distress, AO x3 HEENT: PERRLA, pupils bilaterally equal and reactive, pallors not present Chest: Wheezing to auscultation bilaterally all areas CVS: S1-S2 regular, no murmurs, no tachycardia, no gallops, no rubs Abdomen: Soft, nontender, no organomegaly, bowel sounds present Neuro: No focal deficits, no facial deformity, AO x3, power 5/5 in all limbs Data : 07/10/22 04:37 07/10/22 04:37 Micro: Microbiology 07/09/22 15:51 Blood Culture - Preliminary Blood SPECIMEN COLLECTED 07/09/22 15:43 Blood Culture - Preliminary Blood SPECIMEN COLLECTED A&P Assessment and plan (1) RAY (acute kidney injury): Baseline creatinine 1.1-1.4. On admission 2.1. Most likely secondary to increased diuretics as an outpatient along with prior lactone and Levaquin. Patient clinically dehydrated. Start on normal saline at 50 cc/h. Check urine lites, urine creatinine. Monitor BMP daily. Medical evaluation done for nephrotoxic drugs. (2) Bilateral pleural effusion: Patient currently on room air. Checks x-ray appreciated. Check CT scan chest. Patient has no leukocytosis. Chest x-ray not consistent with consolidation. Check urine Legionella, bacterial antigen. Check MRSA swab, sputum culture. Check flu swab, COVID-19 PCR. Hold off on antibiotics for now. (3) Weakness: Most likely secondary to acute kidney injury along with dehydration. Continue to monitor. (4) Pulmonary hypertension: (5) Heart failure with preserved ejection fraction: Echocardiogram done in February 2022 shows LVEF 50-55%, moderate AV stenosis, mild AVR, mild to moderate mitral and tricuspid valve regurgitation. Severe pulm HTN with PASP at 66mmhg Qualifiers: Heart failure chronicity: chronic Qualified Code(s): I50.32 - Chronic diastolic (congestive) heart failure (6) Thrombus of left atrial appendage: Continuing home dose of Xarelto. (7) COPD (chronic obstructive pulmonary disease): Advair, Spiriva. No acute exacerbation. Oxygen supplementation keeping saturation over 88%. Plan Hypertension: Goal blood pressure less than 140/90 mmHg with mean over 65. Blood pressure soft. Continue to holding off on home dose of metoprolol, spironolactone. Cardiac diet. Xarelto will suffice as DVT prophylaxis Protonix for PUD prophylaxis Full code. Attestations Medical Necessity Statement*: Requires further hospitalization for management of acute kidney injury secondary dehydration Time Spent in Patient Care: Greater than 35 minutes Coding Level of Care Code Acute Position Classification Specialist for g Fwd Diagnoses RAY (acute kidney injury) N17.9 Bilateral pleural effusion J90 Weakness R53.1 Pulmonary hypertension I27.20 Heart failure with preserved ejection fraction I50.32 Heart failure chronicity: chronic Thrombus of left atrial appendage I51.3 COPD (chronic obstructive pulmonary disease) J44.9
[2022-07-10] MEDS: sodium chloride 0.9% 1,000 ML 50 ML IV (13:55)
[2022-07-10] MEDS: ferrous gluconate 324 mg Tablet PO (18:13)
[2022-07-11] VITALS (12 sets, daily range): BP systolic 89–138; BP diastolic 56–82; PULSE 67–105; RESP 15–20; TEMP 36.4–36.9; O2SAT 92–97
[2022-07-11 00:17] LABS: Potassium, Radom Urine 34 mmol/L; Urine Creatinine 55 mg/dL (39-259); Urine Random Sodium 29 mmol/L
[2022-07-11 00:25] LABS: Urine Random Chloride 12 mmol/L
[2022-07-11 00:47] LABS: SARS Covid-2 Antigen negative (Negative)
[2022-07-11 00:48] LABS: Influenza A by IFA negative (Negative); Influenza B by IFA negative (Negative)
[2022-07-11 04:59] LABS: Basophils % 0.1 %; Hemoglobin 10.7 g/dL (11.7-16.6); Lymphocytes # 0.9 10^3/uL (0.8-4.8); Lymphocytes % 9.5 %; Mean Corpuscular HGB Conc 31.5 g/dL (30.0-36.0); Mean Corpuscular Hemoglobin 32.1 pg (28.0-34.0); Mean Corpuscular Volume 102.1 fl (80-94); Mean Platelet Volume 9.4 fL (7.4-10.4); Monocytes # 1.7 10^3/uL (0.2-0.9); Monocytes % 17.7 %; Neutrophils # 6.73 10^3/uL (1.8-7.7); Neutrophils % 72.3 %; Nucleated Red Blood Cells % 0 %; Platelet Count 257 10^3/cmm (130-400); Red Blood Count 3.33 10^6/uL (4.1-5.3); Red Cell Distribution Width 13.2 % (12.1-15.1); White Blood Count 9.3 10^3/uL (4.0-10.0)
[2022-07-11 05:38] LABS: Alanine Aminotransferase 22 U/L (0-41); Albumin Level 3.3 g/dL (3.5-5.2); Alkaline Phosphatase 99 U/L (40-130); Anion Gap 14.2 (5-19); Aspartate Amino Transferase 29 U/L (0-40); Blood Urea Nitrogen 59 mg/dL (8-23); Calcium 8.9 mg/dL (8.5-10.5); Carbon Dioxide 29 mmol/L (22-29); Chloride 99 mmol/L (98-107); Chol HDL Ratio 2.75 mg/dL (1.0-5.00); Cholesterol 110 mg/dL (0-200); Globulin 3.7 g/dL (1.3-4.6); Glucose 104 mg/dL (65-115); HDL Cholesterol 40 mg/dL (60-100); LDL Cholesterol Calculated 53 mg/dL (50-129); Osmolality Calculated 303 mOsm/kg (285-295); Potassium 4.2 mmol/L (3.5-5.1); Sodium 138 mmol/L (136-145); Total Bilirubin 0.4 mg/dL (0.15-1.2); Triglycerides 83 mg/dL (0-150); VLDL Cholestrol Calculation 17 mg/dL (0-30)
[2022-07-11 05:46] LABS: Estmated Average Glucose 137; Hemoglobin A1C 6.4 % (4.0-6.0)
[2022-07-11] MEDS: ferrous gluconate 324 mg Tablet PO ×2 (07:51→17:33)
[2022-07-11] MEDS: pantoprazole DR 40 mg Tablet PO (07:51)
[2022-07-11] MEDS: rivaroxaban 10 mg Tablet 20 MG PO (07:51)
[2022-07-11] MEDS: sodium chloride 0.9% 1,000 ML 50 ML IV (10:43)
--- NOTE | 2022-07-11 13:40 | P.PN_ITS ---
Subjective Subjective: No acute vents overnight. Patient denies any new complaints. Tolerating treatment well. Saturating well on room air. Vitals/I&O/Wt Last Vital Signs Temp 97.8 F 07/11/22 12:00 Pulse 67 07/11/22 11:28 Resp 15 07/11/22 12:00 BP 121/70 07/11/22 12:00 Pulse Ox 92 07/11/22 11:28 O2 Del Method 07/11/22 11:28 07/10/22 07/11/22 07/11/22 22:59 06:59 14:59 Intake Total 1240 / 1240 Output Total 300 / 300 Balance -300 / 300 1240 / 1240 Weight last 48 hrs Weight 46.72 kg Weight 46.72 kg Physical Exam Narrative: General: No acute distress, AO x3 HEENT: PERRLA, pupils bilaterally equal and reactive, pallors not present Chest: Wheezing to auscultation bilaterally all areas, decreased air entry right lower zone CVS: S1-S2 regular, no murmurs, no tachycardia, no gallops, no rubs Abdomen: Soft, nontender, no organomegaly, bowel sounds present Neuro: No focal deficits, no facial deformity, AO x3, power 5/5 in all limbs Data : 07/11/22 04:12 07/11/22 04:12 Micro: Microbiology 07/09/22 15:30 Legionella Urinary Antigen - Final Unknown Source 07/09/22 15:51 Blood Culture - Preliminary Blood NEGATIVE TO DATE 07/09/22 15:43 Blood Culture - Preliminary Blood NEGATIVE TO DATE A&P Assessment and plan (1) RAY (acute kidney injury): Baseline creatinine 1.1-1.4. Creatinine trending down to 1.9. Most likely secondary to increased diuretics as an outpatient along with prior lactone and Levaquin. Patient clinically dehydrated. Continue normal saline at 75 cc/h. Monitor BMP daily. Medical evaluation done for nephrotoxic drugs. (2) Bilateral pleural effusion: Patient currently on room air. Appreciate CT chest results. Will consult pulmonology for diagnostic thoracentesis for further evaluation of pleural effusion. Patient is agreeable. Rapid COVID-19 antigen, flu swab negative. Hold off on antibiotics for now. (3) Weakness: Most likely secondary to acute kidney injury along with dehydration. Continue to monitor. (4) Pulmonary hypertension: (5) Heart failure with preserved ejection fraction: Echocardiogram done in February 2022 shows LVEF 50-55%, moderate AV stenosis, mild AVR, mild to moderate mitral and tricuspid valve regurgitation. Severe pulm HTN with PASP at 66mmhg Qualifiers: Heart failure chronicity: chronic Qualified Code(s): I50.32 - Chronic diastolic (congestive) heart failure (6) Thrombus of left atrial appendage: Continuing home dose of Xarelto. (7) COPD (chronic obstructive pulmonary disease): Advair, Spiriva. No acute exacerbation. Oxygen supplementation keeping saturation over 88%. Plan Hypertension: Goal blood pressure less than 140/90 mmHg with mean over 65. Blood pressure soft. Continue to holding off on home dose of metoprolol, spironolactone. Cardiac diet. Xarelto will suffice as DVT prophylaxis Protonix for PUD prophylaxis Full code. Attestations Medical Necessity Statement*: Requires further hospitalization for management of acute kidney injury requiring IV fluid resuscitation, pleural effusion requiring further work-up Time Spent in Patient Care: 16 - 35 minutes Coding Level of Care Code Acute Riveting Machine Operator Tape Control for [facility] Fwd Diagnoses RAY (acute kidney injury) N17.9 Bilateral pleural effusion J90 Weakness R53.1 Pulmonary hypertension I27.20 Heart failure with preserved ejection fraction I50.32 Heart failure chronicity: chronic Thrombus of left atrial appendage I51.3 COPD (chronic obstructive pulmonary disease) J44.9
[2022-07-11] MEDS: lidocaine 1% INJ 20 mL MDV (mL) INJECTION (15:09)
[2022-07-11 15:30] LABS: Body Fluid Polynuclear #Cells 1.038; Body Fluid WBC 1442 /uL; Monocytes # Body Fluid 0.404; Mononuclear %, Pleural Fluid 28 %; Polynuclear Cells, Pleural % 72 %
[2022-07-11 15:49] LABS: Hematocrit 22.4 % (42.0-52.0)
--- NOTE | 2022-07-11 15:51 | PM.CONSULT ---
Providers/Reason For Consult Consulting Physician/Specialty*: Nato Melendrez MD/Pulmonary Critical Care Reason for Consult*: Loculated right pleural effusion Requesting Physician: Cortez Bardales MD Attending Physician: Cortez Bardales MD Primary Care Provider: Bryant Mendieta MD History of Present Illness History of Present Illness Rogelio Taylor is a 82 year old male with past medical history of lymphoma s/p radiation CAD s/p CABG, A. fib on Xarelto, possible right cerebellar stroke started feeling sick 4 days ago, generalized weakness and malaise. He has been chronically short of breath at baseline but felt weak discomfort in his chest 2 days ago when his oxygen ranged from 94 to 97% at home. Received Levaquin as outpatient for pneumonia. He usually takes Lasix 60 Mg p.o. daily And after noticing leg swelling-he has been using Lasix 80 twice daily for the last 2 days and swelling has improved. Patient had an echocardiogram February 2022 which showed ejection fraction 55% with severe pulmonary hypertension 66 mmHg.Moderate aortic valve stenosis with JANEY 0.73 cm?. Mild aortic valve regurgitation. Review of records show patient has history of lymphoma and received radiation. Unfortunately I could not get much information in [facility]. Chest x-ray showed interval development of bilateral basilar consolidations and pleural effusions leading to compressive atelectasis. Subsequent CT chest showed focal fibrosis noted in the medial right lung apex with corresponding bronchiectasis, atelectasis of right lung base adjacent to the effusion with no consolidation. Pleural spaces showed large volume loculated right pleural effusion. No enlarged lymph nodes. Pulmonary consult requested for loculated large pleural effusion Seen patient at bedside today. Daughter was also at bedside. Reported a gradual shortness of breath, decreased appetite but denied any pain. Reported being a non-smoker. Endorsed weight loss 12 pounds in last 2 months. Denied any chest pains, palpitations, leg swelling. 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 He takes Xarelto for his atrial fibrillation. Patient takes Lasix 60 Mg p.o. twice daily at home, he is current renal functions show he has some renal dysfunction with creatinine 2.1 and BUN 71. Review of Systems General: Reports: 10 or more systems reviewed and unremarkable except in HPI and below Medications/Allergies Home Medications Medication Instructions Recorded Confirmed Last Taken Type albuterol sulfate 90 mcg/actuation 2 puff inhalation Q4H PRN 11/27/20 07/09/22 Unknown History aerosol inhaler (ProAir HFA) Shortness Of Breath furosemide 40 mg tablet 60 mg PO BID #270 tabs 11/28/21 07/09/22 07/09/22 Rx rivaroxaban 20 mg tablet (Xarelto) 20 mg PO DAILY #90 tabs 11/28/21 07/09/22 07/09/22 Rx rosuvastatin 20 mg tablet 20 mg PO DAILY@09 #90 tabs 11/28/21 07/09/22 07/09/22 Rx metoprolol tartrate 50 mg tablet 50 mg PO BID@ #180 tabs 12/23/21 07/09/22 07/09/22 Rx spironolactone 25 mg tablet 25 mg PO BID 02/24/22 07/09/22 07/09/22 History Lactobacillus acidophilus and 1 cap PO DAILY 07/09/22 07/09/22 07/09/22 History rhamnosus 15 billion cell capsule (Probiotic) levofloxacin 750 mg tablet 750 mg PO EVERY OTHER DAY 07/09/22 07/09/22 07/08/22 History Allergies Allergy/AdvReac Type Severity Reaction Status Date / Time Penicillins Allergy ALGY-Rash Verified 07/09/22 16:49 ramipril [From Altace] Allergy ALGY-Swell Verified 07/09/22 16:49 Lip/Tongue/Throat Current Medications Generic Name Dose Route Start Last Admin Trade Name Freq PRN Reason Stop Dose Admin Albuterol Sulfate 2.5 mg 07/10/22 09:06 07/11/22 11:31 Albuterol 2.5 Mg/0.5 Ml Neb INHALATION 2.5 mg Q4H.RESPIRATORY PRN Administration SHORTNESS OF BREATH Ferrous Gluconate 324 mg 07/10/22 18:00 07/11/22 07:51 Ferrous Gluconate 324 Mg Tablet PO 324 mg BIDWM JAROD Administration Sodium Chloride 1,000 mls @ 75 mls/hr 07/10/22 11:00 07/11/22 10:43 Sodium Chloride 0.9% IV 50 mls/hr .[id number] JAROD Administration Pantoprazole Sodium 40 mg 07/10/22 09:00 07/11/22 07:[address] 40 Mg Tablet PO 40 mg DAILY JAROD Administration Rivaroxaban 20 mg 07/11/22 09:00 07/11/22 07:51 Rivaroxaban 10 Mg Tablet PO 20 mg DAILY JAROD Administration Fluticasone/Salmeterol 1 puff 07/10/22 08:00 07/11/22 09:37 Fluticasone-Salmeterol 250-50 Diskus INHALATION Not Given BID.RESPIRATORY JAROD Tiotropium [place] 18 mcg 07/11/22 08:00 07/11/22 11:27 Tiotropium 18 Mcg Mdi INHALATION 18 mcg DAILY.RESPIRATORY JAROD Administration PFSH Acute PFSH: Medical History (Updated 07/11/22 @ 16:07 by Nato Melendrez MD) Atrial fibrillation BPH (benign prostatic hyperplasia) Cerebellar stroke Chronic kidney disease, stage III (moderate) Congestive heart failure COPD (chronic obstructive pulmonary disease) Coronary artery disease Dyslipidemia Hypertension Lymphoma Medication induced coagulopathy Raynauds phenomenon Surgical History H/O hernia repair Hx of CABG Hx of tonsillectomy Family History Mother Cancer Leukemia Father CAD (coronary artery disease) Diabetes Social History Smoking and tobacco status: never smoked Alcohol intake: never Lives independently: Yes Housing: House Vitals/I&O/Wt Last Vital Signs Temp 97.8 F 07/11/22 12:00 Pulse 99 07/11/22 14:00 Resp 15 07/11/22 12:00 BP 121/70 07/11/22 12:00 Pulse Ox 92 07/11/22 11:28 O2 Del Method 07/11/22 11:28 07/11/22 07/11/22 07/11/22 06:59 14:59 22:59 Intake Total 1240 / 1240 Output Total 300 / 300 Balance -300 / 300 1240 / 1240 Weight last 48 hrs Weight 103 lb Physical Exam Narrative: General: alert, NAD HEENT: conj clear, EOMI, PERRL, mmm, Neck: supple, no meningismus Heme: no cervical LAP Pulmonary: Reduced breath sounds on right lung middle and lower zones Cardiovascular: rrr, nl s1s2, no mrg Abdomen: soft, nt, nd, no r/g, bs+ Extremities: pulses +, no edema, no c/c : no CVA tenderness Skin: intact, no rash MSK: no back or neck pain Neurologic: grossly intact Data : 07/11/22 14:30 07/11/22 04:12 Other Labs: Radiology Impressions Chest X-Ray 07/09/22 15:04 IMPRESSION: Interval development of bilateral basilar consolidations and pleural effusions as described. Interval follow-up exam or CT correlation may be considered. Chest CT 07/10/22 13:52 IMPRESSION: Large volume loculated right pleural effusion. Laboratory Results WBC 9.3 10^3/uL (4.0-10.0) 07/11/22 04:12 RBC 3.33 10^6/uL (4.1-5.3) L 07/11/22 04:12 Hgb 10.7 g/dL (11.7-16.6) L 07/11/22 04:12 Hct 22.4 % (42.0-52.0) L D 07/11/22 14:30 MCV 102.1 fl (80-94) H 07/11/22 04:12 MCH 32.1 pg (28.0-34.0) 07/11/22 04:12 MCHC 31.5 g/dL (30.0-36.0) D 07/11/22 04:12 RDW 13.2 % (12.1-15.1) 07/11/22 04:12 Plt Count 257 10^3/cmm (130-400) 07/11/22 04:12 MPV 9.4 fL (7.4-10.4) 07/11/22 04:12 Neut % (Auto) 72.3 % 07/11/22 04:12 Lymph % (Auto) 9.5 % 07/11/22 04:12 [place] % (Auto) 17.7 % 07/11/22 04:12 Eos % (Auto) 0.0 % 07/11/22 04:12 Baso % (Auto) 0.1 % 07/11/22 04:12 Neut # (Auto) 6.73 10^3/uL (1.8-7.7) 07/11/22 04:12 Lymph # (Auto) 0.9 10^3/uL (0.8-4.8) 07/11/22 04:12 [place] # (Auto) 1.7 10^3/uL (0.2-0.9) H 07/11/22 04:12 Eos # (Auto) 0.0 10^3/uL (0.0-0.8) 07/11/22 04:12 Baso # (Auto) 0.0 10^3/uL (0.0-0.1) 07/11/22 04:12 Nucleated RBC % (auto) 0 % 07/11/22 04:12 Total Counted 100 (0-100) 07/10/22 04:37 Atypical Lymphs % 0.0 % (0-5) 07/10/22 04:37 Absolute Neutrophils 6.1 10^3/cmm (1.4-6.5) 07/10/22 04:37 Segmented Neutrophils 74 % 07/10/22 04:37 Abs Segm Neuts (Man) 6.1 10/cmm (1.6-7.1) 07/10/22 04:37 Band Neutrophils 0.0 % 07/10/22 04:37 Abs Band Neuts (Man) 0.0 10^3/cmm (0.0-1.2) 07/10/22 04:37 Absolute Lymphocytes 0.8 10^3/cmm (1.2-3.4) L 07/10/22 04:37 Lymphocytes (Manual) 10 % 07/10/22 04:37 Monocytes (Manual) 16.0 % 07/10/22 04:37 Absolute Monocytes 1.3 10^3/cmm (0.1-0.6) H 07/10/22 04:37 Eosinophils (Manual) 0 % 07/10/22 04:37 Absolute Eosinophils 0.0 10^3/cmm (0.0-0.7) 07/10/22 04:37 Basophils (Manual) 0.0 % 07/10/22 04:37 Absolute Basophils 0.0 10^3/cmm (0.0-0.2) 07/10/22 04:37 Nucleated RBCs # 0.0 /100WBC 07/11/22 04:12 Toxic Vacuolation 1+ H 07/10/22 04:37 Platelet Estimate Normal (Normal) 07/10/22 04:37 D-Dimer 3.13 ug/mIFEU (0-0.59) H 07/10/22 11:33 Specimen Type Arterial 07/09/22 20:56 Sample Site Radial, right 07/09/22 20:56 ABG pH 7.51 (7.35-7.45) H 07/09/22 20:56 ABG pCO2 36.4 mmHg (35-45) 07/09/22 20:56 ABG pO2 72.5 mmHg (80.0-100.0) L 07/09/22 20:56 ABG HCO3 29.2 mmol/L (22-26) H 07/09/22 20:56 ABG Base Excess 5.9 mmol/L (-2.0-2.0) H 07/09/22 20:56 [place] Test Pos 07/09/22 20:56 Hematocrit 31.6 % (42-52) L 07/09/22 20:56 O2 Delivery Device None 07/09/22 20:56 FiO2 21.0 % 07/09/22 20:56 Wood And Hardware Outfitter ID [place] 07/09/22 20:56 Sodium 138 mmol/L (136-145) 07/11/22 04:12 Potassium 4.2 mmol/L (3.5-5.1) 07/11/22 04:12 Chloride 99 mmol/L (98-107) 07/11/22 04:12 Carbon Dioxide 29 mmol/L (22-29) 07/11/22 04:12 Anion Gap 14.2 (5-19) 07/11/22 04:12 BUN 59 mg/dL (8-23) H 07/11/22 04:12 Creatinine 1.9 mg/dL (0.7-1.2) H 07/11/22 04:12 GFR Calculation Not Reportable 07/11/22 04:12 Glucose 104 mg/dL (65-115) 07/11/22 04:12 Estimat Average Glucose 137 07/11/22 04:12 Hemoglobin A1c 6.4 % (4.0-6.0) H 07/11/22 04:12 Calculated Osmolality 303 mOsm/kg (285-295) H 07/11/22 04:12 Lactate 1.7 mmol/L (0.5-2.2) 07/09/22 15:43 Calcium 8.9 mg/dL (8.5-10.5) 07/11/22 04:12 Magnesium 2.7 mg/dL (1.7-2.3) H 07/10/22 04:37 Iron 24 ug/dL (59-158) L 07/10/22 04:37 TIBC 304 mcg/dl 07/10/22 04:37 % Saturation 7.8 % (20-50) L 07/10/22 04:37 Unsat Iron Binding 280 ug/dL (112-347) 07/10/22 04:37 Total Bilirubin 0.4 mg/dL (0.15-1.2) 07/11/22 04:12 AST 29 U/L (0-40) 07/11/22 04:12 ALT 22 U/L (0-41) 07/11/22 04:12 Alkaline Phosphatase 99 U/L (40-130) 07/11/22 04:12 Troponin T Baseline 88 ng/L (0-15) H 07/09/22 15:43 Troponin T 120 Minute 78.91 ng/L (0-15) H 07/09/22 18:00 Delta Troponin T -9.09 ABS# (0-10) L 07/09/22 18:00 Troponin T Hi Sens 6Hr 91.51 ng/L (0-15) H 07/09/22 22:12 Troponin T Hi Sens 6Hr Delta 3.51 ng/L (0-12) 07/09/22 22:12 NT-Pro-B Natriuret Pep 7847 pg/mL (0-450) H 07/09/22 15:43 Total Protein 7.0 g/dL (6.6-8.7) 07/11/22 04:12 Albumin 3.3 g/dL (3.5-5.2) L 07/11/22 04:12 Globulin 3.7 g/dL (1.3-4.6) 07/11/22 04:12 Triglycerides 83 mg/dL (0-150) 07/11/22 04:12 Cholesterol 110 mg/dL (0-200) 07/11/22 04:12 LDL Cholesterol, Calc 53 mg/dL (50-129) 07/11/22 04:12 Total VLDL Cholesterol 17 mg/dL (0-30) 07/11/22 04:12 HDL Cholesterol 40 mg/dL (60-100) L 07/11/22 04:12 Cholesterol/HDL Ratio 2.75 mg/dL (1.0-5.00) 07/11/22 04:12 Vitamin B12 598 pg/mL (232-1245) 07/10/22 04:37 Folate 17.6 ng/mL (4.5-32.2) 07/10/22 11:33 Procalcitonin 0.21 ng/mL (0-0.5) 07/10/22 04:37 TSH 3.48 uIU/mL (0.27-4.20) 07/09/22 15:43 Urine Color Straw (Yellow) 07/09/22 15:30 Urine Appearance Clear (CLEAR) 07/09/22 15:30 Urine pH 7 (5-7) 07/09/22 15:30 Ur Specific [place] 1.010 (1.005-1.030) 07/09/22 15:30 Urine Protein Neg (Negative) 07/09/22 15:30 Urine Glucose (UA) Norm (Normal) 07/09/22 15:30 Urine Ketones Negative (Negative) 07/09/22 15:30 Urine Blood Trace (Negative) H 07/09/22 15:30 Urine Nitrate Negative (Negative) 07/09/22 15:30 Urine Bilirubin Neg (Negative) 07/09/22 15:30 Urine Urobilinogen Neg mg/dL (Negative) 07/09/22 15:30 Ur Leukocyte Esterase Negative (Negative) 07/09/22 15:30 Urine RBC None /hpf (0-2) 07/09/22 15:30 Urine WBC None /hpf (0-5) 07/09/22 15:30 Ur Squamous Epith Cells None /hpf (0-5) 07/09/22 15:30 Amorphous Sediment Not Reportable 07/09/22 15:30 Urine Bacteria None /hpf (NONE) 07/09/22 15:30 Ur Random Sodium 29 mmol/L 07/10/22 23:50 Ur Random Potassium 34 mmol/L 07/10/22 23:50 Ur Random Chloride 12 mmol/L 07/10/22 23:50 Urine Creatinine 55 mg/dL (39-259) 07/10/22 23:50 Fluid Color Red 07/11/22 14:30 Fluid Appearance Bloody 07/11/22 14:30 Fluid WBC 1442 /uL 07/11/22 14:30 Fluid RBC 2276.000 10^3/uL 07/11/22 14:30 Fld Polynuclear WBCs # 1.038 07/11/22 14:30 Fld Polynuclear WBCs % 72.000 % 07/11/22 14:30 Fl Mononucl WBCs #(Auto) 0.404 07/11/22 14:30 Fl Mononuclear % Auto 28.000 % 07/11/22 14:30 Fluid Glucose 94.0 mg/dL 07/11/22 14:30 Fluid Albumin 2.2 g/dL 07/11/22 14:30 Fluid LDH 323 U/L 07/11/22 14:30 Fluid Amylase 66 U/L 07/11/22 14:30 Fluid Alk Phosphatase 59 IU/L 07/11/22 14:30 Fluid Cholesterol 92 mg/dL (0-200) 07/11/22 14:30 Fluid Triglycerides 177 mg/dL (0-150) H 07/11/22 14:30 Fluid Uric Acid 9 mg/dL 07/11/22 14:30 Pleural WBC 1442.000 /uL (0-1000) H 07/11/22 14:30 Pleural RBC 2276.000 10^3/uL 07/11/22 14:30 Pleural Polynuclear % 72 % 07/11/22 14:30 Pleural Mononuclear % 28 % 07/11/22 14:30 Influenza Type A Ag negative (Negative) 07/10/22 23:25 Influenza Type B Ag negative (Negative) 07/10/22 23:25 SARS-CoV-2 Ag (Rapid) negative (Negative) 07/09/22 23:25 Micro: Microbiology 07/09/22 15:30 Legionella Urinary Antigen - Final Unknown Source 07/09/22 15:51 Blood Culture - Preliminary Blood NEGATIVE TO DATE 07/09/22 15:43 Blood Culture - Preliminary Blood NEGATIVE TO DATE A&P Assessment and plan (1) Bilateral pleural effusion: (2) Heart failure with reduced ejection fraction: (3) Pulmonary hypertension: (4) Atrial fibrillation: Qualifiers: Atrial fibrillation type: unspecified Qualified Code(s): I48.91 - Unspecified atrial fibrillation (5) Chronic kidney disease, stage III (moderate): (6) Chronic anticoagulation: (7) Chest wall trauma: Plan #Loculated large right pleural effusion in patient with underlying CAD s/p CABG with reduced ejection fraction at some point, atrial fibrillation with RVR on chronic anticoagulation, suspected chest wall trauma, uremia and CKD stage IV inpatient on Lasix -CT evidence of large loculated pleural effusion -S/p right pleural thoracentesis performed 07/11/2022 1800 cc dark bloody, suspicious for hemothorax, pleural fluid analysis showed exudative fluid with glucose 94, WBC 1442, RBC 2276; interestingly pleural triglycerides are 157 suspicious for chylothorax, -Pleural fluid cytology, cultures are pending -Patient does not remember having any obvious trauma but did not rule out possibility of trauma against heavy machinery at his workplace-patient being on Xarelto, with uremia related platelet dysfunction, there is a possibility of hemothorax -Patient saturating greater than 95% on room air -Patient denied any history of smoking- -We will repeat CT chest -Previous echo showed ejection fraction 35% but most recent echo 02/2022 showed EF 50 to 55%, moderate aortic stenosis -Recommended optimization of IV fluids as well as Lasix given his worsening renal functions Recommendations conveyed to hospitalist, RT, RN taking care of the patient Consult Attestations Medical Necessity Statement: Deferred to hospitalist Time Spent in Patient Care: Greater than 35 minutes (>than 50% of time spent in counselling and/or direct pt care on unit). Coding Level of Care Code New Pt Acute Microsystems Engineer for Chg Fwd Patient Type New History Comprehensive Exam Comprehensive Medical Decision Making Moderate Complexity Diagnoses Bilateral pleural effusion J90 Heart failure with reduced ejection fraction I50.20 Pulmonary hypertension I27.20 Atrial fibrillation I48.91 Atrial fibrillation type: unspecified Chronic kidney disease, stage III (moderate) N18.30 Chronic anticoagulation Z79.01 Chest wall trauma S29.9XXA Time Spent (min) 45
[2022-07-11 15:55] LABS: Apprearance, Body Fluid BLOODY; Color, Body Fluid RED
[2022-07-11 15:57] LABS: Fluid Alkaline Phos. 59 IU/L
[2022-07-11 15:58] LABS: Albumin Body Fluid 2.2 g/dL; Amylase Body Fluid 66 U/L; Cholesterol Body Fluid 92 mg/dL (0-200); LDH Body Fluid 323 U/L; Triglycerides Body Fluid 177 mg/dL (0-150); Uric Acid Body Fluid 9 mg/dL
--- NOTE | 2022-07-11 16:11 | XRR_ITS ---
PROCEDURE INFORMATION: Exam: XR Chest Exam date and time: 07/11/2022 5:07 PM Age: 82 years old Clinical indication: Other: Post thoracentesis; Prior surgery; Surgery type: Cabg; Patient HX: F/u post RT side thoracentesis with pneumothorax. History of lymphoma. ; Additional info: Post right-sided thoracentesis TECHNIQUE: Imaging protocol: Radiologic exam of the chest. Views: 1 view. COMPARISON: CT chest con [id number] 07/10/2022 6:30 PM FINDINGS: Lungs: There is scarring in the central right lung. There is no consolidation. Pleural spaces: Right pneumothorax visible at the apex and base (at least 25%). No pleural effusion. Heart/Mediastinum: There is mild enlargement of the cardiac silhouette. No mediastinal shift. Bones/joints: Sternal wires are present. There is no displacement to suggest sternal dehiscence. There is resection of the distal left clavicle. XR/XR chest 1V portable [id number] IMPRESSION: At least 25% right pneumothorax.
[2022-07-11 16:12] LABS: Appearance, Pleural Fluid BLOODY (CLEAR); Color, Pleural Fluid Red (Pale Yellow); Cyto Order Verification Order Verified
--- NOTE | 2022-07-11 16:36 | P.PCN_ITS ---
Procedure/Consent Consent: Consent for Procedure: Consent obtained from patient Procedure Narrative: Pulmonary & Critical Care Medicine Procedure - Ultrasound guided right-sided thoracentesis Procedure: Ultrasound guided right-sided thoracentesis Indication: Right pleural effusion Aircraft Launch And Recovery Technician(s): Nato Melendrez MD Consent: Signed and placed in chart Anesthesia: 10 cc 1% lidocaine without epinephrine Description: CT chest reviewed and Pleural effusion was localized using ultrasound guidance and the appropriate site was marked accordingly. A time out was performed. My hands were washed immediately prior to the procedure. I wore a surgical cap, mask with protective eyewear, sterile gown and sterile gloves throughout the procedure. The patient was placed in appropriate position, area of interest was sterilized with chlorhexidine skin prep and draped in a sterile manner. 1% lidocaine was used to anesthesize the skin, subcutaneous tissue, superior aspect of the rib periosteum and parietal pleura. A finder needle was then introduced over the superior aspect of the rib to locate the pleural fluid; 5 mL dark bloody colored fluid was aspirated. A 10-blade scalpel was used to herlinda the skin at the insertion site. The Tshd-i-Mddkhipw needle was then introduced through the skin incision into the pleural space using negative aspiration pressure and the red colormetric indicator to confirm appropriate positioning of the needle. The thoracentesis catheter was then threaded without difficulty. 1800 CC dark bloody colored fluid was removed without difficulty. The catheter was then removed. No immediate complications were noted during the procedure. The fluid will be sent for studies. Estimated blood loss is 5 - 10 CC. Ultrasound guidance used: Yes. EBL: 5-10 cc Complications: None PCXR: A post-procedure chest x-ray showed loculated pneumothorax likely trapped lung physiology.
--- NOTE | 2022-07-11 17:34 | CTR_ITS ---
PROCEDURE INFORMATION: Exam: CT Chest Without Contrast; Diagnostic Exam date and time: 07/11/2022 6:01 PM Age: 82 years old Clinical indication: Mass, lump, or swelling in the chest; Prior surgery; Additional info: Loculated effusion; Trapped lung TECHNIQUE: Imaging protocol: Diagnostic computed tomography of the chest without contrast. Radiation optimization: All CT scans at this facility use at least one of these dose optimization techniques: automated exposure control; mA and/or kV adjustment per patient size (includes targeted exams where dose is matched to clinical indication); or iterative reconstruction. COMPARISON: CT chest wo con [id number] 07/10/2022 6:30 PM RADIATION DOSE METRICS: Total DLP (mGy-cm): 227.08 FINDINGS: Lungs: Similar focal fibrosis along the medial aspect of the right upper lobe with corresponding bronchiectasis. No consolidation. Pleural spaces: Interval thoracentesis with significant improvement of the large volume loculated right pleural effusion seen on prior exam which is now small volume, however, there is now a moderate to large volume right pneumothorax. Heart: Coronary artery calcifications noted. No cardiomegaly. No pericardial effusion. Lymph nodes: Delete the No enlarged lymph nodes. Vasculature: No aortic aneurysm. Bones/joints: Sternotomy wires noted. No acute fracture. Soft tissues: Subcutaneous emphysema seen in the right lateral chest wall. CT/CT chest con [id number] IMPRESSION: Interval thoracentesis with significant improvement of the large volume loculated right pleural effusion seen on prior exam, however, there is now a moderate to large volume right pneumothorax.
[2022-07-11] MEDS: metoprolol tartrate 50 mg Tablet PO (19:43)
[2022-07-11] MEDS: sodium chloride 0.9% 1,000 ML 75 ML IV (19:43)
--- NOTE | 2022-07-11 22:00 | XRR_ITS ---
PROCEDURE INFORMATION: Exam: XR Chest Exam date and time: 07/11/2022 9:57 PM Age: 82 years old Clinical indication: Other: Post thoracentesis. Prior surgery; Surgery type: Cabg; Patient HX: F/u post thoracentesis with pneumothorax; Additional info: Post-thoracentesis assessment TECHNIQUE: Imaging protocol: Radiologic exam of the chest. Views: 1 view. COMPARISON: CT chest wo con [id number] 07/11/2022 6:01 PM FINDINGS: Lungs: There is scarring and atelectasis in central right lung. Left lung is clear. Pleural spaces: Stable right apical pneumothorax since the prior chest radiograph 5 hours ago. There has been interval accumulation of pleural fluid at the right base. Heart/Mediastinum: Cardiomediastinal contours are unremarkable. Bones/joints: Sternal wires are present. There is no displacement to suggest sternal dehiscence. XR/XR chest 1V portable [id number] IMPRESSION: Stable right apical pneumothorax with interval accumulation of fluid in the right basilar pleural space.
[2022-07-11 22:33] LABS: Cells Counted 100; Other Cells Pleural Fluid 0 %; PATH Referal YES; Total Protein Pleural Fluid 4.3 g/dL
--- NOTE | 2022-07-11 22:33 | PC.NURSE ---
Dr. Melendrez notified that chest x-ray that was ordered for 10 pm has been taken. Notified that patient is not in any distress and is on room air. Notified that right lung is diminished and left lung is clear. Ordered x-ray for 7 am.
[2022-07-12] VITALS: BP 98/63; PULSE 88; RESP 17; TEMP 36.8; O2SAT 98
[2022-07-12 04:00] VITALS: BP 92/57; PULSE 93; RESP 15; TEMP 36.9; O2SAT 95
[2022-07-12 05:09] VITALS: PULSE 89
[2022-07-12 05:28] LABS: Alanine Aminotransferase 18 U/L (0-41); Albumin Level 2.3 g/dL (3.5-5.2); Alkaline Phosphatase 84 U/L (40-130); Blood Urea Nitrogen 49 mg/dL (8-23); Calcium 8.1 mg/dL (8.5-10.5); Carbon Dioxide 21 mmol/L (22-29); Chloride 103 mmol/L (98-107); Globulin 3.5 g/dL (1.3-4.6); Glucose 99 mg/dL (65-115); Osmolality Calculated 289 mOsm/kg (285-295); Sodium 133 mmol/L (136-145); Total Bilirubin 0.4 mg/dL (0.15-1.2); Total Protein 5.8 g/dL (6.6-8.7)
[2022-07-12 05:35] LABS: Anion Gap 13.9 (5-19); Aspartate Amino Transferase 28 U/L (0-40); Potassium 4.9 mmol/L (3.5-5.1)
--- NOTE | 2022-07-12 07:00 | XRR_ITS ---
PROCEDURE INFORMATION: Exam: XR Chest Exam date and time: 07/12/2022 8:07 AM Age: 82 years old Clinical indication: Condition or disease; Lung condition and disease; Pneumothorax; Chronic/persistent air leak; Additional info: Monitor for pneumothorax/pleural effussion TECHNIQUE: Imaging protocol: Radiologic exam of the chest. Views: 1 view. COMPARISON: CR XR chest 1V portable [id number] 07/11/2022 9:57 PM FINDINGS: Lungs: Unchanged right apical pneumothorax is seen (15%). Unchanged right basilar atelectasis/interstitial opacities are seen. Unchanged mild hyperinflation of the left lung. Unchanged small left pleural effusion. Unchanged mild biapical pleural thickening. Pleural spaces: No left pneumothorax. Heart/Mediastinum: Normal heart size.The patient is status post median sternotomy and coronary artery bypass graft surgery with sternal wires. There is a mildly tortuous thoracic aorta. Midline trachea. Bones/joints: No acute osseous abnormalities seen. Soft tissues: Unchanged mild right chest wall subcutaneous XR/XR chest 1V portable [id number] IMPRESSION: No significant change in correlation with the prior chest radiograph dated July 11, 2022. Unchanged small right apical pneumothorax.
[2022-07-12 07:26] VITALS: BP 94/58; PULSE 79; RESP 16; TEMP 36.8; O2SAT 96
[2022-07-12 08:19] VITALS: PULSE 77; RESP 17; O2SAT 96
--- NOTE | 2022-07-12 09:13 | PC.SOCIAL ---
Imm update Imm page 2 updated with patient at bedside. Copy of page 2 provided. Patient verbalized understanding. Copy in chart initialed, dated and timed.
[2022-07-12] MEDS: rivaroxaban 10 mg Tablet 20 MG PO (09:27)
[2022-07-12] MEDS: ferrous gluconate 324 mg Tablet PO (09:28)
[2022-07-12] MEDS: pantoprazole DR 40 mg Tablet PO (09:28)
--- NOTE | 2022-07-12 10:46 | P.DS_ITS ---
Discharge Providers Date of Admission: 07/09/22 21:58 Date of Discharge: July 12, 2022 Attending Provider at Admission: Tabatha Alegre MD Attending Provider at Discharge: Cortez Bardales MD Consults: Pulmonology: Dr. Melendrez Primary Care Provider: Bryant Mendieta MD Diagnoses at Discharge Discharge Diagnosis (1) Bilateral pleural effusion: Status: Acute (2) Heart failure with reduced ejection fraction: Status: Acute (3) Pulmonary hypertension: Status: Acute (4) Atrial fibrillation: Status: Acute Qualifiers: Atrial fibrillation type: unspecified Qualified Code(s): I48.91 - Unspecified atrial fibrillation (5) Chronic kidney disease, stage III (moderate): Status: Acute (6) Chronic anticoagulation: Status: Acute (7) Chest wall trauma: Status: Acute (8) Pneumothorax on right: Status: Acute Reason for Visit Reason for Visit: weakness, fluid, sent from [facility] Hospital Course Rogelio Taylor is a 82 year old male with past medical history of lymphoma s/p radiation CAD s/p CABG, A. fib on Xarelto, possible right cerebellar stroke started feeling sick 4 days ago, generalized weakness and malaise.? He has been chronically short of breath at baseline but felt weak discomfort in his chest 2 days ago when his oxygen ranged from 94 to 97% at home.? Received Levaquin as outpatient for pneumonia.? He usually takes Lasix 60 Mg p.o. daily And after noticing leg swelling-he has been using Lasix 80 twice daily for the last 2 days and swelling has improved. He was sent to the hospital for further evaluation and management. Admission he was found to have acute kidney injury with concerns for pleural effusion on chest x-ray. He was started on IV fluids and antihypertensives were withheld given soft blood pressures on admission. His kidney functions continue to im prove gradually with IV hydration and then down to 1.6. Chest x-ray showed interval development of bilateral basilar consolidations and pleural effusions leading to compressive atelectasis.? Subsequent CT chest showed focal fibrosis noted in the medial right lung apex with corresponding bronchiectasis, atelectasis of right lung base adjacent to the effusion with no consolidation.? Pleural spaces showed large volume loculated right pleural effusion.? No enlarged lymph nodes. Given concerns for complex pleural effusion pulmonology was consulted for diagnostic/therapeutic tap. 800 cc of hemorrhagic fluid was tapped. Given history of chest trauma around 6 weeks ago it seems most likely he has traumatic hemorrhagic left-sided effusion. Fluid studies are consistent with being extracted. Have remained negative on cultures. Pathology has been sent and is awaited. Patient had an echocardiogram February 2022 which showed ejection fraction 55% with severe pulmonary hypertension 66 mmHg.Moderate aortic valve stenosis with JANEY 0.73 cm?.? Mild aortic valve regurgitation. Postprocedure patient had developed pneumothorax which had remained stable on chest CT and repeat x-ray on subsequent morning. Patient continues to remain on room air. It is believed pneumothoraxes secondary to trapped lung physiology. He has been discharged in hemodynamically stable condition with advised to follow-up with pulmonology within next 1 week for further evaluation and management of fluid studies and a repeat chest x-ray. Patient is advised to check his blood pressures daily at home and maintain a blood pressure diary and follow-up with his primary care provider within next 10 days for readjustment of antihypertensives as needed. He is advised to continue taking Advair and Spiriva which are the inhalation treatment going forward. He is asked to hold off on taking Lasix and spironolactone for now. He is to check his blood body weight daily. If the body weight increases by 5 pounds of the weight today he is to start taking Lasix with a weight comes back to the body weight today. Discharge planning discussed in detail with the patient. All the questions were answered. Physical Exam Narrative: General: No acute distress, AO x3 HEENT: PERRLA, pupils bilaterally equal and reactive, pallors not present Chest: Wheezing to auscultation bilaterally all areas, decreased air entry right lower zone CVS: S1-S2 regular, no murmurs, no tachycardia, no gallops, no rubs Abdomen: Soft, nontender, no organomegaly, bowel sounds present Neuro: No focal deficits, no facial deformity, AO x3, power 5/5 in all limbs Discharge Data Studies Completed and Pending Completed Studies During Hospitalization Category Date Time Status CT chest con [id number] Routine Cat Scan 07/10/22 13:[address] chest con [id number] Stat Cat Scan 07/11/22 17:34 Completed CXRP [XR chest 1V portable [id number]] Routine Exams 07/12/22 07:00 Completed XR chest 1V portable [id number] Routine Exams 07/11/22 22:00 Completed XR chest 1V portable [id number] Stat Exams 07/11/22 16:11 Completed XR chest 1V portable [id number] Urgent Exams 07/09/22 15:04 Completed Pending at discharge Category Date Time Status Anaerobic Culture Routine Lab 07/11/22 14:30 Received Bacterial Antigen Stat Lab 07/10/22 10:56 Received Blood Culture Stat Lab 07/09/22 15:51 Results Body Fluid Culture & GS Routine Lab 07/11/22 14:30 Received CBC Auto Diff [Complete Blood Count w/Auto] Routine Lab 07/11/22 16:35 Ordered Fungal Culture not HR/SK/BL Routine Lab 07/11/22 14:30 Received Mycobacteria, Culture w/Fluor Routine Lab 07/11/22 14:30 Received Pleural Fld Adenosine Deami Routine Lab 07/11/22 14:30 Received Cytology [PTH] Routine Pth 07/11/22 14:[address] chest 07/10/2022: CT/CT chest wo con [id number] IMPRESSION: Large volume loculated right pleural effusion. ? Chest CT 07/11/22 17:34 IMPRESSION: Interval thoracentesis with significant improvement of the large volume loculated right pleural effusion seen on prior exam, however, there is now a moderate to large volume right pneumothorax. ADDENDUM: 07/11/221847 THIS REPORT CONTAINS FINDINGS THAT MAY BE CRITICAL TO PATIENT CARE. The findings were verbally communicated via telephone conference with DATARYANNA at 6:47 PM CDT on 07/11/2022. The findings were acknowledged and understood. Chest X-Ray 07/12/22 07:00 IMPRESSION: No significant change in correlation with the prior chest radiograph dated July 11, 2022. Unchanged small right apical pneumothorax. Laboratory Results WBC 9.3 10^3/uL (4.0-10.0) 07/11/22 04:12 RBC 3.33 10^6/uL (4.1-5.3) L 07/11/22 04:12 Hgb 10.7 g/dL (11.7-16.6) L 07/11/22 04:12 Hct 22.4 % (42.0-52.0) L D 07/11/22 14:30 MCV 102.1 fl (80-94) H 07/11/22 04:12 MCH 32.1 pg (28.0-34.0) 07/11/22 04:12 MCHC 31.5 g/dL (30.0-36.0) D 07/11/22 04:12 RDW 13.2 % (12.1-15.1) 07/11/22 04:12 Plt Count 257 10^3/cmm (130-400) 07/11/22 04:12 MPV 9.4 fL (7.4-10.4) 07/11/22 04:12 Neut % (Auto) 72.3 % 07/11/22 04:12 Lymph % (Auto) 9.5 % 07/11/22 04:12 [place] % (Auto) 17.7 % 07/11/22 04:12 Eos % (Auto) 0.0 % 07/11/22 04:12 Baso % (Auto) 0.1 % 07/11/22 04:12 Neut # (Auto) 6.73 10^3/uL (1.8-7.7) 07/11/22 04:12 Lymph # (Auto) 0.9 10^3/uL (0.8-4.8) 07/11/22 04:12 [place] # (Auto) 1.7 10^3/uL (0.2-0.9) H 07/11/22 04:12 Eos # (Auto) 0.0 10^3/uL (0.0-0.8) 07/11/22 04:12 Baso # (Auto) 0.0 10^3/uL (0.0-0.1) 07/11/22 04:12 Nucleated RBC % (auto) 0 % 07/11/22 04:12 Total Counted 100 07/11/22 14:30 Atypical Lymphs % 0.0 % (0-5) 07/10/22 04:37 Absolute Neutrophils 6.1 10^3/cmm (1.4-6.5) 07/10/22 04:37 Segmented Neutrophils 74 % 07/10/22 04:37 Abs Segm Neuts (Man) 6.1 10/cmm (1.6-7.1) 07/10/22 04:37 Band Neutrophils 0.0 % 07/10/22 04:37 Abs Band Neuts (Man) 0.0 10^3/cmm (0.0-1.2) 07/10/22 04:37 Absolute Lymphocytes 0.8 10^3/cmm (1.2-3.4) L 07/10/22 04:37 Lymphocytes (Manual) 10 % 07/10/22 04:37 Monocytes (Manual) 16.0 % 07/10/22 04:37 Absolute Monocytes 1.3 10^3/cmm (0.1-0.6) H 07/10/22 04:37 Eosinophils (Manual) 0 % 07/10/22 04:37 Absolute Eosinophils 0.0 10^3/cmm (0.0-0.7) 07/10/22 04:37 Basophils (Manual) 0.0 % 07/10/22 04:37 Absolute Basophils 0.0 10^3/cmm (0.0-0.2) 07/10/22 04:37 Nucleated RBCs # 0.0 /100WBC 07/11/22 04:12 Toxic Vacuolation 1+ H 07/10/22 04:37 Platelet Estimate Normal (Normal) 07/10/22 04:37 D-Dimer 3.13 ug/mIFEU (0-0.59) H 07/10/22 11:33 Specimen Type Arterial 07/09/22 20:56 Sample Site Radial, right 07/09/22 20:56 ABG pH 7.51 (7.35-7.45) H 07/09/22 20:56 ABG pCO2 36.4 mmHg (35-45) 07/09/22 20:56 ABG pO2 72.5 mmHg (80.0-100.0) L 07/09/22 20:56 ABG HCO3 29.2 mmol/L (22-26) H 07/09/22 20:56 ABG Base Excess 5.9 mmol/L (-2.0-2.0) H 07/09/22 20:56 [place] Test Pos 07/09/22 20:56 Hematocrit 31.6 % (42-52) L 07/09/22 20:56 O2 Delivery Device None 07/09/22 20:56 FiO2 21.0 % 07/09/22 20:56 Health Equipment Servicer ID [place] 07/09/22 20:56 Sodium 133 mmol/L (136-145) L 07/12/22 04:34 Potassium 4.9 mmol/L (3.5-5.1) 07/12/22 04:34 Chloride 103 mmol/L (98-107) 07/12/22 04:34 Carbon Dioxide 21 mmol/L (22-29) L 07/12/22 04:34 Anion Gap 13.9 (5-19) 07/12/22 04:34 BUN 49 mg/dL (8-23) H 07/12/22 04:34 Creatinine 1.6 mg/dL (0.7-1.2) H 07/12/22 04:34 GFR Calculation Not Reportable 07/12/22 04:34 Glucose 99 mg/dL (65-115) 07/12/22 04:34 Estimat Average Glucose 137 07/11/22 04:12 Hemoglobin A1c 6.4 % (4.0-6.0) H 07/11/22 04:12 Calculated Osmolality 289 mOsm/kg (285-295) 07/12/22 04:34 Lactate 1.7 mmol/L (0.5-2.2) 07/09/22 15:43 Calcium 8.1 mg/dL (8.5-10.5) L 07/12/22 04:34 Magnesium 2.7 mg/dL (1.7-2.3) H 07/10/22 04:37 Iron 24 ug/dL (59-158) L 07/10/22 04:37 TIBC 304 mcg/dl 07/10/22 04:37 % Saturation 7.8 % (20-50) L 07/10/22 04:37 Unsat Iron Binding 280 ug/dL (112-347) 07/10/22 04:37 Total Bilirubin 0.4 mg/dL (0.15-1.2) 07/12/22 04:34 AST 28 U/L (0-40) 07/12/22 04:34 ALT 18 U/L (0-41) 07/12/22 04:34 Alkaline Phosphatase 84 U/L (40-130) 07/12/22 04:34 Troponin T Baseline 88 ng/L (0-15) H 07/09/22 15:43 Troponin T 120 Minute 78.91 ng/L (0-15) H 07/09/22 18:00 Delta Troponin T -9.09 ABS# (0-10) L 07/09/22 18:00 Troponin T Hi Sens 6Hr 91.51 ng/L (0-15) H 07/09/22 22:12 Troponin T Hi Sens 6Hr Delta 3.51 ng/L (0-12) 07/09/22 22:12 NT-Pro-B Natriuret Pep 7847 pg/mL (0-450) H 07/09/22 15:43 Total Protein 5.8 g/dL (6.6-8.7) L 07/12/22 04:34 Albumin 2.3 g/dL (3.5-5.2) L 07/12/22 04:34 Globulin 3.5 g/dL (1.3-4.6) 07/12/22 04:34 Triglycerides 83 mg/dL (0-150) 07/11/22 04:12 Cholesterol 110 mg/dL (0-200) 07/11/22 04:12 LDL Cholesterol, Calc 53 mg/dL (50-129) 07/11/22 04:12 Total VLDL Cholesterol 17 mg/dL (0-30) 07/11/22 04:12 HDL Cholesterol 40 mg/dL (60-100) L 07/11/22 04:12 Cholesterol/HDL Ratio 2.75 mg/dL (1.0-5.00) 07/11/22 04:12 Vitamin B12 598 pg/mL (232-1245) 07/10/22 04:37 Folate 17.6 ng/mL (4.5-32.2) 07/10/22 11:33 Procalcitonin 0.21 ng/mL (0-0.5) 07/10/22 04:37 TSH 3.48 uIU/mL (0.27-4.20) 07/09/22 15:43 Urine Color Straw (Yellow) 07/09/22 15:30 Urine Appearance Clear (CLEAR) 07/09/22 15:30 Urine pH 7 (5-7) 07/09/22 15:30 Ur Specific [place] 1.010 (1.005-1.030) 07/09/22 15:30 Urine Protein Neg (Negative) 07/09/22 15:30 Urine Glucose (UA) Norm (Normal) 07/09/22 15:30 Urine Ketones Negative (Negative) 07/09/22 15:30 Urine Blood Trace (Negative) H 07/09/22 15:30 Urine Nitrate Negative (Negative) 07/09/22 15:30 Urine Bilirubin Neg (Negative) 07/09/22 15:30 Urine Urobilinogen Neg mg/dL (Negative) 07/09/22 15:30 Ur Leukocyte Esterase Negative (Negative) 07/09/22 15:30 Urine RBC None /hpf (0-2) 07/09/22 15:30 Urine WBC None /hpf (0-5) 07/09/22 15:30 Ur Squamous Epith Cells None /hpf (0-5) 07/09/22 15:30 Amorphous Sediment Not Reportable 07/09/22 15:30 Urine Bacteria None /hpf (NONE) 07/09/22 15:30 Ur Random Sodium 29 mmol/L 07/10/22 23:50 Ur Random Potassium 34 mmol/L 07/10/22 23:50 Ur Random Chloride 12 mmol/L 07/10/22 23:50 Urine Creatinine 55 mg/dL (39-259) 07/10/22 23:50 Fluid Color Red 07/11/22 14:30 Fluid Appearance Bloody 07/11/22 14:30 Fluid Specific Grav 1.010 07/11/22 14:30 Fluid pH 9.0 07/11/22 14:30 Fluid WBC 1442 /uL 07/11/22 14:30 Fluid RBC 2276.000 10^3/uL 07/11/22 14:30 Fld Polynuclear WBCs # 1.038 07/11/22 14:30 Fld Polynuclear WBCs % 72.000 % 07/11/22 14:30 Fl Mononucl WBCs #(Auto) 0.404 07/11/22 14:30 Fl Mononuclear % Auto 28.000 % 07/11/22 14:30 Fluid Glucose 94.0 mg/dL 07/11/22 14:30 Fluid Albumin 2.2 g/dL 07/11/22 14:30 Fluid LDH 323 U/L 07/11/22 14:30 Fluid Amylase 66 U/L 07/11/22 14:30 Fluid Alk Phosphatase 59 IU/L 07/11/22 14:30 Fluid Cholesterol 92 mg/dL (0-200) 07/11/22 14:30 Fluid Triglycerides 177 mg/dL (0-150) H 07/11/22 14:30 Fluid Uric Acid 9 mg/dL 07/11/22 14:30 Pleural Color Red (Pale Yellow) H 07/11/22 14:30 Pleural Appearance Bloody (CLEAR) 07/11/22 14:30 Pleural WBC 1442.000 /uL (0-1000) H 07/11/22 14:30 Pleural RBC 2276.000 10^3/uL 07/11/22 14:30 Pleural Other Cells 0 % 07/11/22 14:30 Pleural Polynuclear % 72 % 07/11/22 14:30 Pleural Mononuclear % 28 % 07/11/22 14:30 Pleural Total Protein 4.3 g/dL 07/11/22 14:30 Influenza Type A Ag negative (Negative) 07/10/22 23:25 Influenza Type B Ag negative (Negative) 07/10/22 23:25 SARS-CoV-2 Ag (Rapid) negative (Negative) 07/09/22 23:25 Path Cons w/Slide Yes 07/11/22 14:30 Vitals Last Vital Signs Temp 98.2 F 07/12/22 07:26 Pulse 77 07/12/22 08:19 Resp 17 07/12/22 08:19 BP 94/58 07/12/22 07:26 Pulse Ox 96 07/12/22 08:19 O2 Del Method 07/12/22 08:19 Discharge Plan Discharge Patient Disposition: Home Condition: Stable Prescriptions: New ferrous gluconate 324 mg (37.5 mg iron) Tablet 324 mg PO BIDWM Qty: 60 0RF Spiriva with HandiHaler 18 mcg Capsule, W/Inhalation Device 18 mcg inhalation DAILY.RESPIRATORY Qty: 30 0RF fluticasone propion-salmeterol [Advair Diskus] 250-50 mcg/dose Blister With Device 1 puff inhalation BID.RESPIRATORY Qty: 60 0RF Continued Xarelto 20 mg tablet 20 mg PO DAILY Qty: 90 3RF Rx Instructions: @09:00 rosuvastatin 20 mg tablet 20 mg PO DAILY@09 Qty: 90 3RF albuterol sulfate [ProAir HFA] 90 mcg/actuation Hfa Aerosol Inhaler 2 puff INHALATION Q4H PRN (Reason: Shortness Of Breath) Probiotic 15 billion cell Capsule 1 cap PO DAILY Changed furosemide 40 mg tablet 40 mg PO DAILY PRN (Reason: Swelling) Qty: 270 3RF Held metoprolol tartrate 50 mg tablet 50 mg PO BID@ Qty: 180 3RF Hold Instructions: Resume on 07/25/22. Discontinued spironolactone 25 mg tablet 25 mg PO BID levofloxacin 750 mg tablet 750 mg PO EVERY OTHER DAY Discharge Orders: Discharge Order (Routine); Ordered 07/12/22 Ordered By: Cortez Bardales Referrals: Bryant Mendieta MD [Primary Care Provider] - 7-10 days Datar,Yanna Muñoz MD [Physician] - 1 week Patient Instructions: Opioid Safety Activity Restrictions/Additional Instructions: Please follow-up with a primary care provider within next 10 days. Please check your blood pressure daily at home and maintain a blood pressure diary for further adjustment of antihypertensives with primary care provider. Please use Advair and Spiriva which are the inhalation treatment going forward. Please follow-up with pulmonology within next 1 week for further discussion regarding the fluid studies and a repeat chest x-ray. For now do not take metoprolol, Lasix and spironolactone. Check your body weight daily at home and if your body weight increases by 5 pounds you can take Lasix 40 mg daily as needed till the weight comes back to your weight today. Please contact [facility] for Meals on Wheels [phone] Discharge Attestations Time Spent in Discharge Care*: greater than 30 min Specific Discharge Activities: educating patient, discussing with pcp/other providers, discussing with rehabilitation case coordinator/social workers/dc planners, documenting/other paperwork and evaluating patient/reviewing data Status at Discharge: Cognitive status at discharge: cognitively intact , Behavioral status at discharge: cooperative , Functional status at discharge: independent ambulation , Overall status at discharge: patient is progressing back to baseline Quality Metrics Clinical Quality Measures [ No reported AMI, CVA or VTE this stay] Coding Level of Care Code Acute Chg FW DC note Diagnoses Bilateral pleural effusion J90 Heart failure with reduced ejection fraction I50.20 Pulmonary hypertension I27.20 Atrial fibrillation I48.91 Atrial fibrillation type: unspecified Chronic kidney disease, stage III (moderate) N18.30 Chronic anticoagulation Z79.01 Chest wall trauma S29.9XXA Pneumothorax on right J93.9
[2022-07-12 11:48] VITALS: BP 98/56; PULSE 78; RESP 16; TEMP 36.7; O2SAT 97
[2022-07-16 18:38] LABS: Pleural Fld Adenosine Deami 28.7 U/L (<9.2)
== END 2022-07-12 13:37 | disposition home or self-care (01) | DRG 683 ==
LOC: ER 19:30 → MEDSURG 20:07
PROVIDERS: Family Medicine; Internal Medicine Pulmonary Disease; Admitting Provider Student in an Organized Health Care Education/Training Program; Emergency Provider Emergency Medicine; PCP Family Medicine; Visit Provider Student in an Organized Health Care Education/Training Program
DX: N17.9 Acute kidney failure, unspecified (principal); I13.0 Hypertensive heart and chronic kidney disease with heart failure and stage 1 through stage 4 chronic kidney disease, or unspecified chronic kidney disease; I50.32 Chronic diastolic (congestive) heart failure; J91.8 Pleural effusion in other conditions classified elsewhere; J98.11 Atelectasis; J95.811 Postprocedural pneumothorax; S27.898A Other injury of other specified intrathoracic organs, initial encounter; W22.09XA Striking against other stationary object, initial encounter; Y92.89 Other specified places as the place of occurrence of the external cause; N18.4 Chronic kidney disease, stage 4 (severe); E86.0 Dehydration; I27.20 Pulmonary hypertension, unspecified; I48.91 Unspecified atrial fibrillation; N40.0 Benign prostatic hyperplasia without lower urinary tract symptoms; I25.10 Atherosclerotic heart disease of native coronary artery without angina pectoris; G89.29 Other chronic pain; M54.2 Cervicalgia; I51.3 Intracardiac thrombosis, not elsewhere classified; J44.9 Chronic obstructive pulmonary disease, unspecified; Z79.01 Long term (current) use of anticoagulants; Z95.1 Presence of aortocoronary bypass graft; Z85.72 Personal history of non-Hodgkin lymphomas; Z92.3 Personal history of irradiation
CPT/HCPCS: 36415; 36600; 71045; 71250; 80053; 80061; 80503; 81001; 82042; 82150; 82436; 82465; 82570; 82607; 82746; 82803; 82945; 83036; 83540; 83550; 83605; 83615; 83735; 83880; 83986; 84075; 84133; 84145; 84157; 84300; 84311; 84315; 84443; 84478; 84484; 84560; 85007; 85014; 85025; 85378; 86403; 87015; 87040; 87070; 87075; 87102; 87116; 87205; 87206; 87426; 87449; 87641; 87801; 87804; 88108; 89050; 93005; 94640; 96365; 96367; 99285; J0456; J0696; J7030; J7050; J7611; Q0144

== ENCOUNTER → 2022-07-15 09:16 | Outpatient (BNVA) | payer MEDICARE, SELFPAY | PROVIDERS: PCP Family Medicine; Visit Provider Nurse Practitioner Family | DX: I48.91 Unspecified atrial fibrillation (principal); R55 Syncope and collapse; I13.0 Hypertensive heart and chronic kidney disease with heart failure and stage 1 through stage 4 chronic kidney disease, or unspecified chronic kidney disease; I50.22 Chronic systolic (congestive) heart failure; N18.30 Chronic kidney disease, stage 3 unspecified | CPT/HCPCS: 93270; 99214 ==

== ENCOUNTER → 2022-07-17 13:04 | Outpatient (BNVA) | payer MEDICARE, SELFPAY | PROVIDERS: PCP Family Medicine; Visit Provider Internal Medicine Pulmonary Disease | DX: J98.19 Other pulmonary collapse (principal); Z79.01 Long term (current) use of anticoagulants; J44.9 Chronic obstructive pulmonary disease, unspecified; I50.9 Heart failure, unspecified; I25.10 Atherosclerotic heart disease of native coronary artery without angina pectoris; J90 Pleural effusion, not elsewhere classified; R06.02 Shortness of breath; N18.4 Chronic kidney disease, stage 4 (severe); I48.91 Unspecified atrial fibrillation; Z95.1 Presence of aortocoronary bypass graft; M79.89 Other specified soft tissue disorders | CPT/HCPCS: 99215 ==

== ENCOUNTER 2022-07-17 14:54 | Inpatient (IN) | payer MEDICARE, SELFPAY ==
[2022-07-17 16:16] VITALS: BP 103/67; PULSE 146; RESP 17; TEMP 36.9; O2SAT 100; BMI 16.0
[2022-07-17 18:30] VITALS: BP 117/39; PULSE 108; PULSE 138; RESP 16; RESP 20; TEMP 36.9; O2SAT 100; O2SAT 98
--- NOTE | 2022-07-17 18:44 | W.ED.SOB ---
HPI - SOB/Dyspnea General: Chief Complaint: Shortness of Breath/Dyspnea Stated Complaint: SOB Time Seen by Provider: 07/17/22 18:44 History of Present Illness: HPI Narrative: Mr. Taylor is an 82-year-old gentleman who presents to the emergency department due to generalized malaise and weakness. He has a complicated recent medical history and follows with Dr. Melendrez. He had a loculated effusion which was drained however contained element of trapped lung. He was seen in clinic today and there is concern for reaccumulation of fluid. Patient endorses severe generalized weakness and fatigue. He has marked dyspnea on exertion and shortness of breath at rest. He feels his heart racing and feels like his heart is not keeping up. Overall intensity symptoms is worsened. He did have mild improvement after previous thoracentesis. No other specific changes in health, exacerbating, or alleviating factors identified. Pertinent past history: other Onset (ago): day(s) Timing: progressively worsening Severity: severe Exacerbating factors: lying flat and exertion Relieving factors: nothing Known history of: other Associated symptoms: Reports chest pain, lightheadedness and palpitations Review of Systems General: Reports: 10 or more systems reviewed and unremarkable except in HPI and below Card: Reports: chest pain, palpitations and lightheadedness [facility] ED PFSH: Medical History Atrial fibrillation BPH (benign prostatic hyperplasia) Cerebellar stroke Chronic kidney disease, stage III (moderate) Congestive heart failure COPD (chronic obstructive pulmonary disease) Coronary artery disease Dyslipidemia Heart failure with preserved ejection fraction Heart failure with reduced ejection fraction Hypertension Lymphoma Medication induced coagulopathy Pulmonary hypertension Raynauds phenomenon Thrombus of left atrial appendage Surgical History H/O hernia repair Hx of CABG Hx of tonsillectomy Family History Mother Cancer Leukemia Father CAD (coronary artery disease) Diabetes Social History Smoking and tobacco status: never smoked Alcohol intake: never Lives independently: Yes Housing: House Physical Exam Const: COMMON NORMALS: alert GENERAL APPEARANCE: cooperative, well developed and ill appearing HENMT: COMMON NORMALS: normocephalic and atraumatic HEAD & SCALP: normocephalic and atraumatic THROAT: posterior oropharynx normal Eye: COMMON NORMALS: conjunctivae normal CONJUNCTIVA: Yes conjunctivae normal SCLERA: sclerae normal Neck/C-Spine: COMMON NORMALS: supple GENERAL: Yes trachea midline Resp: EFFORT & INSPECTION: Yes able to speak in complete sentences and Yes tachypneic AUSCULTATION: diminished lung sounds on the right and on the left Cardio: RATE: tachycardic RHYTHM: abnormal rhythm irregularly irregular GI: COMMON NORMALS: Soft to palpation PALPATION: Yes Soft to palpation and No Tenderness to palpation present (GI) PERCUSSION: normal to percussion Extremity: GENERAL: Yes normal exam except as noted and No edema Neuro: COMMON NORMALS: moves all extremities SENSORIUM/ORIENTATION: Yes alert and No Orientation impaired Psych: COMMON NORMALS: mental status grossly normal and Normal thought process present THOUGHT PROCESS: Normal thought process present Course Vital Signs: Vital signs: Vital Signs Temperature 98.3 F 07/22/22 14:04 Pulse Rate 70 07/22/22 14:04 Respiratory Rate 27 H 07/22/22 14:04 Blood Pressure 105/61 07/22/22 14:04 Pulse Oximetry 94 07/22/22 14:04 Oxygen Delivery Me thod 07/22/22 07:52 MDM - SOB/Dyspnea Medical Decision Making 82-year-old gentleman with complex past medical history including history of thoracentesis presenting to the emergency room for worsening generalized symptoms and shortness of breath. Patient is nontoxic however somewhat ill in appearance. EKG notable for atrial fibrillation, no reported history, no STEMI. Labs notable for no leukocytosis, macrocytic anemia still present. Metabolic panel with hyponatremia, hyperkalemia, baseline elevated creatinine. Delta troponin at 2 hours is negative. BNP elevated. Chest x-ray notable for similar appearance of right apical pneumothorax and bilateral effusions. Given severity of symptoms and new onset A. fib patient requires further inpatient management. The results of ED evaluation were discussed with the patient including plan for admission due to requirement for level of care not available if discharged to prevent significant worsening/deterioration. Patient agreeable with plan. Case discussed with hospitalist service who agreed to admit the patient. Medical Records I reviewed the patient's medical records. Lab Data I reviewed the patient's lab results. : 07/19/22 04:35 07/22/22 04:35 Labs/Radiology: Radiology Impressions Chest X-Ray 07/17/22 18:54 IMPRESSION: 1. Similar appearance of a right apical pneumothorax. 2. Bilateral small volume pleural effusions the, left pleural effusion appears partially loculated. Laboratory Results WBC 8.5 10^3/uL (4.0-10.0) 07/17/22 20:06 RBC 3.21 10^6/uL (4.1-5.3) L 07/17/22 20:06 Hgb 10.4 g/dL (11.7-16.6) L 07/17/22 20:06 Hct 32.5 % (42.0-52.0) L 07/17/22 20:06 MCV 101.2 fl (80-94) H 07/17/22 20:06 MCH 32.4 pg (28.0-34.0) 07/17/22 20:06 MCHC 32.0 g/dL (30.0-36.0) 07/17/22 20:06 RDW 13.6 % (12.1-15.1) 07/17/22 20:06 Plt Count 395 10^3/cmm (130-400) 07/17/22 20:06 MPV 8.8 fL (7.4-10.4) 07/17/22 20:06 Neut % (Auto) 84.2 % 07/17/22 20:06 Lymph % (Auto) 5.5 % 07/17/22 20:06 [place] % (Auto) 9.5 % 07/17/22 20:06 Eos % (Auto) 0.1 % 07/17/22 20:06 Baso % (Auto) 0.2 % 07/17/22 20:06 Neut # (Auto) 7.14 10^3/uL (1.8-7.7) 07/17/22 20:06 Lymph # (Auto) 0.5 10^3/uL (0.8-4.8) L 07/17/22 20:06 [place] # (Auto) 0.8 10^3/uL (0.2-0.9) 07/17/22 20:06 Eos # (Auto) 0.0 10^3/uL (0.0-0.8) 07/17/22 20:06 Baso # (Auto) 0.0 10^3/uL (0.0-0.1) 07/17/22 20:06 Nucleated RBC % (auto) 0 % 07/17/22 20:06 Nucleated RBCs # 0.0 /100WBC 07/17/22 20:06 Sodium 133 mmol/L (136-145) L 07/17/22 20:06 Potassium 5.6 mmol/L (3.5-5.1) H 07/17/22 20:06 Chloride 99 mmol/L (98-107) 07/17/22 20:06 Carbon Dioxide 22 mmol/L (22-29) 07/17/22 20:06 Anion Gap 17.6 (5-19) 07/17/22 20:06 BUN 52 mg/dL (8-23) H 07/17/22 20:06 Creatinine 1.5 mg/dL (0.7-1.2) H 07/17/22 20:06 GFR Calculation Not Reportable 07/17/22 20:06 Glucose 94 mg/dL (65-115) 07/17/22 20:06 Calculated Osmolality 290 mOsm/kg (285-295) 07/17/22 20:06 Calcium 9.0 mg/dL (8.5-10.5) 07/17/22 20:06 Total Bilirubin 0.4 mg/dL (0.15-1.2) 07/17/22 20:06 AST 36 U/L (0-40) 07/17/22 20:06 ALT 32 U/L (0-41) 07/17/22 20:06 Alkaline Phosphatase 165 U/L (40-130) H 07/17/22 20:06 Troponin T Baseline 83 ng/L (0-15) H 07/17/22 20:06 NT-Pro-B Natriuret Pep 03560 pg/mL (0-450) H 07/17/22 20:06 Total Protein 7.6 g/dL (6.6-8.7) 07/17/22 20:06 Albumin 3.1 g/dL (3.5-5.2) L 07/17/22 20:06 Globulin 4.5 g/dL (1.3-4.6) 07/17/22 20:06 Critical Care Time Critical Care Time: Critical Care Time: Yes Total Critical Care Time: 35 Attestation: Due to a high probability of clinically significant, possibly life threatening deterioration, the patient required my highest level of attention and preparedness to intervene emergently and I personally spent this critical care time directly and personally managing the patient. This critical care time included obtaining a history; examining the patient; pulse oximetry; ordering and review of laboratory and imaging studies; arranging urgent treatment with development of a management plan; evaluation of patient's response to treatment; frequent reassessment; and, discussions with other providers as applicable. It was exclusive of separately billable procedures. Primary system involved is cardiopulmonary Discharge Plan Discharge Patient Disposition: Admitted As Inpatient Admit Provider: Frank Harper Clinical Impression: CHF exacerbation, Atrial fibrillation with rapid ventricular response Condition: Stable Discharge Diet: Cardiac Discharge Activity: Resume usual activity and Increase activity as tolerated Coding Level of Care Code ED Breakdown Person for Pelon Kay
--- NOTE | 2022-07-17 18:54 | ECG_ITS ---
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 Measurements Intervals [place] Rate: 109 P: [place]: QRS: 120 QRSD: 78 T: 80 QT: 322 QTc: 435 Interpretive Statements ATRIAL FIBRILLATION WITH RAPID VENTRICULAR RESPONSE POSSIBLE RIGHT VENTRICULAR HYPERTROPHY [SOME/ALL OF: PROMINENT R IN V1, LATE TRANSITION, RAD, KIERAN, SSS] Compared to ECG 07/09/2022 14:58:44 T-wave abnormality no longer present Electronically Signed On 07-17-2022 19:28:31 CDT by Diann Tavarez M.D. [id number]
--- NOTE | 2022-07-17 18:54 | XRR_ITS ---
PROCEDURE INFORMATION: Exam: XR Chest Exam date and time: 07/17/2022 7:10 PM Age: 82 years old Clinical indication: Shortness of breath; Prior surgery; Surgery date: 6+ months; Surgery type: Bypass. Has a heart monitor; Additional info: SOB TECHNIQUE: Imaging protocol: Radiologic exam of the chest. Views: 1 view. COMPARISON: CR (CHEST, ) 07/12/2022 8:07 AM FINDINGS: Lungs: Hyperinflated lungs. Scattered scarring throughout the lungs. No consolidation. Pleural spaces: No significant interval change of the right apical pneumothorax. Bilateral small volume pleural effusions, the left pleural effusion appears partially loculated. Heart/Mediastinum: Similar cardiomegaly. Bones/joints: Sternotomy wires noted. Visualized osseous structures are intact. XR/XR chest 1V portable [id number] IMPRESSION: 1. Similar appearance of a right apical pneumothorax. 2. Bilateral small volume pleural effusions the, left pleural effusion appears partially loculated.
[2022-07-17 19:00] VITALS: PULSE 129; RESP 16; O2SAT 94
[2022-07-17 20:28] LABS: Basophils % 0.2 %; Eosinophils % 0.1 %; Hematocrit 32.5 % (42.0-52.0); Hemoglobin 10.4 g/dL (11.7-16.6); Lymphocytes # 0.5 10^3/uL (0.8-4.8); Lymphocytes % 5.5 %; Mean Corpuscular Hemoglobin 32.4 pg (28.0-34.0); Mean Corpuscular Volume 101.2 fl (80-94); Mean Platelet Volume 8.8 fL (7.4-10.4); Monocytes # 0.8 10^3/uL (0.2-0.9); Monocytes % 9.5 %; Neutrophils # 7.14 10^3/uL (1.8-7.7); Neutrophils % 84.2 %; Nucleated Red Blood Cells % 0 %; Platelet Count 395 10^3/cmm (130-400); Red Blood Count 3.21 10^6/uL (4.1-5.3); Red Cell Distribution Width 13.6 % (12.1-15.1); White Blood Count 8.5 10^3/uL (4.0-10.0)
[2022-07-17 20:52] LABS: Troponin(5th) Baseline 83 ng/L (0-15)
--- NOTE | 2022-07-17 20:59 | ECG_ITS ---
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 Measurements Intervals [place] Rate: 116 P: [place]: QRS: 122 QRSD: 86 T: 76 QT: 319 QTc: 444 Interpretive Statements ATRIAL FLUTTER WITH RAPID VENTRICULAR RESPONSE NONSPECIFIC ST & T-WAVE ABNORMALITY Compared to ECG 07/17/2022 18:43:39 T-wave abnormality now present Atrial fibrillation no longer present Electronically Signed On 07-18-2022 9:14:02 CDT by Diann Tavarez M.D. [id number]
[2022-07-17 21:00] VITALS: PULSE 122; RESP 16; O2SAT 100
[2022-07-17 21:00] LABS: Alanine Aminotransferase 32 U/L (0-41); Albumin Level 3.1 g/dL (3.5-5.2); Alkaline Phosphatase 165 U/L (40-130); Anion Gap 17.6 (5-19); Aspartate Amino Transferase 36 U/L (0-40); Blood Urea Nitrogen 52 mg/dL (8-23); Carbon Dioxide 22 mmol/L (22-29); Chloride 99 mmol/L (98-107); Globulin 4.5 g/dL (1.3-4.6); Glucose 94 mg/dL (65-115); NT Pro B Type Natriuretic Pept 11398 pg/mL (0-450); Osmolality Calculated 290 mOsm/kg (285-295); Potassium 5.6 mmol/L (3.5-5.1); Sodium 133 mmol/L (136-145); Total Bilirubin 0.4 mg/dL (0.15-1.2); Total Protein 7.6 g/dL (6.6-8.7)
[2022-07-17] MEDS: FUROsemide 10 mg/mL SDV 10mL 60 MG IVP (22:15)
[2022-07-17] MEDS: dextrose 50% syringe 50 mL IVP (22:15)
[2022-07-17] MEDS: metoprolol tartrate 1 mg/1 mL SDV 5 mL 5 MG IVP (22:19)
[2022-07-17 22:21] VITALS: BP 133/85; PULSE 137; RESP 16; O2SAT 100
--- NOTE | 2022-07-17 22:21 | P.HP_ITS ---
Providers/Chief Complaint Admitting Physician: Frank Harper Primary Care Provider: Bryant Mendieta MD Chief Complaint: SOB History of Present Illness Pleasant 82-year-old gentleman with history of diastolic CHF, likely severe pulmonary hypertension, moderate aortic stenosis, mild to moderate mitral tricuspid regurgitation, atrial fibrillation on anticoagulation with Xarelto, CAD, with recent admission during which had thoracentesis for large right-sided pleural effusion, subsequently with noted trapped lung with persistent air pocket, fluid reaccumulation. He states he has not been taking his Lasix since discharge. He has been having persistent generalized weakness, exertional intolerance. In pulmonology office today noted to have hand and lower extremity edema, was asked to come for evaluation to ER. Here he is also noted to be in atrial fibrillation with RVR heart rates 130s-140s. So far he has received metoprolol push 5 mg and additional metoprolol as requested, furosemide 60 mg IV push. He is afebrile, without leukocytosis. Saturation 94-100%. Baseline troponin 83 which is unchanged from prior. NT proBNP higher than prior at 11,398. Creatinine 1.5 which appears to be better than prior. Chest x-ray with similar appearance of right apical pneumothorax. Bilateral small volume pleural effusions, left pleural effusion appears partially loculated. He tells me consideration has also been given to surgical procedure to break up loculations, however, on assessment he is found to be at elevated risk due to a number of factors including comorbidities including heart disease. 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 With regards to CODE STATUS, in case of respiratory failure that may be resolved with transient mechanical ventilatory support he would be okay with that. However, in case of cardiopulmonary arrest he would not want CPR. Review of Systems Const: Reports: fatigue; Denies: fever(s) or chills Eyes: Denies: change in vision, eye discomfort or eye redness ENMT: Denies: throat pain, oral sores or ear or mastoid pain Card: Reports: edema and dyspnea on exertion; Denies: chest pain or pre-syncope Resp: Reports: dyspnea; Denies: productive cough, change in phlegm color or hemoptysis GI: Denies: abdominal pain, nausea, vomiting, diarrhea, constipation, hematochezia or melena : Denies: flank pain, difficulty urinating, urinary frequency or hematuria Musc: Denies: back pain, joint swelling or joint redness Skin/Breast: Denies: rash or new lesions Neuro: Denies: headache(s), numbness in extremities, weakness in extremities, dizziness, confusion or seizure-like activity Endo: Denies: polyuria or polydipsia Mode/Lymph: Denies: easy bleeding or tender lymph nodes All/Imm: Denies: urticaria or tongue swelling Medications/Allergies Home Medications Medication Instructions Recorded Confirmed Last Taken Type albuterol sulfate 90 mcg/actuation 2 puff inhalation Q4H PRN 11/27/20 07/17/22 Unknown History aerosol inhaler (ProAir HFA) Shortness Of Breath rivaroxaban 20 mg tablet (Xarelto) 20 mg PO DAILY #90 tabs 11/28/21 07/17/22 07/17/22 Rx rosuvastatin 20 mg tablet 20 mg PO DAILY@09 #90 tabs 11/28/21 07/17/22 07/17/22 Rx Lactobacillus acidophilus and 1 cap PO DAILY 07/09/22 07/17/22 07/16/22 History rhamnosus 15 billion cell capsule (Probiotic) ferrous gluconate 324 mg (37.5 mg 324 mg PO BIDWM #60 tabs 07/12/22 07/17/22 07/16/22 Rx iron) tablet furosemide 40 mg tablet 60 mg PO BID 07/17/22 07/17/22 Unknown History metoprolol tartrate 50 mg tablet 50 mg PO BID 07/17/22 07/17/22 Unknown History spironolactone 25 mg tablet 25 mg PO BID 07/17/22 07/17/22 Unknown History Allergies Allergy/AdvReac Type Severity Reaction Status Date / Time fluticasone Allergy ALGY-Bliste Verified 07/17/22 19:00 [From Advair Diskus] r Penicillins Allergy ALGY-Rash Verified 07/17/22 19:00 ramipril [From Altace] Allergy ALGY-Swell Verified 07/17/22 19:00 Lip/Tongue/Throat salmeterol Allergy ALGY-Bliste Verified 07/17/22 19:00 [From Advair Diskus] r tiotropium Allergy ALGY-Bliste Verified 07/17/22 19:00 [From Spiriva with r HandiHaler] PFSH Acute PFSH: Medical History Atrial fibrillation BPH (benign prostatic hyperplasia) Cerebellar stroke Chronic kidney disease, stage III (moderate) Congestive heart failure COPD (chronic obstructive pulmonary disease) Coronary artery disease Dyslipidemia Heart failure with preserved ejection fraction Heart failure with reduced ejection fraction Hypertension Lymphoma Medication induced coagulopathy Pulmonary hypertension Raynauds phenomenon Thrombus of left atrial appendage Surgical History H/O hernia repair Hx of CABG Hx of tonsillectomy Family History Mother Cancer Leukemia Father CAD (coronary artery disease) Diabetes Social History Smoking and tobacco status: never smoked Alcohol intake: never Lives independently: Yes Housing: House Vitals/I&O/Wt Last Vital Signs Temp 98.4 F 07/17/22 18:30 Pulse 138 H 07/17/22 18:30 Resp 20 H 07/17/22 18:30 BP 117/39 07/17/22 18:30 Pulse Ox 100 07/17/22 18:30 O2 Del Method 07/17/22 18:30 Weight last 48 hrs Weight 46.266 kg Physical Exam Narrative: Daughter at bedside Const: COMMON NORMALS: patient oriented x3 and alert GENERAL APPEARANCE: cooperative ORIENTATION/CONSCIOUSNESS: Yes awake HENMT: COMMON NORMALS: oropharynx normal Neck/C-Spine: COMMON NORMALS: no JVD Resp: AUSCULTATION: diminished lung sounds on the right in the lower lung santoro Cardio: COMMON NORMALS: no JVD, regular rhythm, S1 normal heart sound present, S2 normal heart sound present and No murmurs present (Cardio) RHYTHM: regular rhythm HEART SOUNDS: S1 normal heart sound present and S2 normal heart sound present GI: COMMON NORMALS: Normal to inspection, nondistended, normoactive bowel sounds present, Soft to palpation and non-tender PALPATION: Yes Soft to palpation Extremity: COMMON NORMALS: no joint enlargement and no pedal edema GENERAL: Yes edema (2+ LE and hands) Neuro: COMMON NORMALS: patient oriented x3 and moves all extremities SENSORIUM/ORIENTATION: Yes alert Skin: COMMON NORMALS: no rashes or lesions noted GENERAL SKIN EXAM: no rashes or lesions noted Data : 07/17/22 20:06 07/17/22 20:06 A&P Assessment and plan (1) Atrial fibrillation with rapid ventricular response: She received additional dose of metoprolol. Monitor heart rate. In case not improving, consider additional dose. Resume p.o. metoprolol. Check magnesium. Monitor on telemetry. Continue Xarelto. (2) CHF exacerbation: Acute diastolic CHF exacerbation. Easy fatigability. Extremity edema. Elevated BNP. Complete troponin EKG series. So far does not appear to be having acute ischemia. Has not taken his Lasix. Continue Lasix, monitor I&O. Reassess volume status. He does not currently appear to have any indications of infectious proces s/pneumonia, but continue to monitor for any changes in symptoms. (3) Weakness: Generalized weakness, with physical deconditioning. Exertional intolerance. A. fib with RVR as above. Treat CHF. PT assessment. Likely may benefit from rehabilitation. Plan Hyperkalemia: Hold spironolactone. Low potassium diet. Recheck potassium. Returned pleural effusion, trapped lung, pneumothorax: Resume follow-up with pulmonology. So far additional surgical duration considered, but he is found to be high risk to be a candidate. Revisit discussion on follow-up. Likely severe pulmonary hypertension, Moderate aortic stenosis, Mild to moderate mitral tricuspid regurgitation, CAD Attestations Medical Necessity Statement*: Admission of over 2 midnights is anticipated for assessment management of difficult to control atrial fibrillation, CHF exacerbation, and gentleman with underlying recurrent pleural effusion, trapped lung with persistent pneumothorax, likely severe pulmonary hypertension, valvular heart disease. Coding Level of Care Code Acute Psychology Physician for g Fwd Exam Comprehensive Diagnoses Atrial fibrillation with rapid ventricular response I48.91 CHF exacerbation I50.9 Weakness R53.1
[2022-07-17] MEDS: calcium gluconate 0.9% NaCL 1 GM/50 ML PREMIX IV (22:29)
[2022-07-17] MEDS: insulin regular-human 100 units/1 mL 10 UNIT IVP (22:32)
[2022-07-17 22:54] LABS: SARS Covid-2 Antigen negative (Negative)
[2022-07-17 23:01] LABS: Troponin 5 2HR 74.49 ng/L (0-15)
[2022-07-17 23:07] LABS: Troponin 5 2HR Delta -8.51 ABS# (0-10)
[2022-07-17 23:14] LABS: Glucose Point of Care 122 mg/dL (70-110)
[2022-07-17 23:28] LABS: Glucose Point of Care 97 mg/dL (70-110)
--- NOTE | 2022-07-17 23:47 | PC.NURSE ---
Patient received from ED via wheelchair. Patient able to ambulate with minimal assistance. Patient is AAOx4. Discussed plan for the night. Patient verbalized complete understanding.
[2022-07-17 23:49] VITALS: BP 112/49; PULSE 91; RESP 28; BMI 16.0
[2022-07-18] VITALS (13 sets, daily range): BP systolic 85–129; BP diastolic 48–70; PULSE 82–138; RESP 16–26; TEMP 36.4–36.8; O2SAT 91–100
[2022-07-18 00:19] LABS: Magnesium 2.7 mg/dL (1.7-2.3)
--- NOTE | 2022-07-18 01:05 | PC.NURSE ---
Paatient HR decreasing 70s to low 100s. Informed Dr Harper and received instruction to hold digoxin at this time until patient has heart rate sustained greater than 110s. Will continue to monitor.
--- NOTE | 2022-07-18 02:51 | ECG_ITS ---
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 Measurements Intervals [place] Rate: 97 P: [place]: QRS: 85 QRSD: 84 T: 89 QT: 335 QTc: 426 Interpretive Statements ATRIAL FIBRILLATION NONSPECIFIC ST & T-WAVE ABNORMALITY ABNORMAL RHYTHM ECG Compared to ECG 07/17/2022 20:59:11 Atrial flutter no longer present T-wave abnormality still present Electronically Signed On 07-18-2022 9:12:50 CDT by Diann Tavarez M.D. [id number]
[2022-07-18 03:11] LABS: Basophils % 0.1 %; Eosinophils % 0.3 %; Hematocrit 29.6 % (42.0-52.0); Hemoglobin 9.3 g/dL (11.7-16.6); Lymphocytes # 0.4 10^3/uL (0.8-4.8); Lymphocytes % 5.6 %; Mean Corpuscular HGB Conc 31.4 g/dL (30.0-36.0); Mean Corpuscular Hemoglobin 32.1 pg (28.0-34.0); Mean Corpuscular Volume 102.1 fl (80-94); Mean Platelet Volume 8.9 fL (7.4-10.4); Monocytes # 1.1 10^3/uL (0.2-0.9); Neutrophils # 6.31 10^3/uL (1.8-7.7); Neutrophils % 79.6 %; Nucleated Red Blood Cells % 0.3 %; Platelet Count 357 10^3/cmm (130-400); Red Cell Distribution Width 13.5 % (12.1-15.1); White Blood Count 7.9 10^3/uL (4.0-10.0)
[2022-07-18] MEDS: FUROsemide 10 mg/mL SDV 10mL 60 MG IVP (03:11)
[2022-07-18] MEDS: digoxin 250 mcg/ml INJ 2 mL 125 MCG IVP (03:11)
[2022-07-18 03:15] LABS: Troponin 5 6HR 84.15 ng/L (0-15)
[2022-07-18 03:27] LABS: Anion Gap 15.9 (5-19); Blood Urea Nitrogen 52 mg/dL (8-23); Calcium 8.9 mg/dL (8.5-10.5); Carbon Dioxide 23 mmol/L (22-29); Chloride 98 mmol/L (98-107); Glucose 78 mg/dL (65-115); Osmolality Calculated 287 mOsm/kg (285-295); Potassium 4.9 mmol/L (3.5-5.1); Sodium 132 mmol/L (136-145)
[2022-07-18 03:33] LABS: Troponin 5 6HR Delta 1.15 ng/L (0-12)
[2022-07-18] MEDS: rivaroxaban 10 mg Tablet 20 MG PO (09:35)
[2022-07-18] MEDS: atorvastatin 40 mg Tablet 80 MG PO (09:35)
--- NOTE | 2022-07-18 11:11 | PC.CHAP ---
Pastoral Care Encounter/Spiritual Assessment Type of Contact [] Declined health education teacher visit [] Patient/Family/Request visit [] Outpatient visit [] Follow-up visit [] Physician referral [] Code/Alert [x] Routine visit [] Staff referral [] Actively dying [] Patient sleeping [] Family support [] [] Out of room [] Palliative care [] [x] Receiving care in room [] Pre-surgical visit [] Trauma [] Long length of stay [] ICU visit [] Other: Relational/Emotional Strength [x] Patient feels connected with others/family/visitors/staff [] Distress [] Loneliness/isolation [] Abandonment Spirituality of Patient [x] Person of Tomasa [] Attends Faith of their Tomasa [x] Believes in Prayer [] Reads Bible or Taoism materials [] There are Spiritual issues to be addressed Senior Applications Developer Interventions [x] Prayer [] Active listening [] Non-anxious presence [] Spiritual/emotional support [] Crisis/trauma care [] Spiritual counseling [] Bereavement support [] Provided bereavement packet [] Provided Bible/devotional materials [] Provided toy/stuffed animal, coloring book to patient or family member [] Provided Communion [] Anointing/[place] [] Salvation [x] Completed spiritual assessment [] Other: Impact on Illness or Injury [] Angry [] Fearful [] Anxious [] Often cries [] Exhaustion [] Unable to work [] Unable to attend quaker [] Unable to walk/stand [] Unable to read [] Unable to drive [] Unable to eat/drink [] Unable to sleep [] Unable to be with family [] Patient intubated [] Other: Summary Time spent with patient 10 min
--- NOTE | 2022-07-18 11:46 | PM.PN ---
Subjective Subjective: Seen this morning. Patient states he is not interested in CPR but would like to talk to his daughter before deciding regarding mechanical ventilation. He says he does feel a little bit better compared to before. Blood pressure 89/48. Vitals/I&O/Wt Last Vital Signs Temp 97.7 F 07/18/22 11:42 Pulse 96 07/18/22 11:42 Resp 17 07/18/22 11:42 BP 89/48 07/18/22 11:42 Pulse Ox 98 07/18/22 11:42 O2 Del Method 07/18/22 11:42 07/17/22 07/18/22 07/18/22 22:59 06:59 14:59 Intake Total 390 / 390 240 / 240 Output Total 950 / 950 Balance -560 / -560 240 / 240 Weight last 48 hrs Weight 63.639 kg Weight 46.266 kg Weight 46.266 kg Physical Exam Narrative: Very frail small frame bony appearing male, cachectic. Const: COMMON NORMALS: patient oriented x3 and alert GENERAL APPEARANCE: cooperative ORIENTATION/CONSCIOUSNESS: Yes awake HENMT: COMMON NORMALS: oropharynx normal Neck/C-Spine: COMMON NORMALS: no JVD Resp: AUSCULTATION: diminished lung sounds on the right in the lower lung santoro Cardio: COMMON NORMALS: no JVD, regular rhythm, S1 normal heart sound present, S2 normal heart sound present and No murmurs present (Cardio) RHYTHM: regular rhythm HEART SOUNDS: S1 normal heart sound present and S2 normal heart sound present GI: COMMON NORMALS: Normal to inspection, nondistended, normoactive bowel sounds present, Soft to palpation and non-tender PALPATION: Yes Soft to palpation Extremity: COMMON NORMALS: no joint enlargement and no pedal edema GENERAL: Yes edema (2+ LE and hands,) Neuro: COMMON NORMALS: patient oriented x3 and moves all extremities SENSORIUM/ORIENTATION: Yes alert Skin: COMMON NORMALS: no rashes or lesions noted GENERAL SKIN EXAM: no rashes or lesions noted Data : 07/18/22 01:59 07/18/22 01:59 A&P Assessment and plan (1) Atrial fibrillation with rapid ventricular response: He received additional dose of metoprolol. Monitor heart rate. In case not improving, consider additional dose. Resume p.o. metoprolol. Check magnesium. Monitor on telemetry. Continue Xarelto. (2) CHF exacerbation: Acute diastolic CHF exacerbation. Easy fatigability. Extremity edema. Elevated BNP. Complete troponin EKG series. So far does not appear to be having acute ischemia. Has not taken his Lasix as he reported at admission. Continue Lasix, monitor I&O. He does not currently appear to have any indications of infectious process/pneumonia, but continue to monitor for any changes in symptoms. (3) Weakness: Generalized weakness, with physical deconditioning. Exertional intolerance. A. fib with RVR as above. Treat CHF. PT assessment. Likely may benefit from rehabilitation. Plan Hyperkalemia: Hold spironolactone. Low potassium diet. Recheck potassium. Recheck BMP Returned pleural effusion, trapped lung, pneumothorax: Resume follow-up with pulmonology. So far additional surgical duration considered, but he is found to be high risk to be a candidate. Revisit discussion on follow-up. Likely severe pulmonary hypertension, Moderate aortic stenosis, Mild to moderate mitral tricuspid regurgitation, CAD Meeting with patient and family today regarding goals of care. Attestations Medical Necessity Statement*: Admission of over 2 midnights is anticipated for assessment management of difficult to control atrial fibrillation, CHF exacerbation, and gentleman with underlying recurrent pleural effusion, trapped lung with persistent pneumothorax, likely severe pulmonary hypertension, valvular heart disease. Coding Level of Care Code Acute Construction Operations Manager for Chg Fwd Diagnoses Atrial fibrillation with rapid ventricular response I48.91 CHF exacerbation I50.9 Weakness R53.1
[2022-07-18 13:21] LABS: Blood Urea Nitrogen 53 mg/dL (8-23); Calcium 8.6 mg/dL (8.5-10.5); Carbon Dioxide 20 mmol/L (22-29); Chloride 95 mmol/L (98-107); Creatinine Clr Calc Pharmacy 35.5724; Glucose 98 mg/dL (65-115); Osmolality Calculated 288 mOsm/kg (285-295); Sodium 132 mmol/L (136-145)
[2022-07-18 13:23] LABS: Anion Gap 21.9 (5-19); Potassium 4.9 mmol/L (3.5-5.1)
--- NOTE | 2022-07-18 13:48 | USCV_ITS ---
Rogelio Taylor Age: 82 Gender: M : 1940 Exam Date: 07/18/2022 14:04 Ordering Phys: Bere Villanueva MD Technologist: Exam [place] [facility] [place]: chf BP: 111 / 51 HR: 91 Rhythm: Sinus Technical Quality: Good MEASUREMENTS (Male / Female) Normal Values 2D ECHO LV Diastolic Diameter PLAX 3.0 cm 4.2 - 5.9 / 3.9 - 5.3 cm LV Systolic Diameter PLAX 2.1 cm IVS Diastolic Thickness 1.0 cm 0.6 - 1.0 / 0.6 - 0.9 cm IVS Systolic Thickness 1.3 cm LVPW Diastolic Thickness 1.3 cm 0.6 - 1.0 / 0.6 - 0.9 cm LVPW Systolic Thickness 1.4 cm LV Ejection Fraction 2D Teich 62.2 % LV Ejection Fraction MOD 2C 65.8 % LV Ejection Fraction 2C AL 67.8 % LA Diameter 4.0 cm M-MODE Aortic Annulus Diameter 2.5 cm LA Ao Ratio MM 1.6 MV E Point Septal Separation 1.0 cm FINDINGS Left Ventricle Normal left ventricular cavity size. Moderate left ventricular hypertrophy. No regional wall motion abnormalities. Normal left ventricular systolic function. Left ventricular ejection fraction is estimated at 60 %. This is a limited 2D examination only. No M-mode or Doppler examination. Diastolic G not evaluated. Right Ventricle Normal right ventricular size and systolic function. Right Atrium Moderately increased right atrial size. Left Atrium Moderately increased left atrial size. Mitral Valve Structurally normal mitral valve. Aortic Valve Structurally normal trileaflet aortic valve. Moderate aortic valve calcification. Calculations for aortic stenosis were not performed. The valve is moderately calcified and looks to be moderately stenosed by visual inspection. Tricuspid Valve Structurally normal tricuspid valve. Pulmonic Valve Pulmonic valve not well visualized. Pericardium Normal pericardium without effusion. Aorta Normal ascending aorta dimension. IVC Inferior vena cava not visualized. CONCLUSIONS Normal left ventricular cavity size. Moderate left ventricular hypertrophy. No regional wall motion abnormalities. Normal left ventricular systolic function. Left ventricular ejection fraction is estimated at 60 %. This is a limited 2D examination only. No M-mode or Doppler examination. Diastolic G not evaluated. Moderately increased right atrial size. Moderately increased left atrial size. Structurally normal trileaflet aortic valve. Moderate aortic valve calcification. Calculations for aortic stenosis were not performed. The valve is moderately calcified and looks to be moderately stenosed by visual inspection. When compared to the previous study done 03/04/2022, the left ventricular function is unchanged. Pulmonary artery pressure was not measured on this study. Visually, the aortic valve looks about the same. Dr. Venu Cristobal MD (Electronically Signed) Final Date: 18 July 2022 15:33 S
[2022-07-18] MEDS: sodium chloride 0.9% 250 ML IV ×2 (15:00→16:27)
--- NOTE | 2022-07-18 16:04 | PC.NURSE ---
pt got up to chair.hr increased to 130's.bp 97/54
[2022-07-19] VITALS (11 sets, daily range): BP systolic 105–138; BP diastolic 50–75; PULSE 64–118; RESP 16–29; TEMP 36.4–36.7; O2SAT 92–100
[2022-07-19 04:44] LABS: Basophils % 0.3 %; Eosinophils # 0.3 10^3/uL (0.0-0.8); Eosinophils % 3.5 %; Hematocrit 31.4 % (42.0-52.0); Hemoglobin 10.2 g/dL (11.7-16.6); Lymphocytes # 0.5 10^3/uL (0.8-4.8); Lymphocytes % 6.7 %; Mean Corpuscular HGB Conc 32.5 g/dL (30.0-36.0); Mean Corpuscular Hemoglobin 32.8 pg (28.0-34.0); Mean Platelet Volume 8.6 fL (7.4-10.4); Monocytes # 0.7 10^3/uL (0.2-0.9); Monocytes % 9.5 %; Neutrophils % 79.3 %; Nucleated Red Blood Cells % 0 %; Platelet Count 383 10^3/cmm (130-400); Red Blood Count 3.11 10^6/uL (4.1-5.3); Red Cell Distribution Width 13.6 % (12.1-15.1); White Blood Count 7.4 10^3/uL (4.0-10.0)
[2022-07-19 05:13] LABS: Anion Gap 12.5 (5-19); Blood Urea Nitrogen 59 mg/dL (8-23); Calcium 8.5 mg/dL (8.5-10.5); Carbon Dioxide 25 mmol/L (22-29); Chloride 98 mmol/L (98-107); Glucose 132 mg/dL (65-115); Osmolality Calculated 290 mOsm/kg (285-295); Potassium 4.5 mmol/L (3.5-5.1); Sodium 131 mmol/L (136-145)
--- NOTE | 2022-07-19 08:42 | P.PN_ITS ---
Subjective Subjective: Seen this morning. Patient feels a lot better compared to before. He states he feels he is close to his baseline. He still has exertional dyspnea which is also his baseline. I discussed with him regarding gentle IV diuresis with 20 of Lasix twice daily and he is in agreement at this time. Barron puckett present at bedside. All questions answered. Vitals/I&O/Wt Last Vital Signs Temp 97.7 F 07/19/22 08:00 Pulse 102 H 07/19/22 08:00 Resp 17 07/19/22 08:00 BP 136/75 07/19/22 08:00 Pulse Ox 98 07/19/22 08:00 O2 Del Method 07/19/22 08:00 07/18/22 07/19/22 07/19/22 22:59 06:59 14:59 Intake Total 740 / 1220 400 / 1620 Output Total 225 / 225 200 / 425 350 / 350 Balance 515 / 995 200 / 1195 -350 / -350 Weight last 48 hrs Weight 62.596 kg Weight 63.639 kg Weight 46.266 kg Weight 46.266 kg Physical Exam Narrative: Very frail small frame bony appearing male, cachectic. Const: COMMON NORMALS: patient oriented x3 and alert GENERAL APPEARANCE: cooperative ORIENTATION/CONSCIOUSNESS: Yes awake HENMT: COMMON NORMALS: oropharynx normal Neck/C-Spine: COMMON NORMALS: no JVD Resp: AUSCULTATION: diminished lung sounds on the right in the lower lung santoro Cardio: COMMON NORMALS: no JVD, regular rhythm, S1 normal heart sound present, S2 normal heart sound present and No murmurs present (Cardio) RHYTHM: regular rhythm HEART SOUNDS: S1 normal heart sound present and S2 normal heart sound present GI: COMMON NORMALS: Normal to inspection, nondistended, normoactive bowel sounds present, Soft to palpation and non-tender PALPATION: Yes Soft to palpation Extremity: COMMON NORMALS: no joint enlargement and no pedal edema GENERAL: Yes edema (2+ LE and hands, mild improvement compared to before.) Neuro: COMMON NORMALS: patient oriented x3 and moves all extremities SENSORIUM/ORIENTATION: Yes alert Skin: COMMON NORMALS: no rashes or lesions noted GENERAL SKIN EXAM: no ra shes or lesions noted Data : 07/19/22 04:35 07/19/22 04:35 A&P Assessment and plan (1) Atrial fibrillation with rapid ventricular response: Resume oral metoprolol 50 twice daily today. Continue Xarelto. (2) CHF exacerbation: Acute diastolic CHF exacerbation. Easy fatigability. Extremity edema. Elevated BNP. Complete troponin EKG series. So far does not appear to be having acute ischemia. Has not taken his Lasix as he reported at admission. Held Lasix yesterday as patient was appearing dehydrated and pressures were soft. He received 250 normal saline bolus x2. Discussed with cardiology and lmonology. Will continue patient on Lasix 20 IV twice daily for now and titrate up as needed. Avoid over diuresis due to history of aortic stenosis. He does not currently appear to have any indications of infectious process/pneumonia, but continue to monitor for any changes in symptoms. (3) Weakness: Generalized weakness with physical deconditioning. Exertional intolerance present. This is baseline. Patient and family interested to go to a custodial. Plan Hyperkalemia: Hold spironolactone. Low potassium diet. Potassium is okay at 4.5. Returned pleural effusion, trapped lung, pneumothorax: Resume follow-up with pulmonology. So far additional surgical duration considered, but he is found to be high risk to be a candidate. Discussed with Dr. Melendrez over the phone yesterday. Patient is high risk for VATS at this time. Dr. Melendrez has also discussed with Dr. Page. Due to patient's history of CABG and other comorbid condition he is high risk for such a procedure. Likely severe pulmonary hypertension, Moderate aortic stenosis, Mild to moderate mitral tricuspid regurgitation, CAD Had a detailed discussion with patient and his family. His and both daughters were present bedside. Patient would like to be a DNR DNI. Family also in agreement. They are interested in [facility]. Case management working on obtaining placement. Ultimate plan to go to custodial once spot available. Today's plan: Lasix 20 IV twice daily Continue to monitor blood pressure closely Continue metoprolol 50 twice daily At discharge his home diuretic regimen may need to be adjusted. Continue to monitor patient Case management working on placement DNR/DNI Attestations Medical Necessity Statement*: Continue to diurese patient today. Case management working on placement. Coding Level of Care Code Acute Soil Science Technical Officer for [employer] Fwd Diagnoses Atrial fibrillation with rapid ventricular response I48.91 CHF exacerbation I50.9 Weakness R53.1
[2022-07-19] MEDS: metoprolol tartrate 50 mg Tablet PO (09:01)
[2022-07-19] MEDS: rivaroxaban 10 mg Tablet 20 MG PO (09:01)
[2022-07-19] MEDS: atorvastatin 40 mg Tablet 80 MG PO (09:01)
[2022-07-19] MEDS: FUROsemide 10 mg/mL SDV 2mL 20 MG IVP (16:12)
[2022-07-20] VITALS (10 sets, daily range): BP systolic 106–118; BP diastolic 44–68; PULSE 65–86; RESP 16–24; TEMP 36.4–36.8; O2SAT 95–100
[2022-07-20 05:28] LABS: Anion Gap 14.1 (5-19); Blood Urea Nitrogen 53 mg/dL (8-23); Calcium 7.9 mg/dL (8.5-10.5); Carbon Dioxide 22 mmol/L (22-29); Chloride 99 mmol/L (98-107); Glucose 95 mg/dL (65-115); Osmolality Calculated 286 mOsm/kg (285-295); Potassium 4.1 mmol/L (3.5-5.1); Sodium 131 mmol/L (136-145)
[2022-07-20] MEDS: FUROsemide 10 mg/mL SDV 2mL 20 MG IVP ×2 (05:48→18:16)
[2022-07-20] MEDS: atorvastatin 40 mg Tablet 80 MG PO (07:48)
[2022-07-20] MEDS: rivaroxaban 10 mg Tablet 20 MG PO (07:52)
--- NOTE | 2022-07-20 14:15 | P.PN_ITS ---
Subjective Subjective: Hospital course, labs appreciated. Denies any nausea, vomiting, headache. Had 1 run of 3-second pause yesterday while patient was asymptomatic. Patient able to walk today with his walker without shortness of breath. States did not feel as if he is having tachycardia. Previously he was feeling as if somebody was pounding on his chest when he was of metoprolol. Documented urine output of 1200 cc. Vitals/I&O/Wt Last Vital Signs Temp 98.1 F 07/20/22 11:50 Pulse 80 07/20/22 11:50 Resp 21 H 07/20/22 11:50 BP 112/62 07/20/22 11:50 Pulse Ox 95 07/20/22 11:50 O2 Del Method 07/20/22 11:50 07/19/22 07/20/22 07/20/22 22:59 06:59 14:59 Intake Total 480 / 702 576 / 576 Output Total 460 / 810 390 / 1200 Balance 20 / -108 -390 / -498 576 / 576 Weight last 48 hrs Weight 61.779 kg Weight 62.596 kg Physical Exam Narrative: Very frail small frame bony appearing male, cachectic. Const: COMMON NORMALS: patient oriented x3 and alert GENERAL APPEARANCE: cooperative ORIENTATION/CONSCIOUSNESS: Yes awake HENMT: COMMON NORMALS: oropharynx normal Neck/C-Spine: COMMON NORMALS: no JVD Resp: COMMON NORMALS: normal respiratory effort and clear to auscultation bilaterally AUSCULTATION: clear to auscultation bilaterally and diminished lung sounds on the right in the lower lung santoro Cardio: COMMON NORMALS: no JVD, regular rhythm, S1 normal heart sound present, S2 normal heart sound present and No murmurs present (Cardio) RHYTHM: regular rhythm HEART SOUNDS: S1 normal heart sound present and S2 normal heart sound present GI: COMMON NORMALS: Normal to inspection, nondistended, normoactive bowel sounds present, Soft to palpation and non-tender PALPATION: Yes Soft to palpation Extremity: COMMON NORMALS: no joint enlargement and no pedal edema GENERAL: Yes edema (2+ LE and hands, mild improvement compared to before.) Neuro: COMMON NORMALS: patient oriented x3 and moves all extremities SENSORIUM/ORIENTATION: Yes alert Skin: COMMON NORMALS: no rashes or lesions noted GENERAL SKIN EXAM: no rashes or lesions noted Data : 07/19/22 04:35 07/20/22 04:28 A&P Assessment and plan (1) Atrial fibrillation with rapid ventricular response: Patient had 1 bradycardia with slight pause. Metoprolol stopped yesterday. Restart at 25 mg twice daily. We will continue to monitor on telemetry. Continue with home dose of Xarelto for anticoagulation. (2) CHF exacerbation: Acute diastolic CHF exacerbation. With moderate aortic stenosis. Echocardiogram done on 07/18 shows an EF of 60%, moderately increased LA and RA size, moderate aortic valve calcification with possibly moderately stenosed aortic valve. Continue with gentle diuresis with 20 mg of IV twice daily. We will switch over to oral 20 mg twice daily from tomorrow. Continue with fluid restriction up to 1200 cc. Also has pleural effusion. 1800 cc of bloody fluid evacuated on previous admission. Has trapped lung pathology. Not a good candidate for VATS as per pulmonology. Patient is on room air. Continue with incentive spirometry. (3) Weakness: Generalized weakness with physical deconditioning. Exertional intolerance prese nt. This is baseline. Patient and family interested to go to a senior care. Plan Hyperkalemia: Hold spironolactone. Low potassium diet. Potassium is okay at 4.5. Returned pleural effusion, trapped lung, pneumothorax: Resume follow-up with pulmonology. So far additional surgical duration considered, but he is found to be high risk to be a candidate. Discussed with Dr. Melendrez over the phone yesterday. Patient is high risk for VATS at this time. Dr. Melendrez has also discussed with Dr. Page. Due to patient's history of CABG and other comorbid condition he is high risk for such a procedure. Likely severe pulmonary hypertension, Moderate aortic stenosis, Mild to moderate mitral tricuspid regurgitation, CAD Had a detailed discussion with patient and his family. His and both daughters were present bedside. Patient would like to be a DNR DNI. Family also in agreement. They are interested in [facility]. Case tariq garner working on obtaining placement. Ultimate plan to go to senior care once spot available. Attestations Medical Necessity Statement*: Requires further hospitalization in a patient with trapped lung pathology, recent hemothorax, moderate while safe discharge planning is sought secondary to recurrent admission, frail patient Time Spent in Patient Care: 16 - 35 minutes Coding Level of Care Code Acute Master Machinist for Chg Fwd Diagnoses Atrial fibrillation with rapid ventricular response I48.91 CHF exacerbation I50.9 Weakness R53.1
[2022-07-20] MEDS: magnesium hydroxide 30 mL UDC 15 ML PO (14:55)
[2022-07-20] MEDS: metoprolol tartrate 25 mg Tablet PO (20:46)
[2022-07-21] VITALS (11 sets, daily range): BP systolic 115–138; BP diastolic 47–93; PULSE 61–97; RESP 16–24; TEMP 36.4–36.8; O2SAT 91–97
[2022-07-21] MEDS: FUROsemide 10 mg/mL SDV 2mL 20 MG IVP (06:35)
[2022-07-21] MEDS: metoprolol tartrate 25 mg Tablet PO ×2 (08:33→21:46)
[2022-07-21] MEDS: atorvastatin 40 mg Tablet 80 MG PO (08:33)
[2022-07-21] MEDS: rivaroxaban 10 mg Tablet 20 MG PO (08:33)
--- NOTE | 2022-07-21 13:26 | P.PN_ITS ---
Subjective Subjective: No acute events overnight. Patient has remained hemodynamically stable and afebrile. Seen with family at bedside. She states she has no new complaints. Given lab holiday today. Vitals/I&O/Wt Last Vital Signs Temp 97.5 F L 07/21/22 12:00 Pulse 63 07/21/22 12:00 Resp 16 07/21/22 12:00 BP 121/64 07/21/22 12:00 Pulse Ox 91 07/21/22 12:00 O2 Del Method 07/21/22 12:00 07/20/22 07/21/22 07/21/22 22:59 06:59 14:59 Intake Total 520 / 1096 600 / 600 Output Total 500 / 500 700 / 1200 380 / 380 Balance 20 / 596 -700 / -104 220 / 220 Weight last 48 hrs Weight 48.58 kg Weight 61.779 kg Physical Exam Narrative: Very frail small frame bony appearing male, cachectic. Const: COMMON NORMALS: patient oriented x3 and alert GENERAL APPEARANCE: cooperative ORIENTATION/CONSCIOUSNESS: Yes awake HENMT: COMMON NORMALS: oropharynx normal Neck/C-Spine: COMMON NORMALS: no JVD Resp: COMMON NORMALS: normal respiratory effort and clear to auscultation bilaterally AUSCULTATION: clear to auscultation bilaterally and diminished lung sounds on the right in the lower lung santoro Cardio: COMMON NORMALS: no JVD, regular rhythm, S1 normal heart sound present, S2 normal heart sound present and No murmurs present (Cardio) RHYTHM: regular rhythm HEART SOUNDS: S1 normal heart sound present and S2 normal heart sound present GI: COMMON NORMALS: Normal to inspection, nondistended, normoactive bowel sounds present, Soft to palpation and non-tender PALPATION: Yes Soft to palpation Extremity: COMMON NORMALS: no joint enlargement and no pedal edema GENERAL: Yes edema (2+ LE and hands, mild improvement compared to before.) Neuro: COMMON NORMALS: patient oriented x3 and moves all extremities SENSORIUM/ORIENTATION: Yes alert Skin: COMMON NORMALS: no rashes or lesions noted GENERAL SKIN EXAM: no rashes or lesions noted Data : 07/19/22 04:35 07/20/22 04:28 A&P Assessment and plan (1) Atrial fibrillation with rapid ventricular response: Patient had 1 bradycardia with slight pause. Metoprolol stopped yesterday. Restart at 25 mg twice daily. We will continue to monitor on telemetry. Continue with home dose of Xarelto for anticoagulation. (2) CHF exacerbation: Acute diastolic CHF exacerbation. With moderate aortic stenosis. Echocardiogram done on 07/18 shows an EF of 60%, moderately increased LA and RA size, moderate aortic valve calcification with possibly moderately stenosed aortic valve. Continue with gentle diuresis with 20 mg of IV twice daily. We will switch over to oral 20 mg twice daily from tomorrow. Continue with fluid restriction up to 1200 cc. Also has pleural effusion. 1800 cc of bloody fluid evacuated on previous admission. Has trapped lung pathology. Not a good candidate for VATS as per pulmonolog and cardiology given multiple comorbidities. Patient is on room air. Continue with incentive spirometry. (3) Weakness: Generalized weakness with physical deconditioning. Exertional intolerance present. This is baseline. Patient and family interested to go to a [place] [facility] [place] facility. Plan Hyperkalemia: Hold spironolactone. Low potassium diet. Potassium is okay at 4.5. Returned pleural effusion, trapped lung, pneumothorax: Resume follow-up with pulmonology. So far additional surgical duration considered, but he is found to be high risk to be a candidate. Discussed with Dr. Melendrez over the phone yesterday. Patient is high risk for VATS at this time. Dr. Melendrez has also discussed with Dr. Page. Due to patient's history of CABG and other comorbid condition he is high risk for such a procedure. Likely severe pulmonary hypertension, Moderate aortic stenosis, Mild to moderate mitral tricuspid regurgitation, CAD Given multiple comorbidities and elderly frail gentleman with history of moderate aortic stenosis, congestive heart failure, COPD with a new pathology of trapped lung patient is at a high risk of recurrent admissions. Patient is not a good candidate for definitive treatment with aortic valve replacement and VATS though might be a good candidate for a possible TAVR will consult palliative care for further goals of care discussion. Family and patient is agreeable. Had a detailed discussion with patient and his family. His and both daughters were present bedside. Patient would like to be a DNR DNI. Family also in agreement. They are interested in [facility] [place]note 2]. Case management working on obtaining placement. Ultimate plan [place] go [place] [facility] once spot available. Attestations Medical Necessity Statement*: Requires further hospitalization while safe discharge planning is sought for patient with moderate aortic stenosis, congestive heart failure, COPD with trapped lung in a frail elderly gentleman who is at a high risk of recurrent admissions and respiratory failure Time Spent in Patient Care: 16 - 35 minutes Coding Level of Care Code Acute Construction Analyst for Tommyg Fwd Diagnoses Atrial fibrillation with rapid ventricular response I48.91 CHF exacerbation I50.9 Weakness R53.1
[2022-07-21] MEDS: FUROsemide 20 mg Tablet PO (16:27)
--- NOTE | 2022-07-21 19:28 | PC.NURSE ---
Handoff report given to Wagner Cazares RN
[2022-07-22] VITALS: BP 128/103; PULSE 71; RESP 15; TEMP 36.6; O2SAT 96
[2022-07-22] MEDS: magnesium hydroxide 30 mL UDC 15 ML PO (03:43)
[2022-07-22 04:00] VITALS: BP 155/91; PULSE 55; RESP 15; TEMP 37.1; O2SAT 97
[2022-07-22 05:23] LABS: Alanine Aminotransferase 27 U/L (0-41); Albumin Level 2.5 g/dL (3.5-5.2); Alkaline Phosphatase 144 U/L (40-130); Anion Gap 11.4 (5-19); Aspartate Amino Transferase 36 U/L (0-40); Blood Urea Nitrogen 53 mg/dL (8-23); Calcium 8.2 mg/dL (8.5-10.5); Carbon Dioxide 28 mmol/L (22-29); Chloride 100 mmol/L (98-107); Globulin 3.3 g/dL (1.3-4.6); Glucose 96 mg/dL (65-115); Osmolality Calculated 294 mOsm/kg (285-295); Potassium 4.4 mmol/L (3.5-5.1); Sodium 135 mmol/L (136-145); Total Bilirubin 0.3 mg/dL (0.15-1.2); Total Protein 5.8 g/dL (6.6-8.7)
[2022-07-22 06:00] VITALS: PULSE 62
[2022-07-22 07:52] VITALS: BP 124/60; PULSE 75; RESP 24; TEMP 36.4; O2SAT 100
[2022-07-22] MEDS: FUROsemide 20 mg Tablet PO (08:56)
[2022-07-22] MEDS: atorvastatin 40 mg Tablet 80 MG PO (08:56)
[2022-07-22] MEDS: metoprolol tartrate 25 mg Tablet PO (08:56)
[2022-07-22] MEDS: rivaroxaban 10 mg Tablet 20 MG PO (08:56)
--- NOTE | 2022-07-22 10:04 | PM.DCS ---
Discharge Providers Date of Admission: 07/17/22 21:25 Date of Discharge: July 22, 2022 Attending Provider at Admission: Frank Harepr Attending Provider at Discharge: Cortez Bardales MD Primary Care Provider: Bryant Mendieta MD Diagnoses at Discharge Discharge Diagnosis (1) Atrial fibrillation with rapid ventricular response: Status: Acute (2) CHF exacerbation: Status: Acute (3) Weakness: Status: Acute Reason for Visit Reason for Visit: SOB Brief History: Pleasant 82-year-old gentleman with history of diastolic CHF, likely severe pulmonary hypertension, moderate aortic stenosis, mild to moderate mitral tricuspid regurgitation, atrial fibrillation on anticoagulation with Xarelto, CAD, with recent admission during which had thoracentesis for large right-sided pleural effusion, subsequently with noted trapped lung with persistent air pocket, fluid reaccumulation.? He states he has not been taking his Lasix since discharge.? He has been having persistent generalized weakness, exertional intolerance.? In pulmonology office today noted to have hand and lower extremity edema, was asked to come for evaluation to ER.? Here he is also noted to be in atrial fibrillation with RVR heart rates 130s-140s.? So far he has received metoprolol push 5 mg and additional metoprolol as requested, furosemide 60 mg IV push. He is afebrile, without leukocytosis.? Saturation 94-100%. Baseline troponin 83 which is unchanged from prior.? NT proBNP higher than prior at 11,398.? Creatinine 1.5 which appears to be better than prior. Chest x-ray with similar appearance of right apical pneumothorax.? Bilateral small volume pleural effusions, left pleural effusion appears partially loculated. He tells me consideration has also been given to surgical procedure to break up loculations, however, on assessment he is found to be at elevated risk due to a number of factors including comorbidities including heart disease.? 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 With regards to CODE STATUS, in case of respiratory failure that may be resolved with transient mechanical ventilatory support he would be okay with that.? However, in case of cardiopulmonary arrest he would not want CPR.? Hospital Course Hospital Course Patient was admitted to the hospital for further evaluation and management. On admission he was thought to be in congestive heart failure and atrial fibrillation with rapid ventricular response. He was treated with extra dose of IV metoprolol along with IV diuresis. He responded well to the treatment and has been back to his baseline. His hospital course was complicated by him developing bradycardia for which her dose of metoprolol has been adjusted. Repeat chest x-ray was done which was consistent with reaccumulation of pleural fluid which is thought to be secondary to trapped lung pathology from recent hemothorax post trauma. Patient if not a good candidate for VATS procedure given his moderate aortic stenosis, chronic frailty, congestive heart failure and COPD. Given multiple admissions, multiple comorbidities safe discharge plan were discussed in detail with the patient and patient's family and they were agreeable for SNF placement. Even further rehabitation. Given all of the above patient was also seen by palliative care. 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 He is to take Lasix 20 mg twice daily, metoprolol 12.5 mg twice daily. Physical Exam Narrative: Very frail small frame bony appearing male, cachectic. Const: COMMON NORMALS: patient oriented x3 and alert GENERAL APPEARANCE: cooperative ORIENTATION/CONSCIOUSNESS: Yes awake HENMT: COMMON NORMALS: oropharynx normal Neck/C-Spine: COMMON NORMALS: no JVD Resp: COMMON NORMALS: normal respiratory effort and clear to auscultation bilaterally AUSCULTATION: clear to auscultation bilaterally and diminished lung sounds on the right in the lower lung santoro Cardio: COMMON NORMALS: no JVD, regular rhythm, S1 normal heart sound present, S2 normal heart sound present and No murmurs present (Cardio) RHYTHM: regular rhythm HEART SOUNDS: S1 normal heart sound present and S2 normal heart sound present GI: COMMON NORMALS: Normal to inspection, nondistended, normoactive bowel sounds present, Soft to palpation and non-tender PALPATION: Yes Soft to palpation Extremity: COMMON NORMALS: no joint enlargement and no pedal edema GENERAL: Yes edema (2+ LE and hands, mild improvement compared to before.) Neuro: COMMON NORMALS: patient oriented x3 and moves all extremities SENSORIUM/ORIENTATION: Yes alert Skin: COMMON NORMALS: no rashes or lesions noted GENERAL SKIN EXAM: no rashes or lesions noted Discharge Data Studies Completed and Pending Completed Studies During Hospitalization Category Date Time Status XR chest 1V portable [id number] Stat Exams 07/17/22 18:54 Completed CV. echo limited [id number] Routine Ultrasound 07/18/22 13:48 Completed Pending at discharge Category Date Time Status SARS Covid-2 Antigen Stat Lab 07/22/22 08:31 Uncollected Radiology Impressions Chest X-Ray 07/17/22 18:54 IMPRESSION: 1. Similar appearance of a right apical pneumothorax. 2. Bilateral small volume pleural effusions the, left pleural effusion appears partially loculated. Limited Echo ?CONCLUSIONS ?Normal left ventricular cavity size. Moderate left ventricular?hypertrophy. No regional wall motion abnormalities. Normal left ?ventricular systolic function. Left ventricular ejection?fraction is estimated at 60 %.? This is a limited 2D examination?only.? No M-mode or Doppler examination.? Diastolic G not?evaluated. ?Moderately increased right atrial size. ?Moderately increased left atrial size. ?Structurally normal trileaflet aortic valve. Moderate aortic?valve calcification.? Calculations for aortic stenosis were not?performed.? The valve is moderately calcified and looks to be?moderately stenosed by visual inspection.?When compared to the previous study done 03/04/2022, the left?ventricular function is unchanged.? Pulmonary artery pressure?was not measured on this study.? Visually, the aortic valve ?looks about the same. ?Dr. Venu Cristobal MD ?(Electronically Signed) ?Final Date:? ? ? 18 July 2022 ? 15:33 Laboratory Results WBC 7.4 10^3/uL (4.0-10.0) 07/19/22 04:35 RBC 3.11 10^6/uL (4.1-5.3) L 07/19/22 04:35 Hgb 10.2 g/dL (11.7-16.6) L 07/19/22 04:35 Hct 31.4 % (42.0-52.0) L 07/19/22 04:35 MCV 101.0 fl (80-94) H 07/19/22 04:35 MCH 32.8 pg (28.0-34.0) 07/19/22 04:35 MCHC 32.5 g/dL (30.0-36.0) 07/19/22 04:35 RDW 13.6 % (12.1-15.1) 07/19/22 04:35 Plt Count 383 10^3/cmm (130-400) 07/19/22 04:35 MPV 8.6 fL (7.4-10.4) 07/19/22 04:35 Neut % (Auto) 79.3 % 07/19/22 04:35 Lymph % (Auto) 6.7 % 07/19/22 04:35 [place] % (Auto) 9.5 % 07/19/22 04:35 Eos % (Auto) 3.5 % 07/19/22 04:35 Baso % (Auto) 0.3 % 07/19/22 04:35 Neut # (Auto) 5.90 10^3/uL (1.8-7.7) 07/19/22 04:35 Lymph # (Auto) 0.5 10^3/uL (0.8-4.8) L 07/19/22 04:35 [place] # (Auto) 0.7 10^3/uL (0.2-0.9) 07/19/22 04:35 Eos # (Auto) 0.3 10^3/uL (0.0-0.8) 07/19/22 04:35 Baso # (Auto) 0.0 10^3/uL (0.0-0.1) 07/19/22 04:35 Nucleated RBC % (auto) 0 % 07/19/22 04:35 Nucleated RBCs # 0.0 /100WBC 07/19/22 04:35 Sodium 135 mmol/L (136-145) L 07/22/22 04:35 Potassium 4.4 mmol/L (3.5-5.1) 07/22/22 04:35 Chloride 100 mmol/L (98-107) 07/22/22 04:35 Carbon Dioxide 28 mmol/L (22-29) 07/22/22 04:35 Anion Gap 11.4 (5-19) 07/22/22 04:35 BUN 53 mg/dL (8-23) H 07/22/22 04:35 Creatinine 1.2 mg/dL (0.7-1.2) 07/22/22 04:35 GFR Calculation Not Reportable 07/22/22 04:35 Glucose 96 mg/dL (65-115) 07/22/22 04:35 POC Glucose 122 mg/dL (70-110) H 07/17/22 23:09 Calculated Osmolality 294 mOsm/kg (285-295) 07/22/22 04:35 Calcium 8.2 mg/dL (8.5-10.5) L 07/22/22 04:35 Magnesium 2.7 mg/dL (1.7-2.3) H 07/17/22 22:35 Total Bilirubin 0.3 mg/dL (0.15-1.2) 07/22/22 04:35 AST 36 U/L (0-40) 07/22/22 04:35 ALT 27 U/L (0-41) 07/22/22 04:35 Alkaline Phosphatase 144 U/L (40-130) H 07/22/22 04:35 Troponin T Baseline 83 ng/L (0-15) H 07/17/22 20:06 Troponin T 120 Minute 74.49 ng/L (0-15) H 07/17/22 22:35 Delta Troponin T -8.51 ABS# (0-10) L 07/17/22 22:35 Troponin T Hi Sens 6Hr 84.15 ng/L (0-15) H 07/18/22 01:59 Troponin T Hi Sens 6Hr Delta 1.15 ng/L (0-12) 07/18/22 01:59 NT-Pro-B Natriuret Pep 97871 pg/mL (0-450) H 07/17/22 20:06 Total Protein 5.8 g/dL (6.6-8.7) L 07/22/22 04:35 Albumin 2.5 g/dL (3.5-5.2) L 07/22/22 04:35 Globulin 3.3 g/dL (1.3-4.6) 07/22/22 04:35 SARS-CoV-2 Ag (Rapid) negative (Negative) 07/17/22 22:35 Vitals Last Vital Signs Temp 97.5 F L 07/22/22 07:52 Pulse 75 07/22/22 07:52 Resp 24 H 07/22/22 07:52 BP 124/60 07/22/22 07:52 Pulse Ox 100 07/22/22 07:52 O2 Del Method 07/22/22 07:52 Discharge Plan Discharge Patient Disposition: Xfer SNF Condition: Stable Prescriptions: New furosemide 20 mg Tablet 20 mg PO BID@08,16 Qty: 60 0RF metoprolol tartrate 25 mg Tablet 25 mg PO BID@0900,2100 Qty: 60 0RF Continued Xarelto 20 mg tablet 20 mg PO DAILY Qty: 90 3RF Rx Instructions: @09:00 rosuvastatin 20 mg tablet 20 mg PO DAILY@09 Qty: 90 3RF albuterol sulfate [ProAir HFA] 90 mcg/actuation Hfa Aerosol Inhaler 2 puff INHALATION Q4H PRN (Reason: Shortness Of Breath) Probiotic 15 billion cell Capsule 1 cap PO DAILY ferrous gluconate 324 mg (37.5 mg iron) Tablet 324 mg PO BIDWM Qty: 60 0RF Discontinued furosemide 40 mg tablet 60 mg PO BID spironolactone 25 mg tablet 25 mg PO BID metoprolol tartrate 50 mg tablet 50 mg PO BID Discharge Orders: Discharge Order (Routine); Ordered 07/22/22 Ordered By: Cortez Bardales Referrals: Mariama Aguero FNP [Nurse Practitioner] - 08/25/22 11:00 am Bryant Mendieta MD [Primary Care Provider] - 07/29/22 8:30 am Discharge Diet: Cardiac Discharge Activity: Resume usual activity and Increase activity as tolerated Patient Instructions: Opioid Safety Activity Restrictions/Additional Instructions: Fluid restriction 1200 cc Discharge Attestations Time Spent in Discharge Care*: greater than 30 min Specific Discharge Activities: educating patient, educating and/or supporting family/caregiver, discussing with transplant case manager/social workers/dc planners, documenting/other paperwork and evaluating patient/reviewing data Status at Discharge: Cognitive status at discharge: cognitively intact, Behavioral status at discharge: cooperative, Functional status at discharge: uses cane/walker, Overall status at discharge: patient is back to baseline Quality Metrics Clinical Quality Measures [ No reported AMI, CVA or VTE this stay] Coding Level of Care Code Acute Chg FW DC note Exam Comprehensive Diagnoses Atrial fibrillation with rapid ventricular response I48.91 CHF exacerbation I50.9 Weakness R53.1
--- NOTE | 2022-07-22 10:21 | PC.CHAP ---
Pastoral Care Encounter/Spiritual Assessment Type of Contact [] Declined shipping supervisor visit [] Patient/Family/Request visit [] Outpatient visit [] Follow-up visit [] Physician referral [] Code/Alert [x] Routine visit [] Staff referral [] Actively dying [] Patient sleeping [] Family support [] [] Out of room [] Palliative care [] [] Receiving care in room [] Pre-surgical visit [] Trauma [] Long length of stay [] ICU visit [] Other: Relational/Emotional Strength x[] Patient feels connected with others/family/visitors/staff [] Distress [] Loneliness/isolation [] Abandonment Spirituality of Patient [x] Person of Tomasa [] Attends Zoroastrian of their Tomasa x[] Believes in Prayer [] Reads Bible or Yarsani materials [] There are Spiritual issues to be addressed Cardiac Cath Lab Technologist Interventions [x] Prayer [x] Active listening [] Non-anxious presence [] Spiritual/emotional support [] Crisis/trauma care [] Spiritual counseling [] Bereavement support [] Provided bereavement packet [] Provided Bible/devotional materials [] Provided toy/stuffed animal, coloring book to patient or family member [] Provided Communion [] Anointing/[place] [] Salvation [x] Completed spiritual assessment [] Other: Impact on Illness or Injury [] Angry [] Fearful [] Anxious [] Often cries [] Exhaustion [] Unable to work [] Unable to attend holiness [] Unable to walk/stand [] Unable to read [] Unable to drive [] Unable to eat/drink [] Unable to sleep [] Unable to be with family [] Patient intubated [] Other: Summary Time spent with patient 10 min
[2022-07-22 10:51] LABS: SARS Covid-2 Antigen negative (Negative)
--- NOTE | 2022-07-22 11:17 | PC.SOCIAL ---
IMM Updated Updated pt on IMM. No questions voiced. Provided pt a copy. Initialed, dated, & timed copy in chart.
[2022-07-22 12:00] VITALS: BP 105/61; PULSE 70; RESP 27; TEMP 36.8; O2SAT 94
--- NOTE | 2022-07-22 14:02 | PC.NURSE ---
discharge instructions/report phoned to matthew at [facility].pt discharged via w/c to exit.[facility] transportation to transport
[2022-07-22 14:04] VITALS: BP 105/61; PULSE 70; RESP 27; TEMP 36.8; O2SAT 94
== END 2022-07-22 14:05 | disposition skilled nursing facility (03) | DRG 291 ==
LOC: ER 21:24 → MEDSURG 22:06
PROVIDERS: Internal Medicine; Admitting Provider Internal Medicine; Emergency Provider Emergency Medicine; PCP Family Medicine; Visit Provider Student in an Organized Health Care Education/Training Program
DX: I11.0 Hypertensive heart disease with heart failure (principal); I50.33 Acute on chronic diastolic (congestive) heart failure; J93.9 Pneumothorax, unspecified; I27.20 Pulmonary hypertension, unspecified; I08.3 Combined rheumatic disorders of mitral, aortic and tricuspid valves; I48.91 Unspecified atrial fibrillation; I25.10 Atherosclerotic heart disease of native coronary artery without angina pectoris; T50.1X6A Underdosing of loop [high-ceiling] diuretics, initial encounter; Z91.128 Patient's intentional underdosing of medication regimen for other reason; N40.0 Benign prostatic hyperplasia without lower urinary tract symptoms; Z86.73 Personal history of transient ischemic attack (TIA), and cerebral infarction without residual deficits; J44.9 Chronic obstructive pulmonary disease, unspecified; E78.5 Hyperlipidemia, unspecified; I73.00 Raynaud's syndrome without gangrene; Z86.718 Personal history of other venous thrombosis and embolism; E87.5 Hyperkalemia; Z79.51 Long term (current) use of inhaled steroids; Z79.01 Long term (current) use of anticoagulants; R00.1 Bradycardia, unspecified
CPT/HCPCS: 36415; 36416; 71045; 80048; 80053; 82962; 83735; 83880; 84484; 85025; 87426; 93005; 93270; 93308; 94640; 96365; 96375; 97110; 97116; 97162; 99205; 99214; 99285; J0610; J1160; J1815; J1940; J3490; J7050; J7611

== ENCOUNTER → 2022-08-01 09:23 | Day surgery (SDC) | payer MEDICARE, SELFPAY ==
[2022-08-01 10:10] LABS: Hematocrit 33.2 % (42.0-52.0); Hemoglobin 10.2 g/dL (11.7-16.6)
--- NOTE | 2022-08-01 10:30 | PC.NURSE ---
Pt to GI infusions for blood transfusion. Hg drawn today and noted at 10.2. Mariela Mendieta notified. Blood transfusion cancelled. Injectafer 750 mg IV given as ordered. Pt tolerated well. Report called to [facility].
[2022-08-01] MEDS: ferric carboxy (IVPB) 750 MG in sodium chloride 0.9% (100 ml) 100 ML 345 MG IV (10:32)
[2022-08-01 11:16] VITALS: RESP 18
== END ==
PROVIDERS: PCP Family Medicine; Visit Provider Physician Assistant
DX: D50.9 Iron deficiency anemia, unspecified (principal)
CPT/HCPCS: 85014; 85018; 96365; J1439

== ENCOUNTER 2022-08-06 12:59 | Emergency (ER) | payer MEDICARE, SELFPAY ==
[2022-08-06 12:57] VITALS: BP 112/48; PULSE 76; RESP 17; O2SAT 97; BMI 17.5
--- NOTE | 2022-08-06 12:57 | ED_ITS ---
HPI - Dizziness General: Chief Complaint: Eye Problems Stated Complaint: Dizziness History of Present Illness: HPI Narrative: Mr. Taylor is an 82-year-old gentleman with complex past medical history including atrial fibrillation on Xarelto, COPD, history of stroke, others presenting to the emergency department due to abnormal neurologic symptoms. He reports onset of symptoms acutely last night primarily noticing blurry and double vision. He reports when closing either eye his vision appeared normal however when both eyes were open he had visual disturbance. Additionally he has felt less steady and off balance. No associated headache or other focal neur ologic deficits appreciated by the patient. Intensity symptoms is moderate. Course is improved and he feels almost back to normal. No other specific changes in health, exacerbating, or alleviating factors identified. Onset (ago): hour(s) Severity: moderate Description: off-balance, difficulty walking and other Exacerbating factors: movement/ambulation Relieving factors: nothing Associated symptoms: Reports other Review of Systems General: Reports: 10 or more systems reviewed and unremarkable except in HPI and below PFSH ED PFSH: Medical History (Updated 08/18/22 @ 20:01 by Tho Kelley DO) Atrial fibrillation BPH (benign prostatic hyperplasia) Cerebellar stroke Chronic kidney disease, stage III (moderate) Congestive heart failure COPD (chronic obstructive pulmonary disease) Coronary artery disease Dyslipidemia Heart failure with preserved ejection fraction Heart failure with reduced ejection fraction Hypertension Lymphoma Medication induced coagulopathy Pulmonary hypertension Raynauds phenomenon Thrombus of left atrial appendage Surgical History H/O hernia repair Hx of CABG Hx of tonsillectomy Family History Mother Cancer Leukemia Father CAD (coronary artery disease) Diabetes Social History (Updated 08/12/22 @ 21:08 by Tho Kelley DO) Smoking and tobacco status: never smoked Alcohol intake: never Lives independently: Yes Household members: none Housing: House Number of children: 2 Current occupational status: previously employed Physical Exam Const: COMMON NORMALS: patient oriented x3 and alert GENERAL APPEARANCE: cooperative and well developed HENMT: COMMON NORMALS: normocephalic and atraumatic HEAD & SCALP: normocephalic and atraumatic Eye: COMMON NORMALS: Equal, round and reactive pupils present, EOMs intact bilaterally, conjunctivae normal and normal visual santoro by confrontation CO NJUNCTIVA: Yes conjunctivae normal SCLERA: sclerae normal PUPIL: Yes Equal, round and reactive pupils present Neck/C-Spine: COMMON NORMALS: supple GENERAL: Yes trachea midline Resp: COMMON NORMALS: normal respiratory effort EFFORT & INSPECTION: Yes able to speak in complete sentences Cardio: COMMON NORMALS: regular rate and regular rhythm RATE: regular rate RHYTHM: regular rhythm GI: COMMON NORMALS: Soft to palpation PALPATION: Yes Soft to palpation and No Tenderness to palpation present (GI) PERCUSSION: normal to percussion Extremity: GENERAL: Yes normal exam except as noted and No edema Neuro: COMMON NORMALS: patient oriented x3, CN's II-XII intact bilaterally, moves all extremities, no focal motor deficits and no sensory deficits noted SENSORIUM/ORIENTATION: Yes alert and No Orientation impaired Psych: COMMON NORMALS: mental status grossly normal and Normal thought process present THOUGHT PROCESS: Normal thought process present Course Vital Signs: Vital signs: Vital Signs Pulse Rate 78 08/06/22 16:30 Respiratory Rate 17 08/06/22 12:57 Blood Pressure 118/63 08/06/22 16:30 Pulse Oximetry 100 08/06/22 16:30 Oxygen Delivery Me thod 08/06/22 16:30 MDM - Dizziness Medical Decision Making 82 gentleman presenting with normal symptoms NIHSS of 0 on my exam per patient not a tPA candidate. Laboratory studies with no leukocytosis, mild macrocytic anemia. No significant metabolic abnormalities to explain symptoms. CT head negative for acute intracranial hemorrhage or mass. Patient improved with fluids and meclizine with near complete resolution of symptoms. Patient was able to ambulate with steady gait. Most likely etiology of patient symptoms is unclear. I discussed possible disposition options. Patient is comfortable with discharge and outpatient follow-up. We will modify the medication regimen for strep prevention. The results of ED evaluation were discussed with the patient including prescriptions and/or symptomatic cares (if applicable) including appropriate and responsible use, followup plan, and return precautions. The patient verbalized understanding and felt safe for discharge. Medical Records I reviewed the patient's medical records. Lab Data I reviewed the patient's lab results. 08/06/22 12:42 08/06/22 12:[address] 08/06/22 13:08 IMPRESSION: 1. No evidence of intracranial hemorrhage or mass effect. 2. Moderate small vessel changes with moderate parenchymal volume loss. 3. No acute intracranial findings. Laboratory Results WBC 9.1 10^3/uL (4.0-10.0) 08/06/22 12:42 RBC 3.53 10^6/uL (4.1-5.3) L 08/06/22 12:42 Hgb 11.3 g/dL (11.7-16.6) L 08/06/22 12:42 Hct 36.7 % (42.0-52.0) L 08/06/22 12:42 MCV 104.0 fl (80-94) H 08/06/22 12:42 MCH 32.0 pg (28.0-34.0) 08/06/22 12:42 MCHC 30.8 g/dL (30.0-36.0) 08/06/22 12:42 RDW 17.3 % (12.1-15.1) H 08/06/22 12:42 Plt Count 325 10^3/cmm (130-400) 08/06/22 12:42 MPV 9.4 fL (7.4-10.4) 08/06/22 12:42 Neut % (Auto) 77.6 % 08/06/22 12:42 Lymph % (Auto) 7.0 % 08/06/22 12:42 [place] % (Auto) 13.6 % 08/06/22 12:42 Eos % (Auto) 0.7 % 08/06/22 12:42 Baso % (Auto) 0.4 % 08/06/22 12:42 Neut # (Auto) 7.06 10^3/uL (1.8-7.7) 08/06/22 12:42 Lymph # (Auto) 0.6 10^3/uL (0.8-4.8) L 08/06/22 12:42 [place] # (Auto) 1.2 10^3/uL (0.2-0.9) H 08/06/22 12:42 Eos # (Auto) 0.1 10^3/uL (0.0-0.8) 08/06/22 12:42 Baso # (Auto) 0.0 10^3/uL (0.0-0.1) 08/06/22 12:42 Nucleated RBC % (auto) 0.3 % 08/06/22 12:42 Nucleated RBCs # 0.0 /100WBC 08/06/22 12:42 Sodium 137 mmol/L (136-145) 08/06/22 12:42 Potassium 4.6 mmol/L (3.5-5.1) 08/06/22 12:42 Chloride 97 mmol/L (98-107) L 08/06/22 12:42 Carbon Dioxide 32 mmol/L (22-29) H 08/06/22 12:42 Anion Gap 12.6 (5-19) 08/06/22 12:42 BUN 32 mg/dL (8-23) H 08/06/22 12:42 Creatinine 1.0 mg/dL (0.7-1.2) 08/06/22 12:42 GFR Calculation Not Reportable 08/06/22 12:42 Glucose 150 mg/dL (65-115) H 08/06/22 12:42 Calculated Osmolality 294 mOsm/kg (285-295) 08/06/22 12:42 Calcium 8.4 mg/dL (8.5-10.5) L 08/06/22 12:42 Total Bilirubin 0.3 mg/dL (0.15-1.2) 08/06/22 12:42 AST 48 U/L (0-40) H 08/06/22 12:42 ALT 25 U/L (0-41) 08/06/22 12:42 Alkaline Phosphatase 174 U/L (40-130) H 08/06/22 12:42 Total Protein 7.0 g/dL (6.6-8.7) 08/06/22 12:42 Albumin 3.0 g/dL (3.5-5.2) L 08/06/22 12:42 Globulin 4.0 g/dL (1.3-4.6) 08/06/22 12:42 TSH 4.99 uIU/mL (0.27-4.20) H 08/06/22 12:42 Free T4 1.01 ng/dL (0.82-1.77) 08/06/22 12:42 Discharge Plan Discharge Patient Disposition: Home Clinical Impression: Brain TIA Condition: Stable Prescriptions: New aspirin 81 mg tablet,delayed release (DR/EC) 81 mg PO DAILY Qty: 21 0RF rosuvastatin [Crestor] 40 mg tablet 40 mg PO DAILY Qty: 30 2RF Discontinued rosuvastatin 10 mg tablet 10 mg PO DAILY@09 Qty: 90 3RF No Action Xarelto 15 mg tablet 15 mg PO DAILY Qty: 90 3RF Rx Instructions: @09:00 albuterol sulfate [ProAir HFA] 90 mcg/actuation Hfa Aerosol Inhaler 2 puff INHALATION Q4H PRN (Reason: Shortness Of Breath) metoprolol tartrate 25 mg Tablet 25 mg PO BID@0900,2100 Qty: 60 0RF Probiotic 15 billion cell Capsule 1 cap PO DAILY ferrous gluconate 324 mg (37.5 mg iron) Tablet 324 mg PO BIDWM Qty: 60 0RF Discharge Orders: Discharge ED (Routine); Ordered 08/06/22 Ordered By: Tony Clay Referrals: Bryant Mendieta MD [Primary Care Provider] - Discharge Diet: Usual diet Discharge Activity: Increase activity as tolerated Patient Instructions: Transient Ischemic Attack (ED) Activity Restrictions/Additional Instructions: Thank you for visiting the emergency department. You were seen evaluated for visual disturbance and balance problem which has resolved. The exact cause of the symptoms is unclear though may be related to TIA. I will add aspirin for 3 weeks and increase your dose of rosuvastatin. I will also message case management for follow-up with neurology. Please follow-up with your primary care provider. Return to the emergency department for uncontrolled symptoms, any new neurologic symptoms, or anything else that you are concerned about and feel needs emergency department evaluation. Coding Level of Care Code ED Extra Gang Supervisor for Pelon Kay Exam Comprehensive
--- NOTE | 2022-08-06 13:08 | CT_ITS ---
WS: [id number] CT HEAD TECHNIQUE: Noncontrast CT of the head obtained from the skullbase to the vertex. CLINICAL INFORMATION: double vision, gait disturbance COMPARISON: CT September 20, 2020 DLP: 1088.[address] scans at [facility] use at least one of these dose optimization techniques: automated e xposure control; mA and/or kV adjustment per patient size (includes targeted exams where dose is matc hed to clinical indication); or iterative reconstruction. FINDINGS: No evidence of intracranial hemorrhage or mass effect. Ventricular system and basal cisterns are sandoval nt. Moderate small vessel changes with moderate parenchymal volume loss. No extra-axial fluid collect ions. No evidence of mass or mass effect. Paranasal sinuses and mastoid air cells are well aerated. .Normal visualized soft tissues. CT/CT head wo con* [id number] IMPRESSION: 1. No evidence of intracranial hemorrhage or mass effect. 2. Moderate small vessel changes with moderate parenchymal volume loss. 3. No acute intracranial findings.
[2022-08-06 13:21] LABS: Basophils % 0.4 %; Eosinophils # 0.1 10^3/uL (0.0-0.8); Eosinophils % 0.7 %; Hematocrit 36.7 % (42.0-52.0); Hemoglobin 11.3 g/dL (11.7-16.6); Lymphocytes # 0.6 10^3/uL (0.8-4.8); Mean Corpuscular HGB Conc 30.8 g/dL (30.0-36.0); Mean Platelet Volume 9.4 fL (7.4-10.4); Monocytes # 1.2 10^3/uL (0.2-0.9); Monocytes % 13.6 %; Neutrophils # 7.06 10^3/uL (1.8-7.7); Neutrophils % 77.6 %; Nucleated Red Blood Cells % 0.3 %; Platelet Count 325 10^3/cmm (130-400); Red Blood Count 3.53 10^6/uL (4.1-5.3); Red Cell Distribution Width 17.3 % (12.1-15.1); White Blood Count 9.1 10^3/uL (4.0-10.0)
[2022-08-06 13:42] LABS: Alanine Aminotransferase 25 U/L (0-41); Alkaline Phosphatase 174 U/L (40-130); Anion Gap 12.6 (5-19); Aspartate Amino Transferase 48 U/L (0-40); Blood Urea Nitrogen 32 mg/dL (8-23); Calcium 8.4 mg/dL (8.5-10.5); Carbon Dioxide 32 mmol/L (22-29); Chloride 97 mmol/L (98-107); Glucose 150 mg/dL (65-115); Osmolality Calculated 294 mOsm/kg (285-295); Potassium 4.6 mmol/L (3.5-5.1); Sodium 137 mmol/L (136-145); Thyroid Stimulating Hormone 4.99 uIU/mL (0.27-4.20); Total Bilirubin 0.3 mg/dL (0.15-1.2)
[2022-08-06] MEDS: sodium chloride 0.9% 500 ML 999 ML IV (14:20)
[2022-08-06 14:22] VITALS: BP 92/53; PULSE 72; O2SAT 100
--- NOTE | 2022-08-06 14:29 | PC.PHAR ---
contacted [facility] at 1:00 and again at 2:30 for a med list for this pt
[2022-08-06 15:00] VITALS: BP 126/66; PULSE 79; O2SAT 100
[2022-08-06 15:10] LABS: Free T4 Free Thyroxine 1.01 ng/dL (0.82-1.77)
[2022-08-06 15:14] VITALS: BP 113/64; BP 120/65; BP 126/66; PULSE 80; PULSE 89; PULSE 92
[2022-08-06 15:30] VITALS: BP 130/70; PULSE 92; O2SAT 99
[2022-08-06 16:30] VITALS: BP 118/63; PULSE 78; O2SAT 100
--- NOTE | 2022-08-07 09:23 | PC.SOCIAL ---
Addendum entered by Josette Jurado 10/24/22 14:22: Patients appointment scheduled with neurology - appointment cancelled Addendum entered by Josette Jurado 09/10/22 12:43: Patient has a follow up appointment scheduled for Thursday, October 14, 2021 at 12:[address] Miranda at neurology. Clinic will call patient with appointment information. Original Note: Neurology Follow-Up Consult received for neurology follow up. Sent to neurology scheduling. Clinic to contact patient with appt date/time.
== END 2022-08-06 16:53 | disposition home or self-care (01) ==
PROVIDERS: Emergency Provider Emergency Medicine; PCP Family Medicine
DX: G45.9 Transient cerebral ischemic attack, unspecified (principal); I48.91 Unspecified atrial fibrillation; I12.9 Hypertensive chronic kidney disease with stage 1 through stage 4 chronic kidney disease, or unspecified chronic kidney disease; N18.30 Chronic kidney disease, stage 3 unspecified; Z86.73 Personal history of transient ischemic attack (TIA), and cerebral infarction without residual deficits
CPT/HCPCS: 70450; 80053; 84439; 84443; 85025; 96360; 99285; J7040

== ENCOUNTER → 2022-08-13 08:56 | Day surgery (SDC) | payer MEDICARE, SELFPAY ==
[2022-08-13 09:23] VITALS: BP 110/47; PULSE 65; RESP 18; TEMP 36.1; O2SAT 97
[2022-08-13] MEDS: ferric carboxy (IVPB) 750 MG in sodium chloride 0.9% (100 ml) 100 ML 345 MG IV (09:35)
== END ==
PROVIDERS: PCP Family Medicine; Visit Provider Physician Assistant
DX: D50.9 Iron deficiency anemia, unspecified (principal)
CPT/HCPCS: 96365; J1439

== ENCOUNTER → 2022-08-28 11:51 | Outpatient (BNVA) | payer MEDICARE, SELFPAY | PROVIDERS: PCP Family Medicine; Visit Provider Internal Medicine | DX: I27.20 Pulmonary hypertension, unspecified (principal); I48.91 Unspecified atrial fibrillation; I49.5 Sick sinus syndrome; Z86.73 Personal history of transient ischemic attack (TIA), and cerebral infarction without residual deficits; I13.0 Hypertensive heart and chronic kidney disease with heart failure and stage 1 through stage 4 chronic kidney disease, or unspecified chronic kidney disease; N18.30 Chronic kidney disease, stage 3 unspecified; I50.20 Unspecified systolic (congestive) heart failure | CPT/HCPCS: 99214 ==

== ENCOUNTER 2022-09-07 04:55 | Emergency (ER) | payer MEDICARE, SELFPAY ==
[2022-09-07] VITALS (7 sets, daily range): BP systolic 102–129; BP diastolic 67–77; PULSE 97–112; RESP 18–31; TEMP 36.8; O2SAT 92–98; BMI 17.0
--- NOTE | 2022-09-07 05:11 | CTR_ITS ---
PROCEDURE INFORMATION: Exam: CT Abdomen And Pelvis With Contrast Exam date and time: 09/07/2022 6:06 AM Age: 82 years old Clinical indication: Bloating and other: Diarrhea; Prior surgery; Surgery date: 6+ months; Surgery type: Inguinal hernia; Patient HX: Lymphoma dx in the ; Additional info: Abd bloating, diarrhea TECHNIQUE: Imaging protocol: Computed tomography of the abdomen and pelvis with contrast. Total images: 1 Radiation optimization: All CT scans at this facility use at least one of these dose optimization techniques: automated exposure control; mA and/or kV adjustment per patient size (includes targeted exams where dose is matched to clinical indication); or iterative reconstruction. Contrast material: OMNI 350; Contrast volume: 80 ml; Contrast route: INTRAVENOUS (IV); COMPARISON: CT pelvis w con* [id number] 07/30/2017 11:15 AM RADIATION DOSE METRICS: Total DLP (mGy-cm): 328.95 FINDINGS: Lungs: Compressive atelectasis of the lungs. Pleural spaces: Moderate bilateral pleural effusions are present. Liver: See Vasculature finding. Gallbladder and bile ducts: Prior cholecystectomy noted. Pancreas: Normal. No ductal dilation. Spleen: Incidental splenic granulomata are noted. Adrenal glands: Normal. No mass. Kidneys and ureters: 5 cm largest cyst noted in kidneys that have multiple simple renal cysts. No further evaluation required. Stomach and bowel: Fluid prominence in the colon could indicate prominent secretions due to infectious/inflammatory enteritis/colitis. Appendix: No evidence of appendicitis. Intraperitoneal space: Unremarkable. No free air. No significant fluid collection. Vasculature: Mottled enhancement of the hepatic parenchyma is seen with distention of the IVC and hepatic veins. This finding can be seen with cardiac cirrhosis with unrecognized or untreated right heart failure. Moderate atherosclerotic disease is evident. Lymph nodes: Unremarkable. No enlarged lymph nodes. Urinary bladder: There is nonspecific urinary bladder wall thickening, under distention versus cystitis. Reproductive: Unremarkable as visualized. Bones/joints: Diffuse osteopenia noted. Changes of sternotomy are noted. Diffuse osteopenia noted. Mild scattered degenerative changes of the spine. Soft tissues: Diffuse soft tissue edema is present and suspicious for anasarca. Pelvic floor laxity greatest on the left with small-bowel protrusion into ischiorectal fossa unchanged from prior exam. CT/CT abdomen pelvis w con* [id number] IMPRESSION: 1. Moderate bilateral pleural effusions with compressive atelectasis. 2. Mottled enhancement of the hepatic parenchyma is seen with distention of the IVC and hepatic veins. This finding can be seen with cardiac cirrhosis with unrecognized or untreated right heart failure. 3. There is nonspecific urinary bladder wall thickening, under distention versus cystitis. Consider urinalysis. 4. Diffuse soft tissue edema is present and suspicious for anasarca. 5. Pelvic floor laxity greatest on the left with small-bowel protrusion into ischiorectal fossa unchanged from prior exam. 6. Fluid prominence in the colon could indicate prominent secretions due to infectious/inflammatory enteritis/colitis. COMMENTS: Consistent with the [place] [employer]'s Incidental Findings Committee white paper (J Am Sid Radiol 2018): Any incidental renal lesion less than 1 cm or classified as too small to characterize, or any incidental cystic renal lesion characterized as simple-appearing, is likely benign. No follow-up imaging is recommended for these lesions per consensus recommendations based on imaging criteria.
--- NOTE | 2022-09-07 05:11 | XRR_ITS ---
PROCEDURE INFORMATION: Exam: XR Chest Exam date and time: 09/07/2022 5:32 AM Age: 82 years old Clinical indication: Cough and shortness of breath; Additional info: Cough, SOB TECHNIQUE: Imaging protocol: Radiologic exam of the chest. Views: 1 view. Total images: 1 COMPARISON: CR (CHEST, ) 07/17/2022 7:10 PM FINDINGS: Lungs: Stable bibasilar pleuroparenchymal disease. Coarse chronic pulmonary markings. Benign granulomatous disease of the lung is noted. Pleural spaces: Resolved right pneumothorax with pleural thickening now noted in this area. Heart/Mediastinum: Mild cardiomegaly stable. Bones/joints: Changes of sternotomy are noted. Osseous structures are unchanged from the prior exam. XR/XR chest 1V portable [id number] IMPRESSION: 1. Mild cardiomegaly stable. 2. Stable bibasilar pleuroparenchymal disease. 3. Coarse chronic pulmonary markings. 4. Resolved right pneumothorax with pleural thickening now noted in this area.
--- NOTE | 2022-09-07 05:15 | W.ED.NAVMDI ---
Documented by User: Devyn Knight DO 09/07/22 18:33 HPI - Nausea/Vomiting/Diarrhea General: Chief complaint: Nausea/Vomiting/Diarrhea Stated complaint: diarrhea Time Seen by Provider: 09/07/22 05:02 History of Present Illness: 82-year-old male on palliative home care for heart failure. He presents with significant diarrhea that started around 3 AM. He has had multiple bouts. Nonbloody, watery stool. No vomiting. He notes that he was nauseated. His belly is not overly tender. No fever. MD elicited complaint: nausea and diarrhea Pertinent past history: other Onset (ago): hour(s) Description of diarrhea: watery Associated nausea: Yes Associated abdominal pain: No Location of pain: Other Quality: cramping Relieving factors: none Context: other Associated symtoms: Reports anxiety, cough, fatigue and nausea; Denies altered mental status, chest pain, dysuria, fevers/chills, headache(s), rash or syncope Review of Systems Const: Reports: fatigue ENMT: Denies: throat pain Card: Denies: chest pain or syncope Resp: Reports: dyspnea (Trauma) and non-productive cough GI: Reports: nausea : Denies: dysuria Musc: Reports: back pain Neuro: Denies: headache(s) Psych: Reports: anxiety PFSH ED PFSH: Medical History Atrial fibrillation BPH (benign prostatic hyperplasia) Cerebellar stroke Chronic kidney disease, stage III (moderate) Congestive heart failure COPD (chronic obstructive pulmonary disease) Coronary artery disease Dyslipidemia Heart failure with preserved ejection fraction Heart failure with reduced ejection fraction Hypertension Lymphoma Medication induced coagulopathy Pulmonary hypertension Raynauds phenomenon Thrombus of left atrial appendage Surgical History H/O hernia repair Hx of CABG Hx of tonsillectomy Family History Mother Cancer Leukemia Father CAD (coronary artery disease) Diabetes Social History Smoking and tobacco status: never smoked Alcohol intake: never Lives independently: Yes Household members: none Housing: House Number of children: 2 Current occupational status: previously employed Physical Exam Const: EXAM LIMITATIONS: no altered mental status GENERAL APPEARANCE: cooperative, ill appearing (mildly) and frail appearing NUTRITIONAL APPEARANCE: thin HENMT: COMMON NORMALS: normocephalic, atraumatic and Normal external nose present HEAD & SCALP: normocephalic and atraumatic FACE & SINUS: normal facial exam and face symmetric NOSE: Normal external nose present Eye: COMMON NORMALS: Equal, round and reactive pupils present and EOMs intact bilaterally PUPIL: Yes Equal, round and reactive pupils present Neck/C-Spine: GENERAL: Yes trachea midline Chest: CHEST: Yes Symmetrical chest wall rise Resp: COMMON NORMALS: normal respiratory effort, No retractions, No use of accessory muscles and clear to auscultation bilaterally AUSCULTATION: clear to auscultation bilaterally Cardio: COMMON NORMALS: regular rhythm RATE: tachycardic RHYTHM: regular rhythm GI: INSPECTION: Yes abdominal distension AUSCULTATION: Yes Hyperactive bowel sounds present PALPATION: Yes Firmness to palpation present (GI) and No Tenderness to palpation present (GI) Extremity: COMMON NORMALS: no pedal edema Neuro: ABILIO COMA SCALE: document GCS findings Abilio coma scale eye opening: Spontaneous [place] coma scale verbal response: Orientated Abilio coma scale motor response: Obey commands [place] coma scale total score: 15 SENSORY EXAM: Yes extremities (intact) Psych: COMMON NORMALS: speech normal SPEECH: Yes normal speech Skin: COMMON NORMALS: no rashes or lesions noted GENERAL SKIN EXAM: no rashes or lesions noted Course Vital Signs: Vital signs: Vital Signs Temperature 98.2 F 09/07/22 05:01 Pulse Rate 109 H 09/07/22 07:50 Respiratory Rate 26 H 09/07/22 07:50 Blood Pressure 102/71 09/07/22 07:50 Pulse Oximetry 96 09/07/22 07:50 Oxygen Delivery Me thod 09/07/22 05:37 MDM - Nausea/Vomiting/Diarrhea Medical Decision Making 82-year-old gentleman with cough, and diarrhea. No fever. White count is 10. 90% neutrophils. CRP is 32 liver enzymes slightly elevated. Given his history, CT ordered. Checked out at shift change. Lab Data 09/07/22 05:16 09/07/22 05:16 Radiology Impressions Abdomen/Pelvis CT 09/07/22 05:11 IMPRESSION: 1. Moderate bilateral pleural effusions with compressive atelectasis. 2. Mottled enhancement of the hepatic parenchyma is seen with distention of the IVC and hepatic veins. This finding can be seen with cardiac cirrhosis with unrecognized or untreated right heart failure. 3. There is nonspecific urinary bladder wall thickening, under distention versus cystitis. Consider urinalysis. 4. Diffuse soft tissue edema is present and suspicious for anasarca. 5. Pelvic floor laxity greatest on the left with small-bowel protrusion into ischiorectal fossa unchanged from prior exam. 6. Fluid prominence in the colon could indicate prominent secretions due to infectious/inflammatory enteritis/colitis. COMMENTS: Consistent with the [place] [employer]'s Incidental Findings Committee white paper (J Am Sid Radiol 2018): Any incidental renal lesion less than 1 cm or classified as too small to characterize, or any incidental cystic renal lesion characterized as simple-appearing, is likely benign. No follow-up imaging is recommended for these lesions per consensus recommendations based on imaging criteria. Chest X-Ray 09/07/22 05:11 IMPRESSION: 1. Mild cardiomegaly stable. 2. Stable bibasilar pleuroparenchymal disease. 3. Coarse chronic pulmonary markings. 4. Resolved right pneumothorax with pleural thickening now noted in this area. Laboratory Results WBC 10.1 10^3/uL (4.0-10.0) H 09/07/22 05:16 RBC 4.68 10^6/uL (4.1-5.3) 09/07/22 05:16 Hgb 14.9 g/dL (11.7-16.6) 09/07/22 05:16 Hct 47.1 % (42.0-52.0) 09/07/22 05:16 MCV 100.6 fl (80-94) H 09/07/22 05:16 MCH 31.8 pg (28.0-34.0) 09/07/22 05:16 MCHC 31.6 g/dL (30.0-36.0) 09/07/22 05:16 RDW 15.8 % (12.1-15.1) H 09/07/22 05:16 Plt Count 311 10^3/cmm (130-400) 09/07/22 05:16 MPV 8.9 fL (7.4-10.4) 09/07/22 05:16 Neut % (Auto) 89.8 % 09/07/22 05:16 Lymph % (Auto) 4.0 % 09/07/22 05:16 [place] % (Auto) 5.2 % 09/07/22 05:16 Eos % (Auto) 0.2 % 09/07/22 05:16 Baso % (Auto) 0.2 % 09/07/22 05:16 Neut # (Auto) 9.04 10^3/uL (1.8-7.7) H 09/07/22 05:16 Lymph # (Auto) 0.4 10^3/uL (0.8-4.8) L 09/07/22 05:16 [place] # (Auto) 0.5 10^3/uL (0.2-0.9) 09/07/22 05:16 Eos # (Auto) 0.0 10^3/uL (0.0-0.8) 09/07/22 05:16 Baso # (Auto) 0.0 10^3/uL (0.0-0.1) 09/07/22 05:16 Nucleated RBC % (auto) 0 % 09/07/22 05:16 Nucleated RBCs # 0.0 /100WBC 09/07/22 05:16 Sodium 135 mmol/L (136-145) L 09/07/22 05:16 Potassium 5.0 mmol/L (3.5-5.1) 09/07/22 05:16 Chloride 94 mmol/L (98-107) L 09/07/22 05:16 Carbon Dioxide 31 mmol/L (22-29) H 09/07/22 05:16 Anion Gap 15.0 (5-19) 09/07/22 05:16 BUN 42 mg/dL (8-23) H 09/07/22 05:16 Creatinine 1.1 mg/dL (0.7-1.2) 09/07/22 05:16 GFR Calculation Not Reportable 09/07/22 05:16 Glucose 106 mg/dL (65-115) 09/07/22 05:16 Calculated Osmolality 291 mOsm/kg (285-295) 09/07/22 05:16 Lactate 1.9 mmol/L (0.5-2.2) 09/07/22 05:16 Calcium 9.1 mg/dL (8.5-10.5) 09/07/22 05:16 Total Bilirubin 0.5 mg/dL (0.15-1.2) 09/07/22 05:16 AST 61 U/L (0-40) H 09/07/22 05:16 ALT 45 U/L (0-41) H 09/07/22 05:16 Alkaline Phosphatase 224 U/L (40-130) H 09/07/22 05:16 C-Reactive Protein 32.1 mg/L (0.0-4.9) H 09/07/22 05:16 Total Protein 8.8 g/dL (6.6-8.7) H 09/07/22 05:16 Albumin 4.1 g/dL (3.5-5.2) 09/07/22 05:16 Globulin 4.7 g/dL (1.3-4.6) H 09/07/22 05:16 Urine Color Straw (Yellow) 09/07/22 06:58 Urine Appearance Clear (CLEAR) 09/07/22 06:58 Urine pH 7 (5-7) 09/07/22 06:58 Ur Specific [place] 1.010 (1.005-1.030) 09/07/22 06:58 Urine Protein Neg (Negative) 09/07/22 06:58 Urine Glucose (UA) Norm (Normal) 09/07/22 06:58 Urine Ketones Negative (Negative) 09/07/22 06:58 Urine Blood Neg (Negative) 09/07/22 06:58 Urine Nitrate Negative (Negative) 09/07/22 06:58 Urine Bilirubin Neg (Negative) 09/07/22 06:58 Urine Urobilinogen Norm mg/dL (Negative) 09/07/22 06:58 Ur Leukocyte Esterase Negative (Negative) 09/07/22 06:58 Discharge Plan Discharge Patient Disposition: Home Clinical Impression: Diarrhea Condition: Stable Prescriptions: No Action spironolactone 25 mg tablet 25 mg PO DAILY furosemide [Lasix] 80 mg tablet 80 mg PO BID Xarelto 15 mg tablet 15 mg PO DAILY Qty: 90 3RF Rx Instructions: @09:00 albuterol sulfate [ProAir HFA] 90 mcg/actuation Hfa Aerosol Inhaler 2 puff INHALATION Q4H PRN (Reason: Shortness Of Breath) metoprolol tartrate 25 mg Tablet 25 mg PO BID@0900,2100 Qty: 60 0RF Probiotic 15 billion cell Capsule 1 cap PO DAILY ferrous gluconate 324 mg (37.5 mg iron) Tablet 324 mg PO BIDWM Qty: 60 0RF rosuvastatin [Crestor] 40 mg tablet 40 mg PO DAILY Qty: 30 2RF Discharge Orders: Discharge ED (Routine); Ordered 09/07/22 Ordered By: Charity Mosley Referrals: Bryant Mendieta MD [Primary Care Provider] - Discharge Diet: Advance as tolerated Discharge Activity: Resume usual activity Patient Instructions: Diarrhea - Adult Coding Level of Care Code ED [employer] Photo Operator for Chg Fwd Exam Comprehensive Documented by User: Charity Mosley MD 09/07/22 07:53 HPI - Nausea/Vomiting/Diarrhea General: Chief complaint: Nausea/Vomiting/Diarrhea Stated complaint: diarrhea Time Seen by Provider: 09/07/22 05:02 PFSH ED PFSH: Medical History Atrial fibrillation BPH (benign prostatic hyperplasia) Cerebellar stroke Chronic kidney disease, stage III (moderate) Congestive heart failure COPD (chronic obstructive pulmonary disease) Coronary artery disease Dyslipidemia Heart failure with preserved ejection fraction Heart failure with reduced ejection fraction Hypertension Lymphoma Medication induced coagulopathy Pulmonary hypertension Raynauds phenomenon Thrombus of left atrial appendage Surgical History H/O hernia repair Hx of CABG Hx of tonsillectomy Family History Mother Cancer Leukemia Father CAD (coronary artery disease) Diabetes Social History Smoking and tobacco status: never smoked Alcohol intake: never Lives independently: Yes Household members: none Housing: House Number of children: 2 Current occupational status: previously employed Physical Exam Neuro: ABILIO COMA SCALE: document GCS findings Abilio coma scale total score: 15 Course Vital Signs: Vital signs: Vital Signs Temperature 98.2 F 09/07/22 05:01 Pulse Rate 109 H 09/07/22 07:50 Respiratory Rate 26 H 09/07/22 07:50 Blood Pressure 102/71 09/07/22 07:50 Pulse Oximetry 96 09/07/22 07:50 Oxygen Delivery Me thod 09/07/22 05:37 MDM - Nausea/Vomiting/Diarrhea Medical Decision Making 82-year-old gentleman with cough, and diarrhea. No fever. White count is 10. 90% neutrophils. CRP is 32 liver enzymes slightly elevated. Given his history, CT ordered. Checked out at shift change. Patient presents here with likely viral syndrome cough diarrhea he is well-appearing at his baseline chest x-ray shows no acute abnormality CT shows no acute findings patient's take Imodium [id number] he does have A. fib he has been in A. fib here his heart rate discharge was 109 pulse ox is in the mid 90s he is to follow-up with his PCP and return if worsening. Lab Data 09/07/22 05:16 09/07/22 05:16 Radiology Impressions Abdomen/Pelvis CT 09/07/22 05:11 IMPRESSION: 1. Moderate bilateral pleural effusions with compressive atelectasis. 2. Mottled enhancement of the hepatic parenchyma is seen with distention of the IVC and hepatic veins. This finding can be seen with cardiac cirrhosis with unrecognized or untreated right heart failure. 3. There is nonspecific urinary bladder wall thickening, under distention versus cystitis. Consider urinalysis. 4. Diffuse soft tissue edema is present and suspicious for anasarca. 5. Pelvic floor laxity greatest on the left with small-bowel protrusion into ischiorectal fossa unchanged from prior exam. 6. Fluid prominence in the colon could indicate prominent secretions due to infectious/inflammatory enteritis/colitis. COMMENTS: Consistent with the [place] [employer]'s Incidental Findings Committee white paper (J Am Sid Radiol 2018): Any incidental renal lesion less than 1 cm or classified as too small to characterize, or any incidental cystic renal lesion characterized as simple-appearing, is likely benign. No follow-up imaging is recommended for these lesions per consensus recommendations based on imaging criteria. Chest X-Ray 09/07/22 05:11
[2022-09-07] MEDS: sodium chloride 0.9% 500 ML 999 ML IV (05:20)
[2022-09-07 05:23] LABS: Basophils % 0.2 %; Eosinophils % 0.2 %; Hematocrit 47.1 % (42.0-52.0); Hemoglobin 14.9 g/dL (11.7-16.6); Lymphocytes # 0.4 10^3/uL (0.8-4.8); Mean Corpuscular HGB Conc 31.6 g/dL (30.0-36.0); Mean Corpuscular Hemoglobin 31.8 pg (28.0-34.0); Mean Corpuscular Volume 100.6 fl (80-94); Mean Platelet Volume 8.9 fL (7.4-10.4); Monocytes # 0.5 10^3/uL (0.2-0.9); Monocytes % 5.2 %; Neutrophils # 9.04 10^3/uL (1.8-7.7); Neutrophils % 89.8 %; Nucleated Red Blood Cells % 0 %; Platelet Count 311 10^3/cmm (130-400); Red Blood Count 4.68 10^6/uL (4.1-5.3); Red Cell Distribution Width 15.8 % (12.1-15.1); White Blood Count 10.1 10^3/uL (4.0-10.0)
[2022-09-07 05:39] LABS: Lactate (Lactic Acid level) 1.9 mmol/L (0.5-2.2)
[2022-09-07 05:40] LABS: Alanine Aminotransferase 45 U/L (0-41); Albumin Level 4.1 g/dL (3.5-5.2); Alkaline Phosphatase 224 U/L (40-130); Aspartate Amino Transferase 61 U/L (0-40); Blood Urea Nitrogen 42 mg/dL (8-23); C Reactive Protein 32.1 mg/L (0.0-4.9); Calcium 9.1 mg/dL (8.5-10.5); Carbon Dioxide 31 mmol/L (22-29); Chloride 94 mmol/L (98-107); Globulin 4.7 g/dL (1.3-4.6); Glucose 106 mg/dL (65-115); Osmolality Calculated 291 mOsm/kg (285-295); Sodium 135 mmol/L (136-145); Total Bilirubin 0.5 mg/dL (0.15-1.2); Total Protein 8.8 g/dL (6.6-8.7)
[2022-09-07] MEDS: iohexol 350 mg/mL 500 mL Btl (per mL) IV (06:21)
[2022-09-07 07:04] LABS: Add Urine Microscopic? NO; Charge for UA Resulting for Rev
[2022-09-07 07:08] LABS: Glucose Urine UA Norm (Normal); Ketones Urine Negative (Negative); Protein Urine Neg (Negative); Urine Appearance Clear (CLEAR); Urine Color Straw (Yellow); pH Urine 7 (5-7)
[2022-09-07 07:09] LABS: Bilirubin Urine Neg (Negative); Blood Urine Neg (Negative); Leukocyte Esterase Urine Negative (Negative); Nitrate Urine Negative (Negative); Urobilinogen Urine Norm (Negative)
--- NOTE | 2022-09-07 07:16 | ECG_ITS ---
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1940 Requested By: Charity Mosley Order Number: [id number] Reading MD: Nathan Sanchez Measurements Intervals [place] Rate: 118 P: 0 IN: 0 QRS: 95 QRSD: 90 T: -5 QT: 319 QTc: 448 Interpretive Statements ATRIAL FIBRILLATION WITH RAPID VENTRICULAR RESPONSE BORDERLINE RIGHT AXIS DEVIATION [QRS AXIS > 90] NONSPECIFIC ST & T-WAVE ABNORMALITY Compared to ECG 07/18/2022 02:51:16 No significant changes Electronically Signed On 09-07-2022 15:10:03 BREAKER BOSS by Nathan Sanchez [email or web address]
[2022-09-07] MEDS: diphenoxylate/atropine Tablet 1 TAB PO (07:39)
== END 2022-09-07 07:50 | disposition home or self-care (01) ==
PROVIDERS: Emergency Medicine; Emergency Provider Emergency Medicine; PCP Family Medicine
DX: R19.7 Diarrhea, unspecified (principal); I13.0 Hypertensive heart and chronic kidney disease with heart failure and stage 1 through stage 4 chronic kidney disease, or unspecified chronic kidney disease; N18.30 Chronic kidney disease, stage 3 unspecified; I50.9 Heart failure, unspecified; J44.9 Chronic obstructive pulmonary disease, unspecified; I25.10 Atherosclerotic heart disease of native coronary artery without angina pectoris; E78.5 Hyperlipidemia, unspecified; Z95.1 Presence of aortocoronary bypass graft
CPT/HCPCS: 71045; 74177; 80053; 81003; 83605; 85025; 86140; 93005; 96360; 99285; J7040; Q9967

== ENCOUNTER → 2022-12-31 13:42 | Outpatient (BNVA) | payer MEDICARE, SELFPAY | PROVIDERS: PCP Family Medicine; Visit Provider Internal Medicine | DX: I27.20 Pulmonary hypertension, unspecified (principal); I48.91 Unspecified atrial fibrillation; I49.5 Sick sinus syndrome; I13.0 Hypertensive heart and chronic kidney disease with heart failure and stage 1 through stage 4 chronic kidney disease, or unspecified chronic kidney disease; N18.30 Chronic kidney disease, stage 3 unspecified; I50.20 Unspecified systolic (congestive) heart failure; Z86.73 Personal history of transient ischemic attack (TIA), and cerebral infarction without residual deficits; Z79.01 Long term (current) use of anticoagulants | CPT/HCPCS: 99214 ==

== ENCOUNTER 2023-01-04 12:01 | Emergency (ER) | payer MEDICARE, SELFPAY ==
--- NOTE | 2023-01-04 12:14 | XRR_ITS ---
PROCEDURE INFORMATION: Exam: XR Left Hand Exam date and time: 01/04/2023 12:18 PM Age: 82 years old Clinical indication: Injury or trauma; Fall; Blunt trauma (contusions or hematomas); Hand; Left; Additional info: Fall injury TECHNIQUE: Imaging protocol: Radiologic exam of the left hand. Views: 3 or more views. COMPARISON: No relevant prior studies available. FINDINGS: Bones/joints: No fracture or dislocation identified.. Soft tissues: Swelling of the hand soft tissues noted. XR/XR hand LT min 3V* [id number] IMPRESSION: No acute findings.
[2023-01-04 12:17] VITALS: BP 112/53; PULSE 72; TEMP 36.6; O2SAT 100; BMI 17.2
--- NOTE | 2023-01-04 12:24 | ED_ITS ---
Documented by User: Julissa Mina PA-C 01/04/23 12:55 HPI - Extremity Injury (Upper) General: Chief Complaint: Extremity Injury, Upper Stated Complaint: Left hand injury, Swelling Time Seen by Provider: 01/04/23 12:18 Source: patient Mode of arrival: ambulatory Limitations: no limitations History of Present Illness: 82-year-old male with a history of A-fib, COPD, CHF, CKD, and Raynaud's presents to the ER today for left hand swelling and pain. Patient reports on he fell on the left hand. He is unsure how he landed on it. He reports it felt okay throughout the day but during the night woke him up due to severe pain. Patient reports it started swelling and the swelling and pain have continued. Patient reports he has trouble sleeping due to pain. He reports significant swelling and discoloration of the hand now. He reports redness and bruising. He reports pain with any movement or touching the skin of that hand. Prior to he did not have any issues but that hand. Patient does take Xarelto daily. Denies any history of blood clots. Review of Systems General: Reports: 10 or more systems reviewed and unremarkable except in HPI and below PFSH ED PFSH: Medical History Atrial fibrillation BPH (benign prostatic hyperplasia) Cerebellar stroke Chronic kidney disease, stage III (moderate) Congestive heart failure COPD (chronic obstructive pulmonary disease) Coronary artery disease Dyslipidemia Heart failure with preserved ejection fraction Heart failure with reduced ejection fraction Hypertension Lymphoma Medication induced coagulopathy Pulmonary hypertension Raynauds phenomenon Thrombus of left atrial appendage Surgical History H/O hernia repair Hx of CABG Hx of tonsillectomy Family History Mother Cancer Leukemia Father CAD (coronary artery disease) Diabetes Social History Smoking and tobacco status: never smoked Alcohol intake: never Lives independently: Yes Household members: none Housing: House Number of children: 2 Current occupational status: previously employed Physical Exam Const: COMMON NORMALS: patient oriented x3 and alert Eye: COMMON NORMALS: conjunctivae normal CONJUNCTIVA: Yes conjunctivae normal Lymph: LYMPHATIC: no lymphadenopathy noted Resp: COMMON NORMALS: normal respiratory effort, No retractions and clear to auscultation bilaterally AUSCULTATION: clear to auscultation bilaterally Cardio: COMMON NORMALS: regular rate, regular rhythm and No murmurs present (Cardio) RATE: regular rate RHYTHM: regular rhythm GI: COMMON NORMALS: Normal to inspection, nondistended, normoactive bowel sounds present, Soft to palpation and non-tender PALPATION: Yes Soft to palpation Extremity: NARRATIVE EXTREMITY EXAM: There is moderate swelling noted of the left hand from the wrist to the fingertips. There is some discoloration with redness, warmth, and bruising. Patient has decreased range of motion secondary to swelling and pain. Neuro: COMMON NORMALS: patient oriented x3 SENSORIUM/ORIENTATION: Yes alert Psych: COMMON NORMALS: mental status grossly normal, Normal thought process present and cooperative THOUGHT PROCESS: Normal thought process present Skin: NARRATIVE SKIN EXAM: There is significant erythema and bruising to the left hand in comparison to the right. Course ED course: Presents for left hand pain after fall on . Patient is noted to have significant swelling and erythema of that hand. There is pain with light palpation. Also pain with any movement. We will start with an x-ray and may have to add ultrasound depending on what the x-ray indicates. Vital Signs: Vital signs: Vital Signs Temperature 97.9 F 01/04/23 12:17 Pulse Rate 78 01/04/23 18:12 Respiratory Rate 18 01/04/23 18:12 Blood Pressure 98/52 01/04/23 18:12 Pulse Oximetry 98 01/04/23 18:12 Oxygen Delivery Me thod Room Air 01/04/23 15:25 MDM - Extremity Injury (Upper) Lab Data 01/04/23 15:07 01/04/23 15:07 Radiology Impressions Hand X-Ray 01/04/23 12:14 IMPRESSION: No acute findings. Venous Duplex 01/04/23 12:55 IMPRESSION: No sonographic evidence of deep vein thrombosis. Forearm CT 01/04/23 15:10 IMPRESSION: Pronounced confluent subcutaneous edema. No definite organized collection. No acute vascular abnormality. Laboratory Results WBC 12.1 10^3/uL (4.0-10.0) H 01/04/23 15:07 RBC 3.77 10^6/uL (4.1-5.3) L 01/04/23 15:07 Hgb 11.9 g/dL (11.7-16.6) 01/04/23 15:07 Hct 37.2 % (42.0-52.0) L 01/04/23 15:07 MCV 98.7 fl (80-94) H 01/04/23 15:07 MCH 31.6 pg (28.0-34.0) 01/04/23 15:07 MCHC 32.0 g/dL (30.0-36.0) 01/04/23 15:07 RDW 14.5 % (12.1-15.1) 01/04/23 15:07 Plt Count 231 10^3/cmm (130-400) 01/04/23 15:07 MPV 9.3 fL (7.4-10.4) 01/04/23 15:07 Neut % (Auto) 78.8 % 01/04/23 15:07 Lymph % (Auto) 5.7 % 01/04/23 15:07 [place] % (Auto) 14.7 % 01/04/23 15:07 Eos % (Auto) 0.2 % 01/04/23 15:07 Baso % (Auto) 0.2 % 01/04/23 15:07 Neut # (Auto) 9.49 10^3/uL (1.8-7.7) H 01/04/23 15:07 Lymph # (Auto) 0.7 10^3/uL (0.8-4.8) L 01/04/23 15:07 [place] # (Auto) 1.8 10^3/uL (0.2-0.9) H 01/04/23 15:07 Eos # (Auto) 0.0 10^3/uL (0.0-0.8) 01/04/23 15:07 Baso # (Auto) 0.0 10^3/uL (0.0-0.1) 01/04/23 15:07 Nucleated RBC % (auto) 0 % 01/04/23 15:07 Nucleated RBCs # 0.0 /100WBC 01/04/23 15:07 Sodium 131 mmol/L (136-145) L 01/04/23 15:07 Potassium 4.9 mmol/L (3.5-5.1) 01/04/23 15:07 Chloride 91 mmol/L (98-107) L 01/04/23 15:07 Carbon Dioxide 29 mmol/L (22-29) 01/04/23 15:07 Anion Gap 15.9 (5-19) 01/04/23 15:07 BUN 49 mg/dL (8-23) H 01/04/23 15:07 Creatinine 1.6 mg/dL (0.7-1.2) H 01/04/23 15:07 GFR Calculation Not Reportable 01/04/23 15:07 Glucose 91 mg/dL (65-115) 01/04/23 15:07 Calculated Osmolality 285 mOsm/kg (285-295) 01/04/23 15:07 Lactic Acid 2.4 mmol/L (0.5-2.2) H 01/04/23 15:07 Lactic Acid (Sepsis) Cancelled 01/04/23 18:05 Calcium 8.9 mg/dL (8.5-10.5) 01/04/23 15:07 Critical Care Time Critical Care Time: Critical Care Time: No Discharge Plan Discharge Patient Disposition: Home Clinical Impression: Cellulitis of hand, Leukocytosis, Creatinine elevation, Dehydration Condition: Stable Prescriptions: New oxycodone 5 mg tablet 5 mg PO Q4H PRN (Reason: pain) Qty: 10 0RF No Action spironolactone 25 mg tablet 25 mg PO DAILY furosemide [Lasix] 80 mg tablet 80 mg PO BID metoprolol tartrate 25 mg tablet 25 mg PO DAILY Xarelto 15 mg tablet 15 mg PO DAILY Qty: 90 3RF Rx Instructions: @09:00 rosuvastatin [Crestor] 40 mg tablet 40 mg PO DAILY Qty: 90 2RF albuterol sulfate [ProAir HFA] 90 mcg/actuation Hfa Aerosol Inhaler 2 puff INHALATION Q4H PRN (Reason: Shortness Of Breath) Bactrim DS 800-160 mg tablet 1 tab PO BID 7 Days Qty: 14 0RF cephalexin 500 mg capsule 500 mg PO TID 7 Days Qty: 21 0RF Probiotic 15 billion cell Capsule 1 cap PO DAILY Discharge Orders: Discharge ED (Routine); Ordered 01/04/23 Ordered By: Tony Clay Referrals: Bryant Mendieta MD [Primary Care Provider] - Discharge Diet: Usual diet Discharge Activity: Increase activity as tolerated Patient Instructions: Dehydration (ED), Cellulitis (ED), Leukocytosis (ED), Opioid Safety Activity Restrictions/Additional Instructions: Thank you for visiting the emergency department. You were seen and evaluated for hand swelling and pain. The exact cause of your symptoms is unclear that may be related to infection. Given laboratory abnormalities including elevated white blood cell count and lactic acid as well as elevated creatinine and evidence of dehydration I recommend admission for IV antibiotics which you are declining at this time. I will prescribe antibiotics. I will also prescribe oxycodone for pain, use this cautiously as it can cause side effects associated with opioids, a common side effect is constipation, you may use lhgv-zux-yyglfkw medications if this is a issue. You may use vrsi-vav-gjorfwa medications such as acetaminophen and ibuprofen for pain however please do not exceed the daily recommended dosage as listed on the packaging and please keep in mind that many namebrand medications contain the same active ingredients. Please avoid these medications if previously instructed to do so by another physician due to other underlying medical condition. Please only use NSAIDs minimally as they can worsen kidney function. Please follow-up with your primary care provider. I will message case management for follow-up with orthopedic hand. Return to the emergency department immediately for fevers, worsening symptoms, decreased urine output or abdominal pain, increased redness or swelling, new numbness or tingling or lack of ability to move, or anything else that you are concerned about and feel needs emergency department evaluation. Sign Out Sign Out Data: Patient Sign Out occurred on 01/04/23 at 17:04. Patient's care was discussed, and care was transferred from Julissa Mina PA-C to Tony Clay MD. Sign Out Comment: Waiting on CT results (working with Dr. Clay on patient work up) Last updated by Julissa Mina PA-C at 01/04/23 16:51 Coding Level of Care Code ED Senior Financial Reporting Analyst for Chg Fwd Documented by User: Tony Clay MD 01/08/23 03:45 HPI - Extremity Injury (Upper) General: Chief Complaint: Extremity Injury, Upper Stated Complaint: Left hand injury, Swelling Time Seen by Provider: 01/04/23 12:18 PFSH ED PFSH: Medical History Atrial fibrillation BPH (benign prostatic hyperplasia) Cerebellar stroke Chronic kidney disease, stage III (moderate) Congestive heart failure COPD (chronic obstructive pulmonary disease) Coronary artery disease Dyslipidemia Heart failure with preserved ejection fraction Heart failure with reduced ejection fraction Hypertension Lymphoma Medication induced coagulopathy Pulmonary hypertension Raynauds phenomenon Thrombus of left atrial appendage Surgical History H/O hernia repair Hx of CABG Hx of tonsillectomy Family History Mother Cancer Leukemia Father CAD (coronary artery disease) Diabetes Social History Smoking and tobacco status: never smoked Alcohol intake: never Lives independently: Yes Household members: none Housing: House Number of children: 2 Current occupational status: previously employed Course Vital Signs: Vital signs: Vital Signs Temperature 97.9 F 01/04/23 12:17 Pulse Rate 78 01/04/23 18:12 Respiratory Rate 18 01/04/23 18:12 Blood Pressure 98/52 01/04/23 18:12 Pulse Oximetry 98 01/04/23 18:12 Oxygen Delivery Me thod Room Air 01/04/23 15:25 MDM - Extremity Injury (Upper) Medical Decision Making I discussed this case with Julissa Mina PA-C. I personally saw and evaluated patient and took over patient care. I reperformed kaye portions of E/M. I reviewed documentation, laboratory studies, imaging. Patient appears to have significant cellulitis. I recommended admission which the patient adamantly declined. I do not see evidence of sepsis. There is no evidence of tenosynovitis. Plan to treat with outpatient antibiotics, strict return precautions discussed. Tony Clay MD Emergency Medicine I did not participate in the care of this patient, Alok Smith, RUBY?. Lab Data 01/04/23 15:07 01/04/23 15:07 Radiology Impressions Hand X-Ray 01/04/23 12:14 IMPRESSION: No acute findings. Venous Duplex 01/04/23 12:55 IMPRESSION: No sonographic evidence of deep vein thrombosis. Forearm CT 01/04/23 15:10 IMPRESSION: Pronounced confluent subcutaneous edema. No definite organized collection. No acute vascular abnormality. Laboratory Results WBC 12.1 10^3/uL (4.0-10.0) H 01/04/23 15:07 RBC 3.77 10^6/uL (4.1-5.3) L 01/04/23 15:07 Hgb 11.9 g/dL (11.7-16.6) 01/04/23 15:07 Hct 37.2 % (42.0-52.0) L 01/04/23 15:07 MCV 98.7 fl (80-94) H 01/04/23 15:07 MCH 31.6 pg (28.0-34.0) 01/04/23 15:07 MCHC 32.0 g/dL (30.0-36.0) 01/04/23 15:07 RDW 14.5 % (12.1-15.1) 01/04/23 15:07 Plt Count 231 10^3/cmm (130-400) 01/04/23 15:07 MPV 9.3 fL (7.4-10.4) 01/04/23 15:07 Neut % (Auto) 78.8 % 01/04/23 15:07 Lymph % (Auto) 5.7 % 01/04/23 15:07 [place] % (Auto) 14.7 % 01/04/23 15:07 Eos % (Auto) 0.2 % 01/04/23 15:07 Baso % (Auto) 0.2 % 01/04/23 15:07 Neut # (Auto) 9.49 10^3/uL (1.8-7.7) H 01/04/23 15:07 Lymph # (Auto) 0.7 10^3/uL (0.8-4.8) L 01/04/23 15:07 [place] # (Auto) 1.8 10^3/uL (0.2-0.9) H 01/04/23 15:07 Eos # (Auto) 0.0 10^3/uL (0.0-0.8) 01/04/23 15:07 Baso # (Auto) 0.0 10^3/uL (0.0-0.1) 01/04/23 15:07 Nucleated RBC % (auto) 0 % 01/04/23 15:07 Nucleated RBCs # 0.0 /100WBC 01/04/23 15:07 Sodium 131 mmol/L (136-145) L 01/04/23 15:07 Potassium 4.9 mmol/L (3.5-5.1) 01/04/23 15:07 Chloride 91 mmol/L (98-107) L 01/04/23 15:07 Carbon Dioxide 29 mmol/L (22-29) 01/04/23 15:07 Anion Gap 15.9 (5-19) 01/04/23 15:07 BUN 49 mg/dL (8-23) H 01/04/23 15:07 Creatinine 1.6 mg/dL (0.7-1.2) H 01/04/23 15:07 GFR Calculation Not Reportable 01/04/23 15:07 Glucose 91 mg/dL (65-115) 01/04/23 15:07 Calculated Osmolality 285 mOsm/kg (285-295) 01/04/23 15:07 Lactic Acid 2.4 mmol/L (0.5-2.2) H 01/04/23 15:07 Lactic Acid (Sepsis) Cancelled 01/04/23 18:05 Calcium 8.9 mg/dL (8.5-10.5) 01/04/23 15:07 Discharge Plan Discharge Patient Disposition: Home Clinical Impression: Cellulitis of hand, Leukocytosis, Creatinine elevation, Dehydration Condition: Stable Prescriptions: New oxycodone 5 mg tablet 5 mg PO Q4H PRN (Reason: pain) Qty: 10 0RF No Action spironolactone 25 mg tablet 25 mg PO DAILY furosemide [Lasix] 80 mg tablet 80 mg PO BID metoprolol tartrate 25 mg tablet 25 mg PO DAILY Xarelto 15 mg tablet 15 mg PO DAILY Qty: 90 3RF Rx Instructions: @09:00 rosuvastatin [Crestor] 40 mg tablet 40 mg PO DAILY Qty: 90 2RF albuterol sulfate [ProAir HFA] 90 mcg/actuation Hfa Aerosol Inhaler 2 puff INHALATION Q4H PRN (Reason: Shortness Of Breath) Bactrim DS 800-160 mg tablet 1 tab PO BID 7 Days Qty: 14 0RF cephalexin 500 mg capsule 500 mg PO TID 7 Days Qty: 21 0RF Probiotic 15 billion cell Capsule 1 cap PO DAILY Discharge Orders: Discharge ED (Routine); Ordered 01/04/23 Ordered By: Tony Clay Referrals: Bryant Mendieta MD [Primary Care Provider] - Discharge Diet: Usual diet Discharge Activity: Increase activity as tolerated Patient Instructions: Dehydration (ED), Cellulitis (ED), Leukocytosis (ED), Opioid Safety Activity Restrictions/Additional Instructions: Thank you for visiting the emergency department. You were seen and evaluated for hand swelling and pain. The exact cause of your symptoms is unclear that may be related to infection. Given laboratory abnormalities including elevated white blood cell count and lactic acid as well as elevated creatinine and evidence of dehydration I recomm end admission for IV antibiotics which you are declining at this time. I will prescribe antibiotics. I will also prescribe oxycodone for pain, use this cautiously as it can cause side effects associated with opioids, a common side effect is constipation, you may use ebwj-cjv-uawbsah medications if this is a issue. You may use uife-hgh-offjcjs medications such as acetaminophen and ibuprofen for pain however please do not exceed the daily recommended dosage as listed on the packaging and please keep in mind that many namebrand medications contain the same active ingredients. Please avoid these medications if previously instructed to do so by another physician due to other underlying medical condition. Please only use NSAIDs minimally as they can worsen kidney function. Please follow-up with your primary care provider. I will message case management for follow-up with orthopedic hand. Return to the emergency department immediately for fevers, worsening symptoms, decreased urine output or abdominal pain, increased redness or swelling, new numbness or tingling or lack of ability to move, or anything else that you are concerned about and feel needs emergency department evaluation. Sign Out Sign Out Data: Patient Sign Out occurred on 01/04/23 at 17:04. Patient's care was discussed, and care was transferred from Julissa Mina PA-C to Tony Clay MD. Sign Out Comment: Waiting on CT results (working with Dr. Clay on patient work up) Last updated by Julissa Mina PA-C at 01/04/23 16:51 Coding Level of Care Code ED Senior Financial Reporting Analyst for Chg Fwd Documented by User: RUBY Mendoza 01/04/23 18:42 HPI - Extremity Injury (Upper) General: Chief Complaint: Extremity Injury, Upper Stated Complaint: Left hand injury, Swelling Time Seen by Provider: 01/04/23 12:18 PFSH ED PFSH: Medical History Atrial fibrillation BPH (benign prostatic hyperplasia) Cerebellar stroke Chronic kidney disease, stage III (moderate) Congestive heart failure COPD (chronic obstructive pulmonary disease) Coronary artery disease Dyslipidemia Heart failure with preserved ejection fraction Heart failure with reduced ejection fraction Hypertension Lymphoma Medication induced coagulopathy Pulmonary hypertension Raynauds phenomenon Thrombus of left atrial appendage Surgical History H/O hernia repair Hx of CABG Hx of tonsillectomy Family History Mother Cancer Leukemia Father CAD (coronary artery disease) Diabetes Social History Smoking and tobacco status: never smoked Alcohol intake: never Lives independently: Yes Household members: none Housing: House Number of children: 2 Current occupational status: previously employed Course Vital Signs: Vital signs: Vital Signs Temperature 97.9 F 01/04/23 12:17 Pulse Rate 78 01/04/23 18:12 Respiratory Rate 18 01/04/23 18:12 Blood Pressure 98/52 01/04/23 18:12 Pulse Oximetry 98 01/04/23 18:12 Oxygen Delivery Me thod Room Air 01/04/23 15:25 MDM - Extremity Injury (Upper) Medical Decision Making I did not participate in the care of this patient, RUBY Collins?BC. Lab Data 01/04/23 15:07 01/04/23 15:07 Radiology Impressions Hand X-Ray 01/04/23 12:14 IMPRESSION: No acute findings. Venous Duplex 01/04/23 12:55 IMPRESSION: No sonographic evidence of deep vein thrombosis. Forearm CT 01/04/23 15:10 IMPRESSION: Pronounced confluent subcutaneous edema. No definite organized collection. No acute vascular abnormality. Laboratory Results WBC 12.1 10^3/uL (4.0-10.0) H 01/04/23 15:07 RBC 3.77 10^6/uL (4.1-5.3) L 01/04/23 15:07 Hgb 11.9 g/dL (11.7-16.6) 01/04/23 15:07 Hct 37.2 % (42.0-52.0) L 01/04/23 15:07 MCV 98.7 fl (80-94) H 01/04/23 15:07 MCH 31.6 pg (28.0-34.0) 01/04/23 15:07 MCHC 32.0 g/dL (30.0-36.0) 01/04/23 15:07 RDW 14.5 % (12.1-15.1) 01/04/23 15:07 Plt Count 231 10^3/cmm (130-400) 01/04/23 15:07 MPV 9.3 fL (7.4-10.4) 01/04/23 15:07 Neut % (Auto) 78.8 % 01/04/23 15:07 Lymph % (Auto) 5.7 % 01/04/23 15:07 [place] % (Auto) 14.7 % 01/04/23 15:07 Eos % (Auto) 0.2 % 01/04/23 15:07 Baso % (Auto) 0.2 % 01/04/23 15:07 Neut # (Auto) 9.49 10^3/uL (1.8-7.7) H 01/04/23 15:07 Lymph # (Auto) 0.7 10^3/uL (0.8-4.8) L 01/04/23 15:07 [place] # (Auto) 1.8 10^3/uL (0.2-0.9) H 01/04/23 15:07 Eos # (Auto) 0.0 10^3/uL (0.0-0.8) 01/04/23 15:07 Baso # (Auto) 0.0 10^3/uL (0.0-0.1) 01/04/23 15:07 Nucleated RBC % (auto) 0 % 01/04/23 15:07 Nucleated RBCs # 0.0 /100WBC 01/04/23 15:07 Sodium 131 mmol/L (136-145) L 01/04/23 15:07 Potassium 4.9 mmol/L (3.5-5.1) 01/04/23 15:07 Chloride 91 mmol/L (98-107) L 01/04/23 15:07 Carbon Dioxide 29 mmol/L (22-29) 01/04/23 15:07 Anion Gap 15.9 (5-19) 01/04/23 15:07 BUN 49 mg/dL (8-23) H 01/04/23 15:07 Creatinine 1.6 mg/dL (0.7-1.2) H 01/04/23 15:07 GFR Calculation Not Reportable 01/04/23 15:07 Glucose 91 mg/dL (65-115) 01/04/23 15:07 Calculated Osmolality 285 mOsm/kg (285-295) 01/04/23 15:07 Lactic Acid 2.4 mmol/L (0.5-2.2) H 01/04/23 15:07 Lactic Acid (Sepsis) Cancelled 01/04/23 18:05 Calcium 8.9 mg/dL (8.5-10.5) 01/04/23 15:07 Discharge Plan Discharge Patient Disposition: Home Clinical Impression: Cellulitis of hand, Leukocytosis, Creatinine elevation, Dehydration Condition: Stable Prescriptions: New oxycodone 5 mg tablet 5 mg PO Q4H PRN (Reason: pain) Qty: 10 0RF No Action spironolactone 25 mg tablet 25 mg PO DAILY furosemide [Lasix] 80 mg tablet 80 mg PO BID metoprolol tartrate 25 mg tablet 25 mg PO DAILY Xarelto 15 mg tablet 15 mg PO DAILY Qty: 90 3RF Rx Instructions: @09:00 rosuvastatin [Crestor] 40 mg tablet 40 mg PO DAILY Qty: 90 2RF albuterol sulfate [ProAir HFA] 90 mcg/actuation Hfa Aerosol Inhaler 2 puff INHALATION Q4H PRN (Reason: Shortness Of Breath) Bactrim DS 800-160 mg tablet 1 tab PO BID 7 Days Qty: 14 0RF cephalexin 500 mg capsule 500 mg PO TID 7 Days Qty: 21 0RF Probiotic 15 billion cell Capsule 1 cap PO DAILY Discharge Orders: Discharge ED (Routine); Ordered 01/04/23 Ordered By: Tony Clay Referrals: Bryant Mendieta MD [Primary Care Provider] - Discharge Diet: Usual diet Discharge Activity: Increase activity as tolerated Patient Instructions: Dehydration (ED), Cellulitis (ED), Leukocytosis (ED), Opioid Safety Activity Restrictions/Additional Instructions: Thank you for visiting the emergency department. You were seen and evaluated f or hand swelling and pain. The exact cause of your symptoms is unclear that may be related to infection. Given laboratory abnormalities including elevated white blood cell count and lactic acid as well as elevated creatinine and evidence of dehydration I recommend admission for IV antibiotics which you are declining at this time. I will prescribe antibiotics. I will also prescribe oxycodone for pain, use this cautiously as it can cause side effects associated with opioids, a common side effect is constipation, you may use whmm-sre-knhdmbx medications if this is a issue. You may use ftxy-mps-ravcswp medications such as acetaminophen and ibuprofen for pain however please do not exceed the daily recommended dosage as listed on the packaging and please keep in mind that many namebrand medications contain the same active ingredients. Please avoid these medications if previously instructed to do so by another physician due to other underlying medical condition. Please only use NSAIDs minimally as they can worsen kidney function. Please follow-up with your primary care provider. I will message case management for follow-up with orthopedic hand. Return to the emergency department immediately for fevers, worsening symptoms, decreased urine output or abdominal pain, increased redness or swelling, new numbness or tingling or lack of ability to move, or anything else that you are concerned about and feel needs emergency department evaluation. Sign Out Sign Out Data: Patient Sign Out occurred on 01/04/23 at 17:04. Patient's care was discussed, and care was transferred from Julissa Mina PA-C to Tony Clay MD. Sign Out Comment: Waiting on CT results (working with Dr. Clay on patient work up) Last updated by Julissa Mina PA-C at 01/04/23 16:51 Coding Level of Care Code ED Senior Financial Reporting Analyst for Pelon Kay
--- NOTE | 2023-01-04 12:55 | USR_ITS ---
PROCEDURE INFORMATION: Exam: US Duplex Left Upper Extremity Veins, Limited Exam date and time: 01/04/2023 1:20 PM Age: 82 years old Clinical indication: Injury or trauma; Fall; Other: Fell on left hand; Injury date: 01/02/2023; Injury details: Left hand swelling; Additional info: Swelling and pain in L hand post fall TECHNIQUE: Imaging protocol: Real-time duplex ultrasound of the left extremity with 2-D prado scale, color Doppler flow and spectral waveform analysis including responses to compression and other maneuvers (when performed) with image documentation. Limited exam focused on the left upper extremity veins. COMPARISON: CR (UP EX, ) 01/04/2023 12:18 PM FINDINGS: Left deep veins: Internal jugular, subclavian, axillary, brachial, radial and ulnar veins patent without thrombus. Normal compressibility, augmentation response and/or Doppler waveforms. Left superficial veins: Visualized cephalic and basilic veins patent without thrombus. Soft tissues: Unremarkable. US/[id number] IMPRESSION: No sonographic evidence of deep vein thrombosis.
[2023-01-04 14:15] VITALS: PULSE 87; RESP 16; O2SAT 91
--- NOTE | 2023-01-04 15:10 | CTR_ITS ---
PROCEDURE INFORMATION: Exam: CT Left Upper Extremity With Contrast, Forearm Exam date and time: 01/04/2023 4:17 PM Age: 82 years old Clinical indication: Pain and injury or trauma; Fall; Blunt trauma (contusions or hematomas); Arm, lower and hand; Left; Additional info: Swelling, pain, redness, forearm through hand TECHNIQUE: Imaging protocol: Computed tomography of the left upper extremity with contrast. Exam focused on the forearm. Axial, coronal and sagittal reformatted images were created and reviewed. Radiation optimization: All CT scans at this facility use at least one of these dose optimization techniques: automated exposure control; mA and/or kV adjustment per patient size (includes targeted exams where dose is matched to clinical indication); or iterative reconstruction. Contrast material: OMNI 350; Contrast volume: 75 ml; Contrast route: INTRAVENOUS (IV); REPORTING DATA: Count of CT and Cardiac NM exams in prior 12 months: This patient has received 4 known CTs and 0 known cardiac nuclear medicine studies in the 12 months prior to the current study. COMPARISON: CR (UP EXM, ) 01/04/2023 12:18 PM RADIATION DOSE METRICS: Total DLP (mGy-cm): 400.62 FINDINGS: Bones/joints: Osteopenia. No acute fracture or dislocation. Degenerative changes. No erosive or destructive changes. No lytic or blastic lesion. No significant effusion. Soft tissues: Pronounced confluent subcutaneous edema. No definite organized collection or soft tissue mass. Deep intramuscular fat planes grossly clear. No soft tissue gas. Vasculature: Moderate atherosclerotic calcification. No high-grade stenosis or occlusion. CT/CT forearm LT w con [id number] IMPRESSION: Pronounced confluent subcutaneous edema. No definite organized collection. No acute vascular abnormality.
[2023-01-04 15:25] VITALS: RESP 18; O2SAT 99
[2023-01-04 15:45] LABS: Basophils % 0.2 %; Eosinophils % 0.2 %; Hematocrit 37.2 % (42.0-52.0); Hemoglobin 11.9 g/dL (11.7-16.6); Lymphocytes # 0.7 10^3/uL (0.8-4.8); Lymphocytes % 5.7 %; Mean Corpuscular Hemoglobin 31.6 pg (28.0-34.0); Mean Corpuscular Volume 98.7 fl (80-94); Mean Platelet Volume 9.3 fL (7.4-10.4); Monocytes # 1.8 10^3/uL (0.2-0.9); Monocytes % 14.7 %; Neutrophils # 9.49 10^3/uL (1.8-7.7); Neutrophils % 78.8 %; Nucleated Red Blood Cells % 0 %; Platelet Count 231 10^3/cmm (130-400); Red Blood Count 3.77 10^6/uL (4.1-5.3); Red Cell Distribution Width 14.5 % (12.1-15.1); White Blood Count 12.1 10^3/uL (4.0-10.0)
[2023-01-04 15:54] LABS: Anion Gap 15.9 (5-19); Blood Urea Nitrogen 49 mg/dL (8-23); Calcium 8.9 mg/dL (8.5-10.5); Carbon Dioxide 29 mmol/L (22-29); Chloride 91 mmol/L (98-107); Glucose 91 mg/dL (65-115); Lactic Sepsis W/Reflex 2.4 mmol/L (0.5-2.2); Osmolality Calculated 285 mOsm/kg (285-295); Potassium 4.9 mmol/L (3.5-5.1); Sodium 131 mmol/L (136-145)
[2023-01-04 16:22] LABS: Reflex Lactate Order REFLEX LACTIC ORDERD
[2023-01-04] MEDS: iohexol 350 mg/mL 500 mL Btl (per mL) IV (16:22)
[2023-01-04] MEDS: sodium chloride 0.9% 1,000 ML 999 ML IV (17:16)
[2023-01-04] MEDS: clindamycin 600 MG/50 ML PREMIX 100 MG IV (17:18)
[2023-01-04 18:12] VITALS: BP 98/52; PULSE 78; RESP 18; O2SAT 98
--- NOTE | 2023-01-05 09:49 | DCPLANNER ---
Addendum entered by Josette Jurado 01/06/23 11:18: ops manager received the following message from the ortho clinic regarding follow up appointment:\ Called patient - he informed me that his hand was doing good at the moment. He will call and get in if anything changes! If he calls back we will schedule him with our ADMISSIONS SPECIALIST Victor M! Original Note: ops manager had message to schedule a follow up appointment for patient with ortho. ops manager sent patients information to the front office staff at ortho. Patients information will be printed and reviewed. Clinic will call patient with appointment information.
== END 2023-01-04 18:13 | disposition home or self-care (01) ==
PROVIDERS: Physician Assistant; Emergency Provider Emergency Medicine; PCP Family Medicine
DX: L03.114 Cellulitis of left upper limb (principal); D72.829 Elevated white blood cell count, unspecified; E86.0 Dehydration; R79.89 Other specified abnormal findings of blood chemistry; I13.0 Hypertensive heart and chronic kidney disease with heart failure and stage 1 through stage 4 chronic kidney disease, or unspecified chronic kidney disease; N18.30 Chronic kidney disease, stage 3 unspecified; I50.9 Heart failure, unspecified; Z86.73 Personal history of transient ischemic attack (TIA), and cerebral infarction without residual deficits; J44.9 Chronic obstructive pulmonary disease, unspecified; I25.10 Atherosclerotic heart disease of native coronary artery without angina pectoris; E78.5 Hyperlipidemia, unspecified; Z85.72 Personal history of non-Hodgkin lymphomas; Z95.1 Presence of aortocoronary bypass graft
CPT/HCPCS: 36415; 73130; 73201; 80048; 83605; 85025; 93971; 96365; 99285; J3490; J7030; Q9967

== ENCOUNTER 2023-01-06 03:05 | Emergency (ER) | payer MEDICARE, SELFPAY ==
[2023-01-06 03:43] VITALS: TEMP 36.3; BMI 14.1
[2023-01-06 03:49] VITALS: BP 87/50; PULSE 99; RESP 20
[2023-01-06 04:00] LABS: Basophils % 0.4 %; Eosinophils % 0.4 %; Hematocrit 35.9 % (42.0-52.0); Hemoglobin 11.5 g/dL (11.7-16.6); Lymphocytes # 0.7 10^3/uL (0.8-4.8); Lymphocytes % 7.4 %; Mean Corpuscular Hemoglobin 31.3 pg (28.0-34.0); Mean Corpuscular Volume 97.8 fl (80-94); Mean Platelet Volume 9.4 fL (7.4-10.4); Monocytes # 1.3 10^3/uL (0.2-0.9); Monocytes % 13.2 %; Neutrophils # 7.57 10^3/uL (1.8-7.7); Neutrophils % 78.2 %; Nucleated Red Blood Cells % 0 %; Platelet Count 261 10^3/cmm (130-400); Red Blood Count 3.67 10^6/uL (4.1-5.3); Red Cell Distribution Width 14.4 % (12.1-15.1); White Blood Count 9.7 10^3/uL (4.0-10.0)
[2023-01-06 04:05] LABS: Erythrocyte Sedimentation Rate 33 mm/hr (0-10)
[2023-01-06 04:19] VITALS: BP 91/51; PULSE 86; RESP 20
--- NOTE | 2023-01-06 04:20 | W.ED.EXTPRO ---
HPI - Extremity Problem General: Chief complaint: Extremity Problem,Nontraumatic Stated complaint: Left Hand Infection Time Seen by Provider: 01/06/23 03:46 Source: patient Mode of arrival: ambulatory Limitations: no limitations History of Present Illness: 82-year-old male states he had had a fall roughly a week ago states he started having some swelling to his left arm he was seen here roughly 2 days ago at that time he had an ultrasound of his left arm along with a CT that showed no acute findings he diagnosed with possible cellulitis started on antibiotics he states he had continued swelling from his elbow down to his hand denies any pain denies any fevers denies any new injuries denies any worsening proving factors. Associated symptoms: Deny chest pain, fever(s) or rash Review of Systems Const: Denies: fever(s), chills, body aches or change in appetite ENMT: Denies: throat pain Card: Denies: chest pain Resp: Denies: dyspnea GI: Denies: abdominal pain, nausea, vomiting or diarrhea Musc: Reports: extremity swelling; Denies: neck pain or back pain Skin/Breast: Denies: rash Neuro: Denies: headache(s) Psych: Denies: depression Mode/Lymph: Denies: easy bruising All/Imm: Denies: urticaria PFSH ED PFSH: Medical History Atrial fibrillation BPH (benign prostatic hyperplasia) Cerebellar stroke Chronic kidney disease, stage III (moderate) Congestive heart failure COPD (chronic obstructive pulmonary disease) Coronary artery disease Dyslipidemia Heart failure with preserved ejection fraction Heart failure with reduced ejection fraction Hypertension Lymphoma Medication induced coagulopathy Pulmonary hypertension Raynauds phenomenon Thrombus of left atrial appendage Surgical History H/O hernia repair Hx of CABG Hx of tonsillectomy Family History Mother Cancer Leukemia Father CAD (coronary artery disease) Diabetes Social History Smoking and tobacco status: never smoked Alcohol intake: never Lives independently: Yes Household members: none Housing: House Number of children: 2 Current occupational status: previously employed Physical Exam Const: COMMON NORMALS: no acute distress, patient oriented x3 and healthy appearing HENMT: COMMON NORMALS: normocephalic and atraumatic HEAD & SCALP: normocephalic and atraumatic Eye: COMMON NORMALS: conjunctivae normal CONJUNCTIVA: Yes conjunctivae normal Neck/C-Spine: COMMON NORMALS: full ROM and supple Chest: COMMONS NORMALS: normal inspection of the chest Resp: COMMON NORMALS: normal respiratory effort, No retractions, No use of accessory muscles and clear to auscultation bilaterally AUSCULTATION: clear to auscultation bilaterally Cardio: COMMON NORMALS: regular rate and No murmurs present (Cardio) RATE: regular rate GI: INSPECTION: Yes normal to inspection Extremity: COMMON NORMALS: full ROM NARRATIVE EXTREMITY EXAM: Swelling noted to left forearm and hand with pitting edema no warmth to touch no areas of broken skin distal pulses and sensation intact Neuro: COMMON NORMALS: patient oriented x3, moves all extremities and no focal motor deficits Psych: COMMON NORMALS: mental status grossly normal, Normal thought process present and cooperative THOUGHT PROCESS: Normal thought process present Skin: COMMON NORMALS: no rashes or lesions noted and no wounds GENERAL SKIN EXAM: no rashes or lesions noted Course Vital Signs: Vital signs: Vital Signs Temperature 97.4 F L 01/06/23 03:43 Pulse Rate 68 01/06/23 04:40 Respiratory Rate 18 01/06/23 04:40 Blood Pressure 108/60 01/06/23 04:40 Oxygen Delivery Me thod Room Air 01/06/23 04:19 MDM - Extremity (Nontraumatic) Medical Decision Making Patient presents for swelling to left forearm and hand he does have some erythema to his hand no real warmth to touch white count here was normal did have a little elevated CRP and ESR. He is afebrile has no signs of compartment syndrome no signs of severe worsening infection. He does have impressive edema to that left forearm we will Fab wrap the forearm with compression he states he is not able to take the clindamycin excepts at this time we will stop that and start him on Bactrim and Keflex we will get him follow-up with orthopedics he is return if worsening he understands agrees to plan. Medical Records I reviewed the patient's medical records. Lab Data I reviewed the patient's lab results. 01/06/23 03:50 01/06/23 03:50 Laboratory Results WBC 9.7 10^3/uL (4.0-10.0) 01/06/23 03:50 RBC 3.67 10^6/uL (4.1-5.3) L 01/06/23 03:50 Hgb 11.5 g/dL (11.7-16.6) L 01/06/23 03:50 Hct 35.9 % (42.0-52.0) L 01/06/23 03:50 MCV 97.8 fl (80-94) H 01/06/23 03:50 MCH 31.3 pg (28.0-34.0) 01/06/23 03:50 MCHC 32.0 g/dL (30.0-36.0) 01/06/23 03:50 RDW 14.4 % (12.1-15.1) 01/06/23 03:50 Plt Count 261 10^3/cmm (130-400) 01/06/23 03:50 MPV 9.4 fL (7.4-10.4) 01/06/23 03:50 Neut % (Auto) 78.2 % 01/06/23 03:50 Lymph % (Auto) 7.4 % 01/06/23 03:50 [place] % (Auto) 13.2 % 01/06/23 03:50 Eos % (Auto) 0.4 % 01/06/23 03:50 Baso % (Auto) 0.4 % 01/06/23 03:50 Neut # (Auto) 7.57 10^3/uL (1.8-7.7) 01/06/23 03:50 Lymph # (Auto) 0.7 10^3/uL (0.8-4.8) L 01/06/23 03:50 [place] # (Auto) 1.3 10^3/uL (0.2-0.9) H 01/06/23 03:50 Eos # (Auto) 0.0 10^3/uL (0.0-0.8) 01/06/23 03:50 Baso # (Auto) 0.0 10^3/uL (0.0-0.1) 01/06/23 03:50 Nucleated RBC % (auto) 0 % 01/06/23 03:50 Nucleated RBCs # 0.0 /100WBC 01/06/23 03:50 ESR 33 mm/hr (0-10) H 01/06/23 03:50 Sodium 129 mmol/L (136-145) L 01/06/23 03:50 Potassium 4.6 mmol/L (3.5-5.1) 01/06/23 03:50 Chloride 90 mmol/L (98-107) L 01/06/23 03:50 Carbon Dioxide 28 mmol/L (22-29) 01/06/23 03:50 Anion Gap 15.6 (5-19) 01/06/23 03:50 BUN 55 mg/dL (8-23) H 01/06/23 03:50 Creatinine 1.9 mg/dL (0.7-1.2) H 01/06/23 03:50 GFR Calculation Not Reportable 01/06/23 03:50 Glucose 86 mg/dL (65-115) 01/06/23 03:50 Calculated Osmolality 282 mOsm/kg (285-295) L 01/06/23 03:50 Calcium 8.8 mg/dL (8.5-10.5) 01/06/23 03:50 Total Bilirubin 0.5 mg/dL (0.15-1.2) 01/06/23 03:50 AST 48 U/L (0-40) H 01/06/23 03:50 ALT 27 U/L (0-41) 01/06/23 03:50 Alkaline Phosphatase 150 U/L (40-130) H 01/06/23 03:50 C-Reactive Protein 114.3 mg/L (0.0-4.9) H 01/06/23 03:50 Total Protein 7.5 g/dL (6.6-8.7) 01/06/23 03:50 Albumin 3.2 g/dL (3.5-5.2) L 01/06/23 03:50 Globulin 4.3 g/dL (1.3-4.6) 01/06/23 03:50 Discharge Plan Discharge Patient Disposition: Home Clinical Impression: Cellulitis of hand, Edema of left forearm Condition: Stable Prescriptions: New Bactrim DS 800-160 mg tablet 1 tab PO BID 7 Days Qty: 14 0RF cephalexin 500 mg capsule 500 mg PO TID 7 Days Qty: 21 0RF Discontinued clindamycin HCl 300 mg capsule 300 mg PO TID 14 Days Qty: 42 0RF No Action spironolactone 25 mg tablet 25 mg PO DAILY furosemide [Lasix] 80 mg tablet 80 mg PO BID metoprolol tartrate 25 mg tablet 25 mg PO DAILY Xarelto 15 mg tablet 15 mg PO DAILY Qty: 90 3RF Rx Instructions: @09:00 rosuvastatin [Crestor] 40 mg tablet 40 mg PO DAILY Qty: 90 2RF albuterol sulfate [ProAir HFA] 90 mcg/actuation Hfa Aerosol Inhaler 2 puff INHALATION Q4H PRN (Reason: Shortness Of Breath) Probiotic 15 billion cell Capsule 1 cap PO DAILY oxycodone 5 mg tablet 5 mg PO Q4H PRN (Reason: pain) Qty: 10 0RF Discharge Orders: Discharge ED (Routine); Ordered 01/06/23 Ordered By: Charity Mosley Referrals: Bryant Mendieta MD [Primary Care Provider] - Tony Vieira DO [Physician] - 1-3 days Discharge Diet: Advance as tolerated Discharge Activity: Resume usual activity Patient Instructions: Cellulitis (ED), Edema (ED) Coding Level of Care Code ED Obstetrics Technician for Pelon Kay
[2023-01-06 04:22] LABS: Alanine Aminotransferase 27 U/L (0-41); Albumin Level 3.2 g/dL (3.5-5.2); Alkaline Phosphatase 150 U/L (40-130); Blood Urea Nitrogen 55 mg/dL (8-23); C Reactive Protein 114.3 mg/L (0.0-4.9); Calcium 8.8 mg/dL (8.5-10.5); Carbon Dioxide 28 mmol/L (22-29); Chloride 90 mmol/L (98-107); Globulin 4.3 g/dL (1.3-4.6); Glucose 86 mg/dL (65-115); Osmolality Calculated 282 mOsm/kg (285-295); Sodium 129 mmol/L (136-145); Total Bilirubin 0.5 mg/dL (0.15-1.2); Total Protein 7.5 g/dL (6.6-8.7)
[2023-01-06 04:23] LABS: Anion Gap 15.6 (5-19); Aspartate Amino Transferase 48 U/L (0-40); Potassium 4.6 mmol/L (3.5-5.1)
[2023-01-06 04:30] VITALS: BP 109/59; PULSE 113; RESP 18
[2023-01-06 04:40] VITALS: BP 108/60; PULSE 68; RESP 18
--- NOTE | 2023-01-06 08:56 | DCPLANNER ---
Addendum entered by Josette Jurado 01/07/23 09:47: conference planning manager received the following message from the ortho clinic regarding follow up appointment: spoke to patient - he wants to hold off for now. he said he is going to see Dr. Mendieta and will take it from there. He will call back if he decides to schedule ortho follow up Original Note: conference planning manager had message to schedule a follow up appointment for patient with ortho. conference planning manager sent patients information to the front office staff at ortho. Patients information will be printed and reviewed. Clinic will call patient with appointment information.
== END 2023-01-06 04:41 | disposition home or self-care (01) ==
PROVIDERS: Emergency Provider Emergency Medicine; PCP Family Medicine
DX: L03.114 Cellulitis of left upper limb (principal); R60.9 Edema, unspecified; I13.0 Hypertensive heart and chronic kidney disease with heart failure and stage 1 through stage 4 chronic kidney disease, or unspecified chronic kidney disease; N18.30 Chronic kidney disease, stage 3 unspecified; I50.9 Heart failure, unspecified; Z86.73 Personal history of transient ischemic attack (TIA), and cerebral infarction without residual deficits; J44.9 Chronic obstructive pulmonary disease, unspecified; I25.10 Atherosclerotic heart disease of native coronary artery without angina pectoris; E78.5 Hyperlipidemia, unspecified; Z95.1 Presence of aortocoronary bypass graft
CPT/HCPCS: 80053; 85025; 85651; 86140; 99283

== ENCOUNTER 2023-02-20 13:14 | Outpatient (CLI) | payer MEDICARE, SELFPAY ==
--- NOTE | 2023-02-20 13:22 | CTR_ITS ---
PROCEDURE INFORMATION: Exam: CT Abdomen And Pelvis With Contrast Exam date and time: 02/20/2023 2:09 PM Age: 83 years old Clinical indication: Abdominal pain; Prior surgery; Surgery date: 6+ months; Surgery type: Open heart. , Bowel bloackage, 2 hernia repairs; Patient HX: HX of lymphoma; Additional info: Abdominal pain/pancreatitis, stat TECHNIQUE: Imaging protocol: Computed tomography of the abdomen and pelvis with contrast. Radiation optimization: All CT scans at this facility use at least one of these dose optimization techniques: automated exposure control; mA and/or kV adjustment per patient size (includes targeted exams where dose is matched to clinical indication); or iterative reconstruction. Contrast material: OMNI 350; Contrast volume: 50 ml; Contrast route: INTRAVENOUS (IV); REPORTING DATA: Count of CT and Cardiac NM exams in prior 12 months: This patient has received 5 known CTs and 0 known cardiac nuclear medicine studies in the 12 months prior to the current study. COMPARISON: CT abdomen pelvis w con* [id number] 09/07/2022 6:06 AM RADIATION DOSE METRICS: Total DLP (mGy-cm): 214.95 FINDINGS: Pleural spaces: Bilateral posterior basilar effusions with atelectasis similar to prior exam. Liver: Mottled enhancement of the hepatic parenchyma as noted with prior exam. Gallbladder and bile ducts: Postsurgical clips in the gallbladder fossa, prior cholecystectomy. No significant biliary ductal dilatation. Pancreas: Pancreas shows no focal abnormality. Spleen: Benign calcified granulomas the spleen as noted with prior exam. Adrenal glands: Normal. No mass. Kidneys and ureters: Renal cysts including 5 cm exophytic cyst of the left kidney, as noted with prior exam. Kidneys are otherwise unremarkable. Stomach and bowel: See Soft tissues finding. Appendix: No evidence of appendicitis. Intraperitoneal space: Unremarkable. No free air. No significant fluid collection. Vasculature: Atherosclerotic vascular disease noted without significant aneurysmal dilatation of the abdominal aorta. Lymph nodes: Unremarkable. No enlarged lymph nodes. Urinary bladder: Partially distended urinary bladder with urinary bladder wall thickening. Reproductive: Chronic appearing prostate calcifications as noted with prior exam. Bones/joints: Degenerative bony changes. Soft tissues: Pelvic floor laxity greatest on the left with small bowel protrusion into the ischiorectal fossa as noted with prior. No dilatation of bowel loops or bowel distention, without bowel obstruction. Moderate stool volume in the distal half of the colon. CT/CT abdomen pelvis w con* [id number] IMPRESSION: 1. Bilateral posterior basilar effusions with atelectasis similar to prior exam. 2. Mottled enhancement of the hepatic parenchyma that is chronic with prior exam. 3. Renal cysts including 5 cm exophytic cyst of the left kidney as noted with prior exam. 4. Urinary bladder wall thickening that is chronic prior exam. 5. Chronic appearing prostate calcifications. 6. Pelvic floor laxity greatest on the left with small bowel protrusion into the ischiorectal fossa that is chronic with prior exam. No bowel obstruction. 7. Moderate stool within the distal half of the colon. 8. No findings to indicate complications of pancreatitis. COMMENTS: Consistent with the [employer]'s Incidental Findings Committee white paper (J Am Sid Radiol 2018): Any incidental renal lesion less than 1 cm or classified as too small to characterize, or any incidental cystic renal lesion characterized as simple-appearing, is likely benign. No follow-up imaging is recommended for these lesions per consensus recommendations based on imaging criteria.
[2023-02-20 14:08] LABS: Blood Urea Nitrogen 28 mg/dL (8-23)
[2023-02-20] MEDS: iohexol 350 mg/mL 500 mL Btl (per mL) IV (14:13)
== END 2023-02-20 13:15 | disposition home or self-care (01) ==
PROVIDERS: PCP Family Medicine; Visit Provider Physician Assistant
DX: R10.9 Unspecified abdominal pain (principal); J90 Pleural effusion, not elsewhere classified; J98.11 Atelectasis; Q61.02 Congenital multiple renal cysts
CPT/HCPCS: 74177; 82565; 84520; Q9967

== ENCOUNTER → 2023-07-01 15:36 | Outpatient (BNVA) | payer MEDICARE, SELFPAY | PROVIDERS: PCP Family Medicine; Visit Provider Internal Medicine | DX: I27.20 Pulmonary hypertension, unspecified (principal); I48.91 Unspecified atrial fibrillation; Z86.73 Personal history of transient ischemic attack (TIA), and cerebral infarction without residual deficits; I49.5 Sick sinus syndrome; I13.0 Hypertensive heart and chronic kidney disease with heart failure and stage 1 through stage 4 chronic kidney disease, or unspecified chronic kidney disease; I50.20 Unspecified systolic (congestive) heart failure; N18.30 Chronic kidney disease, stage 3 unspecified; Z79.01 Long term (current) use of anticoagulants | CPT/HCPCS: 99214 ==

== ENCOUNTER 2023-09-09 15:56 | Observation (INO) | payer MEDICARE, SELFPAY ==
[2023-09-09] VITALS (13 sets, daily range): BP systolic 94–107; BP diastolic 50–59; PULSE 68–87; RESP 15–19; BMI 18.6
--- NOTE | 2023-09-09 16:31 | PC.NURSE ---
pt is diresct admit from dr cintron's office.states he is here for alot of things .pt is cantankerous and rather demanding in nature.afib at controlled rate on monitor.denies pain at present.oriented to room environment.instructed to notify staff for any pain,sob,or for any concerns at all.pt verb understanding of instructions.
--- NOTE | 2023-09-09 17:13 | ECG_ITS ---
[facility] Test Date: 2023-09-09 Pat Name: Rogelio Taylor Department: Room: 112 Gender: Male Sharepoint Engineer: : 1940 Requested By: Frank Harper Order Number: [id number] Libra MD: Diann Tavarez M.D. Measurements Intervals [place] Rate: 76 P: 0 LA: 0 QRS: 39 QRSD: 95 T: 28 QT: 423 QTc: 476 Interpretive Statements ATRIAL FIBRILLATION SEPTAL MYOCARDIAL INFARCTION , OF INDETERMINATE AGE [40+ ms Q WAVE IN V1/V2] MODERATE T-WAVE ABNORMALITY, CONSIDER ANTERIOR ISCHEMIA [-0.1+ mV T-WAVE IN V3/V4] Compared to ECG 09/07/2022 07:16:12 Myocardial infarct finding now present Possible ischemia now present T-wave abnormality still present Electronically Signed On 09-09-2023 22:21:01 CLOTH DRIER by Diann Tavarez M.D. [id number]
--- NOTE | 2023-09-09 17:16 | USCV_ITS ---
Rogelio Taylor Age: 83 Gender: M : 1940 Exam Date: 09/09/2023 19:10 Ordering Phys: Frank Harper MD Technologist: ISAIAH [place] [facility] [place]ication: assess aortic stenosis, CHF, History of CABG in BP: 107 / 50 HR: 62 Rhythm: Atrial fibrillation Technical Quality: Adequate MEASUREMENTS (Male / Female) Normal Values 2D ECHO LV Diastolic Diameter PLAX 2.7 cm 4.2 - 5.9 / 3.9 - 5.3 cm LV Systolic Diameter PLAX 2.2 cm IVS Diastolic Thickness 1.1 cm 0.6 - 1.0 / 0.6 - 0.9 cm IVS Systolic Thickness 1.0 cm LVPW Diastolic Thickness 1.4 cm 0.6 - 1.0 / 0.6 - 0.9 cm LVPW Systolic Thickness 1.5 cm LVOT Diameter 1.5 cm LV Ejection Fraction 2D Teich 40.7 % LV Ejection Fraction MOD 2C 51.0 % LV Ejection Fraction 2C AL 52.3 % LA Diameter 3.7 cm LA Width 4.2 cm LA Height 4.8 cm RA Width 5.4 cm RA Height 5.6 cm Aorta at Sinotubular Diameter 3.0 cm IVC Diameter 2.8 cm M-MODE Aortic Annulus Diameter 3.5 cm LA Ao Ratio MM 0.9 MV E Point Septal Separation 0.4 cm DOPPLER AV Peak Velocity 327.0 cm/s LVOT Peak Velocity 99.0 cm/s AV Area Cont Eq vti 0.4 cm squared AV Area Cont Eq pk 0.5 cm squared MV Area PHT 2.7 cm squared MV E' Velocity 97.5 cm/s Mitral E to MV E' Ratio 47.4 Mitral E to LV E' Lateral Ratio 37.9 Mitral E to LV E' Septal Ratio 65.4 TR Peak Velocity 415.0 cm/s TR Peak Gradient 68.9 mmHg TV Peak E Velocity 50.0 cm/s Right Atrial Pressure 15.0 mmHg Pulmonary Artery Systolic Pressu 83.9 mmHg PV Peak Velocity 59.0 cm/s RV Acceleration Time 0.1 s RV Ejection Time 0.3 s RV AcT/ET 0.3 FINDINGS Left Ventricle Diffuse hypokinesia of the udqfwb-[id number]-[id number] ventricle, during systole. LV ejection fraction of 52%.Grade III/IV diastolic dysfunction (restrictive filling pattern), severely elevated filling pressures. Right Ventricle Mildly dilated right ventricle with a slightly diminished ejection fraction. Thickening of the right ventricular free wall Right Atrium Moderately increased right atrial size. Left Atrium Mildly increased left atrial size. Mitral Valve Moderate mitral annular calcification. Mild-moderate mitral valve regurgitation. Aortic Valve Moderate to heavily calcified aortic leaflets.mild aortic valve regurgitation. Critical low gradient aortic valve stenosis. Peak velocity of 3.2 cm/s with a peak gradient of 43 and a mean gradient of 21 mmHg. Calculated valve area of 0.37 cm squared Tricuspid Valve Vkmcjohw-gs-xjihvl tricuspid valve regurgitation. Estimated pulmonary artery peak systolic pressure 84 mmHg Pulmonic Valve Pulmonic valve not well visualized. Pericardium Small pericardial effusion. Features of left-sided pleural effusion Aorta Normal aortic annulus size. IVC Dilated IVC with decreased respiratory variation. CONCLUSIONS Critical, low gradient aortic valve stenosis(Peak velocity of 3.2 cm/s with a peak gradient of 43 and a mean gradient of 21 mmHg. Calculated valve area of 0.37 cm squared. ) Moderate to heavily calcified aortic leaflets.mild aortic valve regurgitation. Diffuse hypokinesia of the lwnwhv-[id number]-[id number] ventricle, during systole. LV ejection fraction of 52%.Grade III/IV diastolic dysfunction (restrictive filling pattern), severely elevated filling pressures. Moderately dilated right atrium with a mildly dilated left atrium Severe pulmonary hypertension with an estimated pulmonary artery peak systolic pressure of 84 mmHg Nergkkys-qm-xxgvkm tricuspid valve regurgitation. Moderate mitral annular calcification. Mild-moderate mitral valve regurgitation. Small pericardial effusion. Features of left-sided pleural effusion. Compared to the study from a 03/04/2022, there seems to be worsening of the aortic valve stenosis and development of severe pulmonary hypertension. Dr. Harper was informed about these findings Dr Savi Walker MD [facility] (Electronically Signed) Final Date: 10 September 2023 07:36 S
--- NOTE | 2023-09-09 17:16 | XRR_ITS ---
PROCEDURE INFORMATION: Exam: XR Chest Exam date and time: 09/09/2023 6:23 PM Age: 83 years old Clinical indication: Dyspnea; Prior surgery; Surgery date: 6+ months; Surgery type: Open heart; Additional info: Dyspnea on exertion TECHNIQUE: Imaging protocol: Radiologic exam of the chest. Views: 1 view. COMPARISON: CR XR chest 2V* [id number] 10/02/2022 1:33 PM FINDINGS: Lungs: See Pleural spaces finding. Pleural spaces: There appears to be moderate amount of loculated fluid along the left mid and lower lateral pleural space. There is a right apical opacity which could represent loculated fluid or pleural thickening. Heart/Mediastinum: There is enlargement of the cardiac silhouette. Bones/joints: There are sternal sutures. No acute findings. XR/XR chest 1V portable [id number] IMPRESSION: 1. There appears to be moderate amount of loculated fluid along the left mid and lower lateral pleural space. 2. There is enlargement of the cardiac silhouette. 3. There is a right apical opacity which could represent loculated fluid or pleural thickening.
--- NOTE | 2023-09-09 17:18 | US_ITS ---
WS: [id number] RENAL ULTRASOUND URINARY BLADDER ULTRASOUND HISTORY: brad on ckd COMPARISON: None available. TECHNIQUE: 2-D and color Doppler imaging of the kidney submitted. Right kidney: 9.8 cm x 4.0 cm x 4.3 cm. Normal echogenicity with no hydronephrosis or mass. Left kidney: 9.5 cm x 4.9 cm x 4.2 cm. Normal size kidney. There is a cyst from the superior kidney measuring 4.7 x 3.5 x 2.5 cm. Cortical t hinning and scarring was noted on a prior CT from 02/20/2023. The scarring is not as evident by ultraso und. Aorta: Atherosclerosis. Urinary Bladder: Normal distention. Prevoid volume 106 mL. Post void volume 64 mL. There is bladder w all thickening which is probably due to outlet obstruction. Bladder wall thickening is symmetric. IMPRESSION: 1. No hydronephrosis. 2. Mild post void residual volume. 3. Diffuse bladder wall thickening is probably due to outlet obstruction. 4. No hydronephrosis. 5. Large LEFT renal cyst superior pole with a maximum diameter of 4.7 cm.
--- NOTE | 2023-09-09 17:19 | P.HP_ITS ---
Providers/Chief Complaint 2 Admitting Physician: Frank Harper Primary Care Provider: Bryant Mendieta MD Chief Complaint: CHS Exacerbation History of Present Illness 83-year-old gentleman with history of CAD, CABG, current dyspnea, CHF, CKD, atrial fibrillation, CVA, HLD, COPD, pulmonary hypertension, Raynaud's phenomenon, other medical problems, was referred for direct admission to the hospital by his primary provider due to difficulties with management of congestive heart failure with recently worsening edema in his lower extremities, exertional dyspnea, debility, despite diuresis, with worsening of renal function, as well as low normal blood pressures, chronic/permanent atrial fibrillation. He has been able to tolerate beta-bailee but dose had to be reduced, spironolactone, but not other heart failure medications. He tells me about a month ago he had COVID which was the second time around he has had it, but states that he did not really to get out of him and he was not able to recover well since then having more issues with dyspnea and the above issues with congestive heart failure. Review of Systems 2 Const: Reports: fatigue; Denies: fever(s), chills, body aches or malaise ENMT: Denies: throat pain Card: Reports: edema, swelling of feet/ankles and dyspnea on exertion; Denies: chest pain or pre-syncope Resp: Denies: productive cough, change in phlegm color or hemoptysis GI: Denies: abdominal pain, nausea, vomiting, diarrhea, constipation, hematochezia or melena : Denies: flank pain, difficulty urinating, urinary frequency or hematuria Musc: Denies: back pain, joint swelling or joint redness Skin/Breast: Denies: rash or new lesions Medications/Allergies Home Medications Medication Instructions Recorded Confirmed Last Taken Type Lactobacillus acidophilus and 1 cap PO DAILY 07/09/22 09/09/23 09/09/23 History rhamnosus 15 billion cell capsule (Probiotic) furosemide 80 mg tablet (Lasix) 80 mg PO BID 08/28/22 09/09/23 09/09/23 08:00 History spironolactone 25 mg tablet 25 mg PO DAILY 08/28/22 09/09/23 09/09/23 History rosuvastatin 40 mg tablet (Crestor) 40 mg PO DAILY #90 tabs 0309/09/23 09/09/23 Rx metoprolol tartrate 25 mg tablet 25 mg PO DAILY #90 tabs 04/10/23 09/09/23 09/09/23 Rx apixaban 2.5 mg tablet (Eliquis) 2.5 mg PO BID #180 tabs 07/13/23 09/09/23 09/09/23 20:30 Rx omeprazole 20 mg capsule,delayed 30 mg PO DAILY 09/09/23 09/09/23 09/09/23 08:00 History release Allergies Allergy/AdvReac Type Severity Reaction Status Date / Time fluticasone Allergy ALGY-Bliste Verified 07/01/23 15:44 [From Advair Diskus] r Penicillins Allergy ALGY-Rash Verified 07/01/23 15:44 ramipril [From Altace] Allergy ALGY-Swell Verified 07/01/23 15:44 Lip/Tongue/Throat salmeterol Allergy ALGY-Bliste Verified 07/01/23 15:44 [From Advair Diskus] r tiotropium Allergy ALGY-Bliste Verified 07/01/23 15:44 [From Spiriva with r HandiHaler] PFSH Acute 2 PFSH: Medical History COPD (chronic obstructive pulmonary disease) Heart failure with reduced ejection fraction Thrombus of left atrial appendage Pulmonary hypertension Heart failure with preserved ejection fraction Congestive heart failure Chronic kidney disease, stage III (moderate) Medication induced coagulopathy Hypertension Atrial fibrillation Cerebellar stroke Raynauds phenomenon BPH (benign prostatic hyperplasia) Dyslipidemia Coronary artery disease Lymphoma Surgical History H/O hernia repair Hx of tonsillectomy Hx of CABG Family History Mother Cancer Leukemia Father CAD (coronary artery disease) Diabetes Social History Smoking and tobacco/nicotine status: never used tobacco/nicotine Alcohol intake: never Substance/Drug Use: never Lives independently: Yes Household members: none Housing: House Number of children: 2 Current occupational status: previously employed Vitals/I&O/Wt Last Vital Signs Pulse 82 12/20/23 16:55 Resp 15 09/09/23 16:13 BP 107/50 09/09/23 16:55 O2 Del Method Room Air 09/09/23 16:31 Weight last 48 hrs Weight 46.275 kg Physical Exam 2 Const: COMMON NORMALS: patient oriented x3 and alert GENERAL APPEARANCE: c ooperative ORIENTATION/CONSCIOUSNESS: Yes awake HENMT: COMMON NORMALS: oropharynx normal Neck/C-Spine: COMMON NORMALS: no JVD Resp: COMMON NORMALS: normal respiratory effort and clear to auscultation bilaterally AUSCULTATION: clear to auscultation bilaterally Cardio: COMMON NORMALS: no JVD, regular rhythm, S1 normal heart sound present, S2 normal heart sound present and No murmurs present (Cardio) RHYTHM: regular rhythm HEART SOUNDS: S1 normal heart sound present and S2 normal heart sound present GI: COMMON NORMALS: Normal to inspection, nondistended, normoactive bowel sounds present, Soft to palpation and non-tender PALPATION: Yes Soft to palpation Extremity: COMMON NORMALS: no joint enlargement GENERAL: Yes edema (1-2+) Neuro: COMMON NORMALS: patient oriented x3 and moves all extremities S ENSORIUM/ORIENTATION: Yes alert Skin: COMMON NORMALS: no rashes or lesions noted GENERAL SKIN EXAM: no rashes or lesions noted Data 09/10/23 04:10 09/10/23 04:10 A&P Assessment and plan (1) Heart failure with reduced ejection fraction: With progressive heart failure symptoms despite diuresis, which is also limited by soft blood pressure, as well as worsening renal function in the last week, with creatinine increasing up to 2, he has had more dyspnea with exertion, worsening lower extremity edema. Overall functional decline. With noted prior cardiomyopathy, EF down at 30-35% back in November 2020, more recent echocardiogram shows his ejection fraction was likely within normal limits about 14 months ago. However, also with noted probable moderate aortic stenosis, although technically difficult study. As he does have a rather narrow therapeutic window, at risk of hypotension due to the above, at risk of kidney injury, will need continued cautious diuresis. For now we will continue with 20 mg IV Lasix, monitor MUSHTAQ. Monitor electrolytes due to risk of deficiency. Monitor on telemetry. Additionally will reassess left ventricular function, severity of aortic stenosis with TTE. Monitor vital signs, monitor for hypotension. Requesting CBC, CMP. TSH. NT-proBNP. Discussed with him we will additionally complete troponin EKG series. Obtain chest x-ray. Additionally in permanent atrial fibrillation. Rate appears to be controlled. Additional assessment by TTE. In case of persistent symptomatic CHF, without other modifiable factors, consideration of feasibility of cardioversion and rhythm control although this may be difficult given permanent atrial fibrillation. Discussed w his PCP. (2) Acute kidney injury superimposed on CKD: May be secondary to fluctuating blood pressures, reportedly and these have been soft, although seem more low normal rather than hypotensive. He denies any NSAID use. Cardiorenal syndrome additional possibility. Will obtain UA, assess kidney ultrasound. Obtain CK. Reviewed lab work from 09/08. Follow-up CMP requested. (3) Dyspnea on exertion: Secondary to congestive heart failure decompensation, suspected diastolic congestive heart failure, but will additionally assess with TTE as above. This is combined with aortic stenosis. Denies any chest pain or pressure, no pleuritic pain. No cough. No hemoptysis. Noted to have some worsened edema on the left side compared to the right. Will assess venous duplex ultrasound. (4) Decreased blood pressure, not hypotension: Soft blood pressures, history of aortic stenosis. Monitor blood pressures. At risk of hypotension. Cautious diuresis. (5) Atrial fibrillation: Permanent atrial fibrillation, continue metoprolol, Eliquis. Check potassium, magnesium. Qualifiers: Atrial fibrillation type: unspecified Qualified Code(s): I48.91 - Unspecified atrial fibrillation (6) Aortic stenosis: At least moderate stenosis noted on prior TTE but difficult study. Repeat TTE. Discussed with him contrast may be needed. Plan COPD: Does not appear currently in exacerbation COVID-19: About a month ago after which has had a difficult recovery. Attestations 2 Medical Necessity Statement*: Admission of over 2 midnight anticipated for assessment and management of decompensated CHF, difficult to manage with worsened renal funciton, soft blood pressures, functional decline, aortic stenosis. Diagnoses Heart failure with reduced ejection fraction I50.20 Acute kidney injury superimposed on CKD N17.9; N18.9 Dyspnea on exertion R06.09 Decreased blood pressure, not hypotension R03.1 Atrial fibrillation I48.91 Atrial fibrillation type: unspecified Aortic stenosis I35.0
[2023-09-09 17:30] LABS: Basophils % 0.2 %; Hematocrit 36.2 % (37-53); Lymphocytes # 0.3 10^3/uL (0.8-4.8); Lymphocytes % 4.7 %; Mean Corpuscular HGB Conc 32.3 g/dL (30-55); Mean Corpuscular Hemoglobin 31.5 pg (27-33); Mean Corpuscular Volume 97.3 fl (82-101); Mean Platelet Volume 8.8 fL (7.4-10.4); Monocytes # 0.5 10^3/uL (0.2-0.9); Monocytes % 9.7 %; Neutrophils # 4.76 10^3/uL (1.8-7.7); Nucleated Red Blood Cells % 0 %; Platelet Count 205 10^3/cmm (157-399); Red Blood Count 3.72 10^6/uL (3.85-5.65); Red Cell Distribution Width 13.6 % (12.1-15.1); White Blood Count 5.59 10^3/uL (3.29-11.43)
[2023-09-09 17:56] LABS: Troponin(5th) Baseline 129 ng/L (0-15)
[2023-09-09 18:03] LABS: Alanine Aminotransferase 22 U/L (0-41); Alkaline Phosphatase 168 U/L (40-130); Anion Gap 14.6 (5-19); Aspartate Amino Transferase 34 U/L (0-40); Blood Urea Nitrogen 61 mg/dL (8-23); Calcium 8.2 mg/dL (8.5-10.5); Carbon Dioxide 27 mmol/L (22-29); Chloride 97 mmol/L (98-107); Globulin 4.2 g/dL (1.3-4.6); Glucose 87 mg/dL (65-115); Magnesium 2.4 mg/dL (1.7-2.3); Osmolality Calculated 295 mOsm/kg (285-295); Potassium 4.6 mmol/L (3.5-5.1); Sodium 134 mmol/L (136-145); Total Bilirubin 0.4 mg/dL (0.15-1.2); Total Protein 7.2 g/dL (6.6-8.7)
[2023-09-09 18:17] LABS: Creatine Phosphokinase 109 U/L (39-308)
[2023-09-09 18:23] LABS: NT Pro B Type Natriuretic Pept 30160 pg/mL (0-450)
[2023-09-09] MEDS: apixaban 5 mg Tablet 2.5 MG PO (20:22)
[2023-09-09 20:26] LABS: Troponin 5 2HR Delta -13.8 ABS# (0-10)
[2023-09-09 20:29] LABS: Troponin 5 2HR 115.2 ng/L (0-15)
[2023-09-09 22:57] LABS: Add Urine Microscopic? YES; Bilirubin Urine Neg (Negative); Blood Urine 2+ (Negative); Glucose Urine UA Norm (Normal); Ketones Urine Negative (Negative); Leukocyte Esterase Urine Negative (Negative); Nitrate Urine Negative (Negative); Protein Urine 1+ (Negative); RBC Urine 0-4 /hpf (0-2); Specific Gravity, Urine 1.015 (1.005-1.030); Urine Appearance SL Hazy (CLEAR); Urine Color Yellow (Yellow); Urobilinogen Urine Neg (Negative); pH Urine 5 (5-7)
[2023-09-09 22:58] LABS: Add Urine Culture? No; Amorphous Sediment Urine 2+ /hpf; Bacteria Urine TRACE /hpf; Mucus Urine 2+ /hpf
[2023-09-09 23:49] LABS: Troponin 5 6HR Delta -15.2 ng/L (0-12)
[2023-09-09 23:50] LABS: Troponin 5 6HR 113.8 ng/L (0-15)
[2023-09-10] VITALS (8 sets, daily range): BP systolic 97–120; BP diastolic 47–67; PULSE 73–89; RESP 18–28; TEMP 36.9–37.1; O2SAT 97–98
[2023-09-10 05:07] LABS: Basophils % 0.2 %; Eosinophils # 0.1 10^3/uL (0.0-0.8); Eosinophils % 2.3 %; Hematocrit 34.4 % (37-53); Lymphocytes # 0.4 10^3/uL (0.8-4.8); Lymphocytes % 6.6 %; Mean Corpuscular HGB Conc 32.6 g/dL (30-55); Mean Corpuscular Hemoglobin 31.5 pg (27-33); Mean Corpuscular Volume 96.6 fl (82-101); Mean Platelet Volume 9.3 fL (7.4-10.4); Monocytes # 0.8 10^3/uL (0.2-0.9); Monocytes % 13.3 %; Neutrophils # 4.35 10^3/uL (1.8-7.7); Neutrophils % 77.2 %; Nucleated Red Blood Cells % 0 %; Platelet Count 196 10^3/cmm (157-399); Red Blood Count 3.56 10^6/uL (3.85-5.65); Red Cell Distribution Width 13.7 % (12.1-15.1); White Blood Count 5.63 10^3/uL (3.29-11.43)
[2023-09-10 05:32] LABS: Alanine Aminotransferase 23 U/L (0-41); Albumin Level 2.8 g/dL (3.5-5.2); Alkaline Phosphatase 172 U/L (40-130); Anion Gap 14.7 (5-19); Aspartate Amino Transferase 35 U/L (0-40); Blood Urea Nitrogen 49 mg/dL (8-23); Calcium 8.1 mg/dL (8.5-10.5); Carbon Dioxide 27 mmol/L (22-29); Chloride 99 mmol/L (98-107); Globulin 3.8 g/dL (1.3-4.6); Glucose 81 mg/dL (65-115); Osmolality Calculated 294 mOsm/kg (285-295); Potassium 4.7 mmol/L (3.5-5.1); Sodium 136 mmol/L (136-145); Total Bilirubin 0.3 mg/dL (0.15-1.2); Total Protein 6.6 g/dL (6.6-8.7)
[2023-09-10] MEDS: FUROsemide 10 mg/mL SDV 2mL 20 MG IVP (09:03)
[2023-09-10] MEDS: apixaban 5 mg Tablet 2.5 MG PO ×2 (09:03→21:08)
--- NOTE | 2023-09-10 09:14 | P.CONIM_ITS ---
Providers/Reason For Consult 2 Consulting Physician/Specialty*: MARY Walker MD/cardiology Reason for Consult*: Patient with critical aortic valve stenosis/congestive heart failure Requesting Physician: Dr. Harper Attending Physician: Frank Harper Primary Care Provider: Bryant Mendieta MD History of Present Illness History of Present Illness Rogelio Taylor is a 83 year old male with a history of atherosclerotic heart disease, status post coronary bypass surgery, chronic atrial fibrillation, and history of CVA, is admitted to hospital from Dr. Sanchez's office where he was found to be bradycardic with a low blood pressure. Patient was found to have critical aortic valve stenosis of low gradient with severe pulmonary hypertension. Cardiology consult is requested for further cardiac evaluation recommendations According this patient, he been having some amount of dyspnea on exertion and progressive weakness over the last several months. He denies any chest pain. No fever or chills. 2 weeks ago he had a COVID-19 infection. According to him, this was more severe than the initial COVID infection that he had, approximately 2 years ago. He was treated with Z-Leobardo. Seems to be feeling better with respect to this. He has a chronic lower extremity swelling. This has been fluctuating. He has a history of bradycardia. Since stopping the AV mindi blocking agents/cutting back on the dose, he was doing okay. Patient is on long-term oral anticoagulation. Has not had any bleeding complications has been compliant with medications. Review of Systems 2 Narrative: CONSTITUTIONAL: No fever or chills. Generalized weakness and dyspnea on exertion EYES: No blurring of vision or other visual disturbances lately. ENT: No hoarseness of voice, auditory disturbances or sore throat. CARDIOVASCULAR: As mentioned above. RESPIRATORY: Shortness of breath as mentioned above GASTROINTESTINAL: No hematemesis or melena. GENITOURINARY: No dysuria or hematuria. INTEGUMENTARY: No skin rashes or history of skin cancer. NEURO: No transient ischemic attacks or amaurosis. PSYCHIATRIC: No history of psychosis or major depression. HEMATOLOGIC: No bleeding disorders or significant anemia. ENDOCRINE: No history of polyuria or polydipsia. MUSCULOSKELETAL: No recent joint pain or swelling. ALLERGY/IMMUNOLOGY: As mentioned above. Medications/Allergies Home Medications Medication Instructions Recorded Confirmed Last Taken Type Lactobacillus acidophilus and 1 cap PO DAILY 07/09/22 09/09/23 09/09/23 History rhamnosus 15 billion cell capsule (Probiotic) furosemide 80 mg tablet (Lasix) 80 mg PO BID 08/28/22 09/09/23 09/09/23 08:00 History spironolactone 25 mg tablet 25 mg PO DAILY 08/28/22 09/09/23 09/09/23 History rosuvastatin 40 mg tablet (Crestor) 40 mg PO DAILY #90 tabs 12/11/22 09/09/23 09/09/23 Rx metoprolol tartrate 25 mg tablet 25 mg PO DAILY #90 tabs 04/10/23 09/09/23 09/09/23 Rx apixaban 2.5 mg tablet (Eliquis) 2.5 mg PO BID #180 tabs 07/13/23 09/09/23 09/09/23 20:30 Rx omeprazole 20 mg capsule,delayed 30 mg PO DAILY 09/09/23 09/09/23 09/09/23 08:00 History release Allergies Allergy/AdvReac Type Severity Reaction Status Date / Time fluticasone Allergy ALGY-Bliste Verified 07/01/23 15:44 [From Advair Diskus] r Penicillins Allergy ALGY-Rash Verified 07/01/23 15:44 ramipril [From Altace] Allergy ALGY-Swell Verified 07/01/23 15:44 Lip/Tongue/Throat salmeterol Allergy ALGY-Bliste Verified 07/01/23 15:44 [From Advair Diskus] r tiotropium Allergy ALGY-Bliste Verified 07/01/23 15:44 [From Spiriva with r HandiHaler] Current Medications Generic Name Dose Route Start Last Admin Trade Name Freq PRN Reason Stop Dose Admin Apixaban 2.5 mg 09/09/23 21:00 09/10/23 09:03 Apixaban 5 Mg Tablet PO 2.5 mg BID@0900,2100 JAROD Administration Furosemide 20 mg 09/10/23 09:00 09/10/23 09:03 Furosemide 10 Mg/Ml Sdv 2ml IVP 20 mg DAILY JAROD Administration PFSH Acute 2 PFSH: Medical History COPD (chronic obstructive pulmonary disease) Heart failure with reduced ejection fraction Thrombus of left atrial appendage Pulmonary hypertension Heart failure with preserved ejection fraction Congestive heart failure Chronic kidney disease, stage III (moderate) Medication induced coagulopathy Hypertension Atrial fibrillation Cerebellar stroke Raynauds phenomenon BPH (benign prostatic hyperplasia) Dyslipidemia Coronary artery disease Lymphoma Surgical History H/O hernia repair Hx of tonsillectomy Hx of CABG Family History Mother Cancer Leukemia Father CAD (coronary artery disease) Diabetes Social History Smoking and tobacco/nicotine status: never used tobacco/nicotine Alcohol intake: never Substance/Drug Use: never Lives independently: Yes Household members: none Housing: House Number of children: 2 Current occupational status: previously employed Vitals/I&O/Wt Last Vital Signs Pulse 73 09/10/23 08:00 Resp 28 H 09/10/23 08:00 BP 99/47 09/10/23 08:00 O2 Del Method Room Air 09/10/23 08:00 09/09/23 09/10/23 09/10/23 22:59 06:59 14:59 Intake Total 480 / 480 360 / 840 222 / 222 Output Total 200 / 200 400 / 600 Balance 280 / 280 -40 / 240 222 / 222 Weight last 48 hrs Weight 103 lb 9 oz Weight 102 lb 0.3 oz Physical Exam 2 Narrative: GENERAL: The patient is alert and oriented times three. Not in any acute distress. Thin frame, short statured, somewhat emaciated, elderly male weighing 94 pounds HEENT: No significant pallor, icterus or lymphadenopathy.Oral cavity: There are no mucous membrane lesions. NECK: Trachea appears to be central. No masses noted. No JVD or thyromegaly appreciated. RESPIRATORY: Chest is symmetrical. No intercostals muscle retraction or any accessory muscle activation. There is no chest wall tenderness. Breath sounds are heard bilaterally. No rales or rhonchi heard. No evidence of any consolidation. BREASTS: Deferred. HEART: The heart sounds are normal. No S3 or S4. Ejection systolic murmur grade 4/6 in the aortic area. No diastolic murmurs. No pericardial rub ABDOMEN: No vessel pulsations or distention. No tenderness. No organomegaly appreciated. Bowel sounds are normally heard. : Deferred. RECTAL: Deferred. LYMPHATIC: No lymphadenopathy noted in the neck. EXTREMITIES: 1-2+ edema both lower extremities. No cyanosis. Peripheral pulses are weak MUSCULOSKELETAL: No acute joint deformities or swelling SKIN: There are no significant rashes or ecchymosis NEUROPSYCHIATRIC: The patient is alert and oriented x3. Appears to be in a good mood. No tremors or rigidity noted. Data 09/10/23 04:10 09/10/23 04:10 Other Labs: Laboratory Last Values WBC 5.63 10^3/uL (3.29-11.43) 09/10/23 04:10 RBC 3.56 10^6/uL (3.85-5.65) L 09/10/23 04:10 Hgb 11.20 g/dL (11.27-16.99) L 09/10/23 04:10 Hct 34.4 % (37-53) L 09/10/23 04:10 MCV 96.6 fl (82-101) 09/10/23 04:10 MCH 31.5 pg (27-33) 09/10/23 04:10 MCHC 32.6 g/dL (30-55) 09/10/23 04:10 RDW 13.7 % (12.1-15.1) 09/10/23 04:10 Plt Count 196 10^3/cmm (157-399) 09/10/23 04:10 MPV 9.3 fL (7.4-10.4) 09/10/23 04:10 Neut % (Auto) 77.2 % 09/10/23 04:10 Lymph % (Auto) 6.6 % 09/10/23 04:10 Maury % (Auto) 13.3 % 09/10/23 04:10 Eos % (Auto) 2.3 % 09/10/23 04:10 Baso % (Auto) 0.2 % 09/10/23 04:10 Neut # (Auto) 4.35 10^3/uL (1.8-7.7) 09/10/23 04:10 Lymph # (Auto) 0.4 10^3/uL (0.8-4.8) L 09/10/23 04:10 Maury # (Auto) 0.8 10^3/uL (0.2-0.9) 09/10/23 04:10 Eos # (Auto) 0.1 10^3/uL (0.0-0.8) 09/10/23 04:10 Baso # (Auto) 0.0 10^3/uL (0.0-0.1) 09/10/23 04:10 Nucleated RBC % (auto) 0 % 09/10/23 04:10 Nucleated RBCs # 0.0 /100WBC 09/10/23 04:10 Sodium 136 mmol/L (136-145) 09/10/23 04:10 Potassium 4.7 mmol/L (3.5-5.1) 09/10/23 04:10 Chloride 99 mmol/L (98-107) 09/10/23 04:10 Carbon Dioxide 27 mmol/L (22-29) 09/10/23 04:10 Anion Gap 14.7 (5-19) 09/10/23 04:10 BUN 49 mg/dL (8-23) H 09/10/23 04:10 Creatinine 1.7 mg/dL (0.7-1.2) H 09/10/23 04:10 GFR Calculation Not Reportable 09/10/23 04:10 Glucose 81 mg/dL (65-115) 09/10/23 04:10 Calculated Osmolality 294 mOsm/kg (285-295) 09/10/23 04:10 Calcium 8.1 mg/dL (8.5-10.5) L 09/10/23 04:10 Magnesium 2.4 mg/dL (1.7-2.3) H 09/09/23 17:17 Total Bilirubin 0.3 mg/dL (0.15-1.2) 09/10/23 04:10 AST 35 U/L (0-40) 09/10/23 04:10 ALT 23 U/L (0-41) 09/10/23 04:10 Alkaline Phosphatase 172 U/L (40-130) H 09/10/23 04:10 Creatine Kinase 109 U/L (39-308) 09/09/23 17:17 Troponin T Baseline 129 ng/L (0-15) H* 09/09/23 17:17 Troponin T 120 Minute 115.2 ng/L (0-15) H 09/09/23 19:48 Delta Troponin T -13.8 ABS# (0-10) L 09/09/23 19:48 Troponin T Hi Sens 6Hr 113.8 ng/L (0-15) H 09/09/23 23:20 Troponin T Hi Sens 6Hr Delta -15.2 ng/L (0-12) L 09/09/23 23:20 NT-Pro-B Natriuret Pep 84673 pg/mL (0-450) H 09/09/23 17:17 Total Protein 6.6 g/dL (6.6-8.7) 09/10/23 04:10 Albumin 2.8 g/dL (3.5-5.2) L 09/10/23 04:10 Globulin 3.8 g/dL (1.3-4.6) 09/10/23 04:10 TSH 4.80 uIU/mL (0.27-4.20) H 09/09/23 17:17 Free T4 0.98 ng/dL (0.82-1.77) 09/10/23 04:10 Urine Color Yellow (Yellow) 09/09/23 22:45 Urine Appearance Sl hazy (CLEAR) A 09/09/23 22:45 Urine pH 5 (5-7) 09/09/23 22:45 Ur Specific [place] 1.015 (1.005-1.030) 09/09/23 22:45 Urine Protein 1+ (Negative) H 09/09/23 22:45 Urine Glucose (UA) Norm (Normal) 09/09/23 22:45 Urine Ketones Negative (Negative) 09/09/23 22:45 Urine Blood 2+ (Negative) H 09/09/23 22:45 Urine Nitrate Negative (Negative) 09/09/23 22:45 Urine Bilirubin Neg (Negative) 09/09/23 22:45 Urine Urobilinogen Neg mg/dL (Negative) 09/09/23 22:45 Ur Leukocyte Esterase Negative (Negative) 09/09/23 22:45 Urine RBC 0-4 /hpf (0-2) H 09/09/23 22:45 Urine WBC None /hpf (0-5) 09/09/23 22:45 Ur Squamous Epith Cells None /hpf (0-5) 09/09/23 22:45 Amorphous Sediment 2+ /hpf 12/20/23 22:45 Urine Bacteria Trace /hpf (NONE) 09/09/23 22:45 Urine Mucus 2+ /hpf 09/09/23 22:45 Other data: The EKG from today 09/10/2023 Atrial fibrillation with a controlled ventricular response rate. Nonspecific T wave changes but Echocardiogram from 09/09/2023 Critical, low gradient aortic valve stenosis(Peak velocity of 3.2 cm/s with a peak gradient of 43 and a mean gradient of 21 mmHg. Calculated valve area of 0.37 cm squared. ) Moderate to heavily calcified aortic leaflets.mild aortic valve regurgitation. Diffuse hypokinesia of the [id number] ventricle, during systole. LV ejection fraction of 52%.Grade III/IV diastolic dysfunction (restrictive filling pattern), severely elevated filling pressures. Moderately dilated right atrium with a mildly dilated left atrium Severe pulmonary hypertension with an estimated pulmonary artery peak systolic pressure of 84 mmHg [id number] tricuspid valve regurgitation. Moderate mitral annular calcification. Mild-moderate mitral valve regurgitation. Small pericardial effusion. Features of left-sided pleural effusion. Compared to the study from a 03/04/2022, there seems to be worsening of the aortic valve stenosis and development of severe pulmonary hypertension. Dr. Harper was informed about these findings A&P Assessment and plan (1) Critical aortic valve stenosis: The patient is a critical aortic valve stenosis in combination with atrial fibrillation might be causing the heart failure. He may benefit from aortic valve intervention. (2) Acute on chronic diastolic (congestive) heart failure: The aortic valve stenosis, atrial fibrillation/hypertensive heart disease, etc. are contributing factors. Careful IV diuresis would be appropriate. (3) Chronic atrial fibrillation: Currently with a controlled ventricular response rate. He had some episodes of bradycardia with no recurrence. (4) Atherosclerotic heart disease of [place] coronary artery with other forms of angina pectoris: Current status is not known. Patient may benefit from a cardiac catheterization to evaluate the coronary arteries as well as the grafts before proceeding with the valve intervention (5) Hypertension: Currently normotensive. May continue on the current medications Qualifiers: Hypertension type: primary hypertension Qualified Code(s): I10 - Essential (primary) hypertension (6) COPD (chronic obstructive pulmonary disease): May continue on the current management. Qualifiers: COPD type: unspecified COPD Qualified Code(s): J44.9 - Chronic obstructive pulmonary disease, unspecified (7) Chronic kidney disease, stage III (moderate): The aortic valve stenosis could be contributing to some extent the renal dysfunction Qualifiers: Chronic kidney disease stage 3 subtype: stage 3a (GFR 45-59) Qualified Code(s): N18.31 - Chronic kidney disease, stage 3a Plan I discussed with the patient about the treatment options. He is undecided at this time as to whether he wants to go for the aortic valve intervention or not. In the meanwhile, we may try to optimize medical treatment. Careful IV diuresis for the heart failure would be appropriate. Patient on the clinical progress, further recommendations will be made Coding Level of Care Code 39237 Diagnoses Critical aortic valve stenosis I35.0 Acute on chronic diastolic (congestive) heart failure I50.33 Chronic atrial fibrillation I48.20 Atherosclerotic heart disease of [place] coronary artery with other forms of angina pectoris I25.118 Primary hypertension I10 Hypertension type: primary hypertension Chronic obstructive pulmonary disease, unspecified COPD type J44.9 COPD type: unspecified COPD Stage 3a chronic kidney disease N18.31 Chronic kidney disease stage 3 subtype: stage 3a (GFR 45-59)
[2023-09-10 09:34] LABS: Free T4 Free Thyroxine 0.98 ng/dL (0.82-1.77)
--- NOTE | 2023-09-10 10:11 | PC.CHAP ---
Pastoral Care Encounter/Spiritual Assessment Type of Contact [] Declined tannery worker visit [] Patient/Family/Request visit [] Outpatient visit [] Follow-up visit [] Physician referral [] Code/Alert [x] Routine visit [] Staff referral [] Actively dying [] Patient sleeping [] Family support [] [] Out of room [] Palliative care [] [x] Receiving care in room [] Pre-surgical visit [] Trauma [] Long length of stay [] ICU visit [] Other: Relational/Emotional Strength [x] Patient feels connected with others/family/visitors/staff [] Distress [] Loneliness/isolation [] Abandonment Spirituality of Patient [x] Person of Tomasa [] Attends Jainism of their Tomasa [x] Believes in Prayer [] Reads Bible or Judaism materials [] There are Spiritual issues to be addressed Keeper Helper Interventions [x] Prayer [x] Active listening [x] Non-anxious presence [x] Spiritual/emotional support [x] Crisis/trauma care [x] Spiritual counseling [] Bereavement support [] Provided bereavement packet [] Provided Bible/devotional materials [] Provided toy/stuffed animal, coloring book to patient or family member [] Provided Communion [] Anointing/[place] [] Salvation [x] Completed spiritual assessment [] Other: Impact on Illness or Injury [] Angry [] Fearful [] Anxious [] Often cries [] Exhaustion [] Unable to work [] Unable to attend yazdanism [] Unable to walk/stand [] Unable to read [] Unable to drive [] Unable to eat/drink [] Unable to sleep [] Unable to be with family [] Patient intubated [] Other: Summary heart rachel heart beat strock has a good attitude not sure when he can go home Time spent with patient 10 mins
--- NOTE | 2023-09-10 19:11 | USCV_ITS ---
Rogelio Taylor Age: 83 Gender: M : 1940 Exam Date: 09/10/2023 07:00 Ordering Phys: Frank Harper MD Technologist: Umair Pastor Exam Location: [facility] [place] Indication: lt leg swelling PROCEDURES: Venous duplex imaging was performed in only the left lower extremity. The following venous structures were evaluated: common femoral vein, profunda vein, proximal portion of the greater saphenous vein, superficial femoral vein, and the popliteal vein. In addition, the posterior tibial and peroneal trunk were evaluated. FINDINGS: Normal 2-D Doppler and augmentation and compressibility throughout the lower extremity venous structures. Additional imaging through the proximal calf veins also reveals no thrombus. Limited evaluation of the greater saphenous vein is patent with no thrombus. CONCLUSIONS No evidence of left lower extremity DVT. Tony Blue MD (Electronically Signed) Final Date: 10 September 2023 08:59 S
--- NOTE | 2023-09-10 21:11 | P.PN_ITS ---
Subjective 2 Subjective: Today he is doing about the same. No new changes. Not feeling much better. No chest pain or pressure. Vitals/I&O/Wt Last Vital Signs Temp 98.7 F 09/10/23 16:00 Pulse 87 09/10/23 16:00 Resp 28 H 09/10/23 16:00 BP 120/67 09/10/23 16:00 Pulse Ox 98 09/10/23 16:00 O2 Del Method Room Air 09/10/23 16:00 09/10/23 09/10/23 09/10/23 06:59 14:59 22:59 Intake Total 360 / 840 562 / 562 240 / 802 Output Total 400 / 600 Balance -40 / 240 562 / 562 240 / 802 Weight last 48 hrs Weight 46.975 kg Weight 46.275 kg Physical Exam 2 Const: COMMON NORMALS: patient oriented x3 and alert GENERAL APPEARANCE: c ooperative and frail appearing ORIENTATION/CONSCIOUSNESS: Yes awake HENMT: COMMON NORMALS: oropharynx normal Neck/C-Spine: COMMON NORMALS: no JVD Resp: COMMON NORMALS: normal respiratory effort and clear to auscultation bilaterally AUSCULTATION: clear to auscultation bilaterally Cardio: COMMON NORMALS: no JVD, regular rhythm, S1 normal heart sound present, S2 normal heart sound present and No murmurs present (Cardio) RHYTHM: regular rhythm HEART SOUNDS: S1 normal heart sound present and S2 normal heart sound present GI: COMMON NORMALS: Normal to inspection, nondistended, normoactive bowel sounds present, Soft to palpation and non-tender PALPATION: Yes Soft to palpation Extremity: COMMON NORMALS: no joint enlargement GENERAL: Yes edema (1-2+) Neuro: COMMON NORMALS: patient oriented x3 and moves all extremities S ENSORIUM/ORIENTATION: Yes alert Skin: COMMON NORMALS: no rashes or lesions noted GENERAL SKIN EXAM: no rashes or lesions noted Data 09/10/23 04:10 09/10/23 04:10 A&P Assessment and plan (1) Heart failure with reduced ejection fraction: Reviewed cardiology documentation. Continue gentle diuresis, attempted optimization of volume status. Noted finding of severe aortic stenosis on echocardiogram. Continuing discussion of cardiology with patient regarding consideration of valve replacement. Reviewed vitals, CBC, CMP, UA, echocardiogram. Reviewed venous duplex. Creatinine with noted mild improvement down to 1.7. Monitor renal function with risk of worsening with IV diuresis, monitor electrolytes at risk of depletion, arrhythmia. Monitor telemetry. Discussed with case management. (2) Aortic stenosis: Noted progression to severe/critical aortic stenosis. Discussions underway with patient and cardiology with regards to consideration of valve replacement. Cautious diuresis, at risk of hypotension. Monitor blood pressures. (3) Acute kidney injury superimposed on CKD: May be secondary to fluctuating blood pressures, reportedly and these have been soft, although seem more low normal rather than hypotensive. He denies any NSAID use. Cardiorenal syndrome additional possibility. Will obtain UA, assess kidney ultrasound. Obtain CK. Reviewed lab work from 09/08. Follow-up CMP requested. (4) Dyspnea on exertion: As above, likely combination secondary to now severe aortic stenosis, CHF. Also with underlying COPD. Additionally chest x-ray with loculated pleural effusion, moderate in size. May benefit from consideration of VATS. Denies any chest pain or pressure, no pleuritic pain. No cough. No hemoptysis. Noted to have some worsened edema on the left side compared to the right. Reviewed venous duplex, negative for DVT. (5) Decreased blood pressure, not hypotension: Soft blood pressures, history of aortic stenosis. Monitor blood pressures. At risk of hypotension. Cautious diuresis. (6) Atrial fibrillation: Permanent atrial fibrillation, continue metoprolol, Eliquis. Check potassium, magnesium. Qualifiers: Atrial fibrillation type: unspecified Qualified Code(s): I48.91 - Unspecified atrial fibrillation Plan COPD: Does not appear currently in exacerbation COVID-19: About a month ago after which has had a difficult recovery. Attestations 2 Medical Necessity Statement*: Continue admission for assessment management of decompensated CHF in setting of now severe aortic stenosis, consideration of TAVR, and gentleman with CKD, additional comorbidities as above. Diagnoses Heart failure with reduced ejection fraction I50.20 Aortic stenosis I35.0 Acute kidney injury superimposed on CKD N17.9; N18.9 Dyspnea on exertion R06.09 Decreased blood pressure, not hypotension R03.1 Atrial fibrillation I48.91 Atrial fibrillation type: unspecified
[2023-09-11] VITALS: BP 91/52; PULSE 80; RESP 28; TEMP 36.4
[2023-09-11 04:00] VITALS: PULSE 83; RESP 22; O2SAT 99
[2023-09-11 04:28] VITALS: PULSE 99
[2023-09-11 08:00] VITALS: BP 103/50; PULSE 96
[2023-09-11 08:22] LABS: Basophils % 0.2 %; Hematocrit 35.8 % (37-53); Lymphocytes # 0.4 10^3/uL (0.8-4.8); Lymphocytes % 7.8 %; Mean Corpuscular HGB Conc 32.4 g/dL (30-55); Mean Corpuscular Hemoglobin 31.4 pg (27-33); Monocytes # 0.7 10^3/uL (0.2-0.9); Monocytes % 13.7 %; Neutrophils # 3.98 10^3/uL (1.8-7.7); Neutrophils % 77.9 %; Nucleated Red Blood Cells % 0 %; Platelet Count 203 10^3/cmm (157-399); Red Blood Count 3.69 10^6/uL (3.85-5.65); Red Cell Distribution Width 13.8 % (12.1-15.1); White Blood Count 5.11 10^3/uL (3.29-11.43)
[2023-09-11 08:38] LABS: Alanine Aminotransferase 24 U/L (0-41); Albumin Level 3.1 g/dL (3.5-5.2); Alkaline Phosphatase 202 U/L (40-130); Anion Gap 13.1 (5-19); Aspartate Amino Transferase 44 U/L (0-40); Blood Urea Nitrogen 61 mg/dL (8-23); Calcium 8.6 mg/dL (8.5-10.5); Carbon Dioxide 30 mmol/L (22-29); Chloride 98 mmol/L (98-107); Glucose 89 mg/dL (65-115); Osmolality Calculated 299 mOsm/kg (285-295); Potassium 5.1 mmol/L (3.5-5.1); Sodium 136 mmol/L (136-145); Total Bilirubin 0.4 mg/dL (0.15-1.2); Total Protein 7.1 g/dL (6.6-8.7)
[2023-09-11] MEDS: metoprolol tartrate 25 mg Tablet 12.5 MG PO (08:38)
[2023-09-11] MEDS: pantoprazole DR 40 mg Tablet PO (08:38)
[2023-09-11] MEDS: FUROsemide 10 mg/mL SDV 2mL 20 MG IVP (08:38)
[2023-09-11] MEDS: apixaban 5 mg Tablet 2.5 MG PO (08:39)
--- NOTE | 2023-09-11 09:18 | PC.SOCIAL ---
IMM Update Pg. 2 of IMM updated and reviewed with patient who verbalized understanding. Copy provided.
--- NOTE | 2023-09-11 11:11 | P.PN_ITS ---
Subjective 2 Subjective: Patient is doing well. Denies chest pain or shortness of breath Vitals/I&O/Wt Last Vital Signs Temp 97.5 F L 09/11/23 00:00 Pulse 96 09/11/23 08:00 Resp 22 H 09/11/23 04:00 BP 103/50 09/11/23 08:00 Pulse Ox 99 09/11/23 04:00 O2 Del Method Room Air 09/11/23 04:00 09/10/23 09/11/23 09/11/23 22:59 06:59 14:59 Intake Total 240 / 802 400 / 1202 Output Total 300 / 300 Balance 240 / 802 100 / 902 Weight last 48 hrs Weight 102 lb 14.4 oz Weight 103 lb 9 oz Weight 102 lb 0.3 oz Physical Exam 2 Narrative: GENERAL: Patient is alert, awake and oriented x3. [] NECK: No jugular vein distension. [] HEENT: No cyanosis. No icterus. No pallor. [] HEART: Regular S1 and S2.Grade 3/6 systolic murmur LUNGS: Clear to auscultate bilaterally. [] CENTRAL NERVOUS SYSTEM: Grossly nonfocal. [] EXTREMITIES: Lower extremities with 1+ edema bilaterally. Data 09/11/23 07:45 09/11/23 07:45 A&P Assessment and plan (1) Critical aortic valve stenosis: Patient will need further workup and valve replacement. All options discussed. He wants upon further workup to be done as an outpatient. (2) Acute on chronic diastolic (congestive) heart failure: Currently appears euvolemic. 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 He wants to do it as outpatient. (5) Hypertension: Currently normotensive. May continue on the current medications Qualifiers: Hypertension type: primary hypertension Qualified Code(s): I10 - Essential (primary) hypertension (6) COPD (chronic obstructive pulmonary disease): Management per primary team. Qualifiers: COPD type: unspecified COPD Qualified Code(s): J44.9 - Chronic obstructive pulmonary disease, unspecified (7) Chronic kidney disease, stage III (moderate): The aortic valve stenosis could be contributing to some extent the renal dysfunction Qualifiers: Chronic kidney disease stage 3 subtype: stage 3a (GFR 45-59) Qualified Code(s): N18.31 - Chronic kidney disease, stage 3a Plan Further workup for valvular replacement will be outpatient as patient wants to be discharged. All options discussed. He will be high risk even for TAVR given his frailty and multiple medical conditions. Attestations 2 Medical Necessity Statement*: Care expected to cross 2 midnights. 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
[2023-09-11 12:00] VITALS: BP 98/72; PULSE 63; RESP 30
[2023-09-11 14:11] VITALS: BP 98/72; PULSE 63; RESP 30
--- NOTE | 2023-09-11 15:17 | PC.NURSE ---
discharge instructions given and explained.pt verb understanding of instructions.discharged via w/c to exit at this time
--- NOTE | 2023-09-11 20:20 | P.DS_ITS ---
Discharge Providers Date of Admission: 09/09/23 15:56 Date of Discharge: September 11, 2023 Attending Provider at Admission: Frank Harper Attending Provider at Discharge: Frank Harper Primary Care Provider: Bryant Mendieta MD Diagnoses at Discharge Discharge Diagnosis (1) Heart failure with reduced ejection fraction: Status: Acute (2) Aortic stenosis: Status: Acute (3) Acute kidney injury superimposed on CKD: Status: Acute (4) Dyspnea on exertion: Status: Acute (5) Decreased blood pressure, not hypotension: Status: Acute (6) Atrial fibrillation: Status: Acute Qualifiers: Atrial fibrillation type: unspecified Qualified Code(s): I48.91 - Unspecified atrial fibrillation Reason for Visit Reason for Visit: CHS Exacerbation Brief History: 83-year-old gentleman with history of CA D, CABG, current dyspnea, CHF, CKD, atrial fibrillation, CVA, HLD, COPD, pulmonary hypertension, Raynaud's phenomenon, other medical problems, was referred for direct admission to the hospital by his primary provider due to difficulties with management of congestive heart failure with recently worsening edema in his lower extremities, exertional dyspnea, debility, despite diuresis, with worsening of renal function, as well as low normal blood pressures, chronic/permanent atrial fibrillation. He has been able to tolerate beta-bailee but dose had to be reduced, spironolactone, but not other heart failure medications. He tells me about a month ago he had COVID which was the second time around he has had it, but states that he did not really to get out of him and he was not able to recover well since then having more issues with dyspnea and the above issues with congestive heart failure. Hospital Course Hospital Course Echocardiogram revealed low gradient critical aortic stenosis, diffuse hypokinesia of the septum D-shaped ventricle during systole, grade 3 diastolic dysfunction, severe pulmonary hypertension. Moderately dilated right atrium with mildly dilated left atrium. Moderate to severe TVR. Mild to moderate MVR. Small pericardial effusion. Also found to have chronic loculated left-sided pleural effusion on chest x-ray he states with prior hemothorax, evacuation was previously attempted but it reaccumulated, and he states the decision was made to leave it alone. He was assessed by cardiology and decided to pursue follow-up in office additional preparation and referral for valve replacement. While in the Hospital underwent diuresis with IV Lasix, which he tolerated. He is he is feeling better he requested and approved by cardiology for discharge home with outpatient follow-up discussed about further workup with angiogram and referral for valve replacement. Swelling in left lower extremity worse than right, he states this is chronic, assessed with venous duplex, negative for DVT. Kidney ultrasound without obstru ctive changes. Large left renal cyst. Pole with maximum diameter 4.7 cm. Physical Exam Narrative: Visited by ex-. Const: COMMON NORMALS: patient oriented x3 and alert GENERAL APPEARANCE: cooperative and frail appearing ORIENTATION/CONSCIOUSNESS: Yes awake HENMT: COMMON NORMALS: oropharynx normal Neck/C-Spine: COMMON NORMALS: no JVD Resp: COMMON NORMALS: normal respiratory effort and clear to auscultation bilaterally AUSCULTATION: clear to auscultation bilaterally Cardio: COMMON NORMALS: no JVD, regular rhythm, S1 normal heart sound present, S2 normal heart sound present and No murmurs present (Cardio) RHYTHM: regular rhythm HEART SOUNDS: S1 normal heart sound present and S2 normal heart sound present GI: COMMON NORMALS: Normal to inspection, nondistended, normoactive bowel sounds present, Soft to palpation and non-tender PALPATION: Yes Soft to palpation Extremity: COMMON NORMALS: no joint enlargement GENERAL: Yes edema (Improved, 1+) Neuro: COMMON NORMALS: patient oriented x3 and moves all extremities SENSORIUM/ORIENTATION: Yes alert Skin: COMMON NORMALS: no rashes or lesions noted GENERAL SKIN EXAM: no rashes or lesions noted Discharge Data Studies Completed and Pending Completed Studies During Hospitalization Category Date Time Status CXRP [XR chest 1V portable [id number]] Routine Exams 09/09/23 17:16 [place] [id number] Routine Ultrasound 09/10/23 19:11 Completed CV. echo complete* [id number] Routine Ultrasound 09/09/23 17:16 Completed US kidney bilateral with bladder [US renal BI with PV Ultrasound 09/09/23 17:18 Completed bladder] Routine Radiology Impressions Chest X-Ray 09/09/23 17:16 IMPRESSION: 1. There appears to be moderate amount of loculated fluid along the left mid and lower lateral pleural space. 2. There is enlargement of the cardiac silhouette. 3. There is a right apical opacity which could represent loculated fluid or pleural thickening. Laboratory Results WBC 5.11 10^3/uL (3.29-11.43) 09/11/23 07:45 RBC 3.69 10^6/uL (3.85-5.65) L 09/11/23 07:45 Hgb 11.60 g/dL (11.27-16.99) 09/11/23 07:45 Hct 35.8 % (37-53) L 09/11/23 07:45 MCV 97.0 fl (82-101) 09/11/23 07:45 MCH 31.4 pg (27-33) 09/11/23 07:45 MCHC 32.4 g/dL (30-55) 09/11/23 07:45 RDW 13.8 % (12.1-15.1) 09/11/23 07:45 Plt Count 203 10^3/cmm (157-399) 09/11/23 07:45 MPV 9.0 fL (7.4-10.4) 09/11/23 07:45 Neut % (Auto) 77.9 % 09/11/23 07:45 Lymph % (Auto) 7.8 % 09/11/23 07:45 [place] % (Auto) 13.7 % 09/11/23 07:45 Eos % (Auto) 0.0 % 09/11/23 07:45 Baso % (Auto) 0.2 % 09/11/23 07:45 Neut # (Auto) 3.98 10^3/uL (1.8-7.7) 09/11/23 07:45 Lymph # (Auto) 0.4 10^3/uL (0.8-4.8) L 09/11/23 07:45 [place] # (Auto) 0.7 10^3/uL (0.2-0.9) 09/11/23 07:45 Eos # (Auto) 0.0 10^3/uL (0.0-0.8) 09/11/23 07:45 Baso # (Auto) 0.0 10^3/uL (0.0-0.1) 09/11/23 07:45 Nucleated RBC % (auto) 0 % 09/11/23 07:45 Nucleated RBCs # 0.0 /100WBC 09/11/23 07:45 Sodium 136 mmol/L (136-145) 09/11/23 07:45 Potassium 5.1 mmol/L (3.5-5.1) 09/11/23 07:45 Chloride 98 mmol/L (98-107) 09/11/23 07:45 Carbon Dioxide 30 mmol/L (22-29) H 09/11/23 07:45 Anion Gap 13.1 (5-19) 09/11/23 07:45 BUN 61 mg/dL (8-23) H 09/11/23 07:45 Creatinine 1.9 mg/dL (0.7-1.2) H 09/11/23 07:45 GFR Calculation Not Reportable 09/11/23 07:45 Glucose 89 mg/dL (65-115) 09/11/23 07:45 Calculated Osmolality 299 mOsm/kg (285-295) H 09/11/23 07:45 Calcium 8.6 mg/dL (8.5-10.5) 09/11/23 07:45 Magnesium 2.4 mg/dL (1.7-2.3) H 09/09/23 17:17 Total Bilirubin 0.4 mg/dL (0.15-1.2) 09/11/23 07:45 AST 44 U/L (0-40) H 09/11/23 07:45 ALT 24 U/L (0-41) 09/11/23 07:45 Alkaline Phosphatase 202 U/L (40-130) H 09/11/23 07:45 Creatine Kinase 109 U/L (39-308) 09/09/23 17:17 Troponin T Baseline 129 ng/L (0-15) H* 09/09/23 17:17 Troponin T 120 Minute 115.2 ng/L (0-15) H 09/09/23 19:48 Delta Troponin T -13.8 ABS# (0-10) L 09/09/23 19:48 Troponin T Hi Sens 6Hr 113.8 ng/L (0-15) H 09/09/23 23:20 Troponin T Hi Sens 6Hr Delta -15.2 ng/L (0-12) L 09/09/23 23:20 NT-Pro-B Natriuret Pep 29738 pg/mL (0-450) H 09/09/23 17:17 Total Protein 7.1 g/dL (6.6-8.7) 09/11/23 07:45 Albumin 3.1 g/dL (3.5-5.2) L 09/11/23 07:45 Globulin 4.0 g/dL (1.3-4.6) 09/11/23 07:45 TSH 4.80 uIU/mL (0.27-4.20) H 09/09/23 17:17 Free T4 0.98 ng/dL (0.82-1.77) 09/10/23 04:10 Urine Color Yellow (Yellow) 09/09/23 22:45 Urine Appearance Sl hazy (CLEAR) A 09/09/23 22:45 Urine pH 5 (5-7) 09/09/23 22:45 Ur Specific [place] 1.015 (1.005-1.030) 09/09/23 22:45 Urine Protein 1+ (Negative) H 09/09/23 22:45 Urine Glucose (UA) Norm (Normal) 09/09/23 22:45 Urine Ketones Negative (Negative) 09/09/23 22:45 Urine Blood 2+ (Negative) H 09/09/23 22:45 Urine Nitrate Negative (Negative) 09/09/23 22:45 Urine Bilirubin Neg (Negative) 09/09/23 22:45 Urine Urobilinogen Neg mg/dL (Negative) 09/09/23 22:45 Ur Leukocyte Esterase Negative (Negative) 09/09/23 22:45 Urine RBC 0-4 /hpf (0-2) H 09/09/23 22:45 Urine WBC None /hpf (0-5) 09/09/23 22:45 Ur Squamous Epith Cells None /hpf (0-5) 09/09/23 22:45 Amorphous Sediment 2+ /hpf 09/09/23 22:45 Urine Bacteria Trace /hpf (NONE) 09/09/23 22:45 Urine Mucus 2+ /hpf 09/09/23 22:45 Vitals Last Vital Signs Temp 97.5 F L 09/11/23 00:00 Pulse 63 09/11/23 14:11 Resp 30 H 09/11/23 14:11 BP 98/72 09/11/23 14:11 Pulse Ox 99 09/11/23 04:00 O2 Del Method Room Air 09/11/23 04:00 Discharge Plan Discharge Patient Disposition: Home Condition: Stable Prescriptions: Continued furosemide [Lasix] 80 mg tablet 80 mg PO BID rosuvastatin [Crestor] 40 mg tablet 40 mg PO DAILY Qty: 90 2RF Eliquis 2.5 mg tablet 2.5 mg PO BID Qty: 180 3RF omeprazole 20 mg capsule,delayed release(/EC) 30 mg PO DAILY Probiotic 15 billion cell Capsule 1 cap PO DAILY Changed spironolactone 25 mg tablet 12.5 mg PO DAILY Qty: 1 0RF Rx Instructions: Dose change Discharge Orders: Discharge Order (Routine); Ordered 09/11/23 Ordered By: Frank Harper Referrals: Esteban Navarro M.D [Physician] - 4-7 days (Dr. Navarro's Office has your contact information and will be calling you to schedule a follow up appointment. You can call them to schedule as well at the number listed. Thank you.) Bryant Mendieta MD [Primary Care Provider] - 09/18/23 11:15 am Discharge Diet: Cardiac Discharge Activity: Increase activity as tolerated Patient Instructions: Spironolactone (By mouth) ([place], Karospir), Furosemide (By mouth) (Lasix), Omeprazole (By mouth) (Prilosec, Prilosec OTC, Omeclamox-Leobardo, First..., Rosuvastatin (By mouth), Heart Failure (DC), Aortic Stenosis (GEN), CHF Stoplight, Opioid Safety Activity Restrictions/Additional Instructions: Follow-up with cardiology for further workup and compression with consideration of aortic valve replacement. Monitor blood pressure at home twice daily. Metoprolol dose for now was reduced to 12.5 mg due to soft blood pressures. Please also reduce spironolactone to 12.5 mg daily until follow-up. Avoid blood pressures that are lower than 90 top number or lower than 50 bottom number. Return to the hospital in case of any worsening or new concerning symptoms. Discharge Attestations 2 Time Spent in Discharge Care*: greater than 30 min Status at Discharge: Cognitive status at discharge: cognitively intact , Behavioral status at discharge: cooperative , Quality Metrics Clinical Quality Measures [ No reported AMI, CVA or VTE this stay] Coding Level of Care Code 70979 Total time (in minutes) for Discharge: 50 Diagnoses Heart failure with reduced ejection fraction I50.20 Aortic stenosis I35.0 Acute kidney injury superimposed on CKD N17.9; N18.9 Dyspnea on exertion R06.09 Decreased blood pressure, not hypotension R03.1 Atrial fibrillation I48.91 Atrial fibrillation type: unspecified
== END 2023-09-11 15:18 | disposition home or self-care (01) ==
PROVIDERS: Admitting Provider Internal Medicine; PCP Family Medicine; Visit Provider Internal Medicine
DX: I11.0 Hypertensive heart disease with heart failure (principal); I50.20 Unspecified systolic (congestive) heart failure; I35.0 Nonrheumatic aortic (valve) stenosis; I12.9 Hypertensive chronic kidney disease with stage 1 through stage 4 chronic kidney disease, or unspecified chronic kidney disease; N18.30 Chronic kidney disease, stage 3 unspecified; N17.9 Acute kidney failure, unspecified; R06.09 Other forms of dyspnea; R03.1 Nonspecific low blood-pressure reading; I25.10 Atherosclerotic heart disease of native coronary artery without angina pectoris; Z95.1 Presence of aortocoronary bypass graft; E78.5 Hyperlipidemia, unspecified; I27.20 Pulmonary hypertension, unspecified; I48.20 Chronic atrial fibrillation, unspecified; N40.0 Benign prostatic hyperplasia without lower urinary tract symptoms
CPT/HCPCS: 36415; 71045; 76770; 76857; 80053; 81001; 82550; 83735; 83880; 84439; 84443; 84484; 85025; 93005; 93306; 93971; 96376; G0378; G0379; J1940

== ENCOUNTER 2023-09-17 13:23 | Emergency (ER) | payer MEDICARE, SELFPAY ==
--- NOTE | 2023-09-17 13:28 | XRR_ITS ---
PROCEDURE INFORMATION: Exam: XR Chest Exam date and time: 09/17/2023 2:40 PM Age: 83 years old Clinical indication: Shortness of breath; Additional info: SOB. No history of trauma or recent surgery is provided. TECHNIQUE: Imaging protocol: Radiologic exam of the chest. 1image(s) are provided. Views: 1 view. COMPARISON: 1. CR (CHEST, ) 09/09/2023 6:23 PM 2. CR XR chest 2V* [id number] 10/02/2022 1:33 PM FINDINGS: Tubes, catheters and devices: The sternal wires are aligned. Lungs: There is apical fibronodular scarring right more so than left similar overall. There is some patchy opacification similar at the lung bases and could be atelectasis versus chronic postinflammatory related.No lobar consolidation is appreciated. Pleural spaces: There is skin fold, fissure averaging demonstrated. There is costophrenic angle blunting similar overall more so on the left. No pneumothorax is appreciated. Heart/Mediastinum: The cardiomediastinal silhouette is upper normal in size.This can be seen with central averaging as well as mindi enlargement.No cardiac decompensation is appreciated. Diaphragm: The hemidiaphragms are obscured. Bones/joints: Osseous alignment is maintained.No interval displaced fracture or dislocation is appreciated.There is slightly decreased bone mineralization overall. There is some chronic appearing rib deformities present. Soft tissues: No radiopaque foreign body or subcutaneous emphysema is appreciated. Other findings: There is some central bronchiolectasis similar. No other significant interval changes are appreciated. XR/XR chest 1V portable [id number] IMPRESSION: There is some similar pleural fluid at the lung bases left more so than right with underlying atelectasis. No interval lobar consolidation or cardiac decompensation is appreciated. No significant change of parenchymal aeration is appreciated.
[2023-09-17 13:57] VITALS: BP 103/57; PULSE 80; O2SAT 99; BMI 16.9
[2023-09-17 14:12] LABS: Basophils % 0.6 %; Hematocrit 41.7 % (37-53); Lymphocytes # 0.4 10^3/uL (0.8-4.8); Lymphocytes % 11.5 %; Mean Corpuscular Volume 103.5 fl (82-101); Mean Platelet Volume 9.6 fL (7.4-10.4); Monocytes # 0.6 10^3/uL (0.2-0.9); Neutrophils # 2.53 10^3/uL (1.8-7.7); Neutrophils % 70.6 %; Nucleated Red Blood Cells % 0 %; Platelet Count 175 10^3/cmm (157-399); Red Blood Count 4.03 10^6/uL (3.85-5.65); Red Cell Distribution Width 14.4 % (12.1-15.1); White Blood Count 3.58 10^3/uL (3.29-11.43)
[2023-09-17 14:35] LABS: Troponin(5th) Baseline 126 ng/L (0-15)
[2023-09-17 14:38] LABS: INR 1.73 (0.8-1.2)
[2023-09-17 14:46] LABS: Alanine Aminotransferase 21 U/L (0-41); Albumin Level 3.2 g/dL (3.5-5.2); Alkaline Phosphatase 176 U/L (40-130); Aspartate Amino Transferase 40 U/L (0-40); Blood Urea Nitrogen 63 mg/dL (8-23); Calcium 8.1 mg/dL (8.5-10.5); Carbon Dioxide 24 mmol/L (22-29); Chloride 96 mmol/L (98-107); Globulin 3.4 g/dL (1.3-4.6); Glucose 86 mg/dL (65-115); Osmolality Calculated 293 mOsm/kg (285-295); Sodium 133 mmol/L (136-145); Total Bilirubin 0.3 mg/dL (0.15-1.2); Total Protein 6.6 g/dL (6.6-8.7)
[2023-09-17 14:58] LABS: Anion Gap 17.5 (5-19); Potassium 4.5 mmol/L (3.5-5.1)
[2023-09-17 15:31] VITALS: BP 137/81; PULSE 71; O2SAT 98
--- NOTE | 2023-09-17 15:37 | ECG_ITS ---
[facility] Test Date: 2023-09-17 Pat Name: Rogelio Taylor Department: Room: Gender: Male President [place]: : 1940 Requested By: Charity Mosley Order Number: [id number] Libra MD: Esteban Navarro M.D. Measurements Intervals [place] Rate: 66 P: 0 HI: 0 QRS: 72 QRSD: 89 T: 35 QT: 431 QTc: 453 Interpretive Statements ATRIAL FIBRILLATION SEPTAL MYOCARDIAL INFARCTION , OF INDETERMINATE AGE [40+ ms Q WAVE IN V1/V2] MODERATE T-WAVE ABNORMALITY, CONSIDER ANTERIOR ISCHEMIA [-0.1+ mV T-WAVE IN V3/V4] Compared to ECG 09/17/2023 13:55:18 T-wave abnormality now present Possible ischemia now present Myocardial infarct finding still present Electronically Signed On 09-17-2023 17:41:11 [employer] by Esteban Navarro M.D. [email or web address]
[2023-09-17 16:00] VITALS: PULSE 76; O2SAT 98
[2023-09-17 16:41] LABS: Troponin 5 2HR Delta -7.6 ABS# (0-10)
[2023-09-17 16:42] LABS: Troponin 5 2HR 118.4 ng/L (0-15)
--- NOTE | 2023-09-17 16:47 | ED_ITS ---
HPI - SOB/Dyspnea 2 General: Chief Complaint: Shortness of Breath/Dyspnea Stated Complaint: SOB Time Seen by Provider: 09/17/23 14:43 Source: patient Mode of arrival: ambulatory Limitations: no limitations History of Present Illness: HPI Narrative: 83-year-old male states he been having s hortness of breath worse the last 2 days he has a history of aortic stenosis along with congestive heart failure. Did test positive for COVID a few weeks ago he denies any cough denies any fever he states his dyspnea seems to get worse at night. Denies any chest pain. Associated symptoms: Deny abdominal pain, chest pain, fever(s), nausea or vomiting Review of Systems 2 Const: Denies: fever(s), chills, body aches or change in appetite ENMT: Denies: throat pain or dental pain Card: Denies: chest pain Resp: Reports: dyspnea GI: Denies: abdominal pain, nausea, vomiting or diarrhea Musc: Denies: neck pain or back pain Skin/Breast: Denies: rash Neuro: Denies: headache(s) PFSH ED 2 PFSH: Medical History COPD (chronic obstructive pulmonary disease) Heart failure with reduced ejection fraction Thrombus of left atrial appendage Pulmonary hypertension Heart failure with preserved ejection fraction Congestive heart failure Chronic kidney disease, stage III (moderate) Medication induced coagulopathy Hypertension Atrial fibrillation Cerebellar stroke Raynauds phenomenon BPH (benign prostatic hyperplasia) Dyslipidemia Coronary artery disease Lymphoma Surgical History H/O hernia repair Hx of tonsillectomy Hx of CABG Family History Mother Cancer Leukemia Father CAD (coronary artery disease) Diabetes Social History Smoking and tobacco/nicotine status: never used tobacco/nicotine Alcohol intake: never Substance/Drug Use: never Lives independently: Yes Household members: none Housing: House Number of children: 2 Current occupational status: previously employed Physical Exam 2 Const: COMMON NORMALS: no acute distress, patient oriented x3 and healthy appearing HENMT: COMMON NORMALS: normocephalic and atraumatic HEAD & SCALP: n ormocephalic and atraumatic Eye: COMMON NORMALS: Equal, round and reactive pupils present and EOMs intact bilaterally PUPIL: Yes Equal, round and reactive pupils present Neck/C-Spine: COMMON NORMALS: full ROM and supple Chest: COMMONS NORMALS: normal inspection of the chest Resp: COMMON NORMALS: normal respiratory effort, No retractions, No use of accessory muscles and clear to auscultation bilaterally AUSCULTATION: clear to auscultation bilaterally Cardio: COMMON NORMALS: regular rate, regular rhythm and No murmurs present (Cardio) RATE: regular rate RHYTHM: regular rhythm Extremity: COMMON NORMALS: normal to inspection and full ROM Neuro: COMMON NORMALS: patient oriented x3, moves all extremities and no focal motor deficits Psych: COMMON NORMALS: mental status grossly normal, Normal thought process present and cooperative THOUGHT PROCESS: Normal thought process present Skin: COMMON NORMALS: no rashes or lesions noted and no wounds GENERAL SKIN EXAM: no rashes or lesions noted Course 2 Vital Signs: Vital signs: Vital Signs Pulse Rate 80 09/17/23 13:57 Blood Pressure 103/57 09/17/23 13:57 Pulse Oximetry 99 09/17/23 13:57 Oxygen Delivery Me thod Room Air 09/17/23 13:57 MDM - SOB/Dyspnea Medical Decision Making Patient presents for shortness of breath likely from his CHF he has no signs of pulmonary embolism or pneumonia he has been 99% here on room air he is to continue his Lasix follow-up with PCP along with cardiology return if worsening. Medical Records I reviewed the patient's medical records. Lab Data I reviewed the patient's lab results. 09/17/23 14:06 09/17/23 14:06 Labs/Radiology: Radiology Impressions Chest X-Ray 09/17/23 13:28 IMPRESSION: There is some similar pleural fluid at the lung bases left more so than right with underlying atelectasis. No interval lobar consolidation or cardiac decompensation is appreciated. No significant change of parenchymal aeration is appreciated. Laboratory Results WBC 3.58 10^3/uL (3.29-11.43) 09/17/23 14:06 RBC 4.03 10^6/uL (3.85-5.65) 09/17/23 14:06 Hgb 12.50 g/dL (11.27-16.99) 09/17/23 14:06 Hct 41.7 % (37-53) 09/17/23 14:06 MCV 103.5 fl (82-101) H 09/17/23 14:06 MCH 31.0 pg (27-33) 09/17/23 14:06 MCHC 30.0 g/dL (30-55) 09/17/23 14:06 RDW 14.4 % (12.1-15.1) 09/17/23 14:06 Plt Count 175 10^3/cmm (157-399) 09/17/23 14:06 MPV 9.6 fL (7.4-10.4) 09/17/23 14:06 Neut % (Auto) 70.6 % 09/17/23 14:06 Lymph % (Auto) 11.5 % 09/17/23 14:06 [place] % (Auto) 17.0 % 09/17/23 14:06 Eos % (Auto) 0.0 % 09/17/23 14:06 Baso % (Auto) 0.6 % 09/17/23 14:06 Neut # (Auto) 2.53 10^3/uL (1.8-7.7) 09/17/23 14:06 Lymph # (Auto) 0.4 10^3/uL (0.8-4.8) L 09/17/23 14:06 [place] # (Auto) 0.6 10^3/uL (0.2-0.9) 09/17/23 14:06 Eos # (Auto) 0.0 10^3/uL (0.0-0.8) 09/17/23 14:06 Baso # (Auto) 0.0 10^3/uL (0.0-0.1) 09/17/23 14:06 Nucleated RBC % (auto) 0 % 09/17/23 14:06 Nucleated RBCs # 0.0 /100WBC 09/17/23 14:06 PT 20.90 SECONDS (12.1-14.9) H 09/17/23 14:06 INR 1.73 (0.8-1.2) H 09/17/23 14:06 Sodium 133 mmol/L (136-145) L 09/17/23 14:06 Potassium 4.5 mmol/L (3.5-5.1) 09/17/23 14:06 Chloride 96 mmol/L (98-107) L 09/17/23 14:06 Carbon Dioxide 24 mmol/L (22-29) 09/17/23 14:06 Anion Gap 17.5 (5-19) 09/17/23 14:06 BUN 63 mg/dL (8-23) H 09/17/23 14:06 Creatinine 1.7 mg/dL (0.7-1.2) H 09/17/23 14:06 GFR Calculation Not Reportable 09/17/23 14:06 Glucose 86 mg/dL (65-115) 09/17/23 14:06 Calculated Osmolality 293 mOsm/kg (285-295) 09/17/23 14:06 Calcium 8.1 mg/dL (8.5-10.5) L 09/17/23 14:06 Total Bilirubin 0.3 mg/dL (0.15-1.2) 09/17/23 14:06 AST 40 U/L (0-40) 09/17/23 14:06 ALT 21 U/L (0-41) 09/17/23 14:06 Alkaline Phosphatase 176 U/L (40-130) H 09/17/23 14:06 Troponin T Baseline 126 ng/L (0-15) H* 09/17/23 14:06 Troponin T 120 Minute 118.4 ng/L (0-15) H 09/17/23 16:06 Delta Troponin T -7.6 ABS# (0-10) L 09/17/23 16:06 NT-Pro-B Natriuret Pep 68255 pg/mL (0-450) H 09/17/23 14:06 Total Protein 6.6 g/dL (6.6-8.7) 09/17/23 14:06 Albumin 3.2 g/dL (3.5-5.2) L 09/17/23 14:06 Globulin 3.4 g/dL (1.3-4.6) 09/17/23 14:06 All radiology interpretation(s) finalized by discharge Discharge Plan Discharge Patient Disposition: Home Clinical Impression: CHF exacerbation Condition: Stable Prescriptions: No Action rosuvastatin [Crestor] 40 mg tablet 40 mg PO DAILY Qty: 90 2RF Eliquis 2.5 mg tablet 2.5 mg PO BID Qty: 180 3RF Probiotic 15 billion cell Capsule 1 cap PO DAILY furosemide 40 mg tablet 20 mg PO DAILY metoprolol tartrate 25 mg tablet 12.5 mg PO DAILY Discharge Orders: Discharge ED (Routine); Ordered 09/17/23 Ordered By: Charity Mosley Referrals: Bryant Mendieta MD [Primary Care Provider] - 1-3 days Discharge Diet: Advance as tolerated Discharge Activity: Resume usual activity Patient Instructions: Heart Failure (ED) Coding Level of Care Code ED Doctor Of Naprapathy for Pelon Kay
[2023-09-17] MEDS: FUROsemide 40 mg Tablet PO (16:56)
[2023-09-17 17:07] VITALS: BP 146/76; PULSE 74; O2SAT 98
--- NOTE | 2023-09-17 19:28 | ECG_ITS ---
[facility] Test Date: 2023-09-17 Pat Name: Rogelio Taylor Department: Room: Gender: Male Ham Doctor: : 1940 Requested By: Charity Mosley Order Number: [id number] Libra MD: Esteban Navarro M.D. Measurements Intervals [place] Rate: 74 P: 0 RI: 0 QRS: 79 QRSD: 92 T: -32 QT: 436 QTc: 485 Interpretive Statements ATRIAL FIBRILLATION LOW QRS VOLTAGE IN EXTREMITY LEADS [QRS DEFLECTION < 0.5 mV IN LIMB LEADS] ANTEROSEPTAL MYOCARDIAL INFARCTION , OF INDETERMINATE AGE [40+ ms Q WAVE IN V1-V4] Compared to ECG 09/09/2023 17:13:32 Low QRS voltage now present T-wave abnormality no longer present Possible ischemia no longer present Myocardial infarct finding still present Electronically Signed On 09-17-2023 15:12:10 VOCATIONAL NURSING INSTRUCTOR by Esteban Navarro M.D. [id number]
== END 2023-09-17 17:08 | disposition home or self-care (01) ==
PROVIDERS: Emergency Provider Emergency Medicine; PCP Family Medicine
DX: I13.0 Hypertensive heart and chronic kidney disease with heart failure and stage 1 through stage 4 chronic kidney disease, or unspecified chronic kidney disease (principal); N18.30 Chronic kidney disease, stage 3 unspecified; I50.9 Heart failure, unspecified; Z79.01 Long term (current) use of anticoagulants; J44.9 Chronic obstructive pulmonary disease, unspecified; Z86.73 Personal history of transient ischemic attack (TIA), and cerebral infarction without residual deficits; E78.5 Hyperlipidemia, unspecified; I25.10 Atherosclerotic heart disease of native coronary artery without angina pectoris; Z85.72 Personal history of non-Hodgkin lymphomas; Z95.1 Presence of aortocoronary bypass graft
CPT/HCPCS: 71045; 80053; 83880; 84484; 85025; 85610; 93005; 99285

== ENCOUNTER 2023-09-18 13:04 | Observation (INO) | payer MEDICARE, SELFPAY ==
[2023-09-18] VITALS (18 sets, daily range): BP systolic 84–149; BP diastolic 39–94; PULSE 52–96; RESP 16–37; TEMP 36.6; O2SAT 78–98; BMI 20.1; BMI 17.0
--- NOTE | 2023-09-18 13:06 | XRR_ITS ---
PROCEDURE INFORMATION: Exam: XR Chest Exam date and time: 09/18/2023 1:50 PM Age: 83 years old Clinical indication: Other: Chest pain; Additional info: Cp TECHNIQUE: Imaging protocol: Radiologic exam of the chest. Views: 1 view. COMPARISON: CR XR chest 1V portable [id number] 09/17/2023 2:40 PM FINDINGS: Lungs: Compressive atelectasis in left base. Calcified granuloma in apical scarring right lung, with superior hilar retraction. Pleural spaces: Moderate left pleural effusion as previously. Small right pleural effusion. Heart/Mediastinum: Unremarkable. No cardiomegaly. Bones/joints: Previous median sternotomy. XR/XR chest 1V portable [id number] IMPRESSION: Unchanged examination.
--- NOTE | 2023-09-18 13:26 | ECG_ITS ---
[facility] Test Date: 2023-09-18 Pat Name: Rogelio Taylor Department: Room: Gender: Male Typing Pool Supervisor: : 1940 Requested By: Charity Mosley Order Number: [id number] Libra MD: Esteban Navarro M.D. Measurements Intervals [place] Rate: 61 P: 0 MN: 0 QRS: 133 QRSD: 101 T: 79 QT: 487 QTc: 494 Interpretive Statements ATRIAL FIBRILLATION Compared to ECG 09/17/2023 15:37:51 Myocardial infarct finding no longer present T-wave abnormality no longer present Possible ischemia no longer present Electronically Signed On 09-18-2023 14:55:19 CASE CONSULTANT by Esteban Navarro M.D. [id number] f
--- NOTE | 2023-09-18 13:37 | ED_ITS ---
HPI - General Adult 2 General: Chief complaint: General Medical Stated complaint: low b/p sent by dr nieto Time Seen by Provider: 09/18/23 13:07 Source: patient Mode of arrival: ambulatory Limitations: no limitations History of Present Illness: 83-year-old male with a history of aorti c stenosis along with CHF seen here yesterday was given 40 mg of Lasix here patient to follow-up with PCP and has been having increasing weakness he is hypotensive there kidney function was worsened and was sent here. He denies any chest pain has had some mild dyspnea states he just feels very weak Associated symptoms: Reports dyspnea; Deny chest pain, headache(s), nausea, rash or vomiting Review of Systems 2 Const: Reports: fatigue; Denies: fever(s) or chills ENMT: Denies: throat pain or dental pain Card: Denies: chest pain Resp: Reports: dyspnea GI: Denies: abdominal pain, nausea, vomiting or diarrhea Musc: Denies: neck pain or back pain Skin/Breast: Denies: rash Neuro: Denies: headache(s) PFSH ED 2 PFSH: Medical History COPD (chronic obstructive pulmonary disease) Heart failure with reduced ejection fraction Thrombus of left atrial appendage Pulmonary hypertension Heart failure with preserved ejection fraction Congestive heart failure Chronic kidney disease, stage III (moderate) Medication induced coagulopathy Hypertension Atrial fibrillation Cerebellar stroke Raynauds phenomenon BPH (benign prostatic hyperplasia) Dyslipidemia Coronary artery disease Lymphoma Surgical History H/O hernia repair Hx of tonsillectomy Hx of CABG Family History Mother Cancer Leukemia Father CAD (coronary artery disease) Diabetes Social History Smoking and tobacco/nicotine status: never used tobacco/nicotine Alcohol intake: never Substance/Drug Use: never Lives independently: Yes Household members: none Housing: House Number of children: 2 Current occupational status: previously employed Physical Exam 2 Const: COMMON NORMALS: no acute distress, patient oriented x3 and healthy appearing HENMT: COMMON NORMALS: normocephalic and atraumatic HEAD & SCALP: n ormocephalic and atraumatic Neck/C-Spine: COMMON NORMALS: full ROM and supple Chest: COMMONS NORMALS: normal inspection of the chest and normal palpation of entire chest wall Resp: COMMON NORMALS: normal respiratory effort, No retractions, No use of accessory muscles and clear to auscultation bilaterally AUSCULTATION: clear to auscultation bilaterally Cardio: COMMON NORMALS: regular rate, regular rhythm and No murmurs present (Cardio) RATE: regular rate RHYTHM: regular rhythm GI: COMMON NORMALS: Normal to inspection, nondistended, normoactive bowel sounds present, Soft to palpation, non-tender and no masses PALPATION: Yes Soft to palpation Extremity: COMMON NORMALS: normal to inspection and full ROM Neuro: COMMON NORMALS: patient oriented x3, moves all extremities and no focal motor deficits Psych: COMMON NORMALS: mental status grossly normal, Normal thought process present and cooperative THOUGHT PROCESS: Normal thought process present Skin: COMMON NORMALS: no rashes or lesions noted and no wounds GENERAL SKIN EXAM: no rashes or lesions noted Course 2 Vital Signs: Vital signs: Vital Signs Temperature 98 F 09/18/23 13:09 Pulse Rate 62 09/18/23 14:31 Respiratory Rate 22 H 09/18/23 14:31 Blood Pressure 91/39 09/18/23 14:31 Pulse Oximetry 98 09/18/23 14:31 Oxygen Delivery Me thod Room Air 09/18/23 13:09 [facility] - General Adult Medical Decision Making Patient presents here with dehydration with acute kidney injury patient denies any chest pain he is having some weakness here. I spoke to the hospitalist along with treasury representative and will admit at this time. Medical Records I reviewed the patient's medical records. Lab Data I reviewed the patient's lab results. 09/18/23 14:10 09/18/23 14:10 Radiology Impressions Chest X-Ray 09/18/23 13:06 IMPRESSION: Unchanged examination. Laboratory Results WBC 3.77 10^3/uL (3.29-11.43) 09/18/23 14:10 RBC 4.23 10^6/uL (3.85-5.65) 09/18/23 14:10 Hgb 13.20 g/dL (11.27-16.99) 09/18/23 14:10 Hct 42.9 % (37-53) 09/18/23 14:10 MCV 101.4 fl (82-101) H 09/18/23 14:10 MCH 31.2 pg (27-33) 09/18/23 14:10 MCHC 30.8 g/dL (30-55) 09/18/23 14:10 RDW 14.4 % (12.1-15.1) 09/18/23 14:10 Plt Count 159 10^3/cmm (157-399) 09/18/23 14:10 MPV 9.6 fL (7.4-10.4) 09/18/23 14:10 Neut % (Auto) 75.3 % 09/18/23 14:10 Lymph % (Auto) 9.0 % 09/18/23 14:10 [place] % (Auto) 14.9 % 09/18/23 14:10 Eos % (Auto) 0.0 % 09/18/23 14:10 Baso % (Auto) 0.5 % 09/18/23 14:10 Neut # (Auto) 2.84 10^3/uL (1.8-7.7) 09/18/23 14:10 Lymph # (Auto) 0.3 10^3/uL (0.8-4.8) L 09/18/23 14:10 [place] # (Auto) 0.6 10^3/uL (0.2-0.9) 09/18/23 14:10 Eos # (Auto) 0.0 10^3/uL (0.0-0.8) 09/18/23 14:10 Baso # (Auto) 0.0 10^3/uL (0.0-0.1) 09/18/23 14:10 Nucleated RBC % (auto) 0 % 09/18/23 14:10 Nucleated RBCs # 0.0 /100WBC 09/18/23 14:10 PT 24.10 SECONDS (12.1-14.9) H 09/18/23 14:10 INR 2.08 (0.8-1.2) H 09/18/23 14:10 Sodium 132 mmol/L (136-145) L 09/18/23 14:10 Potassium 5.3 mmol/L (3.5-5.1) H 09/18/23 14:10 Chloride 93 mmol/L (98-107) L 09/18/23 14:10 Carbon Dioxide 29 mmol/L (22-29) 09/18/23 14:10 Anion Gap 15.3 (5-19) 09/18/23 14:10 BUN 69 mg/dL (8-23) H 09/18/23 14:10 Creatinine 1.9 mg/dL (0.7-1.2) H 09/18/23 14:10 GFR Calculation Not Reportable 09/18/23 14:10 Glucose 87 mg/dL (65-115) 09/18/23 14:10 Calculated Osmolality 293 mOsm/kg (285-295) 09/18/23 14:10 Calcium 8.8 mg/dL (8.5-10.5) 09/18/23 14:10 Total Bilirubin 0.4 mg/dL (0.15-1.2) 09/18/23 14:10 AST 52 U/L (0-40) H 09/18/23 14:10 ALT 26 U/L (0-41) 09/18/23 14:10 Alkaline Phosphatase 210 U/L (40-130) H 09/18/23 14:10 Troponin T Baseline 154 ng/L (0-15) H* 09/18/23 14:10 NT-Pro-B Natriuret Pep 18508 pg/mL (0-450) H 09/18/23 14:10 Total Protein 7.3 g/dL (6.6-8.7) 09/18/23 14:10 Albumin 3.4 g/dL (3.5-5.2) L 09/18/23 14:10 Globulin 3.9 g/dL (1.3-4.6) 09/18/23 14:10 All radiology interpretation(s) finalized by discharge EKG Data EKG 1: I personally reviewed and interpreted this EKG as follows: EKG interpretation date: 09/18/23 EKG interpretation time: 13:26 Interpretation: afib hr [address] or t wave abnormalities qrs 101 qtc 491 Computer generated interpretation: Chest X-Ray 09/18/23 13:06 IMPRESSION: Unchanged examination. Discharge Plan Discharge Admit Provider: Frank Harper Condition: Stable Coding Level of Care Code ED Math And Science Instructor for Chg Fwdandy
[2023-09-18 14:21] LABS: Basophils % 0.5 %; Hematocrit 42.9 % (37-53); Lymphocytes # 0.3 10^3/uL (0.8-4.8); Mean Corpuscular HGB Conc 30.8 g/dL (30-55); Mean Corpuscular Hemoglobin 31.2 pg (27-33); Mean Corpuscular Volume 101.4 fl (82-101); Mean Platelet Volume 9.6 fL (7.4-10.4); Monocytes # 0.6 10^3/uL (0.2-0.9); Monocytes % 14.9 %; Neutrophils # 2.84 10^3/uL (1.8-7.7); Neutrophils % 75.3 %; Nucleated Red Blood Cells % 0 %; Platelet Count 159 10^3/cmm (157-399); Red Blood Count 4.23 10^6/uL (3.85-5.65); Red Cell Distribution Width 14.4 % (12.1-15.1); White Blood Count 3.77 10^3/uL (3.29-11.43)
[2023-09-18 14:32] LABS: INR 2.08 (0.8-1.2)
[2023-09-18 14:42] LABS: Troponin(5th) Baseline 154 ng/L (0-15)
[2023-09-18 14:55] LABS: Alanine Aminotransferase 26 U/L (0-41); Albumin Level 3.4 g/dL (3.5-5.2); Alkaline Phosphatase 210 U/L (40-130); Blood Urea Nitrogen 69 mg/dL (8-23); Calcium 8.8 mg/dL (8.5-10.5); Carbon Dioxide 29 mmol/L (22-29); Chloride 93 mmol/L (98-107); Globulin 3.9 g/dL (1.3-4.6); Glucose 87 mg/dL (65-115); Osmolality Calculated 293 mOsm/kg (285-295); Sodium 132 mmol/L (136-145); Total Bilirubin 0.4 mg/dL (0.15-1.2); Total Protein 7.3 g/dL (6.6-8.7)
[2023-09-18 14:56] LABS: Anion Gap 15.3 (5-19); Aspartate Amino Transferase 52 U/L (0-40); Potassium 5.3 mmol/L (3.5-5.1)
[2023-09-18] MEDS: sodium chloride 0.9% 500 ML 999 ML IV (15:05)
--- NOTE | 2023-09-18 15:25 | ECG_ITS ---
[facility] Test Date: 2023-09-18 Pat Name: Rogelio Taylor Department: Room: Gender: Male Tree Wrapper: : 1940 Requested By: Charity Mosley Order Number: [id number] Libra MD: Esteban Navarro M.D. Measurements Intervals [place] Rate: 65 P: 0 ME: 0 QRS: 71 QRSD: 112 T: 16 QT: 486 QTc: 508 Interpretive Statements ATRIAL FIBRILLATION MODERATE INTRAVENTRICULAR CONDUCTION DELAY [110+ ms QRS DURATION] ST DEVIATION AND MODERATE T-WAVE ABNORMALITY, CONSIDER ANTERIOR ISCHEMIA [-0.1+ mV T-WAVE IN V3/V4] Compared to ECG 09/18/2023 13:26:09 Intraventricular conduction delay now present T-wave abnormality now present Possible ischemia now present Electronically Signed On 09-18-2023 15:40:08 INSURANCE ASSISTANT by Esteban Navarro M.D. [id number]
[2023-09-18] MEDS: albumin 12.5 GM/50 ML VIAL IV (15:56)
[2023-09-18 17:05] LABS: Troponin 5 2HR 138.3 ng/L (0-15); Troponin 5 2HR Delta -15.7 ABS# (0-10)
--- NOTE | 2023-09-18 17:36 | P.HP_ITS ---
Providers/Chief Complaint 2 Admitting Physician: Frank Harper Primary Care Provider: Bryant Mendieta MD Chief Complaint: low b/p sent by dr mendieta History of Present Illness Rogelio Taylor is a 83 year oldxor-nuxl-tht man with history of low gradient critical aortic stenosis, CAD, history CABG, diastolic CHF, severe pulmonary hypertension, atrial fibrillation on anticoagulation with Eliquis, chronic loculated left sided pleural effusion following hemothorax, other medical problems recently with difficulties with diuresis due to soft blood pressures, as well as overall worsened renal function, hospitalized with finding of progression of aortic stenosis to low gradient critical from previously known moderate, with congestive heart failure, also with worsening renal function with RAY on CKD, his volume status was optimized, renal function showed improvement, he was seen and assessed by cardiology with plans for further assessment with coronary angiography and referral for aortic valve replacement. Came into the ER yesterday with worsening shortness of breath, found to have peripheral edema that was worse, received a dose of Lasix, he returns to the hospital today due to worsening fatigue, in ER found to have hypotension, BP as low as 84/45. Again some worsening renal function from creatinine 1.7 yesterday up to 1.9 today. Review of Systems 2 Const: Reports: fatigue; Denies: fever(s), chills, body aches or malaise ENMT: Denies: throat pain Card: Denies: chest pain, edema, pre-syncope or dyspnea on exertion Resp: Denies: dyspnea, productive cough, change in phlegm color or hemoptysis GI: Denies: abdominal pain, nausea, vomiting, diarrhea, constipation, hematochezia or melena : Denies: flank pain, difficulty urinating, urinary frequency or hematuria Musc: Denies: back pain, joint swelling or joint redness Skin/Breast: Denies: rash or new lesions Medications/Allergies Home Medications Medication Instructions Recorded Confirmed Last Taken Type Lactobacillus acidophilus and 1 cap PO DAILY 07/09/22 09/18/23 09/18/23 History rhamnosus 15 billion cell capsule (Probiotic) rosuvastatin 40 mg tablet (Crestor) 40 mg PO DAILY #90 tabs 12/11/22 09/18/23 09/17/23 Rx apixaban 2.5 mg tablet (Eliquis) 2.5 mg PO BID #180 tabs 07/13/23 09/18/23 09/18/23 Rx furosemide 40 mg tablet 20 mg PO DAILY 09/17/23 09/18/23 09/18/23 History metoprolol tartrate 25 mg tablet 12.5 mg PO DAILY 09/17/23 09/18/23 09/18/23 History Allergies Allergy/AdvReac Type Severity Reaction Status Date / Time fluticasone Allergy ALGY-Bliste Verified 09/18/23 15:25 [From Advair Diskus] r Penicillins Allergy ALGY-Rash Verified 09/18/23 15:25 ramipril [From Altace] Allergy ALGY-Swell Verified 09/18/23 15:25 Lip/Tongue/Throat salmeterol Allergy ALGY-Bliste Verified 09/18/23 15:25 [From Advair Diskus] r tiotropium Allergy ALGY-Bliste Verified 09/18/23 15:25 [From Spiriva with r HandiHaler] PFSH Acute 2 PFSH: Medical History COPD (chronic obstructive pulmonary disease) Heart failure with reduced ejection fraction Thrombus of left atrial appendage Pulmonary hypertension Heart failure with preserved ejection fraction Congestive heart failure Chronic kidney disease, stage III (moderate) Medication induced coagulopathy Hypertension Atrial fibrillation Cerebellar stroke Raynauds phenomenon BPH (benign prostatic hyperplasia) Dyslipidemia Coronary artery disease Lymphoma Surgical History H/O hernia repair Hx of tonsillectomy Hx of CABG Family History Mother Cancer Leukemia Father CAD (coronary artery disease) Diabetes Social History Smoking and tobacco/nicotine status: never used tobacco/nicotine Alcohol intake: never Substance/Drug Use: never Lives independently: Yes Household members: none Housing: House Number of children: 2 Current occupational status: previously employed Vitals/I&O/Wt Last Vital Signs Temp 98 F 09/18/23 13:09 Pulse 59 L 09/18/23 16:38 Resp 21 H 09/18/23 16:38 BP 98/54 12/29/23 16:38 Pulse Ox 93 09/18/23 16:38 O2 Del Method Room Air 09/18/23 17:09 09/18/23 09/18/23 09/18/23 06:59 14:59 22:59 Intake Total 550 / 550 Balance 550 / 550 Weight last 48 hrs Weight 49.895 kg Physical Exam 2 Narrative: Accompanied by his ex- and daughter. Const: COMMON NORMALS: patient oriented x3 and alert GENERAL APPEARANCE: c ooperative ORIENTATION/CONSCIOUSNESS: Yes awake HENMT: COMMON NORMALS: oropharynx normal Neck/C-Spine: COMMON NORMALS: no JVD Resp: COMMON NORMALS: normal respiratory effort and clear to auscultation bilaterally AUSCULTATION: clear to auscultation bilaterally Cardio: COMMON NORMALS: no JVD, regular rhythm, S1 normal heart sound present and S2 normal heart sound present RHYTHM: regular rhythm HEART SOUNDS: S1 normal heart sound present, S2 normal heart sound present and Murmur heart sound present systolic GI: COMMON NORMALS: Normal to inspection, nondistended, normoactive bowel sounds present, Soft to palpation and non-tender PALPATION: Yes Soft to palpation Extremity: COMMON NORMALS: no joint enlargement and no pedal edema OTHER: 1+ edema left lower extremity. Neuro: COMMON NORMALS: patient oriented x3 and moves all extremities S ENSORIUM/ORIENTATION: Yes alert Skin: COMMON NORMALS: no rashes or lesions noted GENERAL SKIN EXAM: no rashes or lesions noted Data 09/18/23 14:10 09/18/23 14:10 A&P Assessment and plan (1) Hypotension: Possible cardiogenic shock with symptomatic severe low gradient aortic stenosis, mild aortic regurgitation additional comorbidities with decompensated congestive heart failure yesterday. Presented with fatigue, in ER found hypotensive blood pressure 84/45. Discussed with ER physician, ER documentation reviewed, reviewed vitals, CBC, INR, CMP. Reviewed most recent cardiology note. Noted some worsening renal function from yesterday, creatinine from 1.7-1.9. BUN from 63 up to 69. Some hyperkalemia, potassium 5.3. Received Lasix yesterday due to worsening shortness of breath, lower extremity edema. Very narrow therapeutic window. Risk of hypotension with severe low gradient aortic stenosis also with mild regurgitation. Risk of congestive heart failure with grade 3 diastolic dysfunction, mild to moderate mitral regurgitation. Severe pulmonary hypertension. High risk of complication. Discussed with him and family. On discussion with ER physician given 25g, 25% albumin, looks like he also received 500 mL fluid bolus. Blood pressure so far with improvement. Some worsening oxygenation noted, saturations down into the 80s. Hold off any further volume resuscitation. Monitor blood pressures. Monitor oxygenation, at risk of congestive heart failure decompensation. He has been overall having significant functional decline. Cardiology has been consulted, will be seeing him as well. There have been arrangements for further preparation and referral for aortic valve replacement. Challenging situation as he may not be a candidate for TAVR, likely needing open heart surgery which certainly would pose risks. Plan Hyperkalemia: Low potassium diet. Follow-up chemistry. Risk of arrhythmia. Monitor on telemetry. Troponin elevation: History of troponin 129-126, today 154, with some worsening renal function. Additionally hypotension, do suspect component of demand ischemia. He does not have chest pain. Does need additional assessment for underlying coronary artery disease plus minus revascularization although this has been difficult due to worsening in renal function. She is at risk of renal failure, in addition to contrast nephropathy, discussed with him which could contribute to renal failure, risk hemodialysis. Although he may be at risk of renal failure regardless given decreasing cardiac output, episodes of hypotension. Certainly a challenging situation. RAY on CKD: As above. Recently evaluated with ultrasound, no obstruction noted. Episodes of hypotension, low cardiac output likely contributing. Received fluid challenge in ER, so far blood pressure with improvement. Monitor. Hold additional diuretic for now. Left lower extremity edema: Edema worse in left lower extremity compared to right, he reports this is chronic. Last admission he was evaluated with venous duplex which was negative for DVT. COPD: Not currently in exacerbation. DuoNebs as needed. Atrial fibrillation: Continue Eliquis, resume metoprolol in the morning if no further drops in blood pressure. Check magnesium. Reviewed chemistry. Monitor on telemetry. CKD stage III Severe pulmonary hypertension: Monitor oxygenation. CAD: Continue Eliquis, statin, resume metoprolol when able. Attestations 2 Medical Necessity Statement*: Place in observation for additional assessment management of hypotension in the setting of severe low-gradient aortic stenosis, mild aortic regurgitation and other valvular heart disease, recently decompensated congestive heart failure, RAY on CKD, worsening troponin elevation, and additional comorbidities as above. Diagnoses Hypotension I95.9
--- NOTE | 2023-09-18 20:53 | ECG_ITS ---
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 Measurements Intervals [place] Rate: 72 P: 0 LA: 0 QRS: 80 QRSD: 105 T: 12 QT: 452 QTc: 497 Interpretive Statements ATRIAL FIBRILLATION ST DEVIATION AND MODERATE T-WAVE ABNORMALITY, CONSIDER ANTERIOR ISCHEMIA [-0.1+ mV T-WAVE IN V3/V4] Compared to ECG 09/18/2023 15:25:00 Intraventricular conduction delay no longer present T-wave abnormality still present Possible ischemia still present Electronically Signed On 09-19-2023 13:34:26 INFORMATION LEAD by Esteban Navarro M.D. [id number]
[2023-09-18 21:12] LABS: Troponin 5 6HR 131.5 ng/L (0-15); Troponin 5 6HR Delta -22.5 ng/L (0-12)
[2023-09-18] MEDS: diphenhydrAMINE 25 mg Capsule PO (23:12)
[2023-09-19] VITALS: BP 105/61; PULSE 66; RESP 26; TEMP 36.6
[2023-09-19] MEDS: ALPRAZolam 0.5 mg Tablet 0.25 MG PO (01:38)
--- NOTE | 2023-09-19 02:46 | PC.NURSE ---
Observed on telemetry at 0212 alarm for asystole. Went to check on patient and observed patient not breathing. No pulse felt. Code Blue was called. MD and code team arrived immediately. Patient in PEA at time of arrival. Patient is a limited code. Epinephrine given at 0219 with atropine given at 0220. Patient remained in PEA. Dr Alegre called TOD at 0218. Family notified.
--- NOTE | 2023-09-19 03:00 | P.MISC_ITS ---
Miscellaneous Note Purpose of Documentation: SINDHU JEANETH was called at 2:18 AM after patient developed asystole. There were no immediate preceding complaints or events. On telemetry patient was noted to have bradycardia down to 13 bpm followed immediately after by asystole. SINDHU JEANETH was called. At the time of arrival in the room, asystole noted on monitor. No visible respirations. Patient has no palpable pulse. Pupils are bilaterally fixed and dilated. There are no corneal reflexes. Bag and mask ventilation by RT was ongoing, patient received 1 dose of epinephrine and 1 dose of atropine. Monitor continued to show asystole. Patient's CODE STATUS reviewed. Listed as limited resuscitation with interven tions limited only to mechanical ventilation in case of respiratory failure with hopes to recover and defibrillation. Reviewed prior CODE STATUS going back to 2021 which were also with limited resuscitation with similar directions and DNR/DNI. Asystole is not a shockable rhythm, therefore no defibrillation pursued. No chest compressions were initiated in keeping with his advanced directives. Patient was declared having on 09/19/2023 at 2:18 AM.
--- NOTE | 2023-09-19 09:23 | P.CONIM_ITS ---
Providers/Reason For Consult 2 Consulting Physician/Specialty*: Esteban Navarro MD/ Cardiology Reason for Consult*: Aortic stenosis Requesting Physician: Dr Mosley Attending Physician: Frank Harper Primary Care Provider: Bryant Mendieta MD History of Present Illness History of Present Illness (Please consider this note for 09/18/2023, when patient was seen with family present, however note was missed) Rogelio Taylor is a 83 year old male who is very frail with past medical history of CAD s/p CABG several years ago, atrial fibrillation, severe aortic stenosis who was recently discharged home from the hospital. He came to ER yesterday with some volume overload. He was given a dose of Lasix and was discharged home. He came back today with extreme weakness. Was hypotensive. Creatinine had worsened slightly. With fluid resuscitation he is feeling better. He has dyspnea on exertion. Review of Systems 2 Const: Reports: fatigue; Denies: fever(s) or chills ENMT: Denies: throat pain or dental pain Card: Denies: chest pain Resp: Reports: dyspnea GI: Denies: abdominal pain, nausea, vomiting or diarrhea Musc: Denies: neck pain or back pain Skin/Breast: Denies: rash Neuro: Denies: headache(s) Medications/Allergies Home Medications Medication Instructions Recorded Confirmed Last Taken Type Lactobacillus acidophilus and 1 cap PO DAILY 07/09/22 09/18/23 09/18/23 History rhamnosus 15 billion cell capsule (Probiotic) rosuvastatin 40 mg tablet (Crestor) 40 mg PO DAILY #90 tabs 12/11/22 09/18/23 09/17/23 Rx apixaban 2.5 mg tablet (Eliquis) 2.5 mg PO BID #180 tabs 07/13/23 09/18/23 09/18/23 Rx furosemide 40 mg tablet 20 mg PO DAILY 09/17/23 09/18/23 09/18/23 History metoprolol tartrate 25 mg tablet 12.5 mg PO DAILY 09/17/23 09/18/23 09/18/23 History Allergies Allergy/AdvReac Type Severity Reaction Status Date / Time fluticasone Allergy ALGY-Bliste Verified 09/18/23 15:25 [From Advair Diskus] r Penicillins Allergy ALGY-Rash Verified 09/18/23 15:25 ramipril [From Altace] Allergy ALGY-Swell Verified 09/18/23 15:25 Lip/Tongue/Throat salmeterol Allergy ALGY-Bliste Verified 09/18/23 15:25 [From Advair Diskus] r tiotropium Allergy ALGY-Bliste Verified 09/18/23 15:25 [From Spiriva with r HandiHaler] PFSH Acute 2 PFSH: Medical History COPD (chronic obstructive pulmonary disease) Heart failure with reduced ejection fraction Thrombus of left atrial appendage Pulmonary hypertension Heart failure with preserved ejection fraction Congestive heart failure Chronic kidney disease, stage III (moderate) Medication induced coagulopathy Hypertension Atrial fibrillation Cerebellar stroke Raynauds phenomenon BPH (benign prostatic hyperplasia) Dyslipidemia Coronary artery disease Lymphoma Surgical History H/O hernia repair Hx of tonsillectomy Hx of CABG Family History Mother Cancer Leukemia Father CAD (coronary artery disease) Diabetes Social History Smoking and tobacco/nicotine status: never used tobacco/nicotine Alcohol intake: never Substance/Drug Use: never Lives independently: Yes Household members: none Housing: House Number of children: 2 Current occupational status: previously employed Vitals/I&O/Wt Last Vital Signs Temp 97.8 F 09/19/23 00:00 Pulse 66 09/19/23 00:00 Resp 26 H 09/19/23 00:00 BP 105/61 09/19/23 00:00 Pulse Ox 98 09/18/23 20:10 O2 Del Method Room Air 09/18/23 20:10 09/18/23 09/19/23 09/19/23 22:59 06:59 14:59 Intake Total 550 / 550 Balance 550 / 550 Weight last 48 hrs Weight 93 lb 3 oz Weight 105 lb Weight 110 lb Physical Exam 2 Narrative: GENERAL: Patient is alert, awake and oriented x3. [] NECK: No jugular vein distension. [] HEENT: No cyanosis. No icterus. No pallor. [] HEART: Regular S1 and S2.Grade 3/6 systolic murmur LUNGS: Clear to auscultate bilaterally. [] CENTRAL NERVOUS SYSTEM: Grossly nonfocal. [] EXTREMITIES: Lower extremities with 1+ edema bilaterally. Data 09/18/23 14:10 09/18/23 14:10 A&P Assessment and plan (1) Critical aortic valve stenosis: (2) Acute on chronic diastolic (congestive) heart failure: (3) Chronic atrial fibrillation: (4) Atherosclerotic heart disease of [place] coronary artery with other forms of angina pectoris: (5) Hypertension: Qualifiers: Hypertension type: primary hypertension Qualified Code(s): I10 - Essential (primary) hypertension (6) COPD (chronic obstructive pulmonary disease): Qualifiers: COPD type: unspecified COPD Qualified Code(s): J44.9 - Chronic obstructive pulmonary disease, unspecified (7) Chronic kidney disease, stage III (moderate): Qualifiers: Chronic kidney disease stage 3 subtype: stage 3a (GFR 45-59) Qualified Code(s): N18.31 - Chronic kidney disease, stage 3a Plan Patient is very frail and has multiple comorbid conditions. I had a detailed discussion today regarding further management options. Patient's daughter and family was at bedside. We discussed the options of proceeding with workup for TAVR however will need his renal function to be stable. We discussed that although TAVR is less risky than open surgery however given his comorbid conditions and frailty he is at high risk of complications. He understands that. For now gentle IV hydration. Monitor renal function. Once he is more stable, we will proceed with right and left heart cath and aortic valve study. Will then be referred for valve replacement. In any case his prognosis is very guarded as aortic stenosis is not solely responsible for his symptoms and multiple medial problems. Hospice consideration is also appropriate. Thank you for involving us with care of this patient. We will continue to follow. Please call with quesitons. Consult Attestations 2 Medical Necessity Statement: Care expected to cross 2 midnights. Coding Level of Care Code Acute Code for g Fwd Diagnoses Critical aortic valve stenosis I35.0 Acute on chronic diastolic (congestive) heart failure I50.33 Chronic atrial fibrillation I48.20 Atherosclerotic heart disease of [place] coronary artery with other forms of angina pectoris I25.118 Primary hypertension I10 Hypertension type: primary hypertension Chronic obstructive pulmonary disease, unspecified COPD type J44.9 COPD type: unspecified COPD Stage 3a chronic kidney disease N18.31 Chronic kidney disease stage 3 subtype: stage 3a (GFR 45-59)
--- NOTE | 2023-09-19 22:57 | P.DES_ITS ---
Discharge Providers DDS Date of Admission: 09/18/23 15:11 Date Summary Completed: 09/19/23 Attending Provider at Admission: Frank Harper Time of : 02:18 Attending Provider at Discharge: Frank Harper Primary Care Provider: Bryant Mendieta MD DS Diagnoses Hospital Diagnoses (1) Hypotension: Reason for Visit Reason for Visit low b/p sent by dr mendieta Brief History: Rogelio Taylor is a 83 year oldxwz-fvzq-cvf man with history of low gradient critical aortic stenosis, CAD, history CABG, diastolic CHF, severe pulmonary hypertension, atrial fibrillation on anticoagulation with Eliquis, chronic loculated left sided pleural effusion following hemothorax, other medical problems recently with difficulties with diuresis due to soft blood pressures, as well as overall worsened renal function, hospitalized with finding of progression of aortic stenosis to low gradient critical from previously known moderate, with congestive heart failure, also with worsening renal function with RAY on CKD, his volume status was optimized, renal function showed improvement, he was seen and assessed by cardiology with plans for further assessment with coronary angiography and referral for aortic valve replacement. Came into ER day prior to hospitalization with worsening shortness of breath, decompensation of CHF, found to have peripheral edema that was worse, received a dose of Lasix, he returned to the hospital due to worsening fatigue, in ER found to have hypotension, BP as low as 84/45. Again some worsening renal function from creatinine 1.7 to 1.9. Summary Date and Time of Date of : 09/19/23 Time of : 02:18 Summary Summary: He had received albumin infusion and a small fluid bolus in ER for hypotension with improvement in blood pressure and improvement in symptoms of fatigue. Moderate troponin elevation with flat trend with demand ischemia with hemodynamic changes. Had no chest pain. Monitoring was initiated on cardiac stepdown unit pending further reassessment of volume status, renal function, additional diuretic held pending reassessment, was further revisited by cardiology with regards to consideration of coronary angiography workup in preparation for referral for aortic valve replacement. Overall difficult situation due to his frailty, labile renal function, risk of renal failure, labile blood pressures, lack of strong evidence for TAVR with the presence of aortic regurgitation, but also poor candidate for open replacement, overall not a good prognosis, other options discussed with him and his family with cardiology, with further plans depending on his condition. Late that night/early years teacher of 09/19 at 2:12 AM found to be in asystole on telemetry, and upon checking on him had no respirations or pulse. SINDHU JEANETH was called, he received bag mask ventilation, epinephrine and atropine, without response, with limited resuscitation wishes previously expressed by him chest compressions were not initiated. With pupils fixed and dilated, no corneal reflexes, without response or return of respiration or pulse time of was declared at 2:18 AM. His family was notified of the events and of his passing. Discharge Plan Discharge Patient Disposition: Condition: Stable Prescriptions: No Action rosuvastatin [Crestor] 40 mg tablet 40 mg PO DAILY Qty: 90 2RF Eliquis 2.5 mg tablet 2.5 mg PO BID Qty: 180 3RF Probiotic 15 billion cell Capsule 1 cap PO DAILY furosemide 40 mg tablet 20 mg PO DAILY metoprolol tartrate 25 mg tablet 12.5 mg PO DAILY Referrals: Bryant Mendieta MD [Primary Care Provider] - Patient Instructions: Opioid Safety Probable Cause of Probable cause of : Cardiac arrest DS Attestations Time Spent in /Discharge Care*: greater than 30 min Quality - AMI: AMI present?: No Quality - Stroke: CVA present?: No Symptom Onset Unknown: No Quality - VTE: VTE present?: No Deep Vein Thrombosis/Pulmonary Embolism Present on Admission: No Coding Level of Care Code 51414 Total time (in minutes) for Discharge: 45 Diagnoses Hypotension I95.9
== END 2023-09-19 04:33 | disposition expired ==
LOC: ER 13:52 → CSU 16:18
PROVIDERS: Admitting Provider Internal Medicine; Emergency Provider Emergency Medicine; PCP Family Medicine; Visit Provider Internal Medicine
DX: I95.9 Hypotension, unspecified (principal); I35.0 Nonrheumatic aortic (valve) stenosis; Z95.1 Presence of aortocoronary bypass graft; I25.118 Atherosclerotic heart disease of native coronary artery with other forms of angina pectoris; I27.20 Pulmonary hypertension, unspecified; I48.20 Chronic atrial fibrillation, unspecified; Z79.01 Long term (current) use of anticoagulants; I50.30 Unspecified diastolic (congestive) heart failure; I13.0 Hypertensive heart and chronic kidney disease with heart failure and stage 1 through stage 4 chronic kidney disease, or unspecified chronic kidney disease; N18.30 Chronic kidney disease, stage 3 unspecified; N40.0 Benign prostatic hyperplasia without lower urinary tract symptoms; E78.5 Hyperlipidemia, unspecified; J44.9 Chronic obstructive pulmonary disease, unspecified; Z66 Do not resuscitate; E87.5 Hyperkalemia; N17.9 Acute kidney failure, unspecified
CPT/HCPCS: 36415; 71045; 80053; 83880; 84484; 85025; 85610; 93005; 96365; 99285; G0378; J0171; J0461; J7040; P9047